=== PATIENT | male | born 1945 | race Caucasian/White ===

== ENCOUNTER 2020-08-23 08:07 | Inpatient (IN) | payer MEDICARE, OTHER, SELFPAY ==
[2020-08-23] VITALS (8 sets, daily range): BP systolic 151–180; BP diastolic 67–130; PULSE 62–75; RESP 12–20; TEMP 36–36.9; O2SAT 95–99; BMI 21.6
--- NOTE | ~2020-08-23 | CT_ITS ---
EXAMINATION: CHEST X-RAY CLINICAL INFORMATION: Stroke like symptoms COMPARISON: Previous chest x-ray June 2014 TECHNIQUE: AP chest FINDINGS: The cardiac and mediastinal contours are normal. The lungs are clear. There is no pleural effusion or pneumothorax. There are degenerative changes at the shoulder joints. Bony structures are otherwise unremarkable. CT/CT head for stroke IMPRESSION: No evidence for acute disease in the chest. EXAMINATION: Head CT without contrast CLINICAL INFORMATION: Stroke. Left-sided weakness. COMPARISON: Previous head CT 08/12/2019 TECHNIQUE: Axial images through the brain without contrast. Sagittal and coronal reconstructed on the technologist workstation were performed. Patient dose 6 4 3 mgy per centimeter. FINDINGS: There is no evidence of an extra-axial collection. There is no evidence of intra-axial or extra-axial hemorrhage. The ventricles and extra-axial CSF spaces are appropriate. There is mild nonspecific periventricular white matter disease. No mass, mass effect or infarct is seen. Review at bone windows is normal. No skull fracture is seen. Visualized paranasal sinuses, mastoid air cells and middle ears are clear. IMPRESSION: No acute findings. Mild nonspecific periventricular white matter disease. Findings are communicated to Dr. Green by telephone on 08/23/2020 at 8:30 AM.
--- NOTE | ~2020-08-23 | CT_ITS ---
EXAMINATION: CT angio head neck stroke CLINICAL INFORMATION: Left-sided deficits. COMPARISON: CT scan of the head 08/23/2020. 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 A CT angiogram of the head and neck was performed in the arterial phase after the intravenous administration of 70 mL Omnipaque 350. Pre and delayed postcontrast images of the head were also obtained. MIP reconstructions were generated in multiple orientations at the acquisition workstation. Multiple three-dimensional surface rendered images and maximum intensity projection images were generated on a dedicated 3-D lab workstation. Arterial stenoses are measured in accordance with NASCET criteria or similar method if applicable. This CT examination was performed using dose optimization techniques as appropriate, including one or more of the following: Automated exposure control, iterative reconstruction, and adjustment of technique factors (mA and/or kVp) according to patient size (this includes techniques or standardized protocols for targeted exams where dose is matched to indication/reason for exam). Total exam dose-length product 1466 mGy-cm FINDINGS: Head: There is no abnormal intracranial mass or enhancement. No abnormal extra axial collection. No intracranial mass effect or midline shift. Lateral and third ventricles are normal. No hydrocephalus. A few scattered nonspecific foci of hypoattenuation are visualized within the periventricular white matter. Carranza-white matter differentiation is otherwise preserved and there is no evidence of acute territorial infarct. The calvarium and skull base are intact. Mastoid air cells and middle ear cavities are well aerated. Mild mucosal thickening within the right maxillary sinus and ethmoid air cells. CT angiogram neck: Scattered atheromatous calcification involves the aortic arch apex. Origins of major aortic branches are widely patent. Common carotid arteries are normal. Partially calcified atheromatous plaque involves both carotid bifurcations. No stenosis of the extra cranial internal carotid arteries. Cervical segments of the vertebral arteries as well as their origins are patent. CT angiogram head: Intracranial internal carotid arteries are patent. There is a small laterally projecting contour abnormality involving the cavernous segment of the left internal carotid artery best depicted on axial image 268 of [id number] series 6 measuring 1 mm from base apex that may represent a small plaque ulceration or shallow aneurysm. Intradural vertebral artery segments and basilar artery are patent. Anterior, middle, and posterior cerebral artery complexes are normal. No high-grade stenosis or proximal occlusion is visualized within the intracranial vessels. Other: Soft tissues of the neck including the thyroid gland are normal. Visualized lung apices are clear. There is no acute osseous finding. CT/CT angio head neck stroke IMPRESSION: Partially calcified atheromatous plaque involves both carotid bifurcations. No stenosis of the cervical carotid or vertebral arteries. No intracranial large vessel occlusion. There is a small laterally projecting contour abnormality involving the cavernous segment of left internal carotid artery measuring 1 mm from base apex that may either represent a plaque ulceration or a shallow aneurysm. There are a few scattered chronic small vessel ischemic changes within the periventricular white matter. No evidence of acute territorial infarct. No abnormal intracranial mass or enhancement. This critical result was discussed with Lorie Vaughn MD at 8:59 AM on 08/23/2020 and it was ascertained that the content and urgency of the report was understood at the time of direct communication.
--- NOTE | ~2020-08-23 | MR_ITS ---
EXAMINATION: MR BRAIN WITHOUT CONTRAST CLINICAL INFORMATION: Transient ischemic attack. Stroke. COMPARISON: CTA head and neck from 08/23/2020. TECHNIQUE: MRI of the brain was obtained using routine sequences without contrast. FINDINGS: Patchy regions of restricted diffusion in the right mesial temporal lobe and right lentiform nucleus consistent with acute ischemia. Associated T2 FLAIR hyperintensity. No additional focal restricted diffusion. No evidence of acute or chronic hemorrhagic products on heme-sensitive imaging. Scattered periventricular and deep white matter T2 FLAIR hyperintensities consistent with moderate underlying microangiopathy. Chronic lacunar infarcts within the left cerebellar hemisphere. Proportional prominence of the ventricles and sulcal spaces without evidence of obstructive hydrocephalus. No abnormal mass effect. No midline shift. Normal appearance of the pituitary gland. No abnormalities of the posterior fossa with normal appearance of the brainstem and cerebellum. Normal arterial and venous vascular flow voids are present. Normal, homogeneous marrow signal. Moderate degenerative spondyloarthropathy of the visualized upper cervical spine. Mild mucosal thickening of the paranasal sinuses. Right maxillary atelectasis. Leftward nasal septal deviation with spurring. MR/MR head/brain wo con IMPRESSION: 1. Patchy acute infarcts within the right mesial temporal lobe and right lentiform nucleus. 2. Moderate underlying microangiopathy. Chronic lacunar infarcts of the left cerebellar hemisphere. Mild generalized cerebral volume loss.
--- NOTE | 2020-08-23 08:11 | ED.NEUROSD ---
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 Mode of arrival: ambulatory Limitations: no limitations History of Present Illness HPI Narrative: 75 yo male with hx of HTN, HLD, DM here with L sided weakness, slurred speech, dizziness last known normal yesterday but notes he was dizzy yesterday at 3am woke up and noted his entire L side was weak and he had difficulty speaking, his states he fell on the floor, she begged him to come to the ED but he refused until his son spoke to him this AM Onset (ago): hour(s) (woke up at 3am with symptoms, last seen normal yesterday) Timing confirmed by: family member Location: speech, left face, left arm, left leg and ataxia History of same: No Severity: severe Quality: weak and constant Relieving factors: none Exacerbating factors: none Context: sudden onset On Anticoagulants: No Associated symptoms: weakness and other (dizziness, blurred vision) Treatments Prior to Arrival: none Related Data Home Medications Medication Instructions Recorded Confirmed aspirin 1 tab PO DAILY 08/23/20 08/23/20 cyanocobalamin (vitamin B-12) 1 tab PO DAILY 08/23/20 08/23/20 duloxetine 1 cap PO DAILY 08/23/20 08/23/20 famotidine [Pepcid AC] 20 mg PO DAILY PRN 08/23/20 08/23/20 ferrous sulfate 1 tab PO DAILY 08/23/20 08/23/20 glipizide 1 tab PO DAILY 08/23/20 08/23/20 lidocaine 1 - 2 patch TOPICAL DAILY PRN 08/23/20 08/23/20 lidocaine-prilocaine 1 appl TOPICAL BID PRN 08/23/20 08/23/20 linaclotide [Linzess] 1 cap PO QAM 08/23/20 08/23/20 losartan 1 tab PO DAILY 08/23/20 08/23/20 metformin 1 tab PO BID 08/23/20 08/23/20 olopatadine 1 drp OPHTHALMIC (EYE) BID PRN 08/23/20 08/23/20 omega-3 acid ethyl esters 1 cap PO BID 08/23/20 08/23/20 simvastatin 1 tab PO BEDTIME 08/23/20 08/23/20 sitagliptin [Januvia] 1 tab PO DAILY 08/23/20 08/23/20 trazodone 0.5 tab PO DAILY PRN 08/23/20 08/23/20 Allergies Allergy/AdvReac Type Severity Reaction Status Date / Time No Known Allergies Allergy Mild NOT Unverified 12/10/19 15:44 APPLICABLE Review of Systems Review of Systems: Constitutional : No Weight loss, No Fever, No Chills, No Fatigue, No Malaise ENT/Mouth : No sore throat, No Rhinorrhea Eyes: No Eye Pain, No Swelling, No Redness, pos blurry vision Cardiovascular : No Chest Pain, No SOB, No Dyspnea on Exertion, No Orthopnea, No Edema, No Palpitations Respiratory : No Cough, No Sputum, No Wheezing Gastrointestinal : No Nausea, No Vomiting, No Diarrhea, No Constipation, No abdominal Pain, No Hematochezia, No Melena Genitourinary : No Dysuria, No Urinary Frequency, No Hematuria, Musculoskeletal : No joint pain, No Myalgias, No Joint Swelling Skin : No Skin Lesions, No rash Neuro : pos Weakness, No Numbness, pos Dizziness, No Headache Psych : No Anxiety/Panic, No Depression Heme/Lymph: No Bruising, No Bleeding,No Lymphadenopathy Endocrine : No Polyuria, No Polydipsia All other systems reviewed and are negative [facility] Past Medical History Attestation statement: The following information was validated with the patient. Source: old records reviewed Medical History (Updated 08/23/20 @ 09:00 by Lorie Green DO) Bronchitis Diabetes HLD (hyperlipidemia) Surgical History History of intestinal surgery Social History Social History (Updated 08/23/20 @ 08:12 by Lorie Green DO) Patient Tobacco Use Status: Former Tobacco user Use of substances other than those prescribed or required for medical reasons: No Advance Directives: Yes Advance Directives Information Provided: Yes Advance Directives on File: No Physical Exam Vital Signs: Vital Signs: Last Vital Signs Temp 98.0 F 08/23/20 08:43 Pulse 75 08/23/20 11:50 Resp 13 08/23/20 09:09 BP 156/67 H 08/23/20 11:50 Pulse Ox 95 08/23/20 09:09 Body Mass Index 21.6 Appearance: Alert. Oriented X3. Anxious, mild acute distress. Eyes: Pupils equal, round and reactive to light. ENT: Pharynx normal. Neck: Normal inspection. Neck supple. CVS: Normal heart rate and rhythm. Pulses normal. Respiratory: No respiratory distress. Breath sounds normal. Abdomen: Soft and nontender. Skin: Skin warm and dry. Normal skin color. Normal skin turgor. Extremities: No lower extremity edema. No calf ttp Neuro: Oriented X 3. L sided hemiparesis with drift 4/5, moderate dysarthria. No sensory deficit. Course Course Course Narrative: call from Radiology 831am - no ICH, no acute findins. call from Radiology regarding CTA 859am - negative for LVO, no hemorrhage 500cc bolus given kidney function at this time admitted by hospitalist, going to MRI MDM - Neuro Symptoms/Deficit MDM Narrative Medical decision making narrative: 75 yo male with hx of HTN, HLD, DM here with L sided weakness, slurred speech, dizziness last known normal yesterday but notes he was dizzy yesterday at 3am woke up and noted his entire L side was weak and he had difficulty speaking, his states he fell on the floor, she begged him to come to the ED but he refused until his son spoke to him this AM at this time concerning for stroke - he unfortunately presented 5 + hours after the onset so he is not a candidate for tPa - labs, CT head/CTA for possible thrombectomy discussed with patient and concerns. admit vs transfer to [facility] [place] Lab Data Result diagrams: 08/23/20 08:31 08/23/20 08:31 Labs: Lab Results 08/23/20 08/23/20 08/23/20 Range/Units 08:22 08:24 08:31 WBC 7.3 (4.8-10.8) X10*3/uL RBC 3.94 L (4.60-5.80) X10*6/uL Hgb 11.0 L (14.0-18.0) g/dl Hct 34.9 L (42-52) % MCV 88.6 (80-98) fL MCH 27.9 (27.0-33.0) pg MCHC 31.5 (31.0-36.0) g/dl RDW 14.2 (11.0-16.0) % Plt Count 228 (160-400) X10*3/uL MPV 9.2 L (9.4-12.4) fL Immature Gran % (Auto) 0.4 (0.0-0.4) % Neut % (Auto) 46.6 (45-73) % Lymph % (Auto) 43.1 H (20-40) % [place] % (Auto) 8.8 (2-11) % Eos % (Auto) 0.8 (0-4) % Baso % (Auto) 0.3 (0-2) % Lymph # (Auto) 3.1 (1.2-4.9) X10*3/uL [place] # (Auto) 0.6 (0.1-1.2) X10*3/uL Eos # (Auto) 0.1 (0.0-0.4) X10*3/uL Baso # (Auto) 0.0 (0.0-0.2) X10*3/uL Abs Immat Gran (auto) 0.03 (0.00-0.03) X10*3/uL Absolute Neuts (auto) 3.4 (2.0-8.3) X10*3/uL Absolute Nucleated RBC 0.000 (0.0-0.012) X10*3/uL Nucleated RBC % (auto) 0.0 (0.0-0.2) /100WBC PT (10.8-13.0) SEC Whole Blood PT 11.1 (11.1-13.5) sec INR (0.9-1.1) Whole Blood INR 0.9 (0.9-1.1) APTT (24.1-38.0) SEC Sodium (135-145) mmol/L Potassium (3.3-5.1) mmol/L Chloride (96-108) mmol/L Carbon Dioxide (22-29) mmol/L Anion Gap (12-20) BUN (9-16) mg/dL Creatinine (0.5-1.4) mg/dL Estim Creat Clear Calc Estimated GFR POC Glucose 107 (60-115) mg/dL Random Glucose (60-115) mg/dL Calcium (8.4-10.2) mg/dL Magnesium (1.6-2.6) mg/dL Total Bilirubin (0.0-1.0) mg/dL Direct Bilirubin (0.0-0.5) mg/dL AST (5-37) U/L ALT (0-40) U/L Alkaline Phosphatase (39-117) U/L Troponin I High Sens (<3.5-35.0) ng/L Total Protein (6.5-8.0) g/dL Albumin (3.5-5.0) g/dL COVID-19 (DAY) (Negative) COVID-19 Clin Com 08/23/20 08/23/20 08/23/20 Range/Units 08:31 08:31 08:31 WBC (4.8-10.8) X10*3/uL RBC (4.60-5.80) X10*6/uL Hgb (14.0-18.0) g/dl Hct (42-52) % MCV (80-98) fL MCH (27.0-33.0) pg MCHC (31.0-36.0) g/dl RDW (11.0-16.0) % Plt Count (160-400) X10*3/uL MPV (9.4-12.4) fL Immature Gran % (Auto) (0.0-0.4) % Neut % (Auto) (45-73) % Lymph % (Auto) (20-40) % [place] % (Auto) (2-11) % Eos % (Auto) (0-4) % Baso % (Auto) (0-2) % Lymph # (Auto) (1.2-4.9) X10*3/uL [place] # (Auto) (0.1-1.2) X10*3/uL Eos # (Auto) (0.0-0.4) X10*3/uL Baso # (Auto) (0.0-0.2) X10*3/uL Abs Immat Gran (auto) (0.00-0.03) X10*3/uL Absolute Neuts (auto) (2.0-8.3) X10*3/uL Absolute Nucleated RBC (0.0-0.012) X10*3/uL Nucleated RBC % (auto) (0.0-0.2) /100WBC PT 10.4 L (10.8-13.0) SEC Whole Blood PT (11.1-13.5) sec INR 0.9 (0.9-1.1) Whole Blood INR (0.9-1.1) APTT 30.3 (24.1-38.0) SEC Sodium 139 (135-145) mmol/L Potassium 4.3 (3.3-5.1) mmol/L Chloride 106 (96-108) mmol/L Carbon Dioxide 25 (22-29) mmol/L Anion Gap 12 (12-20) BUN 24 H (9-16) mg/dL Creatinine 1.90 H (0.5-1.4) mg/dL Estim Creat Clear Calc 29.7 Estimated GFR 35 POC Glucose (60-115) mg/dL Random Glucose 117 H (60-115) mg/dL Calcium 9.6 (8.4-10.2) mg/dL Magnesium 2.2 (1.6-2.6) mg/dL Total Bilirubin 0.2 (0.0-1.0) mg/dL Direct Bilirubin < 0.2 (0.0-0.5) mg/dL AST 17 (5-37) U/L ALT 18 (0-40) U/L Alkaline Phosphatase 51 (39-117) U/L Troponin I High Sens < 3.5 (<3.5-35.0) ng/L Total Protein 7.0 (6.5-8.0) g/dL Albumin 4.4 (3.5-5.0) g/dL COVID-19 (DAY) (Negative) COVID-19 Clin Com 08/23/20 Range/Units 08:31 WBC (4.8-10.8) X10*3/uL RBC (4.60-5.80) X10*6/uL Hgb (14.0-18.0) g/dl Hct (42-52) % MCV (80-98) fL MCH (27.0-33.0) pg MCHC (31.0-36.0) g/dl RDW (11.0-16.0) % Plt Count (160-400) X10*3/uL MPV (9.4-12.4) fL Immature Gran % (Auto) (0.0-0.4) % Neut % (Auto) (45-73) % Lymph % (Auto) (20-40) % [place] % (Auto) (2-11) % Eos % (Auto) (0-4) % Baso % (Auto) (0-2) % Lymph # (Auto) (1.2-4.9) X10*3/uL [place] # (Auto) (0.1-1.2) X10*3/uL Eos # (Auto) (0.0-0.4) X10*3/uL Baso # (Auto) (0.0-0.2) X10*3/uL Abs Immat Gran (auto) (0.00-0.03) X10*3/uL Absolute Neuts (auto) (2.0-8.3) X10*3/uL Absolute Nucleated RBC (0.0-0.012) X10*3/uL Nucleated RBC % (auto) (0.0-0.2) /100WBC PT (10.8-13.0) SEC Whole Blood PT (11.1-13.5) sec INR (0.9-1.1) Whole Blood INR (0.9-1.1) APTT (24.1-38.0) SEC Sodium (135-145) mmol/L Potassium (3.3-5.1) mmol/L Chloride (96-108) mmol/L Carbon Dioxide (22-29) mmol/L Anion Gap (12-20) BUN (9-16) mg/dL Creatinine (0.5-1.4) mg/dL Estim Creat Clear Calc Estimated GFR POC Glucose (60-115) mg/dL Random Glucose (60-115) mg/dL Calcium (8.4-10.2) mg/dL Magnesium (1.6-2.6) mg/dL Total Bilirubin (0.0-1.0) mg/dL Direct Bilirubin (0.0-0.5) mg/dL AST (5-37) U/L ALT (0-40) U/L Alkaline Phosphatase (39-117) U/L Troponin I High Sens (<3.5-35.0) ng/L Total Protein (6.5-8.0) g/dL Albumin (3.5-5.0) g/dL COVID-19 (DYA) Negative (Negative) COVID-19 Clin Com See Note ECG Data Attestation: I personally reviewed and interpreted this ECG as follows: ECG interpretation date: 08/23/20 ECG interpretation time: 08:46 Interpretation: Rate: 74 Rhythm: NSR [place]: normal Normal P waves. Normal JONY. Normal QRS complex. ST T wave : normal no [place] qTC: normal prior studies: no acute ischemia The study has been interpreted contemporaneously by me. . NIH Stroke Scale Internal: Initial- Upon Arrival Level of Consciousness: Alert Level of Consciousness Questions: Answers both questions correctly Level of Consciousness Commands: Performs both tasks correctly Best Gaze: Normal Visual: Partial hemianopia Facial Palsy: Partial paralysis Motor Arm (Right): No drift Motor Arm (Left): Drift Motor Leg (Right): No drift Motor Leg (Left): Drift Limb Ataxia: Absent Sensory: Normal Best Language: No aphasia Dysarthia: Mild to moderate dysarthria Extinction and Inattention: No abnormality Score: 6 Critical Care Time Critical Care Time Critical Care Time: Yes Total Critical Care Time: 35 Attestation: review of old records, discussion with family, stroke stat protocol repeat assesments I attest to this time spent taking care of the patient Discharge Plan Discharge Clinical Impression: Cerebrovascular accident Qualifiers: CVA mechanism: unspecified Qualified Code(s): I63.9 - Cerebral infarction, unspecified Patient Disposition: Admitted As Inpatient
--- NOTE | 2020-08-23 08:16 | ECG_ITS ---
Test Reason : STROKE Blood Pressure : / mmHG Vent. Rate : 074 BPM Atrial Rate : 074 BPM P-R Int : 142 ms QRS Dur : 070 ms QT Int : 372 ms P-R-T Axes : 048 018 018 degrees QTc Int : 412 ms Normal sinus rhythm Normal ECG When compared with ECG of 12-AUG-2019 10:42, No significant change was found Referred By: Lorie Green Electronically Signed By:Jose Rosen
[2020-08-23 08:28] LABS: Glucose, Whole Blood 107 mg/dL (60-115)
[2020-08-23 08:28] LABS: Prothrombin Time Whole Bld POC 11.1 sec (11.1-13.5); ~PT, ~INR - Anti Coag Clinic 0.9 (0.9-1.1)
[2020-08-23 08:37] LABS: MANUAL DIFF FLAG NO
[2020-08-23 08:40] LABS: Basophils Percent Auto 0.3 % (0-2); Eosinophils Absolute Auto 0.1 X10*3/uL (0.0-0.4); Eosinophils Percent Auto 0.8 % (0-4); Hematocrit 34.9 % (42-52); Imm Gran Abs Auto 0.03 X10*3/uL (0.00-0.03); Imm Gran Pct Auto 0.4 % (0.0-0.4); Lymphocytes Absolute Auto 3.1 X10*3/uL (1.2-4.9); Lymphocytes Percent Auto 43.1 % (20-40); Mean Corpuscular HGB Conc 31.5 g/dl (31.0-36.0); Mean Corpuscular Hemoglobin 27.9 pg (27.0-33.0); Mean Corpuscular Volume 88.6 fL (80-98); Mean Platelet Volume 9.2 fL (9.4-12.4); Monocytes Absolute Auto 0.6 X10*3/uL (0.1-1.2); Monocytes Percent Auto 8.8 % (2-11); Neutrophils Absolute Auto 3.4 X10*3/uL (2.0-8.3); Neutrophils Percent Auto 46.6 % (45-73); Platelet Count 228 X10*3/uL (160-400); Red Blood Count 3.94 X10*6/uL (4.60-5.80); Red Cell Distribution Width 14.2 % (11.0-16.0); White Blood Count 7.3 X10*3/uL (4.8-10.8)
[2020-08-23 08:45] LABS: INTERNATIONAL NORM RATIO 0.9 (0.9-1.1); Prothrombin Time 10.4 SEC (10.8-13.0)
[2020-08-23 08:48] LABS: Partial Thromboplastin Time 30.3 SEC (24.1-38.0)
[2020-08-23] MEDS: iohexoL 350 MG/ML 100 ML INFUS..BTL 70 ML IV (08:56)
[2020-08-23 09:09] LABS: Troponin-I High Sensitivity < 3.5 ng/L (<3.5-35.0)
[2020-08-23 09:10] LABS: Alanine Aminotransferase 18 U/L (0-40); Albumin Level 4.4 g/dL (3.5-5.0); Alkaline Phosphatase 51 U/L (39-117); Anion Gap 12 (12-20); Aspartate Amino Transferase 17 U/L (5-37); Bilirubin Direct < 0.2 mg/dL (0.0-0.5); Bilirubin Total 0.2 mg/dL (0.0-1.0); Blood Urea Nitrogen 24 mg/dL (9-16); Calcium 9.6 mg/dL (8.4-10.2); Carbon Dioxide 25 mmol/L (22-29); Chloride 106 mmol/L (96-108); Creatinine Clr Calc Pharmacy 29.7; Estimated Glomerular Filt Rate 35; Glucose Random 117 mg/dL (60-115); Magnesium 2.2 mg/dL (1.6-2.6); Potassium 4.3 mmol/L (3.3-5.1); Sodium 139 mmol/L (135-145)
[2020-08-23] MEDS: Aspirin 325 MG TABLET PO (09:11)
--- NOTE | 2020-08-23 09:16 | HE.PHANOTE ---
Med Red completed via Rx fill history and assistance from family/spouse.
[2020-08-23] MEDS: 0.9 % Sodium Chloride 500 ML IV (09:24)
[2020-08-23 11:11] LABS: COVID-19 Test Negative (Negative)
--- NOTE | 2020-08-23 11:49 | PC.NURSE ---
pt seen by CIRCLE EDGER for admission. per family they were told its ok for patient to eat. family brought sandwich in for patient. patient did pass swallow eval earlier.
--- NOTE | 2020-08-23 12:30 | MHC.STROKE ---
Addendum entered by Inessa Stoll RN 08/24/20 14:29: I MET WITH THE PATIENT AND HIS TODAY TO REINFORCE STROKE EDUCATION. I USED POWER POINT SLIDES, AND MRI SCREEN SHOT TO REVIEW THE LOCATION AND ETIOLOGY OF HIS STROKE. WE DISCUSSED EMBOLIC STROKE AND HOW THAT HAPPENS, BLOOOD PRESSURE CONTROL, REHAB NEEDS. I ANSWERED ALL OF THEIR QUESTIONS. Addendum entered by Inessa Stoll RN 08/24/20 13:08: I FOLLOWED UP WITH DR THOMAS REGARDING HIS RECOMMENDATIONS. HE WOULD RECOMMEND AN OUTPATIENT HOLTER MONITOR R/O AFIB EMBOLIC STROKE, KEEP BP AT HIGH NORMAL RANGE SBP 140, ADJUST BLOOD PRESSURE MEDICATIONS ACCORDINGLY. PATIENT CAN BE DISCHARGED TO REHAB TODAY. Original Note: 0807 ARRIVED VIA CAR, LEFT SIDED WEAKNESS, VISION, DROOP, DYSARTHRIA NIHSS = 6. STROKE PROTOCOL ACTIVATED, CT HEAD, NO BLEED, CTA H/N NO LVO. ? RIGHT CORTICAL STROKE. PASSED SWALLOW SCREEN, ASA GIVEN, I MET WITH THE AND PATIENT. LAST KNOWN WELL 08/12/20 AT 1700, DISCOVERY OF SYMPTOMS 08/23/20 AT 0300, THEREFORE EXCLUDED FROM TPA (ALTEPLASE) ALSO NOT A CANDIDATE FOR THROMBECTOMY RETRIEVAL. HE HAD GONE TO A [facility] YESTERDAY, FELT DIZZY AROUND 1600 BUT NO LEFT SIDED WEAKNESS. WENT TO BED AT 1700, THAT IS HIS NORMAL TIME TO GO TO BED, IS UNAWARE IF HE GOT UP BETWEEN 1700 AND 0300 BECAUSE THEY SLEEP IN SEPARATE ROOMS. SHE HEARD HIM AT 0300 STUMBLING AROUND. HE WOULD NOT COME TO THE HOSPITAL UNTIL 0800. I PROVIDED STROKE EDUCATION AND I EXPLAINED THE PLAN OF CARE. I WILL CONTINUE TO FOLLOW.
--- NOTE | 2020-08-23 12:44 | P.HPHOSP_ITS ---
History of Present Illness Date of Service: 08/23/20 <Carolyne Alegria NP - Last Filed: 08/23/20 16:52> Chief Complaint: Weakness <Carolyne Alegria NP - Last Filed: 08/23/20 16:52> 75-year-old Syriac male complaints of left-sided weakness, slurred speech and dizziness that he woke up with. Apparently patient had been in his normal state of health yesterday. He woke up at 03:00 o'clock this morning with the symptoms. 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 Apparently he had an 1 come to the ER but does family convinced him to. His daughter was present during the interview. Patient denied chest pain, shortness of breath, nausea, vomiting, diarrhea, visual changes, headache, fall, loss of consciousness, history of CVA or cardiac disease. He reported weakness to his left upper and lower extremities that are improving. Head CTA was negative for any acute occlusion, chest x-ray negative for consolidation effusion. He received a full dose aspirin in the ER IV fluid. Renal function was a little bit worsened previous however it appears that he has history of CKD. Vital signs stable. Patient placed on observation for TIA versus stroke. <Carolyne Alegria NP - Last Filed: 08/23/20 16:52> Review of Systems Review of Systems: Denies any recent fever chills or decrease in appetite respiratory denies any shortness of breath coverage production cardiovascular Denies chest pain gastrointestinal denies any dysphagia abdominal pain nausea vomiting or diarrhea genitourinary denies any dysuria frequency or hematuria musculoskeletal denies any joint pain or swelling neuropsych see HPI all other systems reviewed are negative <Carolyne Alegria NP - Last Filed: 08/23/20 16:52> [facility], [facility] Medical History: Medical History (Updated 08/23/20 @ 09:00 by Lorie Green DO) Bronchitis Diabetes HLD (hyperlipidemia) <Carolyne Alegria NP - Last Filed: 08/23/20 16:52> Pertinent family history: no cardiac disease <Carolyne Alegria NP - Last Filed: 08/23/20 16:52> Surgical History: Surgical History History of intestinal surgery <Carolyne Alegria NP - Last Filed: 08/23/20 16:52> Social History: Social History (Updated 08/23/20 @ 08:12 by Lorie Green DO) Patient Tobacco Use Status: Former Tobacco user Tobacco use type: Cigarette Use of substances other than those prescribed or required for medical reasons: No Advance Directives: Yes Advance Directives Information Provided: Yes Advance Directives on File: No Advance Directives Date on File: 08/23/20 <Carolyne Alegria NP - Last Filed: 08/23/20 16:52> Meds Allergies/Adverse reactions: Allergies Allergy/AdvReac Type Severity Reaction Status Date / Time No Known Allergies Allergy Mild NOT Unverified 12/10/19 15:44 APPLICABLE <Carolyne Alegria NP - Last Filed: 08/23/20 16:52> Active Medications: Current Medications Generic Name Dose Route Start Last Admin Trade Name Freq PRN Reason Stop Dose Admin Acetaminophen 650 mg 08/23/20 12:38 Acetaminophen 325 Mg Tablet PO Q6H PRN Pain, Mild (Pain Scale 1-3) Aspirin 81 mg 08/24/20 09:00 Aspirin Enteric Coated 81 Mg Tablet. PO DAILY [facility] Atorvastatin Calcium 40 mg 08/23/20 21:00 Atorvastatin Calcium 40 Mg Tablet PO BEDTIME [facility] Cyanocobalamin mcg 08/24/20 09:00 Cyanocobalamin (Vitamin B-12) 1,000 Mcg Tablet PO DAILY [facility] Duloxetine HCl 60 mg 08/24/20 09:00 Duloxetine Hcl 60 Mg Capsule. PO DAILY [facility] Enoxaparin Sodium 40 mg 08/23/20 12:45 Enoxaparin Sodium 40 Mg/0.4 Ml Syringe SUBCUT Q24H [facility] Famotidine 20 mg 08/23/20 12:38 Famotidine 20 Mg Tablet PO DAILY PRN Heartburn Glipizide 5 mg 08/24/20 09:00 Glipizide Xl 5 Mg Tab.Er.24 PO DAILY [facility] Losartan Potassium 100 mg 08/24/20 09:00 Losartan Potassium 50 Mg Tablet PO DAILY [facility] Protocol Metformin HCl mg 08/23/20 21:00 Metformin Hcl 1,000 Mg Tablet PO BID [place] Non-Formulary Medication 1 tab 08/24/20 09:00 Ferrous Sulfate PO DAILY [facility] Non-Formulary Medication 1 - 2 patch 08/23/20 12:38 Lidocaine TOPICAL DAILY PRN Pain Non-Formulary Medication 1 appl 08/23/20 12:38 Lidocaine-Prilocaine TOPICAL BID PRN pain Non-Formulary Medication 1 cap 08/23/20 12:45 Linaclotide [Linzess] PO QAM [place] Non-Formulary Medication 1 drop 08/23/20 12:38 Olopatadine EYE-BOTH BID PRN allergies Non-Formulary Medication 1 cap 08/23/20 21:00 [place]-3 Acid Ethyl Esters PO BID [place] Ondansetron HCl 4 mg 08/23/20 12:38 Ondansetron Hcl 4 Mg/2 Ml Vial IVPUSH Q8H PRN Nausea and Vomiting Pharmacy Consult 1 each 08/23/20 08:15 Consult Rx Perform Med Rec MISCELLANE ONCE PRN Consult order Sitagliptin Phosphate 100 mg 08/24/20 09:00 Sitagliptin Phosphate 100 Mg Tablet PO DAILY [facility] Sodium Chloride 3 ml 08/23/20 16:00 0.9 % Sodium Chloride Flush 3 Ml Syringe IVFLUSH QSHIFT [place] Trazodone HCl 25 mg 08/23/20 12:38 Trazodone Hcl 25 Mg Halftab PO DAILY PRN pain <Carolyne Alegria NP - Last Filed: 08/23/20 16:52> Home medications: Home Medications Medication Instructions Recorded Confirmed Last Taken Type aspirin 1 tab PO DAILY 08/23/20 08/23/20 08/22/20 History cyanocobalamin (vitamin B-12) 1 tab PO DAILY 08/23/20 08/23/20 08/22/20 History duloxetine 1 cap PO DAILY 08/23/20 08/23/20 08/22/20 History famotidine [Pepcid AC] 20 mg PO DAILY PRN 08/23/20 08/23/20 Unknown History ferrous sulfate 1 tab PO DAILY 08/23/20 08/23/20 08/22/20 History glipizide 1 tab PO DAILY 08/23/20 08/23/20 08/22/20 History lidocaine 1 - 2 patch TOPICAL DAILY PRN 08/23/20 08/23/20 Unknown History lidocaine-prilocaine 1 appl TOPICAL BID PRN 08/23/20 08/23/20 Unknown History linaclotide [Linzess] 1 cap PO QAM 08/23/20 08/23/20 08/22/20 History losartan 1 tab PO DAILY 08/23/20 08/23/20 08/22/20 History metformin 1 tab PO BID 08/23/20 08/23/20 08/22/20 History olopatadine 1 drp OPHTHALMIC (EYE) BID PRN 08/23/20 08/23/20 Unknown History omega-3 acid ethyl esters 1 cap PO BID 08/23/20 08/23/20 08/22/20 History simvastatin 1 tab PO BEDTIME 08/23/20 08/23/20 08/22/20 History sitagliptin [Januvia] 1 tab PO DAILY 08/23/20 08/23/20 08/22/20 History trazodone 0.5 tab PO DAILY PRN 08/23/20 08/23/20 Unknown History <Carolyne Alegria NP - Last Filed: 08/23/20 16:52> Physical Exam Vital Signs and Narrative: Vital Signs: Last Vital Signs Temp 98.0 F 08/23/20 08:43 Pulse 75 08/23/20 11:50 Resp 13 08/23/20 09:09 BP 156/67 H 08/23/20 11:50 Pulse Ox 95 08/23/20 09:09 Body Mass Index 21.6 <Carolyne Alegria NP - Last Filed: 08/23/20 16:52> Appearing in no acute distress head is normocephalic atraumatic eyes pupils are PERRLA sclera is anicteric mouth throat mucous membranes are intact and moist neck is supple no lymphadenopathy, no JVD noted lung sounds are clear to auscultation heart regular rate rhythm, clear S1, S2 positive bowel sounds, abdomen is soft, nontender neuro patient is alert x3, left upper and lower extremity 4/5 strength and improving no slurred speech or facial droop noted <Carolyne Alegria NP - Last Filed: 08/23/20 16:52> Results Labs CBC and Chem 7: : 08/23/20 08:31 08/23/20 08:31 <Carolyne Alegria NP - Last Filed: 08/23/20 16:52> Labs: Laboratory Results - last 24 hr 08/23/20 08/23/20 08/23/20 08:22 08:24 08:31 MCV 88.6 MCH 27.9 MCHC 31.5 RDW 14.2 Plt Count 228 MPV 9.2 L Immature Gran % (Auto) 0.4 Neut % (Auto) 46.6 Lymph % (Auto) 43.1 H [place] % (Auto) 8.8 Eos % (Auto) 0.8 Baso % (Auto) 0.3 Lymph # (Auto) 3.1 [place] # (Auto) 0.6 Eos # (Auto) 0.1 Baso # (Auto) 0.0 Abs Immat Gran (auto) 0.03 Absolute Neuts (auto) 3.4 Absolute Nucleated RBC 0.000 Nucleated RBC % (auto) 0.0 PT Whole Blood PT 11.1 INR Whole Blood INR 0.9 APTT Anion Gap Estim Creat Clear Calc Estimated GFR POC Glucose 107 Random Glucose Calcium Magnesium Total Bilirubin Direct Bilirubin AST ALT Alkaline Phosphatase Troponin I High Sens Total Protein Albumin COVID-19 (DAY) COVID-19 [email or web address] 08/23/20 08/23/20 08/23/20 08:31 08:31 08:31 MCV MCH MCHC RDW Plt Count MPV Immature Gran % (Auto) Neut % (Auto) Lymph % (Auto) [place] % (Auto) Eos % (Auto) Baso % (Auto) Lymph # (Auto) [place] # (Auto) Eos # (Auto) Baso # (Auto) Abs Immat Gran (auto) Absolute Neuts (auto) Absolute Nucleated RBC Nucleated RBC % (auto) PT 10.4 L Whole Blood PT INR 0.9 Whole Blood INR APTT 30.3 Anion Gap 12 Estim Creat Clear Calc 29.7 Estimated GFR 35 POC Glucose Random Glucose 117 H Calcium 9.6 Magnesium 2.2 Total Bilirubin 0.2 Direct Bilirubin < 0.2 AST 17 ALT 18 Alkaline Phosphatase 51 Troponin I High Sens < 3.5 Total Protein 7.0 Albumin 4.4 COVID-19 (DAY) COVID-19 [email or web address] 08/23/20 08:31 MCV MCH MCHC RDW Plt Count MPV Immature Gran % (Auto) Neut % (Auto) Lymph % (Auto) [place] % (Auto) Eos % (Auto) Baso % (Auto) Lymph # (Auto) [place] # (Auto) Eos # (Auto) Baso # (Auto) Abs Immat Gran (auto) Absolute Neuts (auto) Absolute Nucleated RBC Nucleated RBC % (auto) PT Whole Blood PT INR Whole Blood INR APTT Anion Gap Estim Creat Clear Calc Estimated GFR POC Glucose Random Glucose Calcium Magnesium Total Bilirubin Direct Bilirubin AST ALT Alkaline Phosphatase Troponin I High Sens Total Protein Albumin COVID-19 (DAY) Negative COVID-19 Clin Com See Note <Carolyne Alegria, [employer]CH[employer]IC [employer] - Last Filed: 08/23/20 16:52> Imaging Radiologist's Impressions: Impressions Head CT 08/23/20 08:15 IMPRESSION: No evidence for acute disease in the chest. EXAMINATION: Head CT without contrast CLINICAL INFORMATION: Stroke. Left-sided weakness. COMPARISON: Previous head CT 08/12/2019 TECHNIQUE: Axial images through the brain without contrast. Sagittal and coronal reconstructed on the technologist workstation were performed. Patient dose 6 4 3 mgy per centimeter. FINDINGS: There is no evidence of an extra-axial collection. There is no evidence of intra-axial or extra-axial hemorrhage. The ventricles and extra-axial CSF spaces are appropriate. There is mild nonspecific periventricular white matter disease. No mass, mass effect or infarct is seen. Review at bone windows is normal. No skull fracture is seen. Visualized paranasal sinuses, mastoid air cells and middle ears are clear. IMPRESSION: No acute findings. Mild nonspecific periventricular white matter disease. Findings are communicated to Dr. Green by telephone on 08/23/2020 at 8:30 AM. Head/Neck CTA 08/23/20 08:15 IMPRESSION: Partially calcified atheromatous plaque involves both carotid bifurcations. No stenosis of the cervical carotid or vertebral arteries. No intracranial large vessel occlusion. There is a small laterally projecting contour abnormality involving the cavernous segment of left internal carotid artery measuring 1 mm from base apex that may either represent a plaque ulceration or a shallow aneurysm. There are a few scattered chronic small vessel ischemic changes within the periventricular white matter. No evidence of acute territorial infarct. No abnormal intracranial mass or enhancement. This critical result was discussed with Lorie Vaughn MD at 8:59 AM on 08/23/2020 and it was ascertained that the content and urgency of the report was understood at the time of direct communication. Chest X-Ray 08/23/20 08:16 IMPRESSION: No evidence for acute disease in the chest. EXAMINATION: Head CT without contrast CLINICAL INFORMATION: Stroke. Left-sided weakness. COMPARISON: Previous head CT 08/12/2019 TECHNIQUE: Axial images through the brain without contrast. Sagittal and coronal reconstructed on the technologist workstation were performed. Patient dose 6 4 3 mgy per centimeter. FINDINGS: There is no evidence of an extra-axial collection. There is no evidence of intra-axial or extra-axial hemorrhage. The ventricles and extra-axial CSF spaces are appropriate. There is mild nonspecific periventricular white matter disease. No mass, mass effect or infarct is seen. Review at bone windows is normal. No skull fracture is seen. Visualized paranasal sinuses, mastoid air cells and middle ears are clear. IMPRESSION: No acute findings. Mild nonspecific periventricular white matter disease. Findings are communicated to Dr. Green by telephone on 08/23/2020 at 8:30 AM. <Carolyne Alegria NP - Last Filed: 08/23/20 16:52> Assessment and Plan (1) Cerebrovascular accident: Qualifiers: CVA mechanism: unspecified Qualified Code(s): I63.9 - C erebral infarction, unspecified <Carolyne Alegria NP - Last Filed: 08/23/20 16:52> Status: Acute <Carolyne Alegria NP - Last Filed: 08/23/20 16:52> 75-year-old Syriac-speaking male admitted with weakness to his left upper and lower extremities that he woke up with at 03:00 o'clock this morning. TIA versus stroke. Symptoms are improving -Neurology consultation -MRI -echocardiogram -PT/OT -aspirin and statin Diabetes mellitus. -sliding scale, ADA diet CARMEN on CKD. -hold metformin, losartan Hypertension. Stable blood pressure. -hold losartan for now due to CARMEN. Anemia. No signs of bleeding. -continue iron supplementation DVT prophylaxis with renally dosed Lovenox Full code Attending-Dr. Hassan <Carolyne Alegria NP - Last Filed: 08/23/20 16:52> I saw and examined the patient and participated in the fisher portion of the E/M service. I agree with the history and exam as documented by [employer]CH[employer]. Patient likely has acute CVA and was out of windwo for tPA. Will admit as inpatient, will need close monitoring, avoid lowering BP too much in next 48, PT/OT, speech, aspirin, check lipids in the morning, Neuro onsult. Otherwise, I agree with assessment and plan as outlined in the H and P. <Ovi Hassan MD - Last Filed: 08/23/20 17:59>
[2020-08-23 16:35] LABS: Glucose, Whole Blood 159 mg/dL (60-115)
[2020-08-23] MEDS: Insulin Lispro 100 UNIT/ML 3 ML VIAL SUBCUT (17:20)
[2020-08-23] MEDS: 0.9 % Sodium Chloride Flush 3 ML SYRINGE IVFLUSH ×3 (17:20→21:04)
[2020-08-23] MEDS: Enoxaparin Sodium 30 MG/0.3 ML SYRINGE SUBCUT (17:20)
[2020-08-23 20:07] LABS: Glucose, Whole Blood 146 mg/dL (60-115)
[2020-08-23] MEDS: Atorvastatin Calcium 40 MG TABLET PO (20:55)
[2020-08-24 03:40] VITALS: BP 162/74; PULSE 67; RESP 20; TEMP 36.5; O2SAT 99
[2020-08-24 05:51] LABS: MANUAL DIFF FLAG NO
[2020-08-24 05:59] LABS: Hematocrit 34.5 % (42-52); Imm Gran Pct Auto 0.4 % (0.0-0.4); Mean Corpuscular HGB Conc 31.9 g/dl (31.0-36.0); Mean Corpuscular Hemoglobin 28.2 pg (27.0-33.0); Mean Corpuscular Volume 88.5 fL (80-98); Mean Platelet Volume 9.5 fL (9.4-12.4); Neutrophils Percent Auto 60.7 % (45-73); Platelet Count 236 X10*3/uL (160-400); Red Cell Distribution Width 14.5 % (11.0-16.0); White Blood Count 6.7 X10*3/uL (4.8-10.8)
[2020-08-24 06:00] LABS: Basophils Percent Auto 0.1 % (0-2); Eosinophils Absolute Auto 0.1 X10*3/uL (0.0-0.4); Eosinophils Percent Auto 0.7 % (0-4); Imm Gran Abs Auto 0.03 X10*3/uL (0.00-0.03); Lymphocytes Percent Auto 29.9 % (20-40); Monocytes Absolute Auto 0.6 X10*3/uL (0.1-1.2); Monocytes Percent Auto 8.2 % (2-11); Neutrophils Absolute Auto 4.1 X10*3/uL (2.0-8.3)
[2020-08-24 06:22] LABS: Anion Gap 13 (12-20); Blood Urea Nitrogen 25 mg/dL (9-16); Calcium 9.4 mg/dL (8.4-10.2); Carbon Dioxide 24 mmol/L (22-29); Chloride 108 mmol/L (96-108); Cholesterol 168 mg/dL; Estimated Glomerular Filt Rate 35; Glucose Random 153 mg/dL (60-115); HDL Cholesterol 38 mg/dL; LDL Cholesterol Calculated 75 mg/dl; Sodium 140 mmol/L (135-145); Triglycerides 276 mg/dL
[2020-08-24 06:23] LABS: Cholesterol 167 mg/dL; HDL Cholesterol 37 mg/dL; LDL Cholesterol Calculated 76 mg/dl; Triglycerides 273 mg/dL
[2020-08-24 07:19] LABS: Glucose, Whole Blood 142 mg/dL (60-115)
[2020-08-24 09:08] VITALS: BP 184/86; PULSE 73; RESP 20; TEMP 36.3; O2SAT 97
[2020-08-24] MEDS: Aspirin Enteric Coated 81 MG TABLET.DR PO (09:20)
[2020-08-24] MEDS: glipiZIDE XL 5 MG TAB.ER.24 PO (09:20)
[2020-08-24] MEDS: Cyanocobalamin (Vitamin B-12) 1,000 MCG TABLET 1000 MCG PO (09:20)
[2020-08-24] MEDS: SITagliptin Phosphate 100 MG TABLET PO (09:20)
[2020-08-24] MEDS: DULoxetine HCl 60 MG CAPSULE.DR PO (09:20)
[2020-08-24] MEDS: Ferrous Sulfate 324 MG TABLET.DR PO (09:21)
--- NOTE | 2020-08-24 09:21 | P.CNNE_ITS ---
History of Present Illness Data of Consult Service Date: 08/24/20 Primary Care Provider: Unknown Physician 75 years old man with underlying history of diabetes and hyperlipidemia who was at home when his heard a noise and found him on the floor. He was not unconscious and stated that he was fine but his said that he was not. In any case he refused to seek help or come to hospital and went back to bed. Later he was brought to hospital. He had complained of left-sided weakness, which has mostly improved now. Initially there was suspicion of seizure disorder and because of that and the timing issues he was not considered a candidate for intravenous tPA. Now he was feeling better taking his breakfast without any significant symptoms. He denied any previous history of passing out or seizures. Review of Systems Review of Systems: No recent cold or flu-like illness. [facility] Past Medical History Medical History (Updated 08/24/20 @ 09:25 by Ronaldo Duke MD) Bronchitis Diabetes HLD (hyperlipidemia) Surgical History Surgical History History of intestinal surgery Social History Social History (Updated 08/23/20 @ 08:12 by Lorie Green DO) Patient Tobacco Use Status: Former Tobacco user Tobacco use type: Cigarette Use of substances other than those prescribed or required for medical reasons: No Advance Directives: Yes Advance Directives Information Provided: Yes Advance Directives on File: No Advance Directives Date on File: 08/23/20 Meds Allergies Allergy/AdvReac Type Severity Reaction Status Date / Time No Known Allergies Allergy Mild NOT Unverified 12/10/19 15:44 APPLICABLE Active Medications: Current Medications Generic Name Dose Route Start Last Admin Trade Name Lenoq PRN Reason Stop Dose Admin Acetaminophen 650 mg 08/23/20 12:38 Acetaminophen 325 Mg Tablet PO Q6H PRN Pain, Mild (Pain Scale 1-3) Aspirin 81 mg 08/24/20 09:00 08/24/20 09:20 Aspirin Enteric Coated 81 Mg Tablet. PO 81 mg DAILY EASTON Administration Atorvastatin Calcium 40 mg 08/23/20 21:00 08/23/20 20:55 Atorvastatin Calcium 40 Mg Tablet PO 40 mg BEDTIME [facility] Administration Cyanocobalamin 1,000 mcg 08/24/20 09:00 08/24/20 09:20 Cyanocobalamin (Vitamin B-12) 1,000 Mcg Tablet PO 1,000 mcg DAILY E[facility]ON Administration Duloxetine HCl 60 mg 08/24/20 09:00 08/24/20 09:20 Duloxetine Hcl 60 Mg Capsule. PO 60 mg DAILY [facility] Administration Enoxaparin Sodium 30 mg 08/23/20 14:00 08/23/20 17:20 Enoxaparin Sodium 30 Mg/0.3 Ml Syringe SUBCUT 30 mg Q24H [facility]ON Administration Famotidine 20 mg 08/23/20 12:38 Famotidine 20 Mg Tablet PO DAILY PRN Heartburn Ferrous Sulfate 324 mg 08/24/20 09:00 08/24/20 09:21 Ferrous Sulfate 324 Mg Tablet. PO 324 mg DAILY [facility] Administration Glipizide 5 mg 08/24/20 09:00 08/24/20 09:20 Glipizide Xl 5 Mg Tab.Er.24 PO 5 mg DAILY E[facility]ON Administration Insulin Human Lispro 0 unit 08/23/20 16:30 08/24/20 07:48 Insulin Lispro 100 Unit/Ml 3 Ml Vial SUBCUT Not Given QIDACHS [facility] Protocol Lidocaine 1 patch 08/23/20 12:46 Lidocaine 4 % Patch Adh..Patch TRANSDERMA DAILY PRN Pain Non-Formulary Medication 1 appl 08/23/20 12:38 Lidocaine-Prilocaine TOPICAL BID PRN pain Non-Formulary Medication 1 cap 08/24/20 09:00 Linaclotide [Linzess] PO DAILY E[facility]ON Non-Formulary Medication 1 drop 08/23/20 12:38 Olopatadine EYE-BOTH BID PRN allergies Non-Formulary Medication 1 cap 08/23/20 21:00 [place]-3 Acid Ethyl Esters PO BID [facility] Ondansetron HCl 4 mg 08/23/20 12:38 Ondansetron Hcl 4 Mg/2 Ml Vial IVPUSH Q8H PRN Nausea and Vomiting Pharmacy Consult 1 each 08/23/20 08:15 Consult Rx Perform Med Rec MISCELLANE ONCE PRN Consult order Sitagliptin Phosphate 100 mg 08/24/20 09:00 08/24/20 09:20 Sitagliptin Phosphate 100 Mg Tablet PO 100 mg DAILY [facility] Administration Sodium Chloride 3 ml 08/23/20 16:00 08/23/20 21:04 0.9 % Sodium Chloride Flush 3 Ml Syringe IVFLUSH 3 ml QSHIFT [facility] Administration Trazodone HCl 25 mg 08/23/20 12:38 Trazodone Hcl 25 Mg Halftab PO DAILY PRN pain Home Medications Medication Instructions Recorded Confirmed Last Taken Type aspirin 1 tab PO DAILY 08/23/20 08/23/20 08/22/20 History cyanocobalamin (vitamin B-12) 1 tab PO DAILY 08/23/20 08/23/20 08/22/20 History duloxetine 1 cap PO DAILY 08/23/20 08/23/20 08/22/20 History famotidine [Pepcid AC] 20 mg PO DAILY PRN 08/23/20 08/23/20 Unknown History ferrous sulfate 1 tab PO DAILY 08/23/20 08/23/20 08/22/20 History glipizide 1 tab PO DAILY 08/23/20 08/23/20 08/22/20 History lidocaine 1 - 2 patch TOPICAL DAILY PRN 08/23/20 08/23/20 Unknown History lidocaine-prilocaine 1 appl TOPICAL BID PRN 08/23/20 08/23/20 Unknown History linaclotide [Linzess] 1 cap PO QAM 08/23/20 08/23/20 08/22/20 History losartan 1 tab PO DAILY 08/23/20 08/23/20 08/22/20 History metformin 1 tab PO BID 08/23/20 08/23/20 08/22/20 History olopatadine 1 drp OPHTHALMIC (EYE) BID PRN 08/23/20 08/23/20 Unknown History omega-3 acid ethyl esters 1 cap PO BID 08/23/20 08/23/20 08/22/20 History simvastatin 1 tab PO BEDTIME 08/23/20 08/23/20 08/22/20 History sitagliptin [Januvia] 1 tab PO DAILY 08/23/20 08/23/20 08/22/20 History trazodone 0.5 tab PO DAILY PRN 08/23/20 08/23/20 Unknown History Physical Exam Vital Signs: Vital Signs: Last Vital Signs Temp 97.4 F 08/24/20 09:08 Pulse 73 08/24/20 09:08 Resp 20 08/24/20 09:08 BP 184/86 H 08/24/20 09:08 Pulse Ox 97 08/24/20 09:08 Body Mass Index 21.6 His admission blood pressure was 184/86. He was alert awake with normal spontaneity of speech fluency comprehension and affect. There was mild left- sided central facial weakness. There was mild left hemiparesis. Plantars were equivocal. There was no sensory extinction or visual extinction. Speech was normal. Results Labs CBC & Chem 7: 08/24/20 05:08 08/24/20 05:08 Labs: Short CBC 08/24/20 Range/Units 05:08 WBC 6.7 (4.8-10.8) X10*3/uL Hgb 11.0 L (14.0-18.0) g/dl Hct 34.5 L (42-52) % Plt Count 236 (160-400) X10*3/uL BMP 08/24/20 05:08 Sodium 140 Potassium 5.0 Chloride 108 Carbon Dioxide 24 BUN 25 H Creatinine 1.88 H Calcium 9.[address] did not reveal any significant abnormality. CTA of brain and neck did not reveal any significant abnormality. MRI of brain revealed a patchy right lentiform nucleus and mesial temporal acute ischemic infarct. Multiple small bilateral chronic ischemic infarctions were noted. Assessment and Plan (1) Acute cerebral infarction associated with systemic hypoxia or ischemia: Status: Acute 75 years old man with acute patchy right middle cerebral artery area subcortical ischemic infarction with imaging revealing few small bilateral chronic ischemic infarctions. This recent event happened during sleep causing mild left hemiparesis. Mainstay of management at this time is blood pressure control, anti-platelet agent, statin and control of other vascular risk factors. Because of the nature of this lesion and previous ones, which is somewhat suggested possibility of cardiac source of embolism, appropriate cardiac evaluation is recommended to rule out lesion like atrial fibrillation Procedures Date of Service Date of Service: 08/24/20
--- NOTE | 2020-08-24 10:00 | CA_ITS ---
Transthoracic Echocardiogram Patient (Last, First, Middle): Virgilio Monroy, Gender: Male Date of : 1945 Age: 75 Procedure Date: 08/24/2020 Procedure Type: Transthoracic Echocardiogram Location[place] [facility] [place] Height: 170.18 cm Weight: 62.6 kg BSA: 1.73 m2 Heart Rate: bpm BP: 162 / 74 mmHg Commission Clerk: Referring MD: Carolyne Alegria NP Symptoms: stroke Study Quality: Good ECG Rhythm: Sinus Conclusions: - Normal left ventricular size and systolic function. - Normal right ventricular cavity size and systolic function. - Both atria are normal in size. - There is a bicuspid aortic valve. - There is mild dilatation of the ascending aorta. Findings Left Ventricle Normal left ventricular size and systolic function. There is mildly increased left ventricular wall thickness. The visually estimated ejection fraction is between 60-65%. There is no evidence of regional wall motion abnormalities. Diastolic function is indeterminate on the basis of available data. Spectral Doppler is indicative of an impaired relaxation filling pattern. E/E prime ratio is between 8 and 15 consistent with indeterminate filling pressures. Right Ventricle Normal right ventricular cavity size and systolic function. Atria Both atria are normal in size. Aortic Valve There is a bicuspid aortic valve. There is no aortic valve stenosis. There is no aortic valve regurgitation. Mitral Valve Normal mitral valve structure and function. There is no mitral valve regurgitation. There is no mitral valve stenosis. Pulmonic Valve Normal pulmonic valve structure and function. There is trace pulmonic valve regurgitation. Tricuspid Valve Normal tricuspid valve structure and function. There is trace tricuspid valve regurgitation. Normal right atrial pressure. There is no evidence of pulmonary hypertension. Great Vessels There is mild dilatation of the ascending aorta. The visualized portions of the pulmonary artery and branches are normal. Venous The inferior vena cava is normal in size and collapses greater than 50% with inspiration. Pericardium/Pleural There is no evidence of pericardial effusion. Prior Study Comparison No prior study available for comparison. Measurements 2D Linear Measurements IVSd: 1.28 0.6-0.9/0.6-1.0 cm LVIDd: 4.22 3.9-5.3/4.2-5.9 cm LVIDd Index: 2.44 2.4-3.2/2.2-3.1 cm/m2 LVIDs: 2.43 2.0-3.6 cm LVPWd: 1.22 0.7-1.1 cm Ao Root: 3.90 2.1-3.5 cm LA Diam: 3.00 2.7-3.8/3.0-4.0 cm LAIDs Index: 1.73 1.5-2.3 cm/m2 LV Mass: 237.45 67-162/88-224 g LV Mass Index: 137.25 43-95/49-115 g/m2 LVOT Diam: 2.20 3.0+(-)1.3 cm Mitral Valve MV Pk E: 0.52 MV PK A: 0.84 MV Decel Time: 355.00 E/A: 0.60 E'Lateral: 9.90 E'Medial: 4.57 E/E' Med: 11.30 E/E' Lat: 5.20 PHT: 104.00 MVA PHT: 2.12 Decel [place]: 1.46 Aortic Valve AoV Pk Bo: 1.11 AoV Mn Bo: 0.72 AoV VTI: 0.25 AoV Pk Grad: 5.00 Aov Mn Grad: 3.00 ARLETH Cont.VTI: 2.81 LVOT LVOT Pk Bo: 0.76 LVOT Mn Bo: 0.43 LVOT VTI: 0.18 LVOT Pk Grad: 2.00 LVOT Mn Grad: 1.00 LVOT Diam: 2.20 LVOT Area: 3.80 Diastolic Function MV Pk E: 0.52 MV Pk A: 0.84 E/A: 0.60 E'Medial: 4.57 E/E' Med: 11.30 E' Laterial: 9.90 E/E' Lat: 5.20 Tricuspid Valve TR Pk Bo: 1.72 TR Pk Grad: 12.00 RA Press: 3.00 RVSP: 15.00 Great Vessels Aorta Ao Root-2D: 3.90 2.0-3.7 cm Ao Asc: 3.80 2.1-3.4 cm Pulmonary Valve PV Pk Bo: 1.00 Peak PV Grad: 4.00 Updated in Other Vendor System with Status of Final Jose Rosen MD electronically signed on 08/24/2020 2:25:43 PM with status of Final
--- NOTE | 2020-08-24 10:09 | MHC.CM.PN ---
met with pt ,his and dgter pt had no servceis prior to admission ,all are agreeable to dc plan as recommend by pt and ot family would like to stay local..referrals made pt has has not have covid and he has been vaccinated with [facility] last doese in june hcp filed and placed on chart dc plan str
[2020-08-24 11:29] LABS: Glucose, Whole Blood 183 mg/dL (60-115)
[2020-08-24 11:37] VITALS: BP 170/86; PULSE 77; RESP 20; TEMP 36.8; O2SAT 99
[2020-08-24] MEDS: Enoxaparin Sodium 30 MG/0.3 ML SYRINGE SUBCUT (12:13)
[2020-08-24] MEDS: Insulin Lispro 100 UNIT/ML 3 ML VIAL SUBCUT ×2 (12:13→16:38)
--- NOTE | 2020-08-24 13:32 | MHC.CM.PN ---
Male 75 dx CVA discharge is on hold. Etiology of CVA cardiac. CM will follow.
--- NOTE | 2020-08-24 14:08 | P.DS_ITS ---
DS: Providers Provider Date of Service: 08/24/20 <SHER Smyth - Last Filed: 08/24/20 14:53> Date of admission: 08/24/20 09:10 <SHER Smyth - Last Filed: 08/24/20 14:53> Primary care physician: Unknown Physician <SHER Smyth - Last Filed: 08/24/20 14:53> Consults: 08/23/20 12:38 Consult to Neurology Routine Consulting Provider: [facility] Reason for consultation: tia vs stroke <SHER Smyth - Last Filed: 08/24/20 14:53> DS: Diagnosis Discharge Diagnosis (1) Cerebrovascular accident: Status: Acute <SHER Smyth - Last Filed: 08/24/20 14:53> (2) HTN (hypertension): Status: Acute <SHER Smyth - Last Filed: 08/24/20 14:53> DS: Medications Discharge Medications Home Medications: Home Medications Medication Instructions Recorded Confirmed aspirin 1 tab PO DAILY 08/23/20 08/23/20 cyanocobalamin (vitamin B-12) 1 tab PO DAILY 08/23/20 08/23/20 duloxetine 1 cap PO DAILY 08/23/20 08/23/20 famotidine [Pepcid AC] 20 mg PO DAILY PRN 08/23/20 08/23/20 ferrous sulfate 1 tab PO DAILY 08/23/20 08/23/20 glipizide 1 tab PO DAILY 08/23/20 08/23/20 lidocaine 1 - 2 patch TOPICAL DAILY PRN 08/23/20 08/23/20 lidocaine-prilocaine 1 appl TOPICAL BID PRN 08/23/20 08/23/20 linaclotide [Linzess] 1 cap PO QAM 08/23/20 08/23/20 losartan 1 tab PO DAILY 08/23/20 08/23/20 metformin 1 tab PO BID 08/23/20 08/23/20 olopatadine 1 drp OPHTHALMIC (EYE) BID PRN 08/23/20 08/23/20 omega-3 acid ethyl esters 1 cap PO BID 08/23/20 08/23/20 simvastatin 1 tab PO BEDTIME 08/23/20 08/23/20 sitagliptin [Januvia] 1 tab PO DAILY 08/23/20 08/23/20 trazodone 0.5 tab PO DAILY PRN 08/23/20 08/23/20 <SHER Smyth - Last Filed: 08/24/20 14:53> DS: Summary Hospital Course Hospital Course: From H&P on day of admission 75-year-old [place]ian male complaints of left- sided weakness, slurred speech and dizziness that he woke up with. Apparently patient had been in his normal state of health yesterday. He woke up at 03:00 o'clock this morning with the symptoms. 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 Apparently he had an 1 come to the ER but does family convinced him to. His daughter was present during the interview. Patient denied chest pain, shortness of breath, nausea, vomiting, diarrhea, visual changes, headache, fall, loss of consciousness, history of CVA or cardiac disease. He reported weakness to his left upper and lower extremities that are improving. Head CTA was negative for any acute occlusion, chest x-ray negative for consolidation effusion. He received a full dose aspirin in the ER IV fluid. Renal function was a little bit worsened previous however it appears that he has history of CKD. Vital signs stable. Patient placed on observation for TIA versus stroke. Stroke-patient was out of the window for tPA. He passed his swallow evaluation. He received aspirin. He will be continued on his home dose of aspirin and statin. MRI obtained shows patchy acute infarcts within the right mesial temporal lobe and right lentiform nucleus. Chronic lacunar infarcts of the left cerebellar hemisphere. Mild generalized cerebral volume loss and moderate underlying microangiopathy. Patient was evaluated by Neurology who recommended aspirin, statin. Due to possible embolic source it was also recommended that the patient have an outpatient Holter monitor. EKG on admission was sinus rhythm. His left-sided weakness has improved somewhat but is still present. He was evaluated by Physical therapy who recommended short-term rehab which the patient is amenable to. Per neurology recommendation patient should resume his home blood pressure medications starting tomorrow with goal blood pressure in the 140s. Lipid profile was checked, triglycerides 273, LDL 76, HDL 37. He had echo which showed showed preservd EF. CKD. Creatinine has remained stable. Patient should have outpatient follow-up with PCP for repeat labs as needed. dose of Metformin was decreased due to current kidney function. Should monitor blood sugar closely . <SHER Smyth - Last Filed: 08/24/20 14:53> Time Spent with Patient Time attestation: Total time spent providing and/or coordinating discharge services: <SHER Smyth - Last Filed: 08/24/20 14:53> Discharge coordination time: Greater than 30 minutes <SHER Smyth - Last Filed: 08/24/20 14:53> Quality: Stroke Does the patient have a stroke diagnosis?: Yes <SHER Smyth - Last Filed: 08/24/20 14:53> Reason for No Antithrombin at DC: N/A - Med Ordered <SHER Smyth - Last Filed: 08/24/20 14:53> Reason for No Anticoagulant at DC: Not indicated <SHER Smyth - Last Filed: 08/24/20 14:53> Contraindication Not Initiating IV-Tpa: Not indicated <SHER Smyth - Last Filed: 08/24/20 14:53> Contraindication Antithrombin by Day Two: N/A - Med Ordered <SHER Smyth - Last Filed: 08/24/20 14:53> Contraindication No Statin at DC: N/A - Med Ordered <SHER Smyth - Last Filed: 08/24/20 14:53> Pt Provided Written Stroke Discharge Instructions: Patient given written information <SHER Smyth - Last Filed: 08/24/20 14:53> Physical Exam Vital Signs: Vital Signs: Last Vital Signs Temp 98.3 F 08/24/20 11:37 Pulse 77 08/24/20 11:37 Resp 20 08/24/20 11:37 BP 170/86 H 08/24/20 11:37 Pulse Ox 99 08/24/20 11:37 Body Mass Index 21.6 <SHER Smyth - Last Filed: 08/24/20 14:53> Const: Nutritional Appearance: well nourished <SHER Smyth - Last Filed: 08/24/20 14:53> Orientation/consciousness: patient oriented x3 <SHER Smyth - Last Filed: 08/24/20 14:53> HENMT: Head: Yes normocephalic and Yes atraumatic <SHER Smyth - Last Filed: 08/24/20 14:53> Eyes: Sclerae: sclerae normal <SHER Smyth - Last Filed: 08/24/20 14:53> Chest: Chest palpation & inspection: normal inspection of the chest <SHER Smyth - Last Filed: 08/24/20 14:53> Resp: Effort & Inspection: normal respiratory effort and no respiratory distress <SHER Smyth - Last Filed: 08/24/20 14:53> Auscultation: clear to auscultation bilaterally <SHER Smyth - Last Filed: 08/24/20 14:53> Cardio: Rate: regular rate <SHER Smyth - Last Filed: 08/24/20 14:53> Rhythm: regular rhythm <SHER Smyth - Last Filed: 08/24/20 14:53> GI: Palpation (GI): Soft to palpation and nontender <SHER Smyth - Last Filed: 08/24/20 14:53> Neuro: Other: mild weakness left upper and lower extremity <SHER Smyth - Last Filed: 08/24/20 14:53> General: patient oriented x3 <SHER Smyth - Last Filed: 08/24/20 14:53> Cranial nerves: Yes CN's II-XII intact bilaterally and Yes Bilaterally intact EOM present <SHER Smyth - Last Filed: 08/24/20 14:53> DS: Data Data Completed and Pending Labs on day of discharge: Laboratory Results - last 24 hr 08/23/20 08/23/20 08/24/20 15:57 20:00 05:08 WBC 6.7 RBC 3.90 L Hgb 11.0 L Hct 34.5 L MCV 88.5 MCH 28.2 MCHC 31.9 RDW 14.5 Plt Count 236 MPV 9.5 Immature Gran % (Auto) 0.4 Neut % (Auto) 60.7 Lymph % (Auto) 29.9 Long % (Auto) 8.2 Eos % (Auto) 0.7 Baso % (Auto) 0.1 Lymph # (Auto) 2.0 Long # (Auto) 0.6 Eos # (Auto) 0.1 Baso # (Auto) 0.0 Abs Immat Gran (auto) 0.03 Absolute Neuts (auto) 4.1 Absolute Nucleated RBC 0.000 Nucleated RBC % (auto) 0.0 Sodium Potassium Chloride Carbon Dioxide Anion Gap BUN Creatinine Estim Creat Clear Calc Estimated GFR POC Glucose 159 H 146 H Random Glucose Calcium Triglycerides Cholesterol LDL Cholesterol, Calc HDL Cholesterol 08/24/20 08/24/20 08/24/20 05:08 05:08 07:01 WBC RBC Hgb Hct MCV MCH MCHC RDW Plt Count MPV Immature Gran % (Auto) Neut % (Auto) Lymph % (Auto) Long % (Auto) Eos % (Auto) Baso % (Auto) Lymph # (Auto) Long # (Auto) Eos # (Auto) Baso # (Auto) Abs Immat Gran (auto) Absolute Neuts (auto) Absolute Nucleated RBC Nucleated RBC % (auto) Sodium 140 Potassium 5.0 Chloride 108 Carbon Dioxide 24 Anion Gap 13 BUN 25 H Creatinine 1.88 H Estim Creat Clear Calc 30.0 Estimated GFR 35 POC Glucose 142 H Random Glucose 153 H Calcium 9.4 Triglycerides 276 273 Cholesterol 168 167 LDL Cholesterol, Calc 75 76 HDL Cholesterol 38 37 08/24/20 11:23 WBC RBC Hgb Hct MCV MCH MCHC RDW Plt Count MPV Immature Gran % (Auto) Neut % (Auto) Lymph % (Auto) Long % (Auto) Eos % (Auto) Baso % (Auto) Lymph # (Auto) Long # (Auto) Eos # (Auto) Baso # (Auto) Abs Immat Gran (auto) Absolute Neuts (auto) Absolute Nucleated RBC Nucleated RBC % (auto) Sodium Potassium Chloride Carbon Dioxide Anion Gap BUN Creatinine Estim Creat Clear Calc Estimated GFR POC Glucose 183 H Random Glucose Calcium Triglycerides Cholesterol LDL Cholesterol, Calc HDL Cholesterol <SHER Smyth - Last Filed: 08/24/20 14:53> Discharge Plan Discharge Patient Disposition: Xfer SNF <SHER Smyth - Last Filed: 08/24/20 14:53> Discharge Diagnosis: acute stroke HTN DM CKD <SHER Smyth - Last Filed: 08/24/20 14:53> acute stroke HTN DM CKD <Ovi Hassan MD - Last Filed: 08/24/20 17:51> Referrals: [facility] [Other] - 1 Week Ronaldo Duke MD [Physician] - 1 Week Physician,Unknown [Primary Care Provider] - 1 Week Ovi Hassan MD [Physician] - 1 Week <SHER Smyth - Last Filed: 08/24/20 14:53> Discharge Medications: New metformin 500 mg tablet 500 mg PO BID Qty: 7 RF: 0 Continued trazodone 50 mg tablet 0.5 tab PO DAILY PRN (Reason: pain) RF: 0 glipizide 5 mg tablet extended release 24hr 1 tab PO DAILY RF: 0 cyanocobalamin (vitamin B-12) 1,000 mcg tablet 1 tab PO DAILY RF: 0 aspirin 81 mg tablet,delayed release (DR/EC) 1 tab PO DAILY RF: 0 simvastatin 40 mg tablet 1 tab PO BEDTIME RF: 0 lidocaine-prilocaine 2.5-2.5 % cream 1 appl topical BID PRN (Reason: pain) RF: 0 famotidine [Pepcid AC] 20 mg Tablet 20 mg PO DAILY PRN (Reason: Heartburn) RF: 0 ferrous sulfate 325 mg (65 mg iron) tablet 1 tab PO DAILY RF: 0 olopatadine 0.1 % drops 1 drp ophthalmic (eye) BID PRN (Reason: allergies) RF: 0 lidocaine 5 % adhesive patch,medicated 1 - 2 patch topical DAILY PRN (Reason: Pain) RF: 0 losartan 100 mg tablet 1 tab PO DAILY RF: 0 duloxetine 60 mg capsule,delayed release(DR/EC) 1 cap PO DAILY RF: 0 omega-3 acid ethyl esters 1 gram capsule 1 cap PO BID RF: 0 Januvia 100 mg tablet 1 tab PO DAILY RF: 0 Linzess 145 mcg capsule 1 cap PO QAM RF: 0 Discontinued metformin 1,000 mg tablet 1 tab PO BID RF: 0 <SHER Smyth - Last Filed: 08/24/20 14:53> Discharge Orders: Discharge Order (Routine); Ordered 08/24/20 Ordered By: Mae Bhakta <SHER Smyth - Last Filed: 08/24/20 14:53> Activity on Discharge: As tolerated <SHER Smyth - Last Filed: 08/24/20 14:53> As tolerated <Ovi Hassan MD - Last Filed: 08/24/20 17:51> Stand Alone Forms: Patient Portal Discharge page <SHER Smyth - Last Filed: 08/24/20 14:53> Other Ambulatory Orders: ECG holter monitor 48 hour (Routine) Timeframe: 1 Week Facility: [facility] - Location: Radiology Ordered By: Mae Bhakta <SHER Smyth - Last Filed: 08/24/20 14:53> Care Plan Goals: see below <SHER Smyth - Last Filed: 08/24/20 14:53> Health Concerns: Stroke <SHER Smyth - Last Filed: 08/24/20 14:53> Plan of Treatment: Stroke- will need outpatient Holter monitor. Please call PCP to schedule follow-up appointment Take blood pressure medication as prescribed starting tomorrow, with goal BP in 140s per neurology. Titrate BP meds as needed. CKD - please follow up with PCP to follow kidney function. Dose of Metformin has been decrease due to current kidney function. monitor blood sugars closely. <SHER Smyth - Last Filed: 08/24/20 14:53> Assessment: See discharge summary I have seen and evaluated this patient. I have discussed the case and its manag ement with the TELEPHONE SUPERVISOR and I agree with the findings and plan as documented in the PA?s note. -Ovi Hassan MD <SHER Smyth - Last Filed: 08/24/20 14:53> Discharge Date/Time: 08/24/20 17:20 <SHER Smyth - Last Filed: 08/24/20 14:53>
[2020-08-24 15:03] VITALS: BP 151/88; PULSE 71; RESP 20; TEMP 36.7; O2SAT 99
[2020-08-24 16:01] LABS: Glucose, Whole Blood 160 mg/dL (60-115)
[2020-08-24] MEDS: Acetaminophen 325 MG TABLET 650 MG PO (16:37)
[2020-08-24] MEDS: Lidocaine 4 % Patch ADH..PATCH 1 PATCH TRANSDERMA (16:43)
[2020-08-24] MEDS: 0.9 % Sodium Chloride Flush 3 ML SYRINGE IVFLUSH (16:44)
== END 2020-08-24 17:20 | disposition skilled nursing facility (03) | DRG 65 ==
LOC: HO.ED 09:00 → HO.EDOVER 12:45 → HO.IMC 13:57
PROVIDERS: Admitting Provider Nurse Practitioner Acute Care; Emergency Provider Emergency Medicine; Visit Provider Internal Medicine
DX: I63.511 Cerebral infarction due to unspecified occlusion or stenosis of right middle cerebral artery (principal); G81.94 Hemiplegia, unspecified affecting left nondominant side; N17.9 Acute kidney failure, unspecified; E78.5 Hyperlipidemia, unspecified; I12.9 Hypertensive chronic kidney disease with stage 1 through stage 4 chronic kidney disease, or unspecified chronic kidney disease; E11.22 Type 2 diabetes mellitus with diabetic chronic kidney disease; N18.9 Chronic kidney disease, unspecified; R47.81 Slurred speech; D63.1 Anemia in chronic kidney disease; R29.706 NIHSS score 6; Z20.822 Contact with and (suspected) exposure to COVID-19; Z87.891 Personal history of nicotine dependence; Z79.82 Long term (current) use of aspirin; Z79.84 Long term (current) use of oral hypoglycemic drugs; Z79.899 Other long term (current) drug therapy
CPT/HCPCS: 36415; 70450; 70496; 70498; 70551; 71045; 80048; 80061; 80076; 82947; 83735; 84484; 85025; 85610; 85730; 87635; 93005; 93306; 96360; 97116; 97162; 97166; 97530; 99285; J1650; Q9967

== ENCOUNTER → 2020-10-21 13:12 | Outpatient (REF) | payer MEDICARE, OTHER, SELFPAY ==
--- NOTE | 2020-10-21 13:18 | ECG_ITS ---
Hook-up date: 2020-10-21 13:32:00 Duration: 47:59:00 Test Indications: EMBOLIC STROKE Medications: 880995 QRS complexes 12 Ventricular ectopics which represent <1 % of total QRS comp. 243 Supraventricular ectopics which represent <1 % of total QRS comp. * Paced QRS complexs which represent % of total QRS comp. VENTRICULAR ECTOPY 12 Isolated 0 Bigeminal Cycles 0 Couplets 0 Runs 0 Beats in Runs * Beats LONGEST at * BPM at :: -- * Beats FASTEST at * BPM at :: -- SUPRAVENTRICULAR ECTOPY 195 Isolated 12 Couplets 6 Runs 24 Beats in Runs 8 Beats LONGEST at 118 BPM at 13:21:45 2020-10-23 3 Beats FASTEST at 133 BPM at 06:08:19 2020-10-23 HEART RATES 59 MIN at 01:11:04 2020-10-22 74 AVG 111 MAX at 06:40:58 2020-10-22 LONGEST RR 1.5120 secs at 13:10:47 2020-10-23 S-T LEVELS Channel 1 - 128 mm at 13:32:00 2020-10-21 - 128 mm at 13:32:00 2020-10-21 Channel 2 - 128 mm at 13:32:00 2020-10-21 - 128 mm at 13:32:00 2020-10-21 Channel 3 - 128 mm at 03:25:11 -- - 128 mm at 03:25:11 Underlyiing rhythm is sinus; Average ventricular rate 74/min; range 59-111/min; Rare Premature atrial complexes , Premature ventricular complexes No sustained arrhythmias; Patient did not report any symptoms in the diary Referred By: Mae Bhakta Overread By: GAYATRI CHAN
== END ==
LOC: HO.CARD 13:12
PROVIDERS: PCP Internal Medicine; Visit Provider Nurse Practitioner Family
DX: Z13.89 Encounter for screening for other disorder (principal)
CPT/HCPCS: 93225; 93226

== ENCOUNTER 2020-10-22 20:11 | Inpatient (IN) | payer MEDICARE, OTHER, SELFPAY ==
[2020-10-22] VITALS (7 sets, daily range): BP systolic 114–133; BP diastolic 57–82; PULSE 72–81; RESP 16–21; TEMP 36.8–37.1; O2SAT 96–98; BMI 21.9
--- NOTE | ~2020-10-22 | CT_ITS ---
EXAMINATION: CT ABDOMEN AND PELVIS WITHOUT CONTRAST CLINICAL INFORMATION: Diffuse abdominal pain COMPARISON: 08/14/2019 TECHNIQUE: Multidetector volumetric imaging was performed from the superior aspect of the liver through the pubic symphysis. Sagittal and coronal reformatted images were obtained on the technologist's workstation. This CT examination was performed using dose optimization techniques as appropriate, variously including the following: *Automated exposure control *Adjustment of mA and/or kV according to patient size (this includes techniques or standardized protocols for targeted exams where dose is matched to indication/reason for exam; i.e. extremities or head) *Use of iterative reconstruction technique DLP: 425 mGy-cm FINDINGS: LUNG BASES: The visualized lung bases are unremarkable. LIVER, GALLBLADDER, AND BILIARY TREE: The liver is normal in size, shape, and attenuation. No focal hepatic lesion or biliary ductal dilatation is present. Gallbladder unremarkable. PANCREAS: Unremarkable. SPLEEN: Unremarkable. ADRENAL GLANDS: Unremarkable. KIDNEYS AND URETERS: The kidneys are normal in size, shape, and attenuation. No suspicious renal cyst or mass. No hydronephrosis, hydroureter, or calculi seen. No perinephric stranding. BLADDER: Unremarkable. GASTROINTESTINAL TRACT: The stomach, small and large bowel are diffusely fluid-filled without significant dilatation or point of transition. Scattered colonic diverticula. No evidence of diverticulitis. Appendix not seen. ABDOMINAL WALL: No significant hernia is appreciated. LYMPH NODES: Normal. VASCULAR: Unremarkable. PELVIC VISCERA: Unremarkable. OSSEOUS STRUCTURES: Unremarkable. CT/CT abdomen pelvis wo con IMPRESSION: Stomach, small and large bowel are diffusely fluid-filled without dilatation or point of transition. Findings compatible with a generalized ileus. Scattered colonic diverticula without evidence of diverticulitis.
--- NOTE | 2020-10-22 21:10 | ECG_ITS ---
Test Reason : ABD PAIN Blood Pressure : / mmHG Vent. Rate : 074 BPM Atrial Rate : 074 BPM P-R Int : 146 ms QRS Dur : 074 ms QT Int : 380 ms P-R-T Axes : 071 064 031 degrees QTc Int : 421 ms Normal sinus rhythm Normal ECG When compared with ECG of 23-AUG-2020 08:46, No significant change was found Referred By: Joycelyn Bermudez Electronically Signed By:GAYATRI CHAN
--- NOTE | 2020-10-22 21:13 | ED_ITS ---
HPI - Abdominal Pain General Chief Complaint: Abdominal Pain Stated Complaint: abd pain, weakness Time Seen by Provider: 10/22/20 21:05 Source: patient Mode of arrival: ambulatory Limitations: no limitations History of Present Illness HPI narrative: Patient comes emergency room complaining of diffuse abdominal pain starting early this morning. Patient states he has been unable to pass gas since this morning. Denies diarrhea, no vomiting, only a lot of burping. Patient states that in 2006 he had a small bowel obstruction without any previous history of surgery. However, patient did require surgery for SBO. Patient denies fever chills, no urinary symptoms. Related Data Home Medications Medication Instructions Recorded Confirmed aspirin 81 mg tablet,delayed 1 tab PO DAILY 08/23/20 08/23/20 release cyanocobalamin (vitamin B-12) 1 tab PO DAILY 08/23/20 08/23/20 1,000 mcg tablet duloxetine 60 mg capsule,delayed 1 cap PO DAILY 08/23/20 08/23/20 release famotidine 20 mg tablet (Pepcid AC) 20 mg PO DAILY PRN 08/23/20 08/23/20 ferrous sulfate 325 mg (65 mg 1 tab PO DAILY 08/23/20 08/23/20 iron) tablet glipizide 5 mg tablet, extended 1 tab PO DAILY 08/23/20 08/23/20 release 24 hr lidocaine 5 % topical patch 1 - 2 patch TOPICAL DAILY PRN 08/23/20 08/23/20 lidocaine-prilocaine 2.5 %-2.5 % 1 appl TOPICAL BID PRN 08/23/20 08/23/20 topical cream linaclotide 145 mcg capsule 1 cap PO QAM 08/23/20 08/23/20 (Linzess) losartan 100 mg tablet 1 tab PO DAILY 08/23/20 08/23/20 olopatadine 0.1 % eye drops 1 drp OPHTHALMIC (EYE) BID PRN 08/23/20 08/23/20 omega-3 acid ethyl esters 1 gram 1 cap PO BID 08/23/20 08/23/20 capsule simvastatin 40 mg tablet 1 tab PO BEDTIME 08/23/20 08/23/20 sitagliptin 100 mg tablet (Januvia) 1 tab PO DAILY 08/23/20 08/23/20 trazodone 50 mg tablet 0.5 tab PO DAILY PRN 08/23/20 08/23/20 Previous Rx's Medication Instructions Recorded metformin 500 mg tablet 500 mg PO BID #7 tab 08/24/20 Allergies Allergy/AdvReac Type Severity Reaction Status Date / Time No Known Allergies Allergy Mild NOT Verified 10/22/20 20:17 APPLICABLE Review of Systems Review of Systems Constitutional : No Weight loss, No Fever, No Chills, No Night Sweats, No Fatigue, No Malaise ENT/Mouth : No Hearing loss, No Ear Pain, No Nasal Congestion, No Sinus Pain, No Hoarseness, No sore throat, No Rhinorrhea, No Swallowing Difficulty Eyes: No Eye Pain, No Swelling, No Redness, No Foreign Body, No Discharge, No Vision Changes Cardiovascular : No Chest Pain, No SOB, No Dyspnea on Exertion, No Orthopnea, No Edema, No Palpitations Respiratory : No Cough, No Sputum, No Wheezing, No Smoke Exposure, No Dyspnea Gastrointestinal : Complaining of nausea, no vomiting No Diarrhea, chronic Constipation, complaining of diffuse abdominal pain and distension, complaining of obstipation, No Hematochezia, No Melena Genitourinary : no irregular bleeding, No Dysuria, No Urinary Frequency, No Hematuria, No Urinary Incontinence, No Urgency, No Flank Pain, No Urinary Flow Changes, No Hesitancy Musculoskeletal : No joint pain, No Myalgias, No Joint Swelling Skin : No Skin Lesions, No rash Neuro : No Weakness, No Numbness, No Paresthesias, No Loss of Consciousness, No Dizziness, No Headache Psych : No Anxiety/Panic, No Depression, No SI/HI/AH/VH, No Social Issues, Heme/Lymph: No Bruising, No Bleeding,No Lymphadenopathy Endocrine : No Polyuria, No Polydipsia, No Temperature Intolerance Physical Exam Vital Signs: Vital Signs: Last Vital Signs Temp 98.3 F 10/22/20 20:32 Pulse 80 10/22/20 23:03 Resp 16 10/22/20 23:03 BP 116/77 10/22/20 23:03 Pulse Ox 98 10/22/20 23:03 Body Mass Index 21.9 Const: Other: Appearance: Alert. Oriented X3. No acute distress. Eyes: Pupils equal, round and reactive to light. ENT: Pharynx normal. Neck: Normal inspection. Neck supple. No lymph nodes noted. No crepitus CVS: Normal heart rate and rhythm. Pulses normal. Normal S1 and S2 Respiratory: No respiratory distress. Breath sounds normal. No Wheezing. No rales Abdomen: Distended, diffusely tender, diffuse rebound, No rigidity Skin: Skin warm and dry. Normal skin color. Normal skin turgor. Extremities: No lower extremity edema. No Lacerations. No Rash Neuro: Oriented X 3. No motor deficit. No sensory deficit. Moving all extermities. No slurred speech. Course Course Course Narrative: Patient required 4 mg of morphine and 1 of Dilaudid to keep him comfortable. Patient does not seem to have an SBO but he does have fluid- filled intestines, likely an ileus. Patient will stay in the hospital. I discussed the patient with Dr. Regis STERN - Abdominal Pain Lab Data Result diagrams: 10/22/20 21:29 10/22/20 21:29 Labs: Lab Results 10/22/20 10/22/20 10/22/20 Range/Units 21:29 21:29 21:29 WBC 5.0 (4.8-10.8) X10*3/uL RBC 3.79 L (4.60-5.80) X10*6/uL Hgb 10.8 L (14.0-18.0) g/dl Hct 33.1 L (42-52) % MCV 87.3 (80-98) fL MCH 28.5 (27.0-33.0) pg MCHC 32.6 (31.0-36.0) g/dl RDW 13.8 (11.0-16.0) % Plt Count 244 (160-400) X10*3/uL MPV 9.6 (9.4-12.4) fL Immature Gran % (Auto) 0.2 (0.0-0.4) % Neut % (Auto) 57.6 (45-73) % Lymph % (Auto) 23.1 (20-40) % [place] % (Auto) 18.3 H (2-11) % Eos % (Auto) 0.6 (0-4) % Baso % (Auto) 0.2 (0-2) % Lymph # (Auto) 1.2 (1.2-4.9) X10*3/uL [place] # (Auto) 0.9 (0.1-1.2) X10*3/uL Eos # (Auto) 0.0 (0.0-0.4) X10*3/uL Baso # (Auto) 0.0 (0.0-0.2) X10*3/uL Abs Immat Gran (auto) 0.01 (0.00-0.03) X10*3/uL Absolute Neuts (auto) 2.9 (2.0-8.3) X10*3/uL Absolute Nucleated RBC 0.000 (0.0-0.012) X10*3/uL Nucleated RBC % (auto) 0.0 (0.0-0.2) /100WBC PT 12.0 (9.9-13.0) SEC INR 1.1 (0.9-1.1) Sodium 137 (135-145) mmol/L Potassium 4.4 (3.3-5.1) mmol/L Chloride 106 (96-108) mmol/L Carbon Dioxide 20 L (22-29) mmol/L Anion Gap 15 (12-20) BUN 35 H (9-16) mg/dL Creatinine 2.50 H (0.5-1.4) mg/dL Estim Creat Clear Calc 22.9 Estimated GFR 25 Random Glucose 198 H (60-115) mg/dL Lactic Acid (0.5-2.0) mmol/L Calcium 8.5 D (8.4-10.2) mg/dL Total Bilirubin 0.5 (0.0-1.0) mg/dL Direct Bilirubin 0.2 (0.0-0.5) mg/dL AST 14 (5-37) U/L ALT 10 (0-40) U/L Alkaline Phosphatase 65 D (39-117) U/L Total Protein 6.5 (6.5-8.0) g/dL Albumin 4.1 (3.5-5.0) g/dL Lipase 59 (8-78) U/L Urine Color Urine Appearance Urine pH (5.0-8.0) Ur Specific Britt (1.005-1.025) Urine Protein (NEG-TRACE) MG/DL Urine Glucose (UA) (NEG) MG/DL Urine Ketones (NEG) MG/DL Urine Blood (NEG) Urine Nitrite (NEG) Ur Leukocyte Esterase (NEG) 07/31/21 07/31/21 Range/Units 21:29 23:04 WBC (4.8-10.8) X10*3/uL RBC (4.60-5.80) X10*6/uL Hgb (14.0-18.0) g/dl Hct (42-52) % MCV (80-98) fL MCH (27.0-33.0) pg MCHC (31.0-36.0) g/dl RDW (11.0-16.0) % Plt Count (160-400) X10*3/uL MPV (9.4-12.4) fL Immature Gran % (Auto) (0.0-0.4) % Neut % (Auto) (45-73) % Lymph % (Auto) (20-40) % [place] % (Auto) (2-11) % Eos % (Auto) (0-4) % Baso % (Auto) (0-2) % Lymph # (Auto) (1.2-4.9) X10*3/uL [place] # (Auto) (0.1-1.2) X10*3/uL Eos # (Auto) (0.0-0.4) X10*3/uL Baso # (Auto) (0.0-0.2) X10*3/uL Abs Immat Gran (auto) (0.00-0.03) X10*3/uL Absolute Neuts (auto) (2.0-8.3) X10*3/uL Absolute Nucleated RBC (0.0-0.012) X10*3/uL Nucleated RBC % (auto) (0.0-0.2) /100WBC PT (9.9-13.0) SEC INR (0.9-1.1) Sodium (135-145) mmol/L Potassium (3.3-5.1) mmol/L Chloride (96-108) mmol/L Carbon Dioxide (22-29) mmol/L Anion Gap (12-20) BUN (9-16) mg/dL Creatinine (0.5-1.4) mg/dL Estim Creat Clear Calc Estimated GFR Random Glucose (60-115) mg/dL Lactic Acid 1.0 (0.5-2.0) mmol/L Calcium (8.4-10.2) mg/dL Total Bilirubin (0.0-1.0) mg/dL Direct Bilirubin (0.0-0.5) mg/dL AST (5-37) U/L ALT (0-40) U/L Alkaline Phosphatase (39-117) U/L Total Protein (6.5-8.0) g/dL Albumin (3.5-5.0) g/dL Lipase (8-78) U/L Urine Color YELLOW Urine Appearance CLEAR Urine pH 6.0 (5.0-8.0) Ur Specific Britt 1.020 (1.005-1.025) Urine Protein NEG (NEG-TRACE) MG/DL Urine Glucose (UA) NEG (NEG) MG/DL Urine Ketones NEG (NEG) MG/DL Urine Blood NEG (NEG) Urine Nitrite NEG (NEG) Ur Leukocyte Esterase NEG (NEG) Imaging Data CT scan - abdomen: Radiologist's impression: FINDINGS: LUNG BASES: The visualized lung bases are unremarkable.? LIVER, GALLBLADDER, AND BILIARY TREE: The liver is normal in size, shape, and attenuation. No focal hepatic lesion or biliary ductal dilatation is present. Gallbladder unremarkable.? PANCREAS: Unremarkable.? SPLEEN: Unremarkable.? ADRENAL GLANDS: Unremarkable.? KIDNEYS AND URETERS: The kidneys are normal in size, shape, and attenuation. No suspicious renal cyst or mass. No hydronephrosis, hydroureter, or calculi seen. No perinephric stranding. ? BLADDER: Unremarkable.? GASTROINTESTINAL TRACT: The stomach, small and large bowel are diffusely fluid-filled without significant dilatation or point of transition. Scattered colonic diverticula. No evidence of diverticulitis. Appendix not seen.? ABDOMINAL WALL: No significant hernia is appreciated.? LYMPH NODES: Normal. VASCULAR: Unremarkable. PELVIC VISCERA: Unremarkable.? OSSEOUS STRUCTURES: Unremarkable.? CT/CT abdomen pelvis wo con IMPRESSION: Stomach, small and large bowel are diffusely fluid-filled without dilatation or point of transition. Findings compatible with a generalized ileus. Scattered colonic diverticula without evidence of diverticulitis. Discharge Plan Discharge Clinical Impression: Abdominal pain, Ileus, [id number] kidney injury Patient Disposition: Admitted As Inpatient Prescriptions: No Action trazodone 50 mg tablet 0.5 tab PO DAILY PRN (Reason: pain) RF: 0 glipizide 5 mg tablet extended release 24hr 1 tab PO DAILY RF: 0 cyanocobalamin (vitamin B-12) 1,000 mcg tablet 1 tab PO DAILY RF: 0 aspirin 81 mg tablet,delayed release (DR/EC) 1 tab PO DAILY RF: 0 simvastatin 40 mg tablet 1 tab PO BEDTIME RF: 0 lidocaine-prilocaine 2.5-2.5 % cream 1 appl topical BID PRN (Reason: pain) RF: 0 famotidine [Pepcid AC] 20 mg Tablet 20 mg PO DAILY PRN (Reason: Heartburn) RF: 0 ferrous sulfate 325 mg (65 mg iron) tablet 1 tab PO DAILY RF: 0 olopatadine 0.1 % drops 1 drp ophthalmic (eye) BID PRN (Reason: allergies) RF: 0 lidocaine 5 % adhesive patch,medicated 1 - 2 patch topical DAILY PRN (Reason: Pain) RF: 0 losartan 100 mg tablet 1 tab PO DAILY RF: 0 duloxetine 60 mg capsule,delayed release(DR/EC) 1 cap PO DAILY RF: 0 omega-3 acid ethyl esters 1 gram capsule 1 cap PO BID RF: 0 Januvia 100 mg tablet 1 tab PO DAILY RF: 0 Linzess 145 mcg capsule 1 cap PO QAM RF: 0 metformin 500 mg tablet 500 mg PO BID Qty: 7 RF: 0 PMFSH Past Medical History Medical History Bronchitis Diabetes HLD (hyperlipidemia) Holter monitor, abnormal Stroke Surgical History History of intestinal surgery Social History Social History (Updated 08/23/20 @ 08:12 by Lorie Green DO) Patient Tobacco Use Status: Former Tobacco user Tobacco use type: Cigarette Advance Directives: Yes Advance Directives on File: Yes Advance Directives Date on File: 08/23/20 service: No
[2020-10-22] MEDS: Morphine Sulfate 4 MG/ML CARTRIDGE IVPUSH (21:30)
[2020-10-22] MEDS: 0.9 % Sodium Chloride 1,000 ML 999 ML IVCONT ×2 (21:31→22:32)
[2020-10-22 21:34] LABS: MANUAL DIFF FLAG NO
[2020-10-22 21:36] LABS: Basophils Percent Auto 0.2 % (0-2); Eosinophils Percent Auto 0.6 % (0-4); Hematocrit 33.1 % (42-52); Hemoglobin 10.8 g/dl (14.0-18.0); Imm Gran Abs Auto 0.01 X10*3/uL (0.00-0.03); Imm Gran Pct Auto 0.2 % (0.0-0.4); Lymphocytes Absolute Auto 1.2 X10*3/uL (1.2-4.9); Lymphocytes Percent Auto 23.1 % (20-40); Mean Corpuscular HGB Conc 32.6 g/dl (31.0-36.0); Mean Corpuscular Hemoglobin 28.5 pg (27.0-33.0); Mean Corpuscular Volume 87.3 fL (80-98); Mean Platelet Volume 9.6 fL (9.4-12.4); Monocytes Absolute Auto 0.9 X10*3/uL (0.1-1.2); Monocytes Percent Auto 18.3 % (2-11); Neutrophils Absolute Auto 2.9 X10*3/uL (2.0-8.3); Neutrophils Percent Auto 57.6 % (45-73); Platelet Count 244 X10*3/uL (160-400); Red Blood Count 3.79 X10*6/uL (4.60-5.80); Red Cell Distribution Width 13.8 % (11.0-16.0)
[2020-10-22 21:42] LABS: INTERNATIONAL NORM RATIO 1.1 (0.9-1.1)
--- NOTE | 2020-10-22 21:45 | PC.NURSE ---
Pt's PIV established, bloodwork obtained and sent to lab for processing, pt resting on stretcher in NAD. Pt EKG obtained. Red fall wristband, red socks placed on pt and red star posted outside of room. Stretcher in low locked position, rails raised, call conteh within reach
--- NOTE | 2020-10-22 21:52 | PC.NURSE ---
Upon re-eval, pt continues to bleed via R nare despite nasal packing. Dr Vazquez aware, plan for Afrin nasal spray
[2020-10-22 22:11] LABS: Alanine Aminotransferase 10 U/L (0-40); Albumin Level 4.1 g/dL (3.5-5.0); Alkaline Phosphatase 65 U/L (39-117); Anion Gap 15 (12-20); Aspartate Amino Transferase 14 U/L (5-37); Bilirubin Direct 0.2 mg/dL (0.0-0.5); Bilirubin Total 0.5 mg/dL (0.0-1.0); Blood Urea Nitrogen 35 mg/dL (9-16); Calcium 8.5 mg/dL (8.4-10.2); Carbon Dioxide 20 mmol/L (22-29); Chloride 106 mmol/L (96-108); Creatinine Clr Calc Pharmacy 22.9; Estimated Glomerular Filt Rate 25; Glucose Random 198 mg/dL (60-115); Lipase 59 U/L (8-78); Potassium 4.4 mmol/L (3.3-5.1); Sodium 137 mmol/L (135-145); Total Protein 6.5 g/dL (6.5-8.0)
--- NOTE | 2020-10-22 22:26 | PC.NURSE ---
Addendum entered by Penny Carvalho 10/22/20 23:20: This RN wrote Dr Keller in error. Dr Bermudez is the provider for this pt; Dr Bermudez was made aware and Dr Bermudez ordered additional meds. Original Note: Pt denies improvement in pain, Dr Keller to be made aware
[2020-10-22] MEDS: HYDROmorphone HCl 1 MG/ML SYRINGE IVPUSH (22:32)
[2020-10-22 23:11] LABS: Glucose Urine UA NEG (NEG); Leukocyte Esterase Urine NEG (NEG); Nitrite Urine NEG (NEG); Urine Blood NEG (NEG); Urine Ketones NEG (NEG); Urine Protein NEG (NEG-TRACE)
--- NOTE | 2020-10-22 23:19 | PC.NURSE ---
About 10 mins ago, pt ambulated to bathroom with unsteady gait, 2 person assist, to attempt to have BM. Pt provided urine sample, was unable to have BM.
[2020-10-22 23:20] LABS: Appearance Urine CLEAR; Color Urine YELLOW
--- NOTE | 2020-10-22 23:43 | PC.NURSE ---
Pt ambulated to bathroom and had small liquid BM.
[2020-10-23] VITALS (11 sets, daily range): BP systolic 122–150; BP diastolic 57–71; PULSE 68–76; RESP 15–20; TEMP 36.8–37.3; O2SAT 94–99; BMI 21.6
[2020-10-23] MEDS: diphenhydrAMINE HCL 50 MG/ML VIAL 25 MG IVPUSH (01:20)
[2020-10-23] MEDS: Lactated Ringers 1,000 ML 100 ML IVCONT ×3 (01:20→23:29)
[2020-10-23] MEDS: Heparin Sodium,Porcine 5,000 UNIT/ML VIAL 5000 UNIT SUBCUT ×3 (01:20→23:29)
[2020-10-23 01:53] LABS: COVID-19 Test Negative (Negative); IDNOW Serial# 9DD0AD1C
[2020-10-23 04:41] LABS: Glucose, Whole Blood 156 mg/dL (60-115)
[2020-10-23 05:36] LABS: Eosinophils Percent Auto 0.9 % (0-4); Hematocrit 31.2 % (42-52); Hemoglobin 9.6 g/dl (14.0-18.0); Imm Gran Abs Auto 0.01 X10*3/uL (0.00-0.03); Imm Gran Pct Auto 0.2 % (0.0-0.4); Lymphocytes Absolute Auto 1.6 X10*3/uL (1.2-4.9); Lymphocytes Percent Auto 36.4 % (20-40); MANUAL DIFF FLAG SCAN; Mean Corpuscular HGB Conc 30.8 g/dl (31.0-36.0); Mean Corpuscular Hemoglobin 27.7 pg (27.0-33.0); Mean Corpuscular Volume 89.9 fL (80-98); Mean Platelet Volume 10.3 fL (9.4-12.4); Monocytes Absolute Auto 0.9 X10*3/uL (0.1-1.2); Monocytes Percent Auto 20.8 % (2-11); Neutrophils Absolute Auto 1.8 X10*3/uL (2.0-8.3); Neutrophils Percent Auto 41.7 % (45-73); Platelet Count 228 X10*3/uL (160-400); Red Blood Count 3.47 X10*6/uL (4.60-5.80); SCAN SMEAR FLAG 1; White Blood Count 4.4 X10*3/uL (4.8-10.8)
[2020-10-23 06:04] LABS: Anion Gap 12 (12-20); Blood Urea Nitrogen 31 mg/dL (9-16); Calcium 7.7 mg/dL (8.4-10.2); Carbon Dioxide 23 mmol/L (22-29); Chloride 109 mmol/L (96-108); Creatinine Clr Calc Pharmacy 26.2; Estimated Glomerular Filt Rate 30; Glucose Random 138 mg/dL (60-115); Sodium 139 mmol/L (135-145)
--- NOTE | 2020-10-23 06:17 | P.HPHOSP_ITS ---
History of Present Illness Date of Service: 10/22/20 Chief Complaint: Abdominal pain [place]-speaking only, interview obtained with the help of sterile supervisor Medical history of diabetes, HLD, stroke in August who presents to the hospital with complaints of abdominal pain. Patient has a history of small-bowel obstru ction in 2006. Patient reports abdominal pain that started 8:00 a.m., pain is 10/10, nonradiating, constant, associated with constipation, not relieved with any OTC pain medications, no exacerbating factors. Patient denies any fever or chills, no nausea or vomiting, no diarrhea but has been constipated for past 2 days, no urinary symptoms and no lower extremity edema. He denies any chest pain or shortness of breath. On arrival to the ED vitals stable Labs significant for BUN of 35, creatinine of 2.5 with a baseline around 1.[address] shows and large bowel are diffusely fluid-filled without dilatation or point of transition. Findings compatible with a generalized ileus. Scattered colonic diverticula without evidence of diverticulosis Patient will be admitted for further management as he continues to have intractable pain Review of Systems Review of Systems: Yes all other systems are reviewed and are negative [facility] Medical History Bronchitis Diabetes HLD (hyperlipidemia) Holter monitor, abnormal Stroke Surgical History History of intestinal surgery Social History Household Members: Spouse Housing: House Do you presently have visiting nurse or other home services: No Patient Tobacco Use Status: Former Tobacco user Tobacco use type: Cigarette Smoked in Last 30 Days: No e-Cigarette/Vaping Use: Former Use Patient Interested in Nicotine Replacement: No Patient Given Instructions on How to Stop Smoking: No Second Hand Smoke Exposure: No Use of substances other than those prescribed or required for medical reasons: No Currently Displaying Signs/Symptoms of Drug Intoxication Withdrawal: No Any prior treatment program specific to substance use: No Have you been hit, kicked, punched, or otherwise hurt by someone within the past year? If so, by whom?: No Do you feel safe in your current relationship?: Yes Is there a partner from a previous relationship who is making you feel unsafe now?: No Are you made to feel afraid or neglected: No Advance Directives: Yes Advance Directives Information Provided: Yes Advance Directives on File: Yes Advance Directives Date on File: 08/23/20 Do you have thoughts of harming others: None Do you have a plan to hurt others: No Plan Recently lost weight without trying: No Eating poorly because of decreased appetite: No Nutrition Risks: No Nutritional Risk Poor oral hygiene: No service: No Meds Allergies Allergy/AdvReac Type Severity Reaction Status Date / Time No Known Allergies Allergy Mild NOT Verified 10/22/20 20:17 APPLICABLE Active Medications: Current Medications Generic Name Dose Route Start Last Admin Trade Name Freq PRN Reason Stop Dose Admin Acetaminophen 650 mg 10/22/20 23:46 Acetaminophen 325 Mg Tablet PO Q6H PRN Pain, Mild (Pain Scale 1-3) Aspirin 81 mg 10/23/20 09:00 Aspirin Enteric Coated 81 Mg Tablet.Dr PO DAILY [facility] Docusate Sodium 100 mg 10/22/20 23:46 Docusate Sodium 100 Mg Capsule PO DAILY PRN Constipation Heparin Sodium (Porcine) 5,000 unit 10/22/20 23:46 10/23/20 01:20 Heparin Sodium,Porcine 5,000 Unit/Ml Vial SUBCUT 5,000 unit Q12H [facility] Administration Lactated Ringer's 1,000 mls @ 100 mls/hr 10/22/20 23:46 10/23/20 01:20 Lr IVCONT 100 mls/hr .Q10H [facility] Administration Insulin Human Lispro 0 - 10 unit 10/23/20 07:30 Insulin Lispro 100 Unit/Ml 3 Ml Vial SUBCUT QIDACHS [facility] Protocol Insulin Human Lispro 0 unit 10/23/20 07:30 Insulin Lispro 100 Unit/Ml 3 Ml Vial SUBCUT QIDACHS [facility] Protocol Ketotifen Fumarate 1 drop 10/23/20 06:08 Ketotifen Fumarate 0.025% Oph 5 Ml Drpbtl EYE-BOTH BID PRN allergies Lidocaine 1 patch 10/23/20 09:00 Lidocaine 4 % Patch Adh..Patch TRANSDERMA DAILY [facility] Losartan Potassium 50 mg 10/23/20 09:00 Losartan Potassium 50 Mg Tablet PO DAILY [facility] Protocol Morphine Sulfate 4 mg 10/22/20 23:46 Morphine Sulfate 4 Mg/Ml Cartridge IVPUSH Q4H PRN Pain, Severe (Pain Scale 7-10) Ondansetron HCl 4 mg 10/22/20 23:46 Ondansetron Hcl 4 Mg/2 Ml Vial IVPUSH Q8H PRN Nausea and Vomiting Sodium Chloride 3 ml 10/23/20 00:00 10/23/20 01:21 0.9 % Sodium Chloride Flush 3 Ml Syringe IVFLUSH Not Given QSHIFT [facility] Home Medications Medication Instructions Recorded Confirmed Last Taken Type aspirin 81 mg tablet,delayed 1 tab PO DAILY 08/23/20 10/22/20 10/22/20 History release cyanocobalamin (vitamin B-12) 1 tab PO DAILY 08/23/20 10/22/20 10/22/20 History 1,000 mcg tablet ferrous sulfate 325 mg (65 mg 1 tab PO DAILY 08/23/20 10/22/20 10/22/20 History iron) tablet glipizide 5 mg tablet, extended 10 mg PO QAM 08/23/20 10/22/20 10/22/20 History release 24 hr lidocaine 5 % topical patch 1 - 2 patch TOPICAL DAILY PRN 08/23/20 10/22/20 Unknown History lidocaine-prilocaine 2.5 %-2.5 % 1 appl TOPICAL BID PRN 08/23/20 10/22/20 Un known History topical cream linaclotide 145 mcg capsule 145 mcg PO QAM 08/23/20 10/22/20 10/22/20 History (Linzess) losartan 100 mg tablet 50 mg PO DAILY 08/23/20 10/22/20 10/22/20 History olopatadine 0.1 % eye drops 1 drp OPHTHALMIC (EYE) BID PRN 08/23/20 10/22/20 10/22/20 History omega-3 acid ethyl esters 1 gram 1 cap PO BID 08/23/20 10/22/20 10/22/20 History capsule simvastatin 40 mg tablet 1 tab PO BEDTIME 08/23/20 10/22/20 08/22/20 History sitagliptin 100 mg tablet (Januvia) 50 mg PO DAILY 08/23/20 10/22/20 10/22/20 History glipizide 5 mg tablet 5 mg PO QPM 10/22/20 10/22/20 Unknown History Physical Exam Vital Signs and Narrative: Vital Signs: Last Vital Signs Temp 98.4 F 10/23/20 03:22 Pulse 75 10/23/20 03:22 Resp 18 10/23/20 03:22 BP 128/64 10/23/20 03:22 Pulse Ox 99 10/23/20 03:22 Body Mass Index 21.6 Const: General: cooperative and no acute distress Orientation/consciousness: patient oriented x3 Eyes: General: appearance normal, both eyes and all related structures Resp: Effort & Inspection: normal respiratory effort and able to speak in complete sentences Auscultation: clear to auscultation bilaterally Cardio: Rate: regular rate Rhythm: regular rhythm GI: Other: Diffusely tender on palpation, no rebound, no guarding Palpation (GI): Soft to palpation Auscultation: normal bowel sounds Skin: General skin exam: no rashes or lesions noted Neuro: General: patient oriented x3 Cognition (Neuro): normal cognition Extrem: General: Yes normal to inspection and Yes no pedal edema Results Labs CBC and Chem 7: 10/22/20 21:29 10/23/20 04:34 Labs: Laboratory Results - last 24 hr 10/22/20 10/22/20 10/22/20 21:29 21:29 21:29 MCV 87.3 MCH 28.5 MCHC 32.6 RDW 13.8 Plt Count 244 MPV 9.6 Immature Gran % (Auto) 0.2 Neut % (Auto) 57.6 Lymph % (Auto) 23.1 [place] % (Auto) 18.3 H Eos % (Auto) 0.6 Baso % (Auto) 0.2 Lymph # (Auto) 1.2 [place] # (Auto) 0.9 Eos # (Auto) 0.0 Baso # (Auto) 0.0 Abs Immat Gran (auto) 0.01 Absolute Neuts (auto) 2.9 Absolute Nucleated RBC 0.000 Nucleated RBC % (auto) 0.0 PT 12.0 INR 1.1 Anion Gap 15 Estim Creat Clear Calc 22.9 Estimated GFR 25 POC Glucose Random Glucose 198 H Lactic Acid Calcium 8.5 D Total Bilirubin 0.5 Direct Bilirubin 0.2 AST 14 ALT 10 Alkaline Phosphatase 65 D Total Protein 6.5 Albumin 4.1 Lipase 59 Urine Color Urine Appearance Urine pH Ur Specific [place] Urine Protein Urine Glucose (UA) Urine Ketones Urine Blood Urine Nitrite Ur Leukocyte Esterase COVID-19 (DAY) COVID-19 Clin Com 10/22/20 10/22/20 10/23/20 21:29 23:04 01:26 MCV MCH MCHC RDW Plt Count MPV Immature Gran % (Auto) Neut % (Auto) Lymph % (Auto) Thayer % (Auto) Eos % (Auto) Baso % (Auto) Lymph # (Auto) Thayer # (Auto) Eos # (Auto) Baso # (Auto) Abs Immat Gran (auto) Absolute Neuts (auto) Absolute Nucleated RBC Nucleated RBC % (auto) PT INR Anion Gap Estim Creat Clear Calc Estimated GFR POC Glucose Random Glucose Lactic Acid 1.0 Calcium Total Bilirubin Direct Bilirubin AST ALT Alkaline Phosphatase Total Protein Albumin Lipase Urine Color YELLOW Urine Appearance CLEAR Urine pH 6.0 Ur Specific [place] 1.020 Urine Protein NEG Urine Glucose (UA) NEG Urine Ketones NEG Urine Blood NEG Urine Nitrite NEG Ur Leukocyte Esterase NEG COVID-19 (DAY) Negative COVID-19 [facility] Com See Note 10/23/20 10/23/20 01:58 04:34 MCV MCH MCHC RDW Plt Count MPV Immature Gran % (Auto) Neut % (Auto) Lymph % (Auto) Thayer % (Auto) Eos % (Auto) Baso % (Auto) Lymph # (Auto) Thayer # (Auto) Eos # (Auto) Baso # (Auto) Abs Immat Gran (auto) Absolute Neuts (auto) Absolute Nucleated RBC Nucleated RBC % (auto) PT INR Anion Gap 12 Estim Creat Clear Calc 26.2 Estimated GFR 30 POC Glucose 156 H Random Glucose 138 H Lactic Acid Calcium 7.7 L D Total Bilirubin Direct Bilirubin AST ALT Alkaline Phosphatase Total Protein Albumin Lipase Urine Color Urine Appearance Urine pH Ur Specific [place] Urine Protein Urine Glucose (UA) Urine Ketones Urine Blood Urine Nitrite Ur Leukocyte Esterase COVID-19 (DAY) COVID-19 Clin Com Imaging Radiologist's Impressions: Impressions Abdomen/Pelvis CT 10/22/20 21:10 IMPRESSION: Stomach, small and large bowel are diffusely fluid-filled without dilatation or point of transition. Findings compatible with a generalized ileus. Scattered colonic diverticula without evidence of diverticulitis. Assessment and Plan (1) Abdominal pain: Qualifiers: Abdominal location: generalized Qualified Code(s): R10.84 - Generalized abdominal pain Status: Acute (2) Ileus: Status: Acute (3) [id number] kidney injury: Qualifiers: Acute renal failure type: unspecified Status: Acute 75-year-old male who presents to the ED with abdominal pain found to have ileus # abdominal pain - secondary to ileus - no evidence of small-bowel obstruction - patient has been constipated for past 2 days - at this time will treat with bowel rest - surgical consult - in medications # ileus - NPO - surgical consult # CARMEN on CKD - most likely due to dehydration - will start him on IV fluids - follow BMP # diabetes - low-dose sliding scale insulin - diabetic diet # hypertension -stable - continue home medications DVT prophylaxis :heparin subq Quality Stroke Does the patient have a stroke diagnosis?: No VTE Prior VTE?: No VTE Risk Level:: Medical - moderate - high VTE Device Contraindication: Treatment Not Indicated VTE Drug Contraindication: N/A - Med Ordered
[2020-10-23 06:43] LABS: SLIDE REVIEW VERIFIED
[2020-10-23] MEDS: Morphine Sulfate 4 MG/ML CARTRIDGE IVPUSH ×2 (07:03→11:35)
[2020-10-23 07:07] LABS: Glucose, Whole Blood 133 mg/dL (60-115)
[2020-10-23] MEDS: Losartan Potassium 50 MG TABLET PO (09:38)
[2020-10-23] MEDS: Aspirin Enteric Coated 81 MG TABLET.DR PO (09:39)
[2020-10-23] MEDS: Lidocaine 4 % Patch ADH..PATCH 1 PATCH TRANSDERMA (09:39)
[2020-10-23 10:33] LABS: Glucose, Whole Blood 122 mg/dL (60-115)
--- NOTE | 2020-10-23 14:29 | PM.CNGS ---
History of Present Illness Consult details Consult date: 10/23/20 Reason for consult: abdominal pain Requesting physician: Nelly Stacy Narrative: This is a 75-year-old gentleman who reports a 3 day history of abdominal pain and and inability to move his bowels. Has last bowel movement was 3 days ago. He has not been passing flatus over the past day or so. He has a history of small-bowel obstruction and required surgery for it in 2006. He also has a long history of constipation and has been on Linzess and Metamucil for treatment. He reports that his abdominal pain has been diffuse and severe. He has not experienced nausea or vomiting. He has not had similar pain in the past. In the emergency room, white blood count was noted to be normal. CT scan of the abdomen and pelvis was obtained and demonstrated: IMPRESSION: Stomach, small and large bowel are diffusely fluid-filled without dilatation or point of transition. Findings compatible with a generalized ileus. Scattered colonic diverticula without evidence of diverticulitis. Dictated By: JUAN PABLO OCHOA MD Signed By: Electronically signed by JUAN PABLO OCHOA MD in OV> 10/22/20 [id number] He reports that his abdominal pain has improved somewhat this afternoon, but states that it is still present. Review of Systems Constitutional: Constitutional: Denies chills and Denies fever(s) Cardiovascular: Cardiovascular: Denies chest pain and Denies dyspnea Respiratory: Respiratory: Reports cough and Denies dyspnea PMFSH Past Medical History Medical History Bronchitis Diabetes HLD (hyperlipidemia) Holter monitor, abnormal Stroke Surgical History Surgical History History of intestinal surgery Social History Social History Household Members: Spouse Housing: House Do you presently have visiting nurse or other home services: No Patient Tobacco Use Status: Former Tobacco user Tobacco use type: Cigarette Smoked in Last 30 Days: No e-Cigarette/Vaping Use: Former Use Patient Interested in Nicotine Replacement: No Patient Given Instructions on How to Stop Smoking: No Second Hand Smoke Exposure: No Use of substances other than those prescribed or required for medical reasons: No Currently Displaying Signs/Symptoms of Drug Intoxication Withdrawal: No Any prior treatment program specific to substance use: No Have you been hit, kicked, punched, or otherwise hurt by someone within the past year? If so, by whom?: No Do you feel safe in your current relationship?: Yes Is there a partner from a previous relationship who is making you feel unsafe now?: No Are you made to feel afraid or neglected: No Advance Directives: Yes Advance Directives Information Provided: Yes Advance Directives on File: Yes Advance Directives Date on File: 08/23/20 Do you have thoughts of harming others: None Do you have a plan to hurt others: No Plan Recently lost weight without trying: No Eating poorly because of decreased appetite: No Nutrition Risks: No Nutritional Risk Poor oral hygiene: No service: No Meds Allergies Allergy/AdvReac Type Severity Reaction Status Date / Time No Known Allergies Allergy Mild NOT Verified 10/22/20 20:17 APPLICABLE Active Medications: Current Medications Generic Name Dose Route Start Last Admin Trade Name Freq PRN Reason Stop Dose Admin Acetaminophen 650 mg 10/22/20 23:46 Acetaminophen 325 Mg Tablet PO Q6H PRN Pain, Mild (Pain Scale 1-3) Aspirin 81 mg 10/23/20 09:00 10/23/20 09:39 Aspirin Enteric Coated 81 Mg Tablet.Dr PO 81 mg DAILY [facility] Administration Docusate Sodium 100 mg 10/22/20 23:46 Docusate Sodium 100 Mg Capsule PO DAILY PRN Constipation Heparin Sodium (Porcine) 5,000 unit 10/22/20 23:46 10/23/20 11:35 Heparin Sodium,Porcine 5,000 Unit/Ml Vial SUBCUT 5,000 unit Q12H [facility] Administration Lactated Ringer's 1,000 mls @ 100 mls/hr 10/22/20 23:46 10/23/20 11:35 Lr IVCONT 100 mls/hr .Q10H [facility] Administration Piperacillin Sod/Tazobactam 50 mls @ 100 mls/hr 10/23/20 12:15 Sod 2.25 gm/ Sodium Chloride IV Q6H [facility] Insulin Human Lispro 0 unit 10/23/20 07:30 10/23/20 11:18 Insulin Lispro 100 Unit/Ml 3 Ml Vial SUBCUT Not Given QIDACHS [facility] Protocol Ketotifen Fumarate 1 drop 10/23/20 06:25 Ketotifen Fumarate 0.025% Oph 5 Ml Drpbtl EYE-BOTH BID PRN allergies Lidocaine 1 patch 10/23/20 09:00 10/23/20 09:39 Lidocaine 4 % Patch Adh..Patch TRANSDERMA 1 patch DAILY [facility] Administration Losartan Potassium 50 mg 10/23/20 09:00 10/23/20 09:38 Losartan Potassium 50 Mg Tablet PO 50 mg DAILY [facility] Administration Protocol Morphine Sulfate 4 mg 10/22/20 23:46 10/23/20 11:35 Morphine Sulfate 4 Mg/Ml Cartridge IVPUSH 4 mg Q4H PRN Administration Pain, Severe (Pain Scale 7-10) Ondansetron HCl 4 mg 10/22/20 23:46 Ondansetron Hcl 4 Mg/2 Ml Vial IVPUSH Q8H PRN Nausea and Vomiting Sodium Chloride 3 ml 10/23/20 00:00 10/23/20 09:39 0.9 % Sodium Chloride Flush 3 Ml Syringe IVFLUSH Not Given QSHIFT [facility] Home Medications Medication Instructions Recorded Confirmed Last Taken Type aspirin 81 mg tablet,delayed 1 tab PO DAILY 08/23/20 10/22/20 10/22/20 History release cyanocobalamin (vitamin B-12) 1 tab PO DAILY 08/23/20 10/22/20 10/22/20 History 1,000 mcg tablet ferrous sulfate 325 mg (65 mg 1 tab PO DAILY 08/23/20 10/22/20 10/22/20 History iron) tablet glipizide 5 mg tablet, extended 10 mg PO QAM 08/23/20 10/22/20 10/22/20 History release 24 hr lidocaine 5 % topical patch 1 - 2 patch TOPICAL DAILY PRN 08/23/20 10/22/20 Unknown History lidocaine-prilocaine 2.5 %-2.5 % 1 appl TOPICAL BID PRN 08/23/20 10/22/20 Unknown History topical cream linaclotide 145 mcg capsule 145 mcg PO QAM 08/23/20 10/22/20 10/22/20 History (Linzess) losartan 100 mg tablet 50 mg PO DAILY 08/23/20 10/22/20 10/22/20 History olopatadine 0.1 % eye drops 1 drp OPHTHALMIC (EYE) BID PRN 08/23/20 10/22/20 10/22/20 History omega-3 acid ethyl esters 1 gram 1 cap PO BID 08/23/20 10/22/20 10/22/20 History capsule simvastatin 40 mg tablet 1 tab PO BEDTIME 08/23/20 10/22/20 08/22/20 History sitagliptin 100 mg tablet (Januvia) 50 mg PO DAILY 08/23/20 10/22/20 10/22/20 History glipizide 5 mg tablet 5 mg PO QPM 10/22/20 10/22/20 Unknown History Physical Exam Vital Signs: Vital Signs: Last Vital Signs Temp 98.2 F 10/23/20 10:56 Pulse 69 10/23/20 10:56 Resp 18 10/23/20 11:35 BP 139/60 10/23/20 10:56 Pulse Ox 95 10/23/20 10:56 Body Mass Index 21.6 Const: General: cooperative and no acute distress HENMT: Head: Yes normocephalic and Yes atraumatic Neck: Neck: Yes trachea midline and Yes supple Resp: Effort & Inspection: normal respiratory effort Auscultation: clear to auscultation bilaterally Cardio: Rate: regular rate Rhythm: regular rhythm GI: Other: Mildly to moderately distended, slightly firm but not tense, mild diffuse tenderness, bowel sounds active Skin: Other: Normal color, warm and dry Extrem: General: Yes normal to inspection Results Labs Result diagrams: 10/23/20 04:34 10/23/20 04:34 Labs: Abnormal lab results 10/22/20 10/22/20 10/23/20 Range/Units 21:29 21:29 01:58 WBC (4.8-10.8) X10*3/uL RBC 3.79 L (4.60-5.80) X10*6/uL Hgb 10.8 L (14.0-18.0) g/dl Hct 33.1 L (42-52) % MCHC (31.0-36.0) g/dl Neut % (Auto) (45-73) % [place] % (Auto) 18.3 H (2-11) % Absolute Neuts (auto) (2.0-8.3) X10*3/uL Chloride (96-108) mmol/L Carbon Dioxide 20 L (22-29) mmol/L BUN 35 H (9-16) mg/dL Creatinine 2.50 H (0.5-1.4) mg/dL POC Glucose 156 H (60-115) mg/dL Random Glucose 198 H (60-115) mg/dL Calcium (8.4-10.2) mg/dL 10/23/20 10/23/20 10/23/20 Range/Units 04:34 04:34 06:59 WBC 4.4 L (4.8-10.8) X10*3/uL RBC 3.47 L (4.60-5.80) X10*6/uL Hgb 9.6 L (14.0-18.0) g/dl Hct 31.2 L (42-52) % MCHC 30.8 L (31.0-36.0) g/dl Neut % (Auto) 41.7 L (45-73) % Evans % (Auto) 20.8 H (2-11) % Absolute Neuts (auto) 1.8 L (2.0-8.3) X10*3/uL Chloride 109 H (96-108) mmol/L Carbon Dioxide (22-29) mmol/L BUN 31 H (9-16) mg/dL Creatinine 2.16 H (0.5-1.4) mg/dL POC Glucose 133 H (60-115) mg/dL Random Glucose 138 H (60-115) mg/dL Calcium 7.7 L D (8.4-10.2) mg/dL 10/23/20 Range/Units 10:22 WBC (4.8-10.8) X10*3/uL RBC (4.60-5.80) X10*6/uL Hgb (14.0-18.0) g/dl Hct (42-52) % MCHC (31.0-36.0) g/dl Neut % (Auto) (45-73) % Evans % (Auto) (2-11) % Absolute Neuts (auto) (2.0-8.3) X10*3/uL Chloride (96-108) mmol/L Carbon Dioxide (22-29) mmol/L BUN (9-16) mg/dL Creatinine (0.5-1.4) mg/dL POC Glucose 122 H (60-115) mg/dL Random Glucose (60-115) mg/dL Calcium (8.4-10.2) mg/dL Short CBC 07/31/21 08/01/21 Range/Units 21:29 04:34 WBC 5.0 4.4 L (4.8-10.8) X10*3/uL Hgb 10.8 L 9.6 L (14.0-18.0) g/dl Hct 33.1 L 31.2 L (42-52) % Plt Count 244 228 (160-400) X10*3/uL BMP 10/22/20 10/23/20 21:29 04:34 Sodium 137 139 Potassium 4.4 5.0 Chloride 106 109 H Carbon Dioxide 20 L 23 BUN 35 H 31 H Creatinine 2.50 H 2.16 H Calcium 8.5 D 7.7 L D Liver Function 10/22/20 Range/Units 21:29 Total Bilirubin 0.5 (0.0-1.0) mg/dL Direct Bilirubin 0.2 (0.0-0.5) mg/dL AST 14 (5-37) U/L ALT 10 (0-40) U/L Alkaline Phosphatase 65 D (39-117) U/L Albumin 4.1 (3.5-5.0) g/dL Urine 10/22/20 Range/Units 23:04 Urine Color YELLOW Urine Appearance CLEAR Urine pH 6.0 (5.0-8.0) Ur Specific [place] 1.020 (1.005-1.025) Urine Protein NEG (NEG-TRACE) MG/DL Urine Glucose (UA) NEG (NEG) MG/DL All other labs normal. Imaging Abdomen CT scan report/results: report reviewed and image reviewed Assessment and Plan (1) Abdominal pain: Qualifiers: Abdominal location: generalized Qualified Code(s): R10.84 - Generalized abdominal pain Status: Acute (2) Ileus: Status: Acute 75-year-old gentleman with a history of diabetes mellitus and recent CVA has well as history of constipation presenting with abdominal pain, obstipation and distension, CT findings consistent with ileus. Possible etiologies include constipation and gastroenteritis. There may be a component of GI dysmotility contributing. Recommend initial treatment with a tap water or soapsuds enema. General surgery will follow along. Procedures Date of Service Date of Service: 10/23/20
--- NOTE | 2020-10-23 14:55 | P.PNIM_ITS ---
Subjective Subjective Date of Service: 10/23/20 Interval History: Complaining of persistent abdominal pain, no nausea no vomiting, had small bowel movement yesterday morning, no diarrhea no fever no chills no other acute issues overnight Review of Systems General no headache, no dizziness, no fever,no chills. CVS no chest pain, no palpitation. Respiratory no cough, no sob. Gastrointestinal no nausea, no vomiting, diffue abdominal pain Physical Exam Vital Signs: Vital Signs: Last Vital Signs Temp 98.2 F 10/23/20 10:56 Pulse 69 10/23/20 10:56 Resp 18 10/23/20 11:35 BP 139/60 10/23/20 10:56 Pulse Ox 95 10/23/20 10:56 Body Mass Index 21.6 General no acute distress. Neck supple, no JVD. CVS regular rate rhythm, Respiratory lungs clear to auscultation, no respiratory distress, no wheeze, no rhonchi. Gastrointestinal abdomen distended,firm, tender to palpation, bowel sounds audible ,no guarding , no rigidity. Extremities no edema. Neuro nonfocal Skin no rash Objective Data Current Medications Generic Name Dose Route Start Last Admin Trade Name Freq PRN Reason Stop Dose Admin Acetaminophen 650 mg 10/22/20 23:46 Acetaminophen 325 Mg Tablet PO Q6H PRN Pain, Mild (Pain Scale 1-3) Aspirin 81 mg 10/23/20 09:00 10/23/20 09:39 Aspirin Enteric Coated 81 Mg Tablet. PO 81 mg DAILY [facility] Administration Docusate Sodium 100 mg 10/22/20 23:46 Docusate Sodium 100 Mg Capsule PO DAILY PRN Constipation Heparin Sodium (Porcine) 5,000 unit 10/22/20 23:46 10/23/20 11:35 Heparin Sodium,Porcine 5,000 Unit/Ml Vial SUBCUT 5,000 unit Q12H [facility] Administration Lactated Ringer's 1,000 mls @ 100 mls/hr 10/22/20 23:46 10/23/20 11:35 Lr IVCONT 100 mls/hr .Q10H [facility] Administration Piperacillin Sod/Tazobactam 50 mls @ 100 mls/hr 10/23/20 12:15 Sod 2.25 gm/ Sodium Chloride IV Q6H [facility] Insulin Human Lispro 0 unit 10/23/20 07:30 10/23/20 11:18 Insulin Lispro 100 Unit/Ml 3 Ml Vial SUBCUT Not Given QIDACHS [facility] Protocol Ketotifen Fumarate 1 drop 10/23/20 06:25 Ketotifen Fumarate 0.025% Oph 5 Ml Drpbtl EYE-BOTH BID PRN allergies Lidocaine 1 patch 10/23/20 09:00 10/23/20 09:39 Lidocaine 4 % Patch Adh..Patch TRANSDERMA 1 patch DAILY [facility] Administration Losartan Potassium 50 mg 10/23/20 09:00 10/23/20 09:38 Losartan Potassium 50 Mg Tablet PO 50 mg DAILY [facility] Administration Protocol Morphine Sulfate 4 mg 10/22/20 23:46 10/23/20 11:35 Morphine Sulfate 4 Mg/Ml Cartridge IVPUSH 4 mg Q4H PRN Administration Pain, Severe (Pain Scale 7-10) Ondansetron HCl 4 mg 10/22/20 23:46 Ondansetron Hcl 4 Mg/2 Ml Vial IVPUSH Q8H PRN Nausea and Vomiting Sodium Chloride 3 ml 10/23/20 00:00 10/23/20 09:39 0.9 % Sodium Chloride Flush 3 Ml Syringe IVFLUSH Not Given QSHIFT [facility] Labs CBC & Chem 7: 10/23/20 04:34 10/23/20 04:34 Labs: Laboratory Results - last 24 hr 10/22/20 10/22/20 10/22/20 21:29 21:29 21:29 MCV 87.3 MCH 28.5 MCHC 32.6 RDW 13.8 Plt Count 244 MPV 9.6 Immature Gran % (Auto) 0.2 Neut % (Auto) 57.6 Lymph % (Auto) 23.1 Gilchrist % (Auto) 18.3 H Eos % (Auto) 0.6 Baso % (Auto) 0.2 Lymph # (Auto) 1.2 [place] # (Auto) 0.9 Eos # (Auto) 0.0 Baso # (Auto) 0.0 Abs Immat Gran (auto) 0.01 Absolute Neuts (auto) 2.9 Absolute Nucleated RBC 0.000 Nucleated RBC % (auto) 0.0 Smear Tech's Comments PT 12.0 INR 1.1 Anion Gap 15 Estim Creat Clear Calc 22.9 Estimated GFR 25 POC Glucose Random Glucose 198 H Lactic Acid Calcium 8.5 D Total Bilirubin 0.5 Direct Bilirubin 0.2 AST 14 ALT 10 Alkaline Phosphatase 65 D Total Protein 6.5 Albumin 4.1 Lipase 59 Urine Color Urine Appearance Urine pH Ur Specific Armstrong Urine Protein Urine Glucose (UA) Urine Ketones Urine Blood Urine Nitrite Ur Leukocyte Esterase COVID-19 (DAY) COVID-19 Clin Com 10/22/20 10/22/20 10/23/20 21:29 23:04 01:26 MCV MCH MCHC RDW Plt Count MPV Immature Gran % (Auto) Neut % (Auto) Lymph % (Auto) Gilchrist % (Auto) Eos % (Auto) Baso % (Auto) Lymph # (Auto) [place] # (Auto) Eos # (Auto) Baso # (Auto) Abs Immat Gran (auto) Absolute Neuts (auto) Absolute Nucleated RBC Nucleated RBC % (auto) Smear Tech's Comments PT INR Anion Gap Estim Creat Clear Calc Estimated GFR POC Glucose Random Glucose Lactic Acid 1.0 Calcium Total Bilirubin Direct Bilirubin AST ALT Alkaline Phosphatase Total Protein Albumin Lipase Urine Color YELLOW Urine Appearance CLEAR Urine pH 6.0 Ur Specific Armstrong 1.020 Urine Protein NEG Urine Glucose (UA) NEG Urine Ketones NEG Urine Blood NEG Urine Nitrite NEG Ur Leukocyte Esterase NEG COVID-19 (DAY) Negative COVID-19 Clin Com See Note 10/23/20 10/23/20 10/23/20 01:58 04:34 04:34 MCV 89.9 MCH 27.7 MCHC 30.8 L RDW 14.0 Plt Count 228 MPV 10.3 Immature Gran % (Auto) 0.2 Neut % (Auto) 41.7 L Lymph % (Auto) 36.4 Gilchrist % (Auto) 20.8 H Eos % (Auto) 0.9 Baso % (Auto) 0.0 Lymph # (Auto) 1.6 Gilchrist # (Auto) 0.9 Eos # (Auto) 0.0 Baso # (Auto) 0.0 Abs Immat Gran (auto) 0.01 Absolute Neuts (auto) 1.8 L Absolute Nucleated RBC 0.000 Nucleated RBC % (auto) 0.0 Smear Tech's Comments VERIFIED PT INR Anion Gap 12 Estim Creat Clear Calc 26.2 Estimated GFR 30 POC Glucose 156 H Random Glucose 138 H Lactic Acid Calcium 7.7 L D Total Bilirubin Direct Bilirubin AST ALT Alkaline Phosphatase Total Protein Albumin Lipase Urine Color Urine Appearance Urine pH Ur Specific Armstrong Urine Protein Urine Glucose (UA) Urine Ketones Urine Blood Urine Nitrite Ur Leukocyte Esterase COVID-19 (DAY) COVID-19 Clin Com 10/23/20 10/23/20 06:59 10:22 MCV MCH MCHC RDW Plt Count MPV Immature Gran % (Auto) Neut % (Auto) Lymph % (Auto) Gilchrist % (Auto) Eos % (Auto) Baso % (Auto) Lymph # (Auto) [place]christ # (Auto) Eos # (Auto) Baso # (Auto) Abs Immat Gran (auto) Absolute Neuts (auto) Absolute Nucleated RBC Nucleated RBC % (auto) Smear Tech's Comments PT INR Anion Gap Estim Creat Clear Calc Estimated GFR POC Glucose 133 H 122 H Random Glucose Lactic Acid Calcium Total Bilirubin Direct Bilirubin AST ALT Alkaline Phosphatase Total Protein Albumin Lipase Urine Color Urine Appearance Urine pH Ur Specific Armstrong Urine Protein Urine Glucose (UA) Urine Ketones Urine Blood Urine Nitrite Ur Leukocyte Esterase COVID-19 (DAY) COVID-19 Clin Com Microbiology Microbiology Results: Microbiology 10/22/20 21:43 Blood Culture - Preliminary Blood - Venous Prelim: GNR Gram Stain only Assessment and Plan (1) Ileus: Status: Acute (2) HTN (hypertension): Status: Acute (3) Abdominal pain: Status: Acute (4) [id number] kidney injury: Status: Acute (5) Gram-negative bacteremia: Status: Acute Assessment and Plan: 75-year-old male who presents to the ED with abdominal pain found to have ileus # intractable abdominal pain/gram-negative bacteremia persistent abdominal pain no nausea no vomiting, no diarrhea, has history of chronic constipation, CT abdomen showed ileus, no diverticulitis ,no ascites Blood culture 1/2 bottles grew Gram-negative rods, urinalysis unremarkable, CT abdomen showed no source of infection, bacteremia likley related to translocation of bacteria with distended bowl Will treat with IV Zosyn follow final blood culture report Patient seen by Dr. Nunes she recommend soapsuds enema Continue IV fluids and npo diet follow electrolytes # CARMEN on CKD - most likely due to dehydration, creatinine trending down, continue IV fluids follow electrolytes and creatinine # diabetes - stable, continue low-dose sliding scale insulin and diabetic diet, hold glipizide and metformin while npo # hypertension -stable, continue losartan home dose DVT prophylaxis :heparin subq Quality Stroke Does the patient have a stroke diagnosis?: No VTE Prior VTE?: No VTE Risk Level:: Medical - moderate - high VTE Device Contraindication: Treatment Not Indicated VTE Drug Contraindication: N/A - Med Ordered
[2020-10-23] MEDS: Piperacillin Sodium/Tazobactam 2.25 GM in 0.9 % Sodium Chloride 50 ML IV ×2 (15:34→21:49)
[2020-10-23] MEDS: 0.9 % Sodium Chloride Flush 3 ML SYRINGE IVFLUSH (15:35)
[2020-10-23 15:36] LABS: Glucose, Whole Blood 95 mg/dL (60-115)
[2020-10-23 19:52] LABS: Glucose, Whole Blood 90 mg/dL (60-115)
[2020-10-24] VITALS (7 sets, daily range): BP systolic 121–160; BP diastolic 61–89; PULSE 62–96; RESP 14–20; TEMP 36.6–37; O2SAT 96–98
[2020-10-24] MEDS: Piperacillin Sodium/Tazobactam 2.25 GM in 0.9 % Sodium Chloride 50 ML IV ×4 (04:18→21:44)
[2020-10-24 05:38] LABS: MANUAL DIFF FLAG NO
[2020-10-24 05:43] LABS: Basophils Percent Auto 0.2 % (0-2); Eosinophils Percent Auto 0.8 % (0-4); Hematocrit 31.1 % (42-52); Hemoglobin 9.8 g/dl (14.0-18.0); Imm Gran Abs Auto 0.01 X10*3/uL (0.00-0.03); Imm Gran Pct Auto 0.2 % (0.0-0.4); Lymphocytes Absolute Auto 1.4 X10*3/uL (1.2-4.9); Lymphocytes Percent Auto 29.5 % (20-40); Mean Corpuscular HGB Conc 31.5 g/dl (31.0-36.0); Mean Corpuscular Hemoglobin 28.2 pg (27.0-33.0); Mean Corpuscular Volume 89.6 fL (80-98); Mean Platelet Volume 10.1 fL (9.4-12.4); Monocytes Absolute Auto 0.8 X10*3/uL (0.1-1.2); Neutrophils Absolute Auto 2.6 X10*3/uL (2.0-8.3); Neutrophils Percent Auto 52.3 % (45-73); Platelet Count 216 X10*3/uL (160-400); Red Blood Count 3.47 X10*6/uL (4.60-5.80); Red Cell Distribution Width 13.5 % (11.0-16.0); White Blood Count 4.9 X10*3/uL (4.8-10.8)
[2020-10-24 06:19] LABS: Anion Gap 15 (12-20); Blood Urea Nitrogen 22 mg/dL (9-16); Calcium 8.5 mg/dL (8.4-10.2); Carbon Dioxide 22 mmol/L (22-29); Chloride 108 mmol/L (96-108); Creatinine Clr Calc Pharmacy 27.7; Estimated Glomerular Filt Rate 32; Glucose Random 95 mg/dL (60-115); Potassium 4.9 mmol/L (3.3-5.1); Sodium 140 mmol/L (135-145)
[2020-10-24 07:42] LABS: Glucose, Whole Blood 91 mg/dL (60-115)
[2020-10-24] MEDS: Aspirin Enteric Coated 81 MG TABLET.DR PO (08:03)
[2020-10-24] MEDS: 0.9 % Sodium Chloride Flush 3 ML SYRINGE IVFLUSH ×2 (08:03→21:45)
[2020-10-24] MEDS: Losartan Potassium 50 MG TABLET PO (08:03)
[2020-10-24] MEDS: Lidocaine 4 % Patch ADH..PATCH 1 PATCH TRANSDERMA (08:04)
--- NOTE | 2020-10-24 11:19 | P.CDIC_ITS ---
CDI Concurrent Query Service Date: 10/24/20 Documentation Clarification: Please clarify if you are treating a proba ble/suspected/likely or confirmed: Specifics: CARMEN on Chronic kidney disease (failure) Stage 1-5 or other Please specify if known or undetermined Provider Response: Other Other Diagnosis: CARMEN on CKD stage 3 PLEASE DO NOT DELETE/MODIFY EXISTING CONTENT Additional information is needed in order to code to the highest accuracy and appropriate Severity of Illness (SOI). Please clarify the information noted below in your progress notes and discharge summary. Risk Factors/Clinical Indicators/Treatments CARMEN on CKD most likely due to dehydration follow electrolytes and creatinine BUN 35 CR 2.5 baseline around 1.8 IV fluids. CDS: Giselle Lucero CCS, CDIS Contact Number: [phone] Please Review the information above and exercise your independent professional judgment in responding to the query. If you concur, pleas document in the PROGRESS NOTES and DISCHARGE SUMMARY. If you do not agree with the query, please document in the query above. THIS QUERY IS PART OF THE PERMANENT MEDICAL RECORD
[2020-10-24] MEDS: Lactated Ringers 1,000 ML 100 ML IVCONT (11:24)
[2020-10-24] MEDS: Heparin Sodium,Porcine 5,000 UNIT/ML VIAL 5000 UNIT SUBCUT ×2 (11:46→23:51)
[2020-10-24 11:59] LABS: Glucose, Whole Blood 80 mg/dL (60-115)
--- NOTE | 2020-10-24 13:06 | PM.PNGS ---
Subjective Subjective Date of Service: 10/24/20 Interval history: Patient reports continued abdominal pain without much improvement. Denies nausea or vomiting, feels hungry, no flatus or bowel movement overnight. Physical Exam Vital Signs: Vital Signs: Last Vital Signs Temp 97.8 F 10/24/20 11:12 Pulse 70 10/24/20 11:12 Resp 20 10/24/20 11:12 BP 132/61 10/24/20 11:12 Pulse Ox 96 10/24/20 11:12 Body Mass Index 21.6 Const: General: no acute distress, alert and awake Resp: Other: Breathing comfortably on room air Effort & Inspection: normal respiratory effort GI: Other: Distended, tympanitic, mild tenderness to deep palpation without rebound or guarding. Skin: Other: Warm, dry, no rashes Extrem: Other: No edema Procedures Date of Service Date of Service: 10/24/20 Progress Note: A&P Assessment and plan (1) Ileus: Status: Acute Assessment and Plan: This is a 75-year-old gentleman who reports a 3 day history of abdominal pain and and inability to move his bowels for the past 4 days. He has a history of a small-bowel obstruction requiring surgery in 2006 and a long history of constipation treated with Linzess and Metamucil. He continues to have abdominal distension and obstipation. CT of the abdomen and pelvis revealed diffuse dilation of large and small bowel suggestive of an ileus. Today's exam continues to show abdominal distension with tympany to percussion. Continue supportive care. No surgical intervention recommended at this time. Will continue to monitor patient's progress during this hospitalization. Fall Risk Details Current Medications: Current Medications Generic Name Dose Route Start Last Admin Trade Name Freq PRN Reason Stop Dose Admin Acetaminophen 650 mg 10/22/20 23:46 Acetaminophen 325 Mg Tablet PO Q6H PRN Pain, Mild (Pain Scale 1-3) Aspirin 81 mg 10/23/20 09:00 10/24/20 08:03 Aspirin Enteric Coated 81 Mg Tablet. PO 81 mg DAILY [facility] Administration Docusate Sodium 100 mg 10/22/20 23:46 Docusate Sodium 100 Mg Capsule PO DAILY PRN Constipation Heparin Sodium (Porcine) 5,000 unit 10/22/20 23:46 10/24/20 11:46 Heparin Sodium,Porcine 5,000 Unit/Ml Vial SUBCUT 5,000 unit Q12H [facility] Administration Lactated Ringer's 1,000 mls @ 100 mls/hr 10/22/20 23:46 10/24/20 11:24 Lr IVCONT 100 mls/hr .Q10H [facility] Administration Piperacillin Sod/Tazobactam 50 mls @ 100 mls/hr 10/23/20 22:00 10/24/20 12:03 Sod 2.25 gm/ Sodium Chloride IV Infused Q6H [facility] Infusion Insulin Human Lispro 0 unit 10/23/20 07:30 10/24/20 11:31 Insulin Lispro 100 Unit/Ml 3 Ml Vial SUBCUT Not Given QIDACHS [facility] Protocol Ketotifen Fumarate 1 drop 10/23/20 06:25 Ketotifen Fumarate 0.025% Oph 5 Ml Drpbtl EYE-BOTH BID PRN allergies Lidocaine 1 patch 10/23/20 09:00 10/24/20 08:04 Lidocaine 4 % Patch Adh..Patch TRANSDERMA 1 patch DAILY [facility] Administration Losartan Potassium 50 mg 10/23/20 09:00 10/24/20 08:03 Losartan Potassium 50 Mg Tablet PO 50 mg DAILY [facility] Administration Protocol Morphine Sulfate 4 mg 10/22/20 23:46 10/23/20 11:35 Morphine Sulfate 4 Mg/Ml Cartridge IVPUSH 4 mg Q4H PRN Administration Pain, Severe (Pain Scale 7-10) Ondansetron HCl 4 mg 10/22/20 23:46 Ondansetron Hcl 4 Mg/2 Ml Vial IVPUSH Q8H PRN Nausea and Vomiting Sodium Chloride 3 ml 10/23/20 00:00 10/24/20 08:03 0.9 % Sodium Chloride Flush 3 Ml Syringe IVFLUSH 3 ml QSHIFT [facility] Administration Time Spent With Patient Time: Total time spent is greater than 50% in coordination of care (as documented) at patient's floor/unit and/or counseling patient: Time with patient: 15 - 24 minutes Quality Stroke Does the patient have a stroke diagnosis?: No VTE Prior VTE?: No VTE Risk Level:: Medical - moderate - high VTE Device Contraindication: Treatment Not Indicated VTE Drug Contraindication: N/A - Med Ordered
--- NOTE | 2020-10-24 15:21 | MHC.CM.PN ---
CM MET WITH PT WITH THE HELP OF [facility] [facility]. PT REPORTS HE LIVES AT HOME WITH HIS AND IS INDEPENDENT WITH CARE. PT DENIES THE USE OF DME OR HOME SERVICES. PT HAS A HCP ON FILE THAT HE CONFIRMS IS CORRECT. PT ALSO CONFIRMS HIS PCP IS NITZA FERRARO. IMM DELIVERED CURRENT DC PLAN IS HOME WITH NO SERVICES FAMILY TO TRANSPORT
[2020-10-24] MEDS: Morphine Sulfate 4 MG/ML CARTRIDGE IVPUSH (15:35)
--- NOTE | 2020-10-24 15:54 | HO.PM.IMPN ---
Subjective Subjective Date of Service: 10/24/20 Interval History: Complaining of abdominal pain, had 1 bowel movement, feels hungry, no nausea no vomiting no fever no chills no other acute issues overnight. Review of Systems General no headache, no dizziness, no fever,no chills.? CVS no chest pain, no palpitation.? Respiratory no cough, no sob.? Gastrointestinal no nausea, no vomiting, diffue abdominal pain Physical Exam Vital Signs: Vital Signs: Last Vital Signs Temp 97.8 F 10/24/20 15:24 Pulse 62 10/24/20 15:24 Resp 18 10/24/20 15:24 BP 143/81 H 10/24/20 15:24 Pulse Ox 97 10/24/20 15:24 Body Mass Index 21.6 General no acute d istress.? Neck sup ple, no JVD. CVS? regular rate rhyth m, Respiratory jerica gs clear to auscul tation, no respira tory distress, no wheeze, no rhonchi . Gastrointestinal abdomen distended ,tenderness to pal pation right lower quadrant, bowel s ounds audible ,no guarding , no rigi dity. Extremities no edema. Neuro no nfocal Skin no adrian h Objective Data Current Medications Generic Name Dose Route Start Last Admin Trade Name Freq PRN Reason Stop Dose Admin Acetaminophen 650 mg 10/22/20 23:46 Acetaminophen 325 Mg Tablet PO Q6H PRN Pain, Mild (Pain Scale 1-3) Aspirin 81 mg 10/23/20 09:00 10/24/20 08:03 Aspirin Enteric Coated 81 Mg Tablet. PO 81 mg DAILY [facility] Administration Docusate Sodium 100 mg 10/22/20 23:46 Docusate Sodium 100 Mg Capsule PO DAILY PRN Constipation Heparin Sodium (Porcine) 5,000 unit 10/22/20 23:46 10/24/20 11:46 Heparin Sodium,Porcine 5,000 Unit/Ml Vial SUBCUT 5,000 unit Q12H [facility] Administration Lactated Ringer's 1,000 mls @ 100 mls/hr 10/22/20 23:46 10/24/20 11:24 Lr IVCONT 100 mls/hr .Q10H [facility] Administration Piperacillin Sod/Tazobactam 50 mls @ 100 mls/hr 10/23/20 22:00 10/24/20 12:03 Sod 2.25 gm/ Sodium Chloride IV Infused Q6H [facility] Infusion Insulin Human Lispro 0 unit 10/23/20 07:30 10/24/20 11:31 Insulin Lispro 100 Unit/Ml 3 Ml Vial SUBCUT Not Given QIDACHS [facility] Protocol Ketotifen Fumarate 1 drop 10/23/20 06:25 Ketotifen Fumarate 0.025% Oph 5 Ml Drpbtl EYE-BOTH BID PRN allergies Lidocaine 1 patch 10/23/20 09:00 10/24/20 08:04 Lidocaine 4 % Patch Adh..Patch TRANSDERMA 1 patch DAILY [facility] Administration Losartan Potassium 50 mg 10/23/20 09:00 10/24/20 08:03 Losartan Potassium 50 Mg Tablet PO 50 mg DAILY [facility] Administration Protocol Morphine Sulfate 4 mg 10/22/20 23:46 10/24/20 15:35 Morphine Sulfate 4 Mg/Ml Cartridge IVPUSH 4 mg Q4H PRN Administration Pain, Severe (Pain Scale 7-10) Ondansetron HCl 4 mg 10/22/20 23:46 Ondansetron Hcl 4 Mg/2 Ml Vial IVPUSH Q8H PRN Nausea and Vomiting Sodium Chloride 3 ml 10/23/20 00:00 10/24/20 08:03 0.9 % Sodium Chloride Flush 3 Ml Syringe IVFLUSH 3 ml QSHIFT [facility] Administration Labs CBC & Chem 7: 10/24/20 04:49 10/24/20 04:49 Labs: Laboratory Results - last 24 hr 10/23/20 10/24/20 10/24/20 19:47 04:49 04:49 MCV 89.6 MCH 28.2 MCHC 31.5 RDW 13.5 Plt Count 216 MPV 10.1 Immature Gran % (Auto) 0.2 Neut % (Auto) 52.3 Lymph % (Auto) 29.5 [place] % (Auto) 17.0 H Eos % (Auto) 0.8 Baso % (Auto) 0.2 Lymph # (Auto) 1.4 [place] # (Auto) 0.8 Eos # (Auto) 0.0 Baso # (Auto) 0.0 Abs Immat Gran (auto) 0.01 Absolute Neuts (auto) 2.6 Absolute Nucleated RBC 0.000 Nucleated RBC % (auto) 0.0 Anion Gap 15 Estim Creat Clear Calc 27.7 Estimated GFR 32 POC Glucose 90 Random Glucose 95 Calcium 8.5 D 08/02/21 08/02/21 07:21 11:16 MCV MCH MCHC RDW Plt Count MPV Immature Gran % (Auto) Neut % (Auto) Lymph % (Auto) [place] % (Auto) Eos % (Auto) Baso % (Auto) Lymph # (Auto) [place] # (Auto) Eos # (Auto) Baso # (Auto) Abs Immat Gran (auto) Absolute Neuts (auto) Absolute Nucleated RBC Nucleated RBC % (auto) Anion Gap Estim Creat Clear Calc Estimated GFR POC Glucose 91 80 Random Glucose Calcium Microbiology Microbiology Results: Microbiology 10/22/20 21:43 Blood Culture - Preliminary Blood - Venous Gram negative karen 10/22/20 21:29 Blood Culture - Preliminary Blood - Venous No growth after 24 hours. Assessment and Plan (1) Gram-negative bacteremia: Status: Acute (2) Abdominal pain: Status: Acute (3) Ileus: Status: Acute (4) [id number] kidney injury: Status: Acute Assessment and Plan: 75-year-old male who presents to the ED with abdominal pain found to have ileus # intractable abdominal pain/gram-negative bacteremia ?? persistent abdominal pain, no nausea, no vomiting, no diarrhea, has history of chronic constipation, CT abdomen showed ileus, no diverticulitis ,no ascites ?? Blood culture 1/2 bottles grew Gram-negative rods, urinalysis unremarkable, CT abdomen showed no source of infection, bacteremia likley related to translocation of bacteria with distended bowl ?? cont. IV Zosyn day 2 , had 1 bowel movement yesterday after enema, final blood culture report ?? Patient seen by General surgery they recommend to continue supportive care ?? Continue IV fluids and npo diet follow electrolytes, repeat enema # CARMEN on CKD stage 3 - most likely due to dehydration, creatinine trending down, continue IV fluids follow electrolytes and creatinine # diabetes - stable,? continue low-dose sliding scale insulin and diabetic diet, hold glipizide and metformin while npo # hypertension -stable, continue losartan home dose DVT prophylaxis :heparin subq Quality Stroke Does the patient have a stroke diagnosis?: No VTE Prior VTE?: No VTE Risk Level:: Medical - moderate - high VTE Device Contraindication: Treatment Not Indicated VTE Drug Contraindication: N/A - Med Ordered
[2020-10-24 16:09] LABS: Glucose, Whole Blood 63 mg/dL (60-115)
[2020-10-24] MEDS: Dextrose 5 % and Lactated Ring 1,000 ML 100 ML IVCONT (17:22)
[2020-10-24 20:42] LABS: Glucose, Whole Blood 136 mg/dL (60-115)
[2020-10-25] VITALS (7 sets, daily range): BP systolic 138–180; BP diastolic 60–79; PULSE 53–66; RESP 18–20; TEMP 35.9–36.8; O2SAT 96–100
[2020-10-25] MEDS: Piperacillin Sodium/Tazobactam 2.25 GM in 0.9 % Sodium Chloride 50 ML IV ×4 (03:37→20:42)
[2020-10-25] MEDS: Dextrose 5 % and Lactated Ring 1,000 ML 100 ML IVCONT ×2 (03:39→19:34)
[2020-10-25 07:07] LABS: Anion Gap 15 (12-20); Blood Urea Nitrogen 18 mg/dL (9-16); Calcium 8.2 mg/dL (8.4-10.2); Carbon Dioxide 22 mmol/L (22-29); Chloride 108 mmol/L (96-108); Creatinine Clr Calc Pharmacy 27.8; Estimated Glomerular Filt Rate 32; Glucose Random 176 mg/dL (60-115); Potassium 4.9 mmol/L (3.3-5.1); Sodium 140 mmol/L (135-145)
[2020-10-25 07:10] LABS: Glucose, Whole Blood 192 mg/dL (60-115)
[2020-10-25] MEDS: 0.9 % Sodium Chloride Flush 3 ML SYRINGE IVFLUSH ×3 (07:38→20:42)
[2020-10-25] MEDS: Aspirin Enteric Coated 81 MG TABLET.DR PO (08:45)
[2020-10-25] MEDS: Losartan Potassium 50 MG TABLET PO (08:45)
[2020-10-25] MEDS: Lidocaine 4 % Patch ADH..PATCH 1 PATCH TRANSDERMA (08:45)
[2020-10-25 11:05] LABS: Glucose, Whole Blood 144 mg/dL (60-115)
[2020-10-25] MEDS: Heparin Sodium,Porcine 5,000 UNIT/ML VIAL 5000 UNIT SUBCUT ×2 (13:06→23:09)
--- NOTE | 2020-10-25 14:42 | HO.PM.IMPN ---
Subjective Subjective Date of Service: 10/25/20 Interval History: c/o abd pain , no bm asking for stool softener. Review of Systems General no headache, no dizziness, no fever,no chills.? CVS no chest pain, no palpitation.? Respiratory no cough, no sob.? Gastrointestinal no nausea, no vomiting, diffue abdominal pain Physical Exam Vital Signs: Vital Signs: Last Vital Signs Temp 97.8 F 10/25/20 11:19 Pulse 54 10/25/20 11:19 Resp 19 10/25/20 11:19 BP 167/77 H 10/25/20 11:19 Pulse Ox 99 10/25/20 11:19 Body Mass Index 21.6 General no acute distress.? Neck supple, no JVD. CVS?regular rate rhythm, Respiratory lungs clear to auscultation, no respiratory distress, nowheeze, no rhonchi. Gastrointestinal?abdomen distended,tenderness to palpation right lower?quadrant, bowel sounds audible ,noguarding , no rigidity. Extremitiesno edema. Neuro nonfocal Skin no rash Objective Data Current Medications Generic Name Dose Route Start Last Admin Trade Name Freq PRN Reason Stop Dose Admin Acetaminophen 650 mg 10/22/20 23:46 Acetaminophen 325 Mg Tablet PO Q6H PRN Pain, Mild (Pain Scale 1-3) Aspirin 81 mg 10/23/20 09:00 10/25/20 08:45 Aspirin Enteric Coated 81 Mg Tablet.Dr PO 81 mg DAILY [facility] Administration Docusate Sodium 100 mg 10/22/20 23:46 Docusate Sodium 100 Mg Capsule PO DAILY PRN Constipation Heparin Sodium (Porcine) 5,000 unit 10/22/20 23:46 10/25/20 13:06 Heparin Sodium,Porcine 5,000 Unit/Ml Vial SUBCUT 5,000 unit Q12H [facility] Administration Piperacillin Sod/Tazobactam 50 mls @ 100 mls/hr 10/23/20 22:00 10/25/20 10:51 Sod 2.25 gm/ Sodium Chloride IV Infused Q6H [facility] Infusion Dextrose/Lactated Ringer's 1,000 mls @ 100 mls/hr 10/24/20 17:15 10/25/20 13:49 D5lr IVCONT Infused .Q10H [facility] Infusion Insulin Human Lispro 0 unit 10/23/20 07:30 10/25/20 11:06 Insulin Lispro 100 Unit/Ml 3 Ml Vial SUBCUT Not Given QIDACHS [facility] Protocol Ketotifen Fumarate 1 drop 10/23/20 06:25 Ketotifen Fumarate 0.025% Oph 5 Ml Drpbtl EYE-BOTH BID PRN allergies Lidocaine 1 patch 10/23/20 09:00 10/25/20 08:45 Lidocaine 4 % Patch Adh..Patch TRANSDERMA 1 patch DAILY [facility] Administration Losartan Potassium 50 mg 10/23/20 09:00 10/25/20 08:45 Losartan Potassium 50 Mg Tablet PO 50 mg DAILY [facility] Administration Protocol Morphine Sulfate 4 mg 10/22/20 23:46 10/24/20 15:35 Morphine Sulfate 4 Mg/Ml Cartridge IVPUSH 4 mg Q4H PRN Administration Pain, Severe (Pain Scale 7-10) Ondansetron HCl 4 mg 10/22/20 23:46 Ondansetron Hcl 4 Mg/2 Ml Vial IVPUSH Q8H PRN Nausea and Vomiting Sodium Chloride 3 ml 10/23/20 00:00 10/25/20 07:38 0.9 % Sodium Chloride Flush 3 Ml Syringe IVFLUSH 3 ml QSHIFT [facility] Administration Labs CBC & Chem 7: 10/24/20 04:49 10/25/20 05:48 Labs: Laboratory Results - last 24 hr 10/24/20 10/24/20 10/25/20 16:05 20:21 05:48 Anion Gap 15 Estim Creat Clear Calc 27.8 Estimated GFR 32 POC Glucose 63 136 H Random Glucose 176 H D Calcium 8.2 L 10/25/20 10/25/20 07:04 10:59 Anion Gap Estim Creat Clear Calc Estimated GFR POC Glucose 192 H 144 H Random Glucose Calcium Microbiology Microbiology Results: Microbiology 10/22/20 21:43 Blood Culture - Final Blood - Venous Escherichia coli 10/22/20 21:29 Blood Culture - Preliminary Blood - Venous No growth after 48 hours. Assessment and Plan (1) Gram-negative bacteremia: Status: Acute (2) HTN (hypertension): Status: Acute (3) Ileus: Status: Acute Assessment and Plan: 75-year-old male who presents to the ED with abdominal pain found to have ileus # intractable abdominal pain/gram-negative bacteremia ?? persistent abdominal pain, no nausea, no vomiting, no diarrhea, has history of chronic constipation, CT abdomen showed ileus, no diverticulitis ,no ascites ?? Blood culture 1/2 bottles grew E coli, urinalysis unremarkable, CT abdomen showed no source of infection, bacteremia likley related to translocation of bacteria with distended bowl ?? cont. IV Zosyn day 3 , will repeat enema and start on clear liq diet ?? Patient seen by General surgery they recommend to continue supportive care ?? Continue IV fluids reduce rate,follow electrolytes, repeat enema # CARMEN on CKD stage 3 - most likely due to dehydration, creatinine trending down,and close to baseline, follow electrolytes and creatinine # diabetes - stable,? continue low-dose sliding scale insulin and diabetic diet, hold glipizide and metformin while npo # hypertension -stable, continue losartan home dose DVT prophylaxis :heparin subq Quality Stroke Does the patient have a stroke diagnosis?: No VTE Prior VTE?: No VTE Risk Level:: Medical - moderate - high VTE Device Contraindication: Treatment Not Indicated VTE Drug Contraindication: N/A - Med Ordered
[2020-10-25 16:20] LABS: Glucose, Whole Blood 139 mg/dL (60-115)
[2020-10-25] MEDS: Morphine Sulfate 4 MG/ML CARTRIDGE IVPUSH (19:34)
[2020-10-25 20:41] LABS: Glucose, Whole Blood 87 mg/dL (60-115)
[2020-10-25] MEDS: diphenhydrAMINE HCL 25 MG TABLET PO (23:09)
[2020-10-26 03:20] VITALS: BP 150/62; PULSE 62; RESP 18; TEMP 37; O2SAT 98
[2020-10-26] MEDS: Piperacillin Sodium/Tazobactam 2.25 GM in 0.9 % Sodium Chloride 50 ML IV ×2 (04:58→11:15)
[2020-10-26] MEDS: Dextrose 5 % and Lactated Ring 1,000 ML 100 ML IVCONT (05:42)
[2020-10-26 07:15] LABS: Glucose, Whole Blood 175 mg/dL (60-115)
[2020-10-26 07:16] LABS: MANUAL DIFF FLAG NO
[2020-10-26 07:23] LABS: Basophils Percent Auto 0.2 % (0-2); Eosinophils Percent Auto 0.8 % (0-4); Hematocrit 33.6 % (42-52); Hemoglobin 10.7 g/dl (14.0-18.0); Imm Gran Abs Auto 0.01 X10*3/uL (0.00-0.03); Imm Gran Pct Auto 0.2 % (0.0-0.4); Lymphocytes Absolute Auto 1.9 X10*3/uL (1.2-4.9); Lymphocytes Percent Auto 37.5 % (20-40); Mean Corpuscular HGB Conc 31.8 g/dl (31.0-36.0); Mean Corpuscular Hemoglobin 27.9 pg (27.0-33.0); Mean Corpuscular Volume 87.7 fL (80-98); Mean Platelet Volume 10.7 fL (9.4-12.4); Monocytes Absolute Auto 0.6 X10*3/uL (0.1-1.2); Monocytes Percent Auto 12.5 % (2-11); Neutrophils Absolute Auto 2.5 X10*3/uL (2.0-8.3); Neutrophils Percent Auto 48.8 % (45-73); Platelet Count 206 X10*3/uL (160-400); Red Blood Count 3.83 X10*6/uL (4.60-5.80); Red Cell Distribution Width 13.1 % (11.0-16.0)
[2020-10-26] MEDS: Insulin Lispro 100 UNIT/ML 3 ML VIAL SUBCUT ×2 (07:28→11:16)
[2020-10-26] MEDS: Aspirin Enteric Coated 81 MG TABLET.DR PO (07:28)
[2020-10-26 07:29] VITALS: BP 152/62; PULSE 62
[2020-10-26] MEDS: Losartan Potassium 50 MG TABLET PO (07:29)
[2020-10-26] MEDS: Lidocaine 4 % Patch ADH..PATCH 1 PATCH TRANSDERMA (07:29)
[2020-10-26 07:36] VITALS: BP 153/75; PULSE 65; RESP 19; TEMP 36.5; O2SAT 100
[2020-10-26 07:54] LABS: Anion Gap 16 (12-20); Blood Urea Nitrogen 12 mg/dL (9-16); Calcium 8.7 mg/dL (8.4-10.2); Carbon Dioxide 20 mmol/L (22-29); Chloride 109 mmol/L (96-108); Creatinine Clr Calc Pharmacy 29.1; Estimated Glomerular Filt Rate 34; Glucose Random 190 mg/dL (60-115); Potassium 5.1 mmol/L (3.3-5.1); Sodium 140 mmol/L (135-145)
[2020-10-26 10:40] VITALS: BP 169/78; PULSE 60; RESP 19; TEMP 36.5; O2SAT 99
[2020-10-26 11:12] LABS: Glucose, Whole Blood 198 mg/dL (60-115)
[2020-10-26] MEDS: Heparin Sodium,Porcine 5,000 UNIT/ML VIAL 5000 UNIT SUBCUT (11:16)
--- NOTE | 2020-10-26 14:22 | PM.DS ---
DS: Providers Provider Date of Service: 10/26/20 Date of admission: 10/22/20 23:42 Primary care physician: Noemy Quintero MD Consults: 10/23/20 06:19 Consult to General Surgery Routine Consulting Provider: Veronica Nunes Reason for consultation: Ileus Has provider been notified: No 10/26/20 08:40 Consult to Infectious Diseases Stat Consulting Provider: Kristi Michel Reason for consultation: e.coli bacteremia Has provider been notified: No DS: Diagnosis Discharge Diagnosis (1) Gram-negative bacteremia: Status: Acute (2) HTN (hypertension): Status: Acute (3) Ileus: Status: Acute DS: Medications Discharge Medications Home Medications: Home Medications Medication Instructions Recorded Confirmed aspirin 81 mg tablet,delayed 1 tab PO DAILY 08/23/20 10/22/20 release cyanocobalamin (vitamin B-12) 1 tab PO DAILY 08/23/20 10/22/20 1,000 mcg tablet ferrous sulfate 325 mg (65 mg 1 tab PO DAILY 08/23/20 10/22/20 iron) tablet glipizide 5 mg tablet, extended 10 mg PO QAM 08/23/20 10/22/20 release 24 hr lidocaine 5 % topical patch 1 - 2 patch TOPICAL DAILY PRN 08/23/20 10/22/20 lidocaine-prilocaine 2.5 %-2.5 % 1 appl TOPICAL BID PRN 08/23/20 10/22/20 topical cream linaclotide 145 mcg capsule 145 mcg PO QAM 08/23/20 10/22/20 (Linzess) losartan 100 mg tablet 50 mg PO DAILY 08/23/20 10/22/20 olopatadine 0.1 % eye drops 1 drp OPHTHALMIC (EYE) BID PRN 08/23/20 10/22/20 omega-3 acid ethyl esters 1 gram 1 cap PO BID 08/23/20 10/22/20 capsule simvastatin 40 mg tablet 1 tab PO BEDTIME 08/23/20 10/22/20 glipizide 5 mg tablet 5 mg PO QPM 10/22/20 10/22/20 Previous Rx's Medication Instructions Recorded cefuroxime axetil 250 mg tablet 250 mg PO BID 10 Days #20 tab 10/26/20 DS: Summary Hospital Course Hospital Course: History of presenting illness Chief Complaint: Abdominal pain Telugu-speaking only, interview obtained with the help of legal assistant ?Medical history of diabetes, HLD, stroke in August who presents to the hospital with complaints of abdominal pain.? Patient has a history of small-bowel obstruction in 2006.? Patient reports abdominal pain that started 8:00 a.m., pain is 10/10, nonradiating, constant, associated with constipation, not relieved with any OTC pain medications, no exacerbating factors. Patient denies any fever or chills, no nausea or vomiting, no diarrhea but has been constipated for past 2 days, no urinary symptoms and no lower extremity edema.? He denies any chest pain or shortness of breath. ?On arrival to the ED vitals stable Labs significant for BUN of 35, creatinine of 2.5 with a baseline around 1.[address] shows and large bowel are diffusely fluid-filled without dilatation or point of transition.? Findings compatible with a generalized ileus.? Scattered colonic diverticula without evidence of diverticulosis Past medical history Bronchitis Diabetes HLD (hyperlipidemia) Holter monitor, abnormal Stroke Hospital course 75-year-old male who presents to the ED with abdominal pain CT abdomen showed ileus, no diverticulitis, no ascites, subsequently 1/2 blood cultures came back positive for E coli, urinalysis unremarkable, likely translocation of bacteria from distended bowel, patient treated with IV Zosyn, analgesics and IV fluids, and enemas, gradually diet was advanced but patient is tolerating well he has had couple bowel movements, his abdominal pain has significantly improved, patient is now being discharged home on by mouth Ceftin for total 2 weeks of antibiotic, a recent echocardiogram showed no valvular pathology, patient remains afebrile WBC count is normal , patient has chronic constipation recommend to take bowel regime as before Patient also noted to have acute on chronic kidney disease therefore treated with IV fluids renal function has returned to baseline. In regard to diabetes noted to have low blood sugars on admission and therefore will hold Januvia continue glipizide and continue antihypertensive. Time Spent with Patient Time attestation: Total time spent providing and/or coordinating discharge services: Discharge coordination time: Greater than 30 minutes Quality: Stroke Does the patient have a stroke diagnosis?: No Physical Exam Vital Signs: Vital Signs: Last Vital Signs Temp 97.7 F 10/26/20 10:40 Pulse 60 08/04/21 10:40 Resp 19 10/26/20 10:40 BP 169/78 H 10/26/20 10:40 Pulse Ox 99 10/26/20 10:40 Body Mass Index 21.6 General no acute distress.? Neck supple, no JVD. CVS?regular rate rhythm, Respiratory lungs clear to auscultation, no respiratory distress, nowheeze, no rhonchi. Gastrointestinal?abdomen soft, nontender, bowel sounds audible ,no guarding , no rigidity. Extremitiesno edema. Neuro nonfocal Skin no rash DS: Data Data Completed and Pending Labs on day of discharge: Laboratory Results - last 24 hr 10/25/20 10/25/20 10/26/20 16:12 20:38 06:03 WBC 5.0 RBC 3.83 L Hgb 10.7 L Hct 33.6 L MCV 87.7 MCH 27.9 MCHC 31.8 RDW 13.1 Plt Count 206 MPV 10.7 Immature Gran % (Auto) 0.2 Neut % (Auto) 48.8 Lymph % (Auto) 37.5 [place] % (Auto) 12.5 H Eos % (Auto) 0.8 Baso % (Auto) 0.2 Lymph # (Auto) 1.9 [place] # (Auto) 0.6 Eos # (Auto) 0.0 Baso # (Auto) 0.0 Abs Immat Gran (auto) 0.01 Absolute Neuts (auto) 2.5 Absolute Nucleated RBC 0.000 Nucleated RBC % (auto) 0.0 Sodium Potassium Chloride Carbon Dioxide Anion Gap BUN Creatinine Estim Creat Clear Calc Estimated GFR POC Glucose 139 H 87 Random Glucose Calcium 10/26/20 10/26/20 10/26/20 06:03 07:08 11:04 WBC RBC Hgb Hct MCV MCH MCHC RDW Plt Count MPV Immature Gran % (Auto) Neut % (Auto) Lymph % (Auto) [place] % (Auto) Eos % (Auto) Baso % (Auto) Lymph # (Auto) [place] # (Auto) Eos # (Auto) Baso # (Auto) Abs Immat Gran (auto) Absolute Neuts (auto) Absolute Nucleated RBC Nucleated RBC % (auto) Sodium 140 Potassium 5.1 Chloride 109 H Carbon Dioxide 20 L Anion Gap 16 BUN 12 Creatinine 1.94 H Estim Creat Clear Calc 29.1 Estimated GFR 34 POC Glucose 175 H 198 H Random Glucose 190 H Calcium 8.7 D Preliminary micro results at discharge 10/22/20 21:29 Blood Culture - Preliminary Blood - Venous No growth after 48 hours. Discharge Plan Discharge Patient Disposition: Home, Self-Care Discharge Diagnosis: E coli bacteremia Acute on chronic kidney disease stage III Ileus Referrals: Noeym Quintero MD [Primary Care Provider] - 1 Week Discharge Medications: New cefuroxime axetil 250 mg tablet 250 mg PO BID 10 Days Qty: 20 RF: 0 Continued glipizide 5 mg Tablet 5 mg PO QPM RF: 0 glipizide 5 mg tablet extended release 24hr 10 mg PO QAM RF: 0 cyanocobalamin (vitamin B-12) 1,000 mcg tablet 1 tab PO DAILY RF: 0 aspirin 81 mg tablet,delayed release (DR/EC) 1 tab PO DAILY RF: 0 simvastatin 40 mg tablet 1 tab PO BEDTIME RF: 0 lidocaine-prilocaine 2.5-2.5 % cream 1 appl topical BID PRN (Reason: pain) RF: 0 ferrous sulfate 325 mg (65 mg iron) tablet 1 tab PO DAILY RF: 0 olopatadine 0.1 % drops 1 drp ophthalmic (eye) BID PRN (Reason: allergies) RF: 0 lidocaine 5 % adhesive patch,medicated 1 - 2 patch topical DAILY PRN (Reason: Pain) RF: 0 losartan 100 mg tablet 50 mg PO DAILY RF: 0 omega-3 acid ethyl esters 1 gram capsule 1 cap PO BID RF: 0 Linzess 145 mcg capsule 145 mcg PO QAM RF: 0 Discontinued Januvia 100 mg tablet 50 mg PO DAILY RF: 0 Discharge Orders: Discharge Order (Routine); Ordered 10/26/20 Ordered By: Ron Varghese Diet: diabetic diet Activity on Discharge: As tolerated Stand Alone Forms: Patient Portal Discharge page Care Plan Goals: Take by mouth Ceftin 250 mg twice daily for 10 days, return to check with any worsening symptoms of abdominal pain nausea vomiting or abdominal distension Health Concerns: Diabetes mellitus/hypertension continue all home medication Plan of Treatment: Outpatient follow-up with primary care physician in 1-2 weeks Assessment: as above
--- NOTE | 2020-10-26 14:27 | MHC.CM.PN ---
IMM 10/26/20, PT DISCHARGING HOME SELF-CARE, FAMILY FOR TRANSPORT.
== END 2020-10-26 15:38 | disposition home or self-care (01) | DRG 389 ==
LOC: HO.ED 23:35 → HO.EDOVER 23:59 → HO.IMC 10-23 02:12
PROVIDERS: Admitting Provider Internal Medicine; Emergency Provider Emergency Medicine; PCP Internal Medicine; Visit Provider Hospitalist
DX: K56.7 Ileus, unspecified (principal); N17.9 Acute kidney failure, unspecified; R78.81 Bacteremia; E78.5 Hyperlipidemia, unspecified; Z86.73 Personal history of transient ischemic attack (TIA), and cerebral infarction without residual deficits; E86.0 Dehydration; B96.20 Unspecified Escherichia coli [E. coli] as the cause of diseases classified elsewhere; K59.09 Other constipation; I12.9 Hypertensive chronic kidney disease with stage 1 through stage 4 chronic kidney disease, or unspecified chronic kidney disease; E11.22 Type 2 diabetes mellitus with diabetic chronic kidney disease; N18.30 Chronic kidney disease, stage 3 unspecified; Z20.822 Contact with and (suspected) exposure to COVID-19; Z87.891 Personal history of nicotine dependence; Z79.82 Long term (current) use of aspirin; Z79.899 Other long term (current) drug therapy
CPT/HCPCS: 36415; 74176; 80048; 80076; 81003; 82947; 83605; 83690; 85025; 85610; 87040; 87077; 87186; 87205; 87635; 93005; 93225; 93226; 99285; J1170; J1200; J2270; J2405; J2543; Q0163

== ENCOUNTER 2020-12-26 07:23 | Day surgery (SDC) | payer MEDICARE, OTHER, SELFPAY ==
[2020-12-20 14:58] VITALS: BMI 22.7
--- NOTE | 2020-12-21 14:16 | MHC.SHP ---
Pre-Procedural Eval Section A Date of Service: 12/21/20 The patient is an INPATIENT: No Changes since office visit: No Cold of Flu in the past 2 weeks, No New Medical Problems, No Changes in Medication and No Patient answered all questions The History & Physical has been completed within 30 days and I have reviewed it.: Yes Section B Chief Complaint: cataract right eye Allergies: Allergies Allergy/AdvReac Type Severity Reaction Status Date / Time No Known Allergies Allergy Mild NOT Verified 12/20/20 14:57 APPLICABLE Plan Diagnosis/Plan: Unchanged I have reviewed the history and physical and performed a pertinent physical examination on my patient. No changes have occurred unless specified.
[2020-12-26 07:56] VITALS: BP 169/68; PULSE 65; RESP 16; TEMP 36.4; O2SAT 98
[2020-12-26] MEDS: Tetracaine HCl/PF 0.5% Oph Sol 4 ML DROPS 1 DROP EYE-RIGHT (08:10)
[2020-12-26 08:12] LABS: Glucose, Whole Blood 170 mg/dL (60-115)
[2020-12-26] MEDS: Tropicamide 1 % Ophth Sol 3 ML BTL 1 DROP EYE-RIGHT ×3 (08:13→08:27)
[2020-12-26] MEDS: Phenylephrine HCL 2.5% Oph SoL 2 ML BOTTLE 1 DROP EYE-RIGHT ×3 (08:18→08:29)
[2020-12-26] MEDS: Lactated Ringers 500 ML 20 ML IVCONT (08:33)
--- NOTE | 2020-12-26 09:01 | HO.PNOPHT ---
Ophthalmology Procedure Procedure Date of Service: 12/26/20 Ophthalmology Viscoelastic: Healon Duet Dual Pack Pro Ophthalmology Lenses: TECNIS [id number] (20.5) Procedure Notes: PREOPERATIVE DIAGNOSIS: Decreased visual acuity right eye secondary to cataract POSTOPERATIVE DIAGNOSIS: Same PROCEDURE: Right cataract extraction with intraocular lens insertion SURGEON: George Rosario M.D. ANESTHESIA: Topical/MAC ESTIMATED BLOOD LOSS: None COMPLICATIONS: None After obtaining informed consent, the patient was brought to the operating room suite and placed in the supine position. After adequate sedation per anesthesia, topical drops of Tetracaine were given to the right eye. The eye was then prepped and draped in the usual sterile fashion. The operating room microscope was then positioned over the operative eye and a lid speculum placed. A paracentesis was created. Viscoelastic was then instilled into the anterior chamber. A three plane incision was then created temporally, utilizing a 2.85 mm keratome. Capsulotomy forceps were then utilized to create a circular tear capsulotomy. Hydrodissection and hydrodelineation were carried out until adequate mobilization of the nucleus occurred. Phacoemulsification was then utilized to remove the dense central nucleus followed by removal of the cortical material utilizing the automated aspiration irrigation unit. Viscoelastic was instilled into the posterior capsular bag followed by placement of a posterior chamber intraocular lens without difficulty. The residual Viscoelastic was then removed utilizing the automated IA machine. The wound was checked and found to be watertight. The patient tolerated the procedure well and the lid speculum was removed. Intracameral injection of Vigamox 0.1 mL followed by a subtenon injection of Kenalog-40 0.2 mL were administered. The patient will be seen in the a.m.
--- NOTE | 2020-12-26 09:10 | HO.ANESPROP2 ---
FORM[facility]LY [facility] Active Problems Active Problems: All Active Problems (Updated 12/20/20 @ 14:34 by Lauren Pérez RN) Cerebrovascular accident (Acute) Acute cerebral infarction associated with systemic hypoxia or ischemia (Acute) Gram-negative bacteremia (Acute) Past Medical History Medical History Qogdr-ao-ljamiev kidney injury Anemia Arthritis Bronchitis Cataract Diabetes HLD (hyperlipidemia) Holter monitor, abnormal HTN (hypertension) Stroke Family History Family history of problems with anesthesia: No Surgical History Surgical History History of intestinal surgery History of laminectomy Hx of colonoscopy History of Problems with Anesthesia: No Social History Social History Household Members: Spouse Housing: House Are you a primary specialist wound care to a significant other at home: No Do you presently have visiting nurse or other home services: No Patient Tobacco Use Status: Former Tobacco user Quit Date: years ago Tobacco use type: Cigarette e-Cigarette/Vaping Use: Former Use Second Hand Smoke Exposure: No Use of substances other than those prescribed or required for medical reasons: No Are you DNR?: No Advance Directives: Yes Advance Directives Information Provided: Yes Advance Directives on File: Yes Advance Directives Date on File: 08/23/20 service: No Current occupational status: retired Meds Allergies Allergy/AdvReac Type Severity Reaction Status Date / Time No Known Allergies Allergy Mild NOT Verified 12/20/20 14:57 APPLICABLE Active Medications: Current Medications Lactated Ringer's (Lr) 500 mls @ 20 mls/hr IVCONT .Q24H [place] Last Admin: 12/26/20 08:33 Dose: 20 mls/hr Documented by: Povidone Iodine (Povidone Iodine 5 % Ophth Soln 30 Ml Bottle) 1 appl EYE-RIGHT PREOP PRN PRN Reason: Pre-Op Surgical Implant Prophy Home Medications Medication Instructions Recorded Confirmed Last Taken Type aspirin 81 mg tablet,delayed 1 tab PO DAILY 08/23/20 12/20/20 12/26/20 06:30 History release cyanocobalamin (vitamin B-12) 1 tab PO DAILY 08/23/20 12/20/20 12/26/20 06:30 History 1,000 mcg tablet ferrous sulfate 325 mg (65 mg 1 tab PO DAILY 08/23/20 12/20/20 12/26/20 06:30 History iron) tablet glipizide 5 mg tablet, extended 10 mg PO QAM 08/23/20 12/20/20 12/26/20 06:30 History release 24 hr lidocaine 5 % topical patch 1 - 2 patch TOPICAL DAILY PRN 08/23/20 12/20/20 Unknown History lidocaine-prilocaine 2.5 %-2.5 % 1 appl TOPICAL BID PRN 08/23/20 12/20/20 Unknown History topical cream linaclotide 145 mcg capsule 145 mcg PO QAM 08/23/20 12/20/20 12/26/20 06:30 History (Linzess) losartan 100 mg tablet 50 mg PO DAILY 08/23/20 12/20/20 12/26/20 06:30 History olopatadine 0.1 % eye drops 1 drp OPHTHALMIC (EYE) BID PRN 08/23/20 12/20/20 10/22/20 History omega-3 acid ethyl esters 1 gram 1 cap PO BID 08/23/20 10/22/20 12/26/20 06:30 History capsule simvastatin 40 mg tablet 1 tab PO BEDTIME 08/23/20 12/20/20 08/22/20 History glipizide 5 mg tablet 7.5 mg PO QPM 10/22/20 12/20/20 Unknown History Exam Exam Date and Time: December 26, 2020 0910 Height,Weight and Vital Signs: Height 5 ft 7 in Weight 65.771 kg Last Vital Signs Temp 97.5 F 12/26/20 07:56 Pulse 65 12/26/20 07:56 Resp 16 12/26/20 07:56 BP 169/68 H 12/26/20 07:56 Pulse Ox 98 12/26/20 07:56 Pertinent Lab Results Pertinent Lab Results: Laboratory Tests 12/26/20 08:08 POC Glucose 170 H Airway Mallampati Class: II TM Dist: >3cm Neck ROM: Limited Assessment and Plan Assessment Anesthesia Assessment: Anesthesia Plan Discussed and Chart Reviewed Final Anesthetic Review Family History of Problems with Anesthesia: No History of Problems with Anesthesia: No NPO: Yes ASA Class: III Final Preanesthetic Review: No Changes in Pt Med Stat, Meds/Allgs Chart Reviewed, Consent Obtained/Reviewed and Anes Risks/Benef Reviewed Patient Risk: Intermediate Procedure Risk: Low Anesthetic Plan Anesthetic Plan: MAC: Disposition: Standard PACU
[2020-12-26 09:27] VITALS: BP 169/68; PULSE 61; RESP 17; TEMP 36.4; O2SAT 100
== END 2020-12-26 09:36 | disposition home or self-care (01) ==
PROVIDERS: PCP Internal Medicine; Visit Provider Ophthalmology
PROC: (CPT 66985; principal; 2020-12-26 09:10)
DX: H25.11 Age-related nuclear cataract, right eye (principal); H54.7 Unspecified visual loss; H40.053 Ocular hypertension, bilateral; I69.359 Hemiplegia and hemiparesis following cerebral infarction affecting unspecified side; I10 Essential (primary) hypertension; E11.42 Type 2 diabetes mellitus with diabetic polyneuropathy; E11.49 Type 2 diabetes mellitus with other diabetic neurological complication; F32.9 Major depressive disorder, single episode, unspecified; E53.8 Deficiency of other specified B group vitamins; Z79.82 Long term (current) use of aspirin; Z79.84 Long term (current) use of oral hypoglycemic drugs; Z79.899 Other long term (current) drug therapy; Z87.891 Personal history of nicotine dependence
CPT/HCPCS: 66984; 82947; J3010; J3300; V2632

== ENCOUNTER 2021-01-09 09:06 | Day surgery (SDC) | payer MEDICARE, OTHER, SELFPAY ==
[2020-12-20 15:01] VITALS: BMI 22.7
--- NOTE | 2021-01-04 13:25 | MHC.SHP ---
Pre-Procedural Eval Section A Date of Service: 01/04/21 The patient is an INPATIENT: No Changes since office visit: No Cold of Flu in the past 2 weeks, No New Medical Problems, No Changes in Medication and No Patient answered all questions The History & Physical has been completed within 30 days and I have reviewed it.: Yes Section B Chief Complaint: cataract left eye Allergies: Allergies Allergy/AdvReac Type Severity Reaction Status Date / Time No Known Allergies Allergy Mild NOT Verified 12/20/20 14:57 APPLICABLE Plan Diagnosis/Plan: Unchanged I have reviewed the history and physical and performed a pertinent physical examination on my patient. No changes have occurred unless specified.
--- NOTE | 2021-01-06 10:09 | P.CONAN_ITS ---
Documented by User: Naya Guy NP 01/06/21 10:16 HPI - Anesthesia Eval Consult details Narrative: 75yo M for Left Cataract Extraction IOL Insertion PCP cleared (notes DM uncontrolled) Right eye 12/26/20 with MAC: Fent 50 PMFSH Active Problems Active Problems: All Active Problems (Updated 12/20/20 @ 14:34 by Lauren Pérez, RN) Cerebrovascular accident (Acute) Acute cerebral infarction associated with systemic hypoxia or ischemia (Acute) Gram-negative bacteremia (Acute) Past Medical History Medical History Rhdbe-ba-hkxpruy kidney injury Anemia Arthritis Bronchitis Cataract Diabetes HLD (hyperlipidemia) Holter monitor, abnormal HTN (hypertension) Stroke Family History Family history of problems with anesthesia: No Surgical History Surgical History History of intestinal surgery History of laminectomy Hx of colonoscopy History of Problems with Anesthesia: No Social History Social History Household Members: Spouse Housing: House Are you a primary healthcare or medical to a significant other at home: No Do you presently have visiting nurse or other home services: No Patient Tobacco Use Status: Former Tobacco user Quit Date: years ago Tobacco use type: Cigarette e-Cigarette/Vaping Use: Former Use Second Hand Smoke Exposure: No Are you DNR?: No Advance Directives: Yes Advance Directives Information Provided: Yes Advance Directives on File: Yes Advance Directives Date on File: 08/23/20 service: No Current occupational status: retired Meds Allergies Allergy/AdvReac Type Severity Reaction Status Date / Time No Known Allergies Allergy Mild NOT Verified 12/20/20 14:57 APPLICABLE Home Medications Medication Instructions Recorded Confirmed Last Taken Type aspirin 81 mg tablet,delayed 1 tab PO DAILY 08/23/20 12/20/20 01/09/21 06:30 History release cyanocobalamin (vitamin B-12) 1 tab PO DAILY 08/23/20 12/20/20 12/26/20 06:30 History 1,000 mcg tablet ferrous sulfate 325 mg (65 mg 1 tab PO DAILY 08/23/20 12/20/20 12/26/20 06:30 History iron) tablet glipizide 5 mg tablet, extended 10 mg PO QAM 08/23/20 12/20/20 12/26/20 06:30 History release 24 hr lidocaine 5 % topical patch 1 - 2 patch TOPICAL DAILY PRN 08/23/20 12/20/20 Unknown History lidocaine-prilocaine 2.5 %-2.5 % 1 appl TOPICAL BID PRN 08/23/20 12/20/20 Un known History topical cream linaclotide 145 mcg capsule 145 mcg PO QAM 08/23/20 12/20/20 12/26/20 06:30 History (Linzess) losartan 100 mg tablet 50 mg PO DAILY 08/23/20 12/20/20 12/26/20 06:30 History olopatadine 0.1 % eye drops 1 drp OPHTHALMIC (EYE) BID PRN 08/23/20 12/20/20 10/22/20 History omega-3 acid ethyl esters 1 gram 1 cap PO BID 08/23/20 10/22/20 12/26/20 06:30 History capsule simvastatin 40 mg tablet 1 tab PO BEDTIME 08/23/20 12/20/20 08/22/20 History glipizide 5 mg tablet 7.5 mg PO QPM 10/22/20 12/20/20 Unknown History Exam Exam Date and Time: January 06, 2021 1009 Height,Weight and Vital Signs: Height 5 ft 7 in Weight 65.771 kg Pertinent Lab Results Pertinent Lab Results: Laboratory Tests 10/26/20 10/26/20 06:03 06:03 WBC 5.0 Hgb 10.7 L Hct 33.6 L Plt Count 206 Sodium 140 Potassium 5.1 Chloride 109 H Carbon Dioxide 20 L BUN 12 Creatinine 1.94 H Narrative Narrative: EKG 10/2020 Vent. Rate : 074 BPM ? ? Atrial Rate : 074 BPM ?? P-R Int : 146 ms? QRS Dur : 074 ms ? ? QT Int : 380 ms ? ? ? P-R-T Axes : 071 064 031 degrees ?? QTc Int : 421 ms ? Normal sinus rhythm Normal ECG When compared with ECG of 23-AUG-2020 08:46, No significant change was found ECHO 08/2020 Conclusions: - Normal left ventricular size and systolic function.? - Normal right ventricular cavity size and systolic function.? ? - Both atria are normal in size. ? - There is a bicuspid aortic valve.? - There is mild dilatation of the ascending aorta. ? ? Assessment and Plan Assessment Anesthesia Assessment: Chart Reviewed Final Anesthetic Review Family History of Problems with Anesthesia: No History of Problems with Anesthesia: No Documented by User: Regan Lucia MD 01/09/21 11:11 PMFSH Past Medical History Medical History Bhqmx-mi-virdkra kidney injury Anemia Arthritis Bronchitis Cataract Diabetes HLD (hyperlipidemia) Holter monitor, abnormal HTN (hypertension) Stroke Surgical History Surgical History History of intestinal surgery History of laminectomy Hx of colonoscopy Social History Social History Household Members: Spouse Housing: House Are you a primary healthcare or medical to a significant other at home: No Do you presently have visiting nurse or other home services: No Patient Tobacco Use Status: Former Tobacco user Quit Date: years ago Tobacco use type: Cigarette e-Cigarette/Vaping Use: Former Use Second Hand Smoke Exposure: No Are you DNR?: No Advance Directives: Yes Advance Directives Information Provided: Yes Advance Directives on File: Yes Advance Directives Date on File: 08/23/20 service: No Current occupational status: retired Meds Allergies Allergy/AdvReac Type Severity Reaction Status Date / Time No Known Allergies Allergy Mild NOT Verified 12/20/20 14:57 APPLICABLE Home Medications Medication Instructions Recorded Confirmed Last Taken Type aspirin 81 mg tablet,delayed 1 tab PO DAILY 08/23/20 12/20/20 01/09/21 06:30 History release cyanocobalamin (vitamin B-12) 1 tab PO DAILY 08/23/20 12/20/20 12/26/20 06:30 History 1,000 mcg tablet ferrous sulfate 325 mg (65 mg 1 tab PO DAILY 08/23/20 12/20/20 12/26/20 06:30 History iron) tablet glipizide 5 mg tablet, extended 10 mg PO QAM 08/23/20 12/20/20 12/26/20 06:30 History release 24 hr lidocaine 5 % topical patch 1 - 2 patch TOPICAL DAILY PRN 08/23/20 12/20/20 Unknown History lidocaine-prilocaine 2.5 %-2.5 % 1 appl TOPICAL BID PRN 08/23/20 12/20/20 Unknown History topical cream linaclotide 145 mcg capsule 145 mcg PO QAM 08/23/20 12/20/20 12/26/20 06:30 History (Linzess) losartan 100 mg tablet 50 mg PO DAILY 08/23/20 12/20/20 12/26/20 06:30 History olopatadine 0.1 % eye drops 1 drp OPHTHALMIC (EYE) BID PRN 08/23/20 12/20/20 10/22/20 History omega-3 acid ethyl esters 1 gram 1 cap PO BID 08/23/20 10/22/20 12/26/20 06:30 H istory capsule simvastatin 40 mg tablet 1 tab PO BEDTIME 08/23/20 12/20/20 08/22/20 History glipizide 5 mg tablet 7.5 mg PO QPM 10/22/20 12/20/20 Unknown History Exam Airway Mallampati Class: II Neck ROM: Full Partial: Lower Loose/Missing/Broken Teeth: Yes Heart: [id number] Lungs: cta b/l Assessment and Plan Assessment Anesthesia Assessment: Anesthesia Plan Discussed Final Anesthetic Review NPO: Yes ASA Class: III Final Preanesthetic Review: No Changes in Pt Med Stat, Meds/Allgs Chart Reviewed, Consent Obtained/Reviewed and Anes Risks/Benef Reviewed Patient Risk: Intermediate Procedure Risk: Low Assessment/Block/Sedation in SS: Assess/Block/Sedation-SS Anesthetic Plan Anesthetic Plan: MAC: and Agree w/ Assess. and Plan Disposition: Standard PACU
[2021-01-09 10:50] VITALS: BP 170/83; PULSE 63; RESP 18; TEMP 36.3; O2SAT 96
[2021-01-09] MEDS: Lactated Ringers 500 ML 50 ML IV (11:03)
[2021-01-09] MEDS: Tetracaine HCl/PF 0.5% Oph Sol 4 ML DROPS 1 DROP EYE-LEFT (11:03)
[2021-01-09] MEDS: Tropicamide 1 % Ophth Sol 3 ML BTL 1 DROP EYE-LEFT ×3 (11:04→11:10)
[2021-01-09] MEDS: Phenylephrine HCL 2.5% Oph SoL 2 ML BOTTLE 1 DROP EYE-LEFT ×3 (11:06→11:12)
[2021-01-09 11:20] LABS: Glucose, Whole Blood 188 mg/dL (60-115)
--- NOTE | 2021-01-09 11:29 | HO.PNOPHT ---
Ophthalmology Procedure Procedure Date of Service: 01/09/21 Ophthalmology Viscoelastic: Healon Duet Dual Pack Pro Ophthalmology Lenses: TECGLENDY [id number] (21) Procedure Notes: PREOPERATIVE DIAGNOSIS: Decreased visual acuity left eye secondary to cataract POSTOPERATIVE DIAGNOSIS: Same PROCEDURE: Left cataract extraction with intraocular lens insertion SURGEON: George Rosario M.D. ANESTHESIA: Topical/MAC ESTIMATED BLOOD LOSS: None COMPLICATIONS: None After obtaining informed consent, the patient was brought to the operation room suite and placed in the supine position. After adequate sedation per anesthesia, topical drops of Tetracaine were given to the left eye. The eye was then prepped and draped in the usual sterile fashion. The operating room microscope was then positioned over the operative eye and a lid speculum placed. A paracentesis was created. Viscoelastic was then instilled into the anterior chamber. A three plane incision was then created temporally, utilizing a 2.85 mm keratome. Capsulotomy forceps were then utilized to create a circular tear capsulotomy. Hydrodissection and hydrodelineation were carried out until adequate mobilization of the nucleus occurred. Phacoemulsification was then utilized to remove the dense central nucleus followed by removal of the cortical material utilizing the automated aspiration irrigation unit. Viscoat elastic was instilled into the posterior capsular bag followed by placement of a posterior chamber intraocular lens without difficulty. The residual Viscoat elastic was then removed utilizing the automated IA machine. The wound was check and found to be watertight. The patient tolerated the procedure well and the lid speculum was removed. Intracameral injection of Vigamox 0.1 mL followed by a subtenon injection of Kenalog-40 0.2 mL were administered. The patient will be seen in the a.m.
[2021-01-09 11:58] VITALS: BP 150/76; PULSE 61; RESP 16; TEMP 36.6; O2SAT 98
== END 2021-01-09 12:12 | disposition home or self-care (01) ==
PROVIDERS: PCP Internal Medicine; Visit Provider Ophthalmology
PROC: (CPT 66985; principal; 2021-01-09 11:40)
DX: H25.12 Age-related nuclear cataract, left eye (principal); H52.4 Presbyopia; H40.053 Ocular hypertension, bilateral; E11.42 Type 2 diabetes mellitus with diabetic polyneuropathy; I10 Essential (primary) hypertension; I69.359 Hemiplegia and hemiparesis following cerebral infarction affecting unspecified side; Z79.82 Long term (current) use of aspirin; Z79.84 Long term (current) use of oral hypoglycemic drugs; Z79.899 Other long term (current) drug therapy; Z87.891 Personal history of nicotine dependence
CPT/HCPCS: 66984; 82947; J2250; J2405; J3010; J3300; V2632

== ENCOUNTER 2021-05-06 14:38 | Emergency (ER) | payer OTHER, SELFPAY ==
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
[2021-05-06 15:12] VITALS: BP 117/65; PULSE 74; RESP 16; O2SAT 99; BMI 21.9
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
== END 2021-05-06 17:50 | disposition home or self-care (01) ==
PROVIDERS: Emergency Provider Emergency Medicine Emergency Medical Services; PCP Internal Medicine
DX: S39.012A Strain of muscle, fascia and tendon of lower back, initial encounter (principal); V43.52XA Car driver injured in collision with other type car in traffic accident, initial encounter; Y93.89 Activity, other specified; Y92.414 Local residential or business street as the place of occurrence of the external cause; Y99.9 Unspecified external cause status
CPT/HCPCS: 72100; 99283

== ENCOUNTER 2021-12-24 19:41 | Emergency (ER) | payer MEDICARE, OTHER, SELFPAY ==
--- NOTE | ~2021-12-24 | CT_ITS ---
EXAMINATION: CT ABDOMEN AND PELVIS WITHOUT CONTRAST CLINICAL INFORMATION: Acute pancreatitis. COMPARISON: CT abdomen and pelvis 10/22/2020. TECHNIQUE: Multidetector volumetric imaging was performed from the superior aspect of the liver through the pubic symphysis. Sagittal and coronal reformatted images were obtained on the technologist's workstation. This CT examination was performed using dose optimization techniques as appropriate, variously including the following: *Automated exposure control *Adjustment of mA and/or kV according to patient size (this includes techniques or standardized protocols for targeted exams where dose is matched to indication/reason for exam; i.e. extremities or head) *Use of iterative reconstruction technique DLP: 472 mGy-cm FINDINGS: LUNG BASES: Partial visualization of mild scattered coronary artery calcific atherosclerosis. LIVER, GALLBLADDER, AND BILIARY TREE: The liver is normal in size, shape, and attenuation. No focal hepatic lesion or biliary ductal dilatation is present. The gallbladder is unremarkable with no evidence of radiopaque gallstones, gallbladder wall thickening, or obvious pericholecystic inflammatory changes. PANCREAS: No peripancreatic fluid collections or inflammatory changes identified. No edematous or inflammatory changes of the pancreatic parenchyma visualized. The pancreas is unchanged in size and configuration compared with 10/22/2020. No dilatation of the main pancreatic duct. SPLEEN: Unremarkable. ADRENAL GLANDS: Unremarkable. KIDNEYS AND URETERS: A 1.1 cm diameter rounded low density (-6 Hounsfield unit) focus is noted in association with the superior pole the right kidney consistent with a simple cyst requiring no additional imaging follow-up. A 1.7 cm diameter rounded low-density (6 Hounsfield unit) benign-appearing simple cyst is associated with the inferior pole the right kidney. Right kidney otherwise demonstrates moderate diffuse atrophy. No hydronephrosis or perinephric inflammatory changes are identified. No urolithiasis identified. BLADDER: Unremarkable. GASTROINTESTINAL TRACT: Moderate scattered diverticulosis of the ascending, transverse and descending colon is identified. No pericolonic inflammatory changes are identified to suggest acute diverticulitis. The appendix is normal in appearance (series 6 image 45). The terminal ileum is normal in appearance. No free intraperitoneal fluid or gas collections are visualized. No intestinal dilatation identified. The stomach is normal in appearance. ABDOMINAL WALL: No significant hernia is appreciated. LYMPH NODES: Normal. VASCULAR: Mild scattered calcific atherosclerosis. Normal abdominal aortic caliber. PELVIC VISCERA: The prostate is normal in size measuring 3.5 cm in AP dimension, at the upper limits of normal size. OSSEOUS STRUCTURES: Multilevel lumbar intervertebral disc space narrowing and vacuum phenomenon is noted. No vertebral body compression deformities. CT/CT abdomen pelvis wo IV con IMPRESSION: Unenhanced CT of abdomen and pelvis: *No acute abnormalities identified. Normal appearance of the pancreas. No peripancreatic inflammatory changes. No biliary duct dilatation. *Moderate diffuse diverticulosis of the ascending, transverse and descending colon without evidence of acute diverticulitis. *Chronic appearing right renal atrophy. *Partially visualized mild coronary artery calcific atherosclerosis.
[2021-12-24 20:11] VITALS: BP 163/73; PULSE 75; RESP 16; TEMP 37; O2SAT 98; BMI 21.9
[2021-12-24 20:24] LABS: MANUAL DIFF FLAG NO
[2021-12-24 20:34] LABS: Basophils Percent Auto 0.2 % (0-2); Eosinophils Absolute Auto 0.1 X10*3/uL (0.0-0.4); Eosinophils Percent Auto 0.6 % (0-4); Hematocrit 37.7 % (42.0-52.0); Hemoglobin 12.1 g/dl (14.0-18.0); Imm Gran Abs Auto 0.05 X10*3/uL (0.00-0.03); Imm Gran Pct Auto 0.4 % (0.0-0.4); Lymphocytes Absolute Auto 2.1 X10*3/uL (1.2-4.9); Lymphocytes Percent Auto 18.8 % (20-40); Mean Corpuscular HGB Conc 32.1 g/dl (31.0-36.0); Mean Corpuscular Hemoglobin 28.7 pg (27.0-33.0); Mean Corpuscular Volume 89.5 fL (80.0-98.0); Mean Platelet Volume 9.7 fL (9.4-12.4); Monocytes Absolute Auto 1.1 X10*3/uL (0.1-1.2); Monocytes Percent Auto 10.2 % (2-11); Neutrophils Absolute Auto 7.8 x10*3/uL (2.0-8.3); Neutrophils Percent Auto 69.8 % (45-73); Platelet Count 201 X10*3/uL (160-400); Red Blood Count 4.21 X10*6/uL (4.60-5.80); Red Cell Distribution Width 12.7 % (11.0-16.0); White Blood Count 11.2 X10*3/uL (4.8-10.8)
[2021-12-24 20:35] LABS: Appearance Urine Clear; Color Urine Yellow; Glucose Urine UA 500 mg/dL (Negative); Leukocyte Esterase Urine Negative (Negative); Nitrite Urine Negative (Negative); PH 8.5 (5.0-9.0); Specific Gravity - Urine 1.015 (1.005-1.025); Urine Blood Negative (Negative); Urine Ketones Negative (Negative); Urine Protein Trace mg/dL (Neg-Trace)
[2021-12-24 20:51] LABS: Alanine Aminotransferase 16 U/L (0-40); Albumin Level 4.3 g/dL (3.5-5.0); Alkaline Phosphatase 71 U/L (39-117); Anion Gap 19 (12-20); Aspartate Amino Transferase 18 U/L (5-37); Bilirubin Total 0.3 mg/dL (0.0-1.0); Blood Urea Nitrogen 23 mg/dL (9-16); Calcium 8.4 mg/dL (8.4-10.2); Carbon Dioxide 22 mmol/L (22-29); Chloride 101 mmol/L (96-108); Creatinine Clr Calc Pharmacy 23.8; Estimated Glomerular Filt Rate 27; Glucose Random 268 mg/dL (60-115); Lipase 113 U/L (8-78); Potassium 5.1 mmol/L (3.3-5.1); Sodium 137 mmol/L (135-145); Total Protein 7.1 g/dL (6.5-8.0)
--- NOTE | 2021-12-24 23:19 | ED_ITS ---
HPI - General Adult General Chief complaint: Abdominal Pain Stated complaint: lower back and abdominal pain Time Seen by Provider: 12/24/21 23:18 Source: patient Mode of arrival: ambulatory Limitations: no limitations History of Present Illness HPI narrative: Patient with no prior abdominal complaints notices upper abdominal discomfort since last night pain radiated to the back as with nausea and vomiting does not drink alcohol no fever no chills no urinary complaints Related Data Home Medications Medication Instructions Recorded Confirmed aspirin 81 mg tablet,delayed 1 tab PO DAILY 08/23/20 12/20/20 release cyanocobalamin (vitamin B-12) 1 tab PO DAILY 08/23/20 12/20/20 1,000 mcg tablet ferrous sulfate 325 mg (65 mg 1 tab PO DAILY 08/23/20 12/20/20 iron) tablet glipizide 5 mg tablet, extended 10 mg PO QAM 08/23/20 12/20/20 release 24 hr lidocaine 5 % topical patch 1 - 2 patch topical DAILY PRN Pain 08/23/20 12/20/20 lidocaine-prilocaine 2.5 %-2.5 % 1 appl topical BID PRN pain 08/23/20 12/20/20 topical cream linaclotide 145 mcg capsule 145 mcg PO QAM 08/23/20 12/20/20 (Linzess) losartan 100 mg tablet 50 mg PO DAILY 08/23/20 12/20/20 olopatadine 0.1 % eye drops 1 drp ophthalmic (eye) BID PRN 08/23/20 12/20/20 allergies omega-3 acid ethyl esters 1 gram 1 cap PO BID 08/23/20 10/22/20 capsule simvastatin 40 mg tablet 1 tab PO BEDTIME 08/23/20 12/20/20 glipizide 5 mg tablet 7.5 mg PO QPM 10/22/20 12/20/20 Previous Rx's Medication Instructions Recorded acetaminophen 325 mg capsule 650 mg PO Q4H PRN pain #30 caps 05/06/21 (Tylenol) cyclobenzaprine 10 mg tablet 10 mg PO TID PRN muscle spasm #10 05/06/21 tabs lidocaine 5 % topical patch 1 patch topical DAILY #15 ea 05/06/21 (Lidoderm) ondansetron 4 mg disintegrating 4 mg PO Q6-8H PRN Vomiting #14 tabs 10/03/22 tablet oxycodone 5 mg tablet 5 mg PO Q6H PRN Pain, Severe #20 12/25/21 tabs Allergies Allergy/AdvReac Type Severity Reaction Status Date / Time No Known Allergies Allergy Mild NOT Verified 01/09/21 11:13 APPLICABLE Review of Systems Review of Systems: Yes all other systems are reviewed and are negative [facility] Past Medical History Medical History Epnnh-os-nyfuaqv kidney injury Anemia Arthritis Bronchitis Cataract Diabetes HLD (hyperlipidemia) Holter monitor, abnormal HTN (hypertension) Stroke Surgical History History of intestinal surgery History of laminectomy Hx of colonoscopy Social History Social History Household Members: Spouse Housing: House Are you a primary physician locums urgent care to a significant other at home: No Do you presently have visiting nurse or other home services: No Patient Tobacco Use Status: Former Tobacco user Quit Date: years ago Tobacco use type: Cigarette e-Cigarette/Vaping Use: Former Use Second Hand Smoke Exposure: No Advance Directives: No Advance Directives Date on File: 08/23/20 service: No Current occupational status: retired Physical Exam ED Vital Signs: Vital Signs - 24 hr 12/24/21 20:11 12/24/21 23:28 12/24/21 23:41 Temperature 98.6 F 98.5 F Pulse Rate 75 70 Respiratory Rate 16 18 16 Blood Pressure 163/73 H 141/73 H Pulse Oximetry 98 99 Oxygen Delivery Method Room Air Room Air BMI result Body Mass Index 21.9 Appearance: Alert. Oriented X3. No acute distress. Eyes: No pallor or icterus ENT: Pharynx normal. Oral Mucosa moist Neck: Normal inspection. Neck supple. CVS: Normal heart rate and rhythm. Pulses normal. Respiratory: No respiratory distress. Equal air entry bilateral, no wheezing /rales/rhonchi Abdomen: Soft and mid abdomen tenderness, Bowel sounds are present, no mass palpable, no CVA tenderness Skin: Skin warm and dry. Normal skin color. Normal skin turgor. Extremities: No lower extremity edema. No calf tenderness Neuro: Oriented X 3. No motor deficit. Medical Decision Making MDM Narrative Medical decision making narrative: Patient with diffuse abdomen pain with nausea and diarrhea and poor oral intake elevated lipase CT scan negative for any acute pathology patient feeling much better after IV fluids will discharge patient home Lab Data Lab results reviewed: Yes I reviewed the patient's lab results. Result diagrams: 12/24/21 20:19 12/24/21 20:19 Labs: Lab Results 12/24/21 12/24/21 12/24/21 Range/Units 20:19 20:19 20:25 WBC 11.2 H (4.8-10.8) X10*3/uL RBC 4.21 L (4.60-5.80) X10*6/uL Hgb 12.1 L (14.0-18.0) g/dl Hct 37.7 L (42.0-52.0) % MCV 89.5 (80.0-98.0) fL MCH 28.7 (27.0-33.0) pg MCHC 32.1 (31.0-36.0) g/dl RDW 12.7 (11.0-16.0) % Plt Count 201 (160-400) X10*3/uL MPV 9.7 (9.4-12.4) fL Immature Gran % (Auto) 0.4 (0.0-0.4) % Neut % (Auto) 69.8 (45-73) % Lymph % (Auto) 18.8 L (20-40) % [place] % (Auto) 10.2 (2-11) % Eos % (Auto) 0.6 (0-4) % Baso % (Auto) 0.2 (0-2) % Lymph # (Auto) 2.1 (1.2-4.9) X10*3/uL [place] # (Auto) 1.1 (0.1-1.2) X10*3/uL Eos # (Auto) 0.1 (0.0-0.4) X10*3/uL Baso # (Auto) 0.0 (0.0-0.2) X10*3/uL Abs Immat Gran (auto) 0.05 H (0.00-0.03) X10*3/uL Absolute Neuts (auto) 7.8 (2.0-8.3) x10*3/uL Absolute Nucleated RBC 0.000 (0.0-0.012) X10*3/uL Nucleated RBC % (auto) 0.0 (0.0-0.2) /100WBC Sodium 137 (135-145) mmol/L Potassium 5.1 (3.3-5.1) mmol/L Chloride 101 (96-108) mmol/L Carbon Dioxide 22 (22-29) mmol/L Anion Gap 19 (12-20) BUN 23 H (9-16) mg/dL Creatinine 2.37 H (0.5-1.4) mg/dL Estim Creat Clear Calc 23.8 Estimated GFR 27 Random Glucose 268 H D (60-115) mg/dL Calcium 8.4 (8.4-10.2) mg/dL Total Bilirubin 0.3 (0.0-1.0) mg/dL AST 18 (5-37) U/L ALT 16 (0-40) U/L Alkaline Phosphatase 71 (39-117) U/L Total Protein 7.1 (6.5-8.0) g/dL Albumin 4.3 (3.5-5.0) g/dL Lipase 113 H (8-78) U/L Urine Color Yellow Urine Appearance Clear Urine pH 8.5 (5.0-9.0) Ur Specific [place] 1.015 (1.005-1.025) Urine Protein Trace (Neg-Trace) mg/dL Urine Glucose (UA) 500 H (Negative) mg/dL Urine Ketones Negative (Negative) mg/dL Urine Blood Negative (Negative) Urine Nitrite Negative (Negative) Ur Leukocyte Esterase Negative (Negative) Discharge Plan Discharge Clinical Impression: Acute pancreatitis, Acute renal failure superimposed on chronic kidney disease Patient Disposition: Home, Self-Care Instructions: Pancreatitis (ED), Chronic Kidney Disease (ED) Additional Instructions: Drink plenty of fluids Nausea medication as prescribed Pain medication as prescribed You have mild pancreatitis have clear liquids advance slowly, avoid fried food Report to the ER if worsening of the pain or vomiting Prescriptions: New ondansetron 4 mg tablet,disintegrating 4 mg PO Q6-8H PRN (Reason: Vomiting) Qty: 14 0RF oxycodone 5 mg tablet 5 mg PO Q6H PRN (Reason: Pain, Severe) Qty: 20 0RF Rx Instructions: Partial Fill upon patient request. No Action glipizide 5 mg Tablet 7.5 mg PO QPM glipizide 5 mg tablet extended release 24hr 10 mg PO QAM cyanocobalamin (vitamin B-12) 1,000 mcg tablet 1 tab PO DAILY aspirin 81 mg tablet,delayed release (DR/EC) 1 tab PO DAILY simvastatin 40 mg tablet 1 tab PO BEDTIME lidocaine-prilocaine 2.5-2.5 % cream 1 appl topical BID PRN (Reason: pain) ferrous sulfate 325 mg (65 mg iron) tablet 1 tab PO DAILY olopatadine 0.1 % drops 1 drp ophthalmic (eye) BID PRN (Reason: allergies) lidocaine 5 % adhesive patch,medicated 1 - 2 patch topical DAILY PRN (Reason: Pain) Rx Instructions: 1 PATCH TO BACK; 1 PATCH TO RT SHOULDER ON FOR 12 HOURS OFF FOR 12 HOURS losartan 100 mg tablet 50 mg PO DAILY omega-3 acid ethyl esters 1 gram capsule 1 cap PO BID Linzess 145 mcg capsule 145 mcg PO QAM lidocaine [Lidoderm] 5 % adhesive patch,medicated 1 patch topical DAILY Qty: 15 0RF Rx Instructions: leave on most painful area for up to 12 hrs cyclobenzaprine 10 mg tablet 10 mg PO TID PRN (Reason: muscle spasm) Qty: 10 0RF acetaminophen [Tylenol] 325 mg capsule 650 mg PO Q4H PRN (Reason: pain) Qty: 30 0RF
[2021-12-24 23:28] VITALS: BP 141/73; PULSE 70; RESP 18; TEMP 36.9; O2SAT 99
[2021-12-24 23:41] VITALS: RESP 16
[2021-12-24] MEDS: ondansetron HCL 4 MG/2 ML VIAL IVPUSH (23:41)
[2021-12-24] MEDS: Morphine Sulfate 4 MG/ML CARTRIDGE IVPUSH (23:41)
[2021-12-24] MEDS: 0.9 % Sodium Chloride 1,000 ML 999 ML IV (23:41)
--- OUTSIDE RECORDS SUMMARY | 2021-12-24 23:46 | XMS_ITS | Continuity of Care Document ---
:1945 Author Organization [facility] Address [address] [place] [address]- Care Team Providers Name Role Phone Not on Staff, PCP Primary Care Physician Unavailable Encounter [facility] Date(s): 03/30/20 - 04/29/20 [facility] [address] [address]-
--- OUTSIDE RECORDS SUMMARY | 2021-12-24 23:46 | XMS_ITS | Continuity of Care Document ---
:1945 Author Organization [facility] Address [address] [place] [address]- Care Team Providers Name Role Phone Not on Staff, PCP Primary Care Physician Unavailable Encounter [facility] Date(s): 06/30/20 - 07/30/20 [facility]/[address] [address]- Attending Physician: Everardo lE Admitting Physician: Everardo El Referring Physician: Everardo El Immunizations Given and Recorded Vaccine Date Status Refusal Reason SARS-CoV-2 (COVID-19) mRNA-1273 vaccine 06/30/20 Given SARS-CoV-2 (COVID-19) mRNA-1273 vaccine1 06/02/20 Given 1Result Comment: DAMARIS
[2021-12-25 01:29] VITALS: BP 164/63; PULSE 74; RESP 16; O2SAT 98
[2021-12-25 01:32] LABS: Cholesterol 179 mg/dL; HDL Cholesterol 41 mg/dL; LDL Cholesterol Calculated 72 mg/dl; Triglycerides 333 mg/dL
== END 2021-12-25 01:37 | disposition home or self-care (01) ==
PROVIDERS: Emergency Provider Internal Medicine; PCP Internal Medicine
DX: K85.90 Acute pancreatitis without necrosis or infection, unspecified (principal); M54.50 Low back pain, unspecified; N17.9 Acute kidney failure, unspecified; R10.9 Unspecified abdominal pain; Z79.899 Other long term (current) drug therapy; Z87.891 Personal history of nicotine dependence
CPT/HCPCS: 36415; 74176; 80053; 80061; 81003; 83690; 85025; 96374; 96375; 99284; J2270; J2405

== ENCOUNTER 2022-12-24 07:37 | Emergency (ER) | payer MEDICARE, OTHER, SELFPAY ==
--- NOTE | ~2022-12-24 | XR_ITS ---
EXAMINATION: XR WRIST, LEFT CLINICAL INFORMATION: Left wrist pain following fall COMPARISON: None available. TECHNIQUE: PA, lateral, and oblique views of the left wrist. FINDINGS: The bones and soft tissues are normal. No fracture. Alignment is anatomic with normal joint spaces. No erosions or abnormal soft tissue calcifications. There are stable subchondral cysts in left navicular XR/XR wrist LT min 3V IMPRESSION: No fracture seen. Stable cysts in the navicular bone
--- NOTE | ~2022-12-24 | CT_ITS ---
EXAMINATION: CT cervical spine wo IV con, CT head/brain wo IV con CLINICAL INFORMATION: 77-year-old male with history of fall and neck and head pain COMPARISON: CT scan of head from 08/23/2020 TECHNIQUE: Imaging was performed from the skull base to vertex without intravenous administration of contrast. Images were also performed of the sinuses without intravenous contrast. DLP: 1060 mGy-cm FINDINGS: HEAD: There is no evidence of acute intracranial hemorrhage or territorial infarction. Carranza-white matter differentiation is preserved. No abnormal mass effect or midline shift. No extra-axial fluid collections. There is mild volume loss with proportional ventricular and sulcal spaces; no hydrocephalus. There is mucous thickening of the maxillary sinuses bilaterally without obliteration of ostiomeatal complexes. Bilaterally CERVICAL SPINE: No evidence of acute fracture or traumatic subluxation of the cervical spine. Vertebral bodies are well maintained with marginal spurring anterior and facets arthropathy bilaterally, not spinal canal stenosis or foraminal stenosis seen. No prevertebral soft tissue swelling. There is no cervical lymphadenopathy. The visualized thyroid gland is unremarkable. The visualized lung apices are clear. CT/CT head/brain wo IV con IMPRESSION: 1. No acute intracranial pathology. 2. Mild sinus disease. 3. Degenerative changes in cervical spine.
--- NOTE | ~2022-12-24 | XR_ITS ---
EXAMINATION: XR KNEE, LEFT CLINICAL INFORMATION: Left knee pain following fall COMPARISON: None available. TECHNIQUE: AP and lateral of the left knee. FINDINGS: No fracture or joint effusion. Alignment is anatomic. Joint spaces are maintained. No abnormal soft tissue calcification. XR/XR knee LT 2V IMPRESSION: Normal left knee.
--- NOTE | ~2022-12-24 | CT_ITS ---
EXAMINATION: CT cervical spine wo IV con, CT head/brain wo IV con CLINICAL INFORMATION: 77-year-old male with history of fall and neck and head pain COMPARISON: CT scan of head from 08/23/2020 TECHNIQUE: Imaging was performed from the skull base to vertex without intravenous administration of contrast. Images were also performed of the sinuses without intravenous contrast. DLP: 1060 mGy-cm FINDINGS: HEAD: There is no evidence of acute intracranial hemorrhage or territorial infarction. Carranza-white matter differentiation is preserved. No abnormal mass effect or midline shift. No extra-axial fluid collections. There is mild volume loss with proportional ventricular and sulcal spaces; no hydrocephalus. There is mucous thickening of the maxillary sinuses bilaterally without obliteration of ostiomeatal complexes. Bilaterally CERVICAL SPINE: No evidence of acute fracture or traumatic subluxation of the cervical spine. Vertebral bodies are well maintained with marginal spurring anterior and facets arthropathy bilaterally, not spinal canal stenosis or foraminal stenosis seen. No prevertebral soft tissue swelling. There is no cervical lymphadenopathy. The visualized thyroid gland is unremarkable. The visualized lung apices are clear. CT/CT cervical spine wo IV con IMPRESSION: 1. No acute intracranial pathology. 2. Mild sinus disease. 3. Degenerative changes in cervical spine.
--- NOTE | ~2022-12-24 | XR_ITS ---
EXAMINATION: XR KNEE, RIGHT CLINICAL INFORMATION: Right knee pain following fall COMPARISON: None available. TECHNIQUE: Four views of the right knee. FINDINGS: No fracture or joint effusion. Alignment is anatomic. Joint spaces are maintained. No abnormal soft tissue calcification. XR/XR knee RT 2V IMPRESSION: Normal right knee.
--- NOTE | ~2022-12-24 | XR_ITS ---
EXAMINATION: XR HAND, LEFT CLINICAL INFORMATION: Left hand injury COMPARISON: None available. TECHNIQUE: PA, lateral, and oblique views of the left hand. FINDINGS: The bones and soft tissues are normal. No fracture. Alignment is anatomic. Joint spaces are maintained. No erosions or soft tissue calcifications. There is stable cysts in the navicular bone The area of pain marked by technologist correspond to normal soft tissues and bones laterally in the left hand XR/XR hand LT 2V IMPRESSION: No fracture seen. Stable cysts in the navicular bone.
--- NOTE | ~2022-12-24 | CT_ITS ---
EXAMINATION: CT ABDOMEN AND PELVIS WITHOUT CONTRAST CLINICAL INFORMATION: Lower abdominal pain. History of trauma. COMPARISON: 12/24/2021 TECHNIQUE: Multidetector volumetric imaging was performed from the superior aspect of the liver through the pubic symphysis. Sagittal and coronal reformatted images were obtained on the technologist's workstation. This CT examination was performed using dose optimization techniques as appropriate, variously including the following: *Automated exposure control *Adjustment of mA and/or kV according to patient size (this includes techniques or standardized protocols for targeted exams where dose is matched to indication/reason for exam; i.e. extremities or head) *Use of iterative reconstruction technique DLP: 423 mGy-cm FINDINGS: LUNG BASES: No pleural or pericardial effusion. LIVER, GALLBLADDER, AND BILIARY TREE: The noncontrast liver is normal in size and contour. No biliary ductal dilatation is present. The gallbladder is unremarkable with no evidence of radiopaque gallstones, gallbladder wall thickening, or obvious pericholecystic inflammatory changes. PANCREAS: Unchanged in size and configuration. No ductal dilatation. SPLEEN: Not enlarged. ADRENAL GLANDS: No adrenal mass. KIDNEYS AND URETERS: Asymmetric atrophy of the right kidney. There are right renal cysts. No further imaging follow-up is needed. No hydronephrosis. Nonspecific perinephric stranding. BLADDER: Unremarkable. GASTROINTESTINAL TRACT: Small and large bowel loops are of normal caliber. No small bowel obstruction. Appendix is within normal limits. Diverticular disease of the colon. ABDOMINAL WALL: No significant hernia is appreciated. LYMPH NODES: No bulky abdominal or pelvic lymphadenopathy. VASCULAR: Normal caliber abdominal aorta. PELVIC VISCERA: Mildly enlarged prostate gland. OSSEOUS STRUCTURES: No destructive bone lesions. CT/CT abdomen pelvis wo IV con IMPRESSION: No acute abnormality in the abdomen or pelvis. Fleischner guidelines were followed.
[2022-12-24 08:00] VITALS: BP 128/58; PULSE 68; RESP 17; TEMP 36.3; O2SAT 98; BMI 23.6
[2022-12-24 08:40] LABS: MANUAL DIFF FLAG NO
[2022-12-24 08:42] LABS: Basophils Percent Auto 0.2 % (0-2); Eosinophils Absolute Auto 0.1 X10*3/uL (0.0-0.4); Eosinophils Percent Auto 1.3 % (0-4); Hematocrit 33.8 % (42.0-52.0); Hemoglobin 10.9 g/dl (14.0-18.0); Imm Gran Abs Auto 0.03 X10*3/uL (0.00-0.03); Imm Gran Pct Auto 0.5 % (0.0-0.4); Lymphocytes Absolute Auto 2.1 X10*3/uL (1.2-4.9); Lymphocytes Percent Auto 33.4 % (20-40); Mean Corpuscular HGB Conc 32.2 g/dl (31.0-36.0); Mean Corpuscular Hemoglobin 28.8 pg (27.0-33.0); Mean Corpuscular Volume 89.2 fL (80.0-98.0); Mean Platelet Volume 9.3 fL (9.4-12.4); Monocytes Absolute Auto 0.7 X10*3/uL (0.1-1.2); Monocytes Percent Auto 10.6 % (2-11); Neutrophils Absolute Auto 3.4 x10*3/uL (2.0-8.3); Platelet Count 272 X10*3/uL (160-400); Red Blood Count 3.79 X10*6/uL (4.60-5.80); Red Cell Distribution Width 13.2 % (11.0-16.0); White Blood Count 6.2 X10*3/uL (4.8-10.8)
[2022-12-24 08:56] LABS: Anion Gap 14 (12-20); Blood Urea Nitrogen 34 mg/dL (9-16); Carbon Dioxide 23 mmol/L (22-29); Chloride 103 mmol/L (96-108); Creatinine Clr Calc Pharmacy 20.7; Estimated Glomerular Filt Rate 22; Glucose Random 151 mg/dL (60-115); Potassium 5.5 mmol/L (3.3-5.1); Sodium 134 mmol/L (135-145)
--- NOTE | 2022-12-24 09:23 | ECG_ITS ---
Test Reason : hyperK Blood Pressure : / mmHG Vent. Rate : 062 BPM Atrial Rate : 062 BPM P-R Int : 154 ms QRS Dur : 078 ms QT Int : 386 ms P-R-T Axes : 061 039 023 degrees QTc Int : 391 ms Normal sinus rhythm with sinus arrhythmia Normal ECG When compared with ECG of 22-OCT-2020 21:36, No significant change was found Referred By: Jessica Mackenzie Electronically Signed By:GAETANO ASHER
--- NOTE | 2022-12-24 09:26 | ED_ITS ---
HPI - Fall General Chief Complaint: Fall Stated Complaint: Fall Saturday-L wrist inj facial inj Time Seen by Provider: 12/24/22 09:09 Source: patient, RN notes reviewed and old records reviewed Mode of arrival: ambulatory History of Present Illness HPI Narrative: 77-year-old Martiniquais-speaking male with a past medical history of arthritis, anemia, CKD, CVA, HTN, diabetes, HLD, on ASA, presenting to the ED complaining facial pain, headache, neck pain, bilateral knee and left hand pain s/p mechanical trip and fall in the supermarket 3 days ago. States his shoe got stuck on something and fall forward with head strike, denies LOC. Was ambulatory after incident. Also reports being stung by to bees yesterday in the left upper back. Denies symptoms prior to fall. Denies fever/chills, vision changes/loss, lightheadedness/dizziness, CP/SOB, numbness/tingling MD complaint: fall Related Data Home Medications Medication Instructions Recorded Confirmed aspirin 81 mg tablet,delayed 1 tab PO DAILY 08/23/20 12/20/20 release cyanocobalamin (vitamin B-12) 1 tab PO DAILY 08/23/20 12/20/20 1,000 mcg tablet ferrous sulfate 325 mg (65 mg 1 tab PO DAILY 08/23/20 12/20/20 iron) tablet glipizide 5 mg tablet, extended 10 mg PO QAM 08/23/20 12/20/20 release 24 hr lidocaine 5 % topical patch 1 - 2 patch topical DAILY PRN Pain 08/23/20 12/20/20 lidocaine-prilocaine 2.5 %-2.5 % 1 appl topical BID PRN pain 08/23/20 12/20/20 topical cream linaclotide 145 mcg capsule 145 mcg PO QAM 08/23/20 12/20/20 (Linzess) olopatadine 0.1 % eye drops 1 drp ophthalmic (eye) BID PRN 08/23/20 12/20/20 allergies omega-3 acid ethyl esters 1 gram 1 cap PO BID 08/23/20 10/22/20 capsule simvastatin 40 mg tablet 1 tab PO BEDTIME 08/23/20 12/20/20 glipizide 5 mg tablet 7.5 mg PO QPM 10/22/20 12/20/20 Previous Rx's Medication Instructions Recorded acetaminophen 325 mg capsule 650 mg (2 x 325 mg) PO Q4H PRN 05/06/21 (Tylenol) pain #30 caps cyclobenzaprine 10 mg tablet 10 mg PO TID PRN muscle spasm #10 05/06/21 tabs lidocaine 5 % topical patch 1 patch topical DAILY #15 ea 05/06/21 (Lidoderm) ondansetron 4 mg disintegrating 4 mg PO Q6-8H PRN Vomiting #14 tabs 12/25/21 tablet oxycodone 5 mg tablet 5 mg PO Q6H PRN Pain, Severe #20 12/25/21 tabs metoprolol succinate 100 mg 100 mg PO DAILY 30 days #30 tabs 12/24/22 tablet,extended release 24 hr Allergies Allergy/AdvReac Type Severity Reaction Status Date / Time No Known Allergies Allergy Mild NOT Verified 01/09/21 11:13 APPLICABLE Review of Systems 2 Review of Systems: Constitutional: No Fever, No Chills, No Fatigue, No Malaise ENT/Mouth: No Ear Pain, No Nasal Congestion, No sore throat, No Rhinorrhea, No Swallowing Difficulty Eyes: No Eye Pain, No Swelling, No Redness, No Vision Changes Cardiovascular: No Chest Pain, No SOB, No Edema, No Palpitations Respiratory: No Cough, No Sputum, No Dyspnea Gastrointestinal: No Nausea, No Vomiting, No Diarrhea, No Constipation, No Abdominal pain Genitourinary: No irregular bleeding, No Dysuria, No Urinary Frequency, No Hematuria, No Urinary Incontinence/retention, No Flank Pain Musculoskeletal: + joint pain, No Myalgias, +Joint Swelling Skin: + Skin Lesions, No rash Neuro: No Weakness, No Numbness, No Paresthesias, No Loss of Consciousness, No Dizziness, + Headache Yes all other systems are reviewed and are negative Constitutional: Constitutional: Reports as per HPI Neurologic: Denies Abnormal speech present [facility] Past Medical History Attestation statement: The following information was validated with the patient. Source: old records reviewed Medical History Cataract Arthritis Anemia Pfheh-kh-vapfulc kidney injury Holter monitor, abnormal Stroke HTN (hypertension) HLD (hyperlipidemia) Diabetes Bronchitis Surgical History Hx of colonoscopy History of laminectomy History of intestinal surgery Social History Social History Household Members: Spouse Housing: House Are you a primary animal care giver to a significant other at home: No Do you presently have visiting nurse or other home services: No Patient Tobacco Use Status: Former Tobacco user Quit Date: years ago Tobacco use type: Cigarette e-Cigarette/Vaping Use: Former Use Second Hand Smoke Exposure: No Advance Directives: No Advance Directives Information Provided: Yes Advance Directives Date on File: 08/23/20 service: No Current occupational status: retired Physical Exam 2 Vital Signs: Vital Signs: Last Vital Signs Temp 98.2 F 12/24/22 15:49 Pulse 65 12/24/22 15:49 Resp 18 12/24/22 15:49 BP 129/57 L 12/24/22 15:49 Pulse Ox 95 12/24/22 15:49 O2 Del Method Room Air 12/24/22 15:49 BMI result Body Mass Index 23.6 Const: General: cooperative, no acute distress, alert and awake O rientation/consciousness: patient oriented x3 Limitations: no limitations HEENT: Other: Left upper lip with swelling and ecchymosis. No loose or broken teeth + small abrasions to face. Dry blood no jeana to left knee air. No septal hematoma or active epistaxis. Head: Yes normal to inspection, Yes atraumatic, No Kim's sign and No raccoon eyes Ears: hearing grossly normal bilaterally General nose exam: N ormal external nose present Face and sinus: Yes normal facial exam Mouth: no drooling Throat: Yes posterior oropharynx normal and Yes uvula midline Eyes: General: appearance normal, both eyes and all related structures P upils: Equal, round and reactive pupils present EOM: EOMs intact bilaterally Neck: Other: No midline cervical spinous tenderness or step-off Neck: Yes normal visual inspection and Yes no meningeal signs Chest: Chest palpation & inspection: normal inspection of the chest Resp: Effort & Inspection: normal respiratory effort and no respiratory distress Auscultation: clear to auscultation bilaterally Cardio: Rate: regular rate Heart sounds: S1 normal heart sound present and S2 normal heart sound present GI: Inspection: Yes normal to inspection Palpation (GI): Soft to palpation, Tenderness to palpation present (GI) (Lower abdomen) suprapubicly; with no rebound tenderness, no guarding and not rigid : General: Yes no CVA tenderness Back/Spine/Pelvis: Other: No midline cervical/thoracic/lumbar spinous tenderness/step-off or deformity Back: no CVA tenderness Skin: Other: +2 small bee stings to left upper back w ithout surrounding edema/swelling or erythema. Rashes: no rashes Wounds: no wounds Neuro: General: patient oriented x3, tone normal, moves all extremities, no meningeal signs, no focal motor deficits and CN's II-XI intact bilaterally C ranial nerves: Yes CN's II-XII intact bilaterally, Yes Equal, round and reactive pupils present, Yes Bilaterally intact EOM present and Yes Nystagmus not present Cognition (Neuro): normal cognition Speech: No Abnormal speech present Gait exam (Neuro): Normal gait present Motor exam (neuro): 5/5 motor strength present throughout Extrem: Other: Left hand with diffuse swelling and ecchymosis to palmar and volar aspect. Diffusely tender to palpation. Left wrist mildly tender. No snuffbox tenderness. NV intact Bilateral knees with superficial abrasions. Right knee with noted swelling, diffusely tender. Left knee mildly tender. Full range of motion intact bilaterally. Neurovascular intact bilaterally Course Course Course Narrative: 1135--no leukocytosis. H&H stable. Potassium elevated to 5.5 > 5gm Lokelma -chronic CKD XR wrist LT min 3V IMPRESSION: No fracture seen. Stable cysts in the navicular bone XR hand LT 2V IMPRESSION: No fracture seen. Stable cysts in the navicular bone. XR knee RT 2V IMPRESSION: Normal right knee. XR knee LT 2V IMPRESSION: Normal left knee. CT abdomen pelvis wo IV con IMPRESSION: No acute abnormality in the abdomen or pelvis. Fleischner guidelines were followed. 1204--CT head/brain wo IV con/CT cervical spine wo IV con IMPRESSION: 1. No acute intracranial pathology. 2. Mild sinus disease. 3. Degenerative changes in cervical spine. -1307--EKG normal sinus rhythm sinus arrhythmia rate of 62. QTC 391. Mildly peaked Ts. > Repeat BMP with slight improvement of potassium to 5.4 and BUN to 33 and creatinine to 2.67 > case discussed with Dr. Starr >> due to EKG findings will give additional Lokelma, calcium, insulin, dextrose >> patient follows with travel freight and passenger agent Dr. Watson, will consult -2901--spoke with Nephrology, Dr. Weber recommended d/c'ing Valsartan, ruling out obstruction which is not appreciated on CT abdomen/pelvis, and obtaining UA. If potassium less than 5.5 can be discharged with follow-up > after discussion with Dr. Starr with start patient on 5mg Amlodipine > switched to Metoprolol due to interaction with Amlodipine and Simvastatin -UA not infected. Repeat EKG after hyperkalemia cocktail with improvement/resolution in peaked T-waves -1601--hyperkalemia resolved to 4.7. Renal function with additional mild improvement. Results discussed with patient and at bedside including needed close follow-up with Nephrology and PCP. They verbalized understanding and feels safe for discharge home at this time Reevaluation(s) Reevaluation #1: I have discussed the management of the hyperkalemia with the PA Time: 13:06 Medications Administered Discontinued Medications Generic Name Dose Route Start Last Admin Trade Name Lenoq PRN Reason Stop Dose Admin Dextrose 25 gm 12/24/22 13:05 12/24/22 13:46 Dextrose 50 % 25 Gm/50 Ml Syringe IVPUSH 12/24/22 13:06 25 gm ONCE ONE Administration Sodium Chloride 250 mls @ 999 mls/hr 12/24/22 11:45 12/24/22 13:44 Ns IV 12/24/22 12:00 Infused .Q16M [place] Infusion Calcium Gluconate 1 gm in 50 mls @ 50 mls/hr 12/24/22 13:05 12/24/22 13:47 Calcium Gluconate IV 12/24/22 14:04 50 mls/hr ONCE ONE Administration Insulin Human Regular 5 unit 12/24/22 13:05 12/24/22 13:46 Insulin Regular, Human 100 Unit/Ml 3 Ml Vial IVPUSH 12/24/22 13:06 5 unit ONCE ONE Administration Sodium Bicarbonate 50 meq 12/24/22 13:12/24/22 13:46 Sodium Bicarbonate 8.4% 50 Meq/50 Ml Syringe IVPUSH 12/24/22 13:06 50 meq ONCE ONE Administration Sodium Zirconium Cyclosilicate 5 gm 12/24/22 09:26 12/24/22 10:38 Sodium Zirconium Cyclosilicate 5 Gm Powd.Pack PO 12/24/22 09:27 5 gm ONCE ONE Administration Sodium Zirconium Cyclosilicate 5 gm 12/24/22 12:54 12/24/22 13:44 Sodium Zirconium Cyclosilicate 5 Gm Powd.Pack PO 12/24/22 12:55 5 gm ONCE ONE Administration Medical Decision Making Medical Decision Making MDM Narrative: 77-year-old Martiniquais-speaking male with a past medical history of arthritis, anemia, CKD, CVA, HTN, diabetes, HLD, on ASA, presenting to the ED complaining facial pain, headache, neck pain, bilateral knee and left hand pain s/p mechanical [place] and fall in the supermarket 3 days ago. On exam vital signs stable, NAD, nontoxic appearing, physical exam as noted above. Abrasions as noted, left hand & bilateral knees with swelling and tenderness. Abdomen soft lower tenderness, no rebound or guarding. Concern for ICH/hematoma vs fractures vs contusions. Rule out colitis/appendicitis/diverticulitis or UTI. Lower suspicion for intra-abdominal injury/bleeding or hematoma. Unlikely CVA/TIA Plan: Labs, UA, head/C-spine CT, CT AP, x-rays, reassess Please refer to course for remaining clinical decision making, interpretation of labs/imaging results, and discussions with consultants and/or family members. Differential Diagnosis Differential Diagnoses: The differential diagnosis associated with the presentation includes As above Admission/Observation Consideration of admission/observation: Escalation of care including admission/observation considered Consult Healthcare Provider Management of the patient was discussed with: Aircraft Quality Control Inspector (Nephrology Dr Oswald, and the ED attending Dr. Starr) Lab Data [facility] Lab Attestation statement: I reviewed the patient's lab results. 12/24/22 08:34 12/24/22 15:31 Labs: Lab Results 12/24/22 12/24/22 12/24/22 Range/Units 08:34 12:29 15:01 WBC 6.2 (4.8-10.8) X10*3/uL RBC 3.79 L (4.60-5.80) X10*6/uL Hgb 10.9 L (14.0-18.0) g/dl Hct 33.8 L (42.0-52.0) % MCV 89.2 (80.0-98.0) fL MCH 28.8 (27.0-33.0) pg MCHC 32.2 (31.0-36.0) g/dl RDW 13.2 (11.0-16.0) % Plt Count 272 D (160-400) X10*3/uL MPV 9.3 L (9.4-12.4) fL Immature Gran % (Auto) 0.5 H (0.0-0.4) % Neut % (Auto) 54.0 (45-73) % Lymph % (Auto) 33.4 (20-40) % [place] % (Auto) 10.6 (2-11) % Eos % (Auto) 1.3 (0-4) % Baso % (Auto) 0.2 (0-2) % Lymph # (Auto) 2.1 (1.2-4.9) X10*3/uL [place] # (Auto) 0.7 (0.1-1.2) X10*3/uL Eos # (Auto) 0.1 (0.0-0.4) X10*3/uL Baso # (Auto) 0.0 (0.0-0.2) X10*3/uL Abs Immat Gran (auto) 0.03 (0.00-0.03) X10*3/uL Absolute Neuts (auto) 3.4 (2.0-8.3) x10*3/uL Absolute Nucleated RBC 0.000 (0.0-0.012) X10*3/uL Nucleated RBC % (auto) 0.0 (0.0-0.2) /100WBC Sodium 134 L 139 (135-145) mmol/L Potassium 5.5 H 5.4 H (3.3-5.1) mmol/L Chloride 103 107 (96-108) mmol/L Carbon Dioxide 23 24 (22-29) mmol/L Anion Gap 14 13 (12-20) BUN 34 H 33 H (9-16) mg/dL Creatinine 2.79 H 2.67 H (0.5-1.4) mg/dL Estim Creat Clear Calc 20.7 21.6 Estimated GFR 22 23 Random Glucose 151 H 85 (60-115) mg/dL Calcium 10.0 D 9.8 (8.4-10.2) mg/dL Magnesium 2.7 H (1.6-2.6) mg/dL Total Bilirubin 0.4 (0.0-1.0) mg/dL Direct Bilirubin 0.1 (0.0-0.5) mg/dL AST 21 (5-37) U/L ALT 13 (0-40) U/L Alkaline Phosphatase 45 (39-117) U/L Total Protein 7.5 (6.5-8.0) g/dL Albumin 4.5 (3.5-5.0) g/dL Urine Color Yellow Urine Appearance Clear Urine pH 7.5 (5.0-9.0) Ur Specific Curtis <= 1.005 (1.005-1.025) Urine Protein Negative (Neg-Trace) mg/dL Urine Glucose (UA) 100 H (Negative) mg/dL Urine Ketones Negative (Negative) mg/dL Urine Blood Negative (Negative) Urine Nitrite Negative (Negative) Ur Leukocyte Esterase Negative (Negative) 12/24/22 Range/Units 15:31 WBC (4.8-10.8) X10*3/uL RBC (4.60-5.80) X10*6/uL Hgb (14.0-18.0) g/dl Hct (42.0-52.0) % MCV (80.0-98.0) fL MCH (27.0-33.0) pg MCHC (31.0-36.0) g/dl RDW (11.0-16.0) % Plt Count (160-400) X10*3/uL MPV (9.4-12.4) fL Immature Gran % (Auto) (0.0-0.4) % Neut % (Auto) (45-73) % Lymph % (Auto) (20-40) % [place] % (Auto) (2-11) % Eos % (Auto) (0-4) % Baso % (Auto) (0-2) % Lymph # (Auto) (1.2-4.9) X10*3/uL [place] # (Auto) (0.1-1.2) X10*3/uL Eos # (Auto) (0.0-0.4) X10*3/uL Baso # (Auto) (0.0-0.2) X10*3/uL Abs Immat Gran (auto) (0.00-0.03) X10*3/uL Absolute Neuts (auto) (2.0-8.3) x10*3/uL Absolute Nucleated RBC (0.0-0.012) X10*3/uL Nucleated RBC % (auto) (0.0-0.2) /100WBC Sodium 140 (135-145) mmol/L Potassium 4.7 (3.3-5.1) mmol/L Chloride 108 (96-108) mmol/L Carbon Dioxide 24 (22-29) mmol/L Anion Gap 13 (12-20) BUN 31 H (9-16) mg/dL Creatinine 2.58 H (0.5-1.4) mg/dL Estim Creat Clear Calc 22.4 Estimated GFR 24 Random Glucose 78 (60-115) mg/dL Calcium 9.6 (8.4-10.2) mg/dL Magnesium (1.6-2.6) mg/dL Total Bilirubin (0.0-1.0) mg/dL Direct Bilirubin (0.0-0.5) mg/dL AST (5-37) U/L ALT (0-40) U/L Alkaline Phosphatase (39-117) U/L Total Protein (6.5-8.0) g/dL Albumin (3.5-5.0) g/dL Urine Color Urine Appearance Urine pH (5.0-9.0) Ur Specific Curtis (1.005-1.025) Urine Protein (Neg-Trace) mg/dL Urine Glucose (UA) (Negative) mg/dL Urine Ketones (Negative) mg/dL Urine Blood (Negative) Urine Nitrite (Negative) Ur Leukocyte Esterase (Negative) Independent Interpretation I performed an independent interpretation of an: EKG (Initially EKG normal sinus rhythm with sinus arrhythmia at a rate of 62. QTC 391. No significant change when compared to prior. Mildly peaked T-waves noted ) Interpretation: EKG #2. Normal sinus rhythm at a rate of 62. WA interval 154. QTC 406. Peak T-waves improved. No STEMI Radiology Impression Discussion of test interpretation with radiology: I have reviewed the radiologist's reading. Independent Historian Clinical information obtained from an independent historian. History obtained from or confirmed by: Spouse External Record Review External record reviewed: Inpatient record, Office record, Outpatient record, Prior outpatient labs, Prior outpatient radiology, Primary care record and Outside ED record Tests considered The following testing was considered but not selected: As above Chronic Conditions Patient?s care impacted by: Diabetes, Hypertension and Other Critical Care Time Critical Care Time Critical Care Time: Yes Total Critical Care Time: 45 Attestation: I have personally provided critical care time exclusive of time spent on separately billable procedures. Time includes review of lab data, radiology results, discussion with consultants, and monitoring for potential decompensation. Intervention performed as documented. Discharge Plan Discharge Clinical Impression: Head injury, Bilateral knee pain, Hand pain, Fall, Acute kidney injury superimposed on CKD, Acute hyperkalemia Patient Disposition: Home, Self-Care Instructions: Acute Kidney Injury (DC), Hyperkalemia (ED), Fall Prevention (ED) Additional Instructions: Your kidney function was mildly worse than yourr baseline. your potassium was elevated We gave you multiple medications to help w/ this, we spoke with Nephrology who recommended stopping your Valsartan. You can start taking Metoprolol once daily which will help with blood pressure You need to have close follow-up with Nephrology, call tomorrow to make an appointment You should have repeat outpatient labs in 5-7 days Your x-rays and CT scans do not show any acute findings or breaks Enriquez funci?n renal era ligeramente peor que enriquez valor inicial. tu potasio estaba elevado Le dimos varios medicamentos para ayudar con esto, hablamos con Nefrolog?a, quien recomend? suspender enriquez Valsart?n. Puede empezar a magen Metoprolol dilia vez al d?a, lo que le ayudar? con la presi?n arterial. Es necesario tener un seguimiento estrecho con Nefrolog?a, llamar ma?linda para pedir ming Deber?a repetir los an?lisis de laboratorio ambulatorio en 5 a 7 d?as. Tanisha radiograf?as y tomograf?as computarizadas no muestran nishant?n hallazgo zaira ni roturas. Prescriptions: New metoprolol succinate 100 mg tablet extended release 24 hr 100 mg PO DAILY 30 Days Qty: 30 0RF Discontinued losartan 100 mg tablet 50 mg PO DAILY No Action glipizide 5 mg Tablet 7.5 mg PO QPM glipizide 5 mg tablet extended release 24hr 10 mg PO QAM cyanocobalamin (vitamin B-12) 1,000 mcg tablet 1 tab PO DAILY aspirin 81 mg tablet,delayed release (DR/EC) 1 tab PO DAILY simvastatin 40 mg tablet 1 tab PO BEDTIME lidocaine-prilocaine 2.5-2.5 % cream 1 appl topical BID PRN (Reason: pain) ferrous sulfate 325 mg (65 mg iron) tablet 1 tab PO DAILY olopatadine 0.1 % drops 1 drp ophthalmic (eye) BID PRN (Reason: allergies) lidocaine 5 % adhesive patch,medicated 1 - 2 patch topical DAILY PRN (Reason: Pain) Rx Instructions: 1 PATCH TO BACK; 1 PATCH TO RT SHOULDER ON FOR 12 HOURS OFF FOR 12 HOURS omega-3 acid ethyl esters 1 gram capsule 1 cap PO BID Linzess 145 mcg capsule 145 mcg PO QAM lidocaine [Lidoderm] 5 % adhesive patch,medicated 1 patch topical DAILY Qty: 15 0RF Rx Instructions: leave on most painful area for up to 12 hrs cyclobenzaprine 10 mg tablet 10 mg PO TID PRN (Reason: muscle spasm) Qty: 10 0RF acetaminophen [Tylenol] 325 mg capsule 650 mg PO Q4H PRN (Reason: pain) Qty: 30 0RF ondansetron 4 mg tablet,disintegrating 4 mg PO Q6-8H PRN (Reason: Vomiting) Qty: 14 0RF oxycodone 5 mg tablet 5 mg PO Q6H PRN (Reason: Pain, Severe) Qty: 20 0RF Rx Instructions: Partial Fill upon patient request. Referrals: Gerry Garcia III, MD [Primary Care Provider] - 2 days (call tomorrow ) Santo Watson MD [Physician] - 3 days
[2022-12-24 09:58] LABS: Alanine Aminotransferase 13 U/L (0-40); Albumin Level 4.5 g/dL (3.5-5.0); Alkaline Phosphatase 45 U/L (39-117); Aspartate Amino Transferase 21 U/L (5-37); Bilirubin Direct 0.1 mg/dL (0.0-0.5); Bilirubin Total 0.4 mg/dL (0.0-1.0); Magnesium 2.7 mg/dL (1.6-2.6); Total Protein 7.5 g/dL (6.5-8.0)
[2022-12-24] MEDS: Sodium Zirconium Cyclosilicate 5 GM POWD.PACK PO ×2 (10:38→13:44)
[2022-12-24 11:10] VITALS: BP 139/69; PULSE 58; RESP 16; O2SAT 98
[2022-12-24] MEDS: 0.9 % Sodium Chloride 250 ML 999 ML IV (11:59)
[2022-12-24 12:52] LABS: Anion Gap 13 (12-20); Blood Urea Nitrogen 33 mg/dL (9-16); Calcium 9.8 mg/dL (8.4-10.2); Carbon Dioxide 24 mmol/L (22-29); Chloride 107 mmol/L (96-108); Creatinine Clr Calc Pharmacy 21.6; Estimated Glomerular Filt Rate 23; Glucose Random 85 mg/dL (60-115); Potassium 5.4 mmol/L (3.3-5.1); Sodium 139 mmol/L (135-145)
[2022-12-24 13:39] VITALS: BP 146/62; PULSE 57; RESP 16; O2SAT 98
[2022-12-24] MEDS: Dextrose 50 % 25 GM/50 ML SYRINGE IVPUSH (13:46)
[2022-12-24] MEDS: Insulin Regular, Human 100 UNIT/ML 3 ML VIAL IVPUSH (13:46)
[2022-12-24] MEDS: Sodium Bicarbonate 8.4% 50 MEQ/50 ML SYRINGE IVPUSH (13:46)
[2022-12-24] MEDS: Calcium Gluconate/NaCl,Iso-Osm 1 GM/50 ML PLAST..BAG IV (13:47)
--- NOTE | 2022-12-24 13:58 | PC.NURSE ---
nad, skin wpd, medicated as ordered, lunch ordered and kitchen aware of diabetic meal needed
--- NOTE | 2022-12-24 15:19 | ECG_ITS ---
Test Reason : repeat hyper k Blood Pressure : / mmHG Vent. Rate : 062 BPM Atrial Rate : 062 BPM P-R Int : 154 ms QRS Dur : 076 ms QT Int : 400 ms P-R-T Axes : 057 060 026 degrees QTc Int : 406 ms Normal sinus rhythm Normal ECG When compared with ECG of 24-DEC-2022 09:30, No significant change was found Referred By: Jessica Mackenzie Electronically Signed By:GAETANO ASHER
[2022-12-24 15:30] LABS: Appearance Urine Clear; Color Urine Yellow; Glucose Urine UA 100 mg/dL (Negative); Leukocyte Esterase Urine Negative (Negative); Nitrite Urine Negative (Negative); PH 7.5 (5.0-9.0); Specific Gravity - Urine <= 1.005 (1.005-1.025); Urine Blood Negative (Negative); Urine Ketones Negative (Negative); Urine Protein Negative (Neg-Trace)
[2022-12-24 15:49] VITALS: BP 129/57; PULSE 65; RESP 18; TEMP 36.8; O2SAT 95
[2022-12-24 15:53] LABS: Anion Gap 13 (12-20); Blood Urea Nitrogen 31 mg/dL (9-16); Calcium 9.6 mg/dL (8.4-10.2); Carbon Dioxide 24 mmol/L (22-29); Chloride 108 mmol/L (96-108); Creatinine Clr Calc Pharmacy 22.4; Estimated Glomerular Filt Rate 24; Glucose Random 78 mg/dL (60-115); Potassium 4.7 mmol/L (3.3-5.1); Sodium 140 mmol/L (135-145)
--- NOTE | 2022-12-24 16:50 | PC.NURSE ---
assumed care of pt at 1500. pt calcium had not infused, PA aware. PA ordered to DC and discharge.
== END 2022-12-24 16:52 | disposition home or self-care (01) ==
PROVIDERS: Physician Assistant; Emergency Provider Emergency Medicine; PCP Internal Medicine
DX: S09.90XA Unspecified injury of head, initial encounter (principal); S89.91XA Unspecified injury of right lower leg, initial encounter; I49.8 Other specified cardiac arrhythmias; M25.562 Pain in left knee; M25.561 Pain in right knee; R51.9 Headache, unspecified; M54.2 Cervicalgia; R10.30 Lower abdominal pain, unspecified; M25.532 Pain in left wrist; E87.5 Hyperkalemia; M79.642 Pain in left hand; W01.10XA Fall on same level from slipping, tripping and stumbling with subsequent striking against unspecified object, initial encounter; Y93.9 Activity, unspecified; Y92.9 Unspecified place or not applicable; Y99.9 Unspecified external cause status; Z79.899 Other long term (current) drug therapy
CPT/HCPCS: 29125; 36415; 70450; 72125; 73110; 73120; 73560; 74176; 80048; 80076; 81003; 83735; 85025; 93005; 99284; J0613

== ENCOUNTER 2023-02-21 04:40 | Inpatient (IN) | payer MEDICARE, OTHER, SELFPAY ==
[2023-02-21] VITALS (10 sets, daily range): BP systolic 125–176; BP diastolic 52–82; PULSE 53–96; RESP 12–18; TEMP 36.6–36.9; O2SAT 94–98; BMI 24.1
--- NOTE | 2023-02-21 | ECG_ITS ---
Test Reason : ABD PAIN Blood Pressure : / mmHG Vent. Rate : 049 BPM Atrial Rate : 049 BPM P-R Int : 148 ms QRS Dur : 076 ms QT Int : 448 ms P-R-T Axes : 054 027 020 degrees QTc Int : 404 ms Sinus bradycardia with sinus arrhythmia Otherwise normal ECG When compared with ECG of 24-DEC-2022 15:25, No significant change was found Referred By: Generic ED Physician Electronically Signed By:FLORENCIA DORAN MD
--- NOTE | ~2023-02-21 | US_ITS ---
EXAMINATION: US ABDOMEN LIMITED CLINICAL INFORMATION: Right upper quadrant pain. Evaluate gallbladder and question common bile duct dilatation. COMPARISON: CT scan of same day. TECHNIQUE: Real-time imaging of the gallbladder and common bile duct. Study limited due to patient body habitus and unable to suspend respirations. FINDINGS: GALLBLADDER: Cholelithiasis is present. There is some mild gallbladder wall thickening to approximately 4 mm in diameter with some adjacent fluid, however, this is probably related to some fluid and edematous change seen about the pancreas and duodenum probably related to acute pancreatitis from CT scan. The pancreas was not scanned on this study. There is no tenderness to palpation overlying the gallbladder. COMMON BILE DUCT: Normal in caliber measuring 0.4 cm in diameter. US/US abdomen limited IMPRESSION: Cholelithiasis with some gallbladder wall thickening and small amount of adjacent fluid or fluid within the wall, however, the CT scan demonstrates some free fluid about the duodenum and pancreas which is adjacent to the gallbladder but probably related to a process involving the pancreas/acute pancreatitis. No dilatation of the common bile duct.
--- NOTE | ~2023-02-21 | MR_ITS ---
EXAMINATION: MR ABDOMEN WITHOUT CONTRAST CLINICAL INFORMATION: Pancreatitis, abdominal pain COMPARISON: CT abdomen pelvis 02/21/2023 TECHNIQUE: MRI of the abdomen without contrast was obtained using routine sequences. Heavily T2 weighted MRCP sequences were also obtained. FINDINGS: LUNG BASES: Trace bilateral pleural effusions. The visualized lung bases are otherwise unremarkable. GALLBLADDER: Mild proximal gallbladder body dependent sludge or tiny stones. No evidence of acute cholecystitis. LIVER AND BILIARY TREE: The liver is normal in signal and morphology. No suspicious liver lesion. No intra or extrahepatic biliary duct dilatation. Common bile duct normal in caliber, measuring up to 4 mm in maximal diameter. No common bile duct filling defects identified. PANCREAS: Conventional pancreatic ductal anatomy. No main pancreatic duct dilation or irregularity. Mild diffuse peripancreatic fat stranding, most pronounced about the neck, body, and tail. No organized peripancreatic fluid collections, on limited noncontrast exam. Trace fluid tracking posterior to the pancreatic tail (series 3, image 8) SPLEEN: Unremarkable ADRENAL GLANDS: Unremarkable KIDNEYS AND URETERS: Benign-appearing T2 hyperintense bilateral renal cysts, no imaging follow-up recommended. GASTROINTESTINAL TRACT: Colonic diverticulosis without evidence of diverticulitis. LYMPH NODES: No lymphadenopathy. VASCULAR: Preserved splenic, superior mesenteric, and portal venous flow voids. ABDOMINAL WALL: Unremarkable. OSSEOUS STRUCTURES: Unremarkable. OTHER: Small ascites MR/MR MRCP IMPRESSION: 1. Mild cholelithiasis without biliary duct dilation, choledocholithiasis or evidence of acute cholecystitis. 2. Redemonstrated sequela of pancreatitis with peripancreatic fat stranding and fluid. 3. Trace bilateral pleural effusions.
--- NOTE | ~2023-02-21 | XR_ITS ---
EXAMINATION: XR ABDOMEN KUB CLINICAL INDICATION: Ileus COMPARISON: Abdominal KUB February 24, 2023 TECHNIQUE: AP view of the abdomen. FINDINGS: Mild gaseous distention of the stomach. No dilated air-filled loops of small bowel. Minimal gaseous distention of the transverse colon within otherwise mild to moderate colonic stool burden. Visualized lung bases are well aerated. No acute osseous abnormality. XR/XR KUB IMPRESSION: Mild to moderate colonic stool burden.
--- NOTE | ~2023-02-21 | CT_ITS ---
EXAMINATION: CT ABDOMEN AND PELVIS WITHOUT CONTRAST CLINICAL INFORMATION: Abdominal pain, suspect small bowel obstruction COMPARISON: 12/24/2022 TECHNIQUE: Multidetector volumetric imaging was performed from the superior aspect of the liver through the pubic symphysis. Sagittal and coronal reformatted images were obtained on the technologist's workstation. This CT examination was performed using dose optimization techniques as appropriate, variously including the following: *Automated exposure control *Adjustment of mA and/or kV according to patient size (this includes techniques or standardized protocols for targeted exams where dose is matched to indication/reason for exam; i.e. extremities or head) *Use of iterative reconstruction technique DLP: 476 mGy-cm FINDINGS: LUNG BASES: Mild bibasilar atelectasis. LIVER, GALLBLADDER, AND BILIARY TREE: The liver is normal in size, shape, and attenuation. No focal hepatic lesion or biliary ductal dilatation is identified on this noncontrast exam. Trace perihepatic fluid. Gallbladder is physiologically distended. No densely calcified gallstones are seen. No significant gallbladder wall thickening identified. PANCREAS: There is moderate stranding adjacent to the pancreas and duodenum, raising suspicion for pancreatitis. SPLEEN: Unremarkable. ADRENAL GLANDS: Unremarkable. KIDNEYS AND URETERS: No hydronephrosis or obstructing calculus bilaterally. Right kidney appears somewhat atrophic. Right renal cysts noted; no follow-up recommended. BLADDER: Unremarkable. GASTROINTESTINAL TRACT: Stranding adjacent to the duodenum and pancreas, as noted above. No evidence of bowel obstruction. Scattered colonic diverticulosis. The appendix is unremarkable. No free air is seen. ABDOMINAL WALL: No significant hernia is appreciated. LYMPH NODES: Normal. VASCULAR: Scattered atherosclerotic calcifications. PELVIC VISCERA: Unremarkable. OSSEOUS STRUCTURES: Degenerative changes are most prominent in the lower lumbar spine. CT/CT abdomen pelvis wo IV con IMPRESSION: 1. Moderate stranding adjacent to the pancreas and duodenum, raising suspicion for pancreatitis. Correlation with laboratory values is recommended. Duodenitis would also be a possibility, though is considered less likely given the extent of stranding adjacent to the pancreas. 2. No evidence of bowel obstruction.
--- NOTE | ~2023-02-21 | XR_ITS ---
EXAMINATION: XR ABDOMEN KUB CLINICAL INDICATION: Pain COMPARISON: Vending Machine Filler film from CT dated 02/21/2023 TECHNIQUE: AP view of the abdomen. FINDINGS: There is a nonobstructing bowel pattern but there is air in mildly prominent small bowel but also air in large bowel. Findings may suggest an ileus XR/XR KUB IMPRESSION: Air in both large and small bowel. Findings may suggest ileus here
[2023-02-21 05:00] LABS: Glucose, Whole Blood 178 mg/dL (60-115)
--- NOTE | 2023-02-21 05:08 | PC.NURSE ---
pt ela from home reporting upper left quadrant abdominal pain, nausea and vomiting since 9pm. pt denies blood in vomit. pt reports having a small bowel movement at 3pm. pt given 4mg zofran by ems and 500ml of normal saline. pt upper left quadrant tender to touch with hypoactive bowel sounds noted throughout. pt reports his is covid positive and reports negative home tests for self. pt sinus case on tele 54-56.
[2023-02-21 05:22] LABS: Basophils Percent Auto 0.1 % (0-2); Eosinophils Percent Auto 0.1 % (0-4); Hematocrit 39.1 % (42.0-52.0); Hemoglobin 12.6 g/dl (14.0-18.0); Imm Gran Abs Auto 0.06 X10*3/uL (0.00-0.03); Imm Gran Pct Auto 0.4 % (0.0-0.4); MANUAL DIFF FLAG NO; Mean Corpuscular HGB Conc 32.2 g/dl (31.0-36.0); Mean Corpuscular Hemoglobin 28.5 pg (27.0-33.0); Mean Corpuscular Volume 88.5 fL (80.0-98.0); Mean Platelet Volume 9.6 fL (9.4-12.4); Monocytes Absolute Auto 0.9 X10*3/uL (0.1-1.2); Monocytes Percent Auto 6.6 % (2-11); Neutrophils Absolute Auto 11.9 x10*3/uL (2.0-8.3); Neutrophils Percent Auto 85.8 % (45-73); Platelet Count 248 X10*3/uL (160-400); Red Blood Count 4.42 X10*6/uL (4.60-5.80); Red Cell Distribution Width 12.9 % (11.0-16.0); White Blood Count 13.8 X10*3/uL (4.8-10.8)
[2023-02-21 05:35] LABS: Alanine Aminotransferase 116 U/L (0-40); Albumin Level 4.6 g/dL (3.5-5.0); Alkaline Phosphatase 67 U/L (39-117); Anion Gap 15 (12-20); Aspartate Amino Transferase 228 U/L (5-37); Bilirubin Total 1.5 mg/dL (0.0-1.0); Blood Urea Nitrogen 42 mg/dL (9-16); Calcium 9.4 mg/dL (8.4-10.2); Carbon Dioxide 23 mmol/L (22-29); Chloride 106 mmol/L (96-108); Creatinine Clr Calc Pharmacy 19.3; Estimated Glomerular Filt Rate 20; Glucose Random 231 mg/dL (60-115); Potassium 5.7 mmol/L (3.3-5.1); Sodium 138 mmol/L (135-145); Total Protein 7.8 g/dL (6.5-8.0)
[2023-02-21] MEDS: fentaNYL citrate/PF 100 MCG/2 ML VIAL 25 MCG IVPUSH (05:42)
--- NOTE | 2023-02-21 05:43 | PC.NURSE ---
pt medicated per may. ct at bedside.
[2023-02-21 05:59] LABS: Influenza A PCR NEGATIVE (Negative); Influenza B PCR NEGATIVE (Negative); Resp Syncy Virus RNA Qual PCR NEGATIVE (Negative); SARS COV2 PCR INHOUSE NEGATIVE (Negative)
--- NOTE | 2023-02-21 06:15 | ED.ABDPAIN ---
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 Patient reports his is COVID positive. Patient denies ability to pass flatus and does endorse that he has had intra-abdominal surgery previously. EMS provided 500 cc of normal saline and 4 mg of Zofran. Related Data Home Medications Medication Instructions Recorded Confirmed aspirin 81 mg tablet,delayed 1 tab PO DAILY 08/23/20 12/20/20 release cyanocobalamin (vitamin B-12) 1 tab PO DAILY 08/23/20 12/20/20 1,000 mcg tablet ferrous sulfate 325 mg (65 mg 1 tab PO DAILY 08/23/20 12/20/20 iron) tablet glipizide 5 mg tablet, extended 10 mg PO QAM 08/23/20 12/20/20 release 24 hr lidocaine 5 % topical patch 1 - 2 patch topical DAILY PRN Pain 08/23/20 12/20/20 lidocaine-prilocaine 2.5 %-2.5 % 1 appl topical BID PRN pain 08/23/20 12/20/20 topical cream linaclotide 145 mcg capsule 145 mcg PO QAM 08/23/20 12/20/20 (Linzess) olopatadine 0.1 % eye drops 1 drp ophthalmic (eye) BID PRN 08/23/20 12/20/20 allergies omega-3 acid ethyl esters 1 gram 1 cap PO BID 08/23/20 10/22/20 capsule simvastatin 40 mg tablet 1 tab PO BEDTIME 08/23/20 12/20/20 glipizide 5 mg tablet 7.5 mg PO QPM 10/22/20 12/20/20 Previous Rx's Medication Instructions Recorded acetaminophen 325 mg capsule 650 mg (2 x 325 mg) PO Q4H PRN 05/06/21 (Tylenol) pain #30 caps cyclobenzaprine 10 mg tablet 10 mg PO TID PRN muscle spasm #10 05/06/21 tabs lidocaine 5 % topical patch 1 patch topical DAILY #15 ea 05/06/21 (Lidoderm) ondansetron 4 mg disintegrating 4 mg PO Q6-8H PRN Vomiting #14 tabs 12/25/21 tablet oxycodone 5 mg tablet 5 mg PO Q6H PRN Pain, Severe #20 12/25/21 tabs metoprolol succinate 100 mg 100 mg PO DAILY 30 days #30 tabs 12/24/22 tablet,extended release 24 hr Allergies Allergy/AdvReac Type Severity Reaction Status Date / Time No Known Allergies Allergy Mild NOT Verified 02/21/23 04:57 APPLICABLE Review of Systems Review of Systems Pertinent positives and negatives as stated in [facility] Past Medical History Source: nursing notes reviewed Medical History Cataract Arthritis Anemia Qxpma-rj-smhlrea kidney injury Holter monitor, abnormal Stroke HTN (hypertension) HLD (hyperlipidemia) Diabetes Bronchitis Surgical History Hx of colonoscopy History of laminectomy History of intestinal surgery Social History Social History Household Members: Spouse Housing: House Are you a primary respiratory care instructor to a significant other at home: No Do you presently have visiting nurse or other home services: No Alcohol intake: never Patient Tobacco Use Status: Former Tobacco user Quit Date: years ago Tobacco use type: Cigarette Smoked in Last 30 Days: No e-Cigarette/Vaping Use: Former Use Second Hand Smoke Exposure: No Use of substances other than those prescribed or required for medical reasons: No Advance Directives: No Advance Directives Information Provided: No Advance Directives Date on File: 08/23/20 service: No Current occupational status: retired Physical Exam ED Vital Signs: Vital Signs - 24 hr 02/21/23 04:57 02/21/23 06:22 Temperature 98.3 F 97.9 F Pulse Rate 55 57 Respiratory Rate 18 14 Blood Pressure 170/56 H 140/66 H Pulse Oximetry 98 97 Oxygen Delivery Method Room Air Room Air BMI result Body Mass Index 24.1 VITAL SIGNS: Reviewed. GENERAL: Well developed, well nourished, in moderate distress. HEAD: Normocephalic/atraumatic EYES: PERRLA, EOMI EARS: Ext canals without abnormality NOSE: Nares patent bilateral OROPHARYNX: no oral lesions noted, posterior pharynx clear NECK: Supple, no adenopathy LUNGS: Normal breath sounds. No adventitious sounds or accessory muscle use. SpO2<97> CARDIOVASCULAR: Regular rate and rhythm without noted murmurs ABDOMEN: Soft, abdominal pain without rebound, non-distended with bowel sounds. MUSCULOSKELETAL: No tenderness, deformities, or effusions noted on gross inspection. EXTREMITIES: No cyanosis, clubbing or edema. SKIN: Inspection of the skin reveals no rashes NEUROLOGIC: Alert and oriented x 4. Strength and sensation to light touch were grossly intact x 4. Medical Decision Making Medical Decision Making [facility] Narrative: 77-year-old male with history and clinical presentation, DDX: SBO, diverticulitis, pancreatitis, cholecystitis, choledocholithiasis. I reviewed all investigations and hematologic indices consistent with leukocytosis and left shift with stable/chronic normocytic anemia and no thrombocytopenia. Chemistry indices significant for elevated potassium levels likely associated with patient's underlying CKD and patient received Lokelma 10 mg, there is a worsening renal function noted but otherwise laboratory results suggestive of choledocholithiasis with an elevated bilirubin and transaminases. However, alkaline phosphatase is not elevated. Patient has received antibiotics as well as pain medication. Lipase >[address] George FIGUEROA pending - Lipid Panel to r/o triglyceride as source of pancreatitis Differential Diagnosis Differential Diagnoses: The differential diagnosis associated with the presentation includes Please see the discussion above Admission/Observation Consideration of admission/observation: Escalation of care including admission/observation considered Please see the discussion above Consult Healthcare Provider Management of the patient was discussed with: Hospitalist Please see the discussion above Lab Data [facility] Lab Attestation statement: I reviewed the patient's lab results. Please see the discussion above 02/21/23 05:17 02/21/23 05:17 Labs: Lab Results 02/21/23 02/21/23 02/21/23 Range/Units 04:56 05:13 05:17 WBC 13.8 H (4.8-10.8) X10*3/uL RBC 4.42 L (4.60-5.80) X10*6/uL Hgb 12.6 L (14.0-18.0) g/dl Hct 39.1 L (42.0-52.0) % MCV 88.5 (80.0-98.0) fL MCH 28.5 (27.0-33.0) pg MCHC 32.2 (31.0-36.0) g/dl RDW 12.9 (11.0-16.0) % Plt Count 248 (160-400) X10*3/uL MPV 9.6 (9.4-12.4) fL Immature Gran % (Auto) 0.4 (0.0-0.4) % Neut % (Auto) 85.8 H (45-73) % Lymph % (Auto) 7.0 L (20-40) % [place] % (Auto) 6.6 (2-11) % Eos % (Auto) 0.1 (0-4) % Baso % (Auto) 0.1 (0-2) % Lymph # (Auto) 1.0 L (1.2-4.9) X10*3/uL [place] # (Auto) 0.9 (0.1-1.2) X10*3/uL Eos # (Auto) 0.0 (0.0-0.4) X10*3/uL Baso # (Auto) 0.0 (0.0-0.2) X10*3/uL Abs Immat Gran (auto) 0.06 H (0.00-0.03) X10*3/uL Absolute Neuts (auto) 11.9 H (2.0-8.3) x10*3/uL Absolute Nucleated RBC 0.000 (0.0-0.012) X10*3/uL Nucleated RBC % (auto) 0.0 (0.0-0.2) /100WBC Sodium 138 (135-145) mmol/L Potassium 5.7 H D (3.3-5.1) mmol/L Chloride 106 (96-108) mmol/L Carbon Dioxide 23 (22-29) mmol/L Anion Gap 15 (12-20) BUN 42 H (9-16) mg/dL Creatinine 2.99 H (0.5-1.4) mg/dL Estim Creat Clear Calc 19.3 Estimated GFR 20 POC Glucose 178 H (60-115) mg/dL Random Glucose 231 H (60-115) mg/dL Lactic Acid (0.5-2.0) mmol/L Calcium 9.4 (8.4-10.2) mg/dL Total Bilirubin 1.5 H (0.0-1.0) mg/dL AST 228 H (5-37) U/L ALT 116 H (0-40) U/L Alkaline Phosphatase 67 (39-117) U/L Total Protein 7.8 (6.5-8.0) g/dL Albumin 4.6 (3.5-5.0) g/dL Lipase > 3000 H (8-78) U/L Influenza Type A (PCR) NEGATIVE (Negative) Influenza Type B (PCR) NEGATIVE (Negative) RSV RNA Qual (PCR) NEGATIVE (Negative) SARS-CoV-2 RNA (RT-PCR) NEGATIVE (Negative) 02/21/23 Range/Units 06:19 WBC (4.8-10.8) X10*3/uL RBC (4.60-5.80) X10*6/uL Hgb (14.0-18.0) g/dl Hct (42.0-52.0) % MCV (80.0-98.0) fL MCH (27.0-33.0) pg MCHC (31.0-36.0) g/dl RDW (11.0-16.0) % Plt Count (160-400) X10*3/uL MPV (9.4-12.4) fL Immature Gran % (Auto) (0.0-0.4) % Neut % (Auto) (45-73) % Lymph % (Auto) (20-40) % [place] % (Auto) (2-11) % Eos % (Auto) (0-4) % Baso % (Auto) (0-2) % Lymph # (Auto) (1.2-4.9) X10*3/uL [place] # (Auto) (0.1-1.2) X10*3/uL Eos # (Auto) (0.0-0.4) X10*3/uL Baso # (Auto) (0.0-0.2) X10*3/uL Abs Immat Gran (auto) (0.00-0.03) X10*3/uL Absolute Neuts (auto) (2.0-8.3) x10*3/uL Absolute Nucleated RBC (0.0-0.012) X10*3/uL Nucleated RBC % (auto) (0.0-0.2) /100WBC Sodium (135-145) mmol/L Potassium (3.3-5.1) mmol/L Chloride (96-108) mmol/L Carbon Dioxide (22-29) mmol/L Anion Gap (12-20) BUN (9-16) mg/dL Creatinine (0.5-1.4) mg/dL Estim Creat Clear Calc Estimated GFR POC Glucose (60-115) mg/dL Random Glucose (60-115) mg/dL Lactic Acid 1.6 (0.5-2.0) mmol/L Calcium (8.4-10.2) mg/dL Total Bilirubin (0.0-1.0) mg/dL AST (5-37) U/L ALT (0-40) U/L Alkaline Phosphatase (39-117) U/L Total Protein (6.5-8.0) g/dL Albumin (3.5-5.0) g/dL Lipase (8-78) U/L Influenza Type A (PCR) (Negative) Influenza Type B (PCR) (Negative) RSV RNA Qual (PCR) (Negative) SARS-CoV-2 RNA (RT-PCR) (Negative) Independent Interpretation I performed an independent interpretation of an: EKG Interpretation: Sinus bradycardia, HR -49, no STEMI, NC/QRS/QTC is within normal limits. Radiology Impression Discussion of test interpretation with radiology: I have reviewed the radiologist's reading. Radiologist Impression: Please see the discussion above External Record Review External record reviewed: Outpatient record, Prior outpatient labs and Prior outpatient radiology Chronic Conditions Patient?s care impacted by: Diabetes CKD Medications Administered Discontinued Medications Generic Name Dose Route Start Last Admin Trade Name Radha PRN Reason Stop Dose Admin Fentanyl 25 mcg 02/21/23 05:25 02/21/23 05:42 Fentanyl Citrate/Pf 100 Mcg/2 Ml Vial IVPUSH 02/21/23 05:26 25 mcg ONCE ONE Administration Protocol Hydromorphone HCl 0.25 mg 02/21/23 06:40 02/21/23 06:47 Hydromorphone Hcl 0.5 Mg/0.5 Ml Syringe IVPUSH 02/21/23 06:41 0.25 mg ONCE ONE Administration Protocol Piperacillin Sod/Tazobactam 50 mls @ 100 mls/hr 02/21/23 06:57 02/21/23 07:05 Sod 3.375 gm/ Sodium Chloride IV 02/21/23 07:26 100 mls/hr ONCE ONE Administration Sodium Zirconium Cyclosilicate 10 gm 02/21/23 06:15 02/21/23 06:26 Sodium Zirconium Cyclosilicate 10 Gm Powd.Pack PO 02/21/23 06:16 10 gm ONCE ONE Administration Critical Care Time Critical Care Time Critical Care Time: Yes Total Critical Care Time: 45 Attestation: I personally attest to this time spent taking care of the patient. Discharge Plan Discharge Clinical Impression: Pancreatitis, Choledocholithiasis, Hyperkalemia, CKD (chronic kidney disease) Patient Disposition: Admitted As Inpatient
[2023-02-21] MEDS: Sodium Zirconium Cyclosilicate 10 GM POWD.PACK PO (06:26)
--- NOTE | 2023-02-21 06:28 | PC.NURSE ---
pt medicated per mar. pt reporting pain has not subsided at this time.
[2023-02-21 06:34] LABS: Lactic Acid 1.6 mmol/L (0.5-2.0)
--- NOTE | 2023-02-21 06:39 | PC.NURSE ---
provider aware of pt pain level.
[2023-02-21] MEDS: HYDROmorphone HCl 0.5 MG/0.5 ML SYRINGE 0.25 MG IVPUSH (06:47)
--- NOTE | 2023-02-21 06:50 | PC.NURSE ---
pt medicated per mar and repositioned in bed.
[2023-02-21] MEDS: Piperacillin Sodium/Tazobactam 3.375 GM in 0.9 % Sodium Chloride 50 ML IV (07:05)
--- NOTE | 2023-02-21 07:07 | PC.NURSE ---
antibiotic hung at this time, pt resting comfortably in stretcher.
[2023-02-21 07:28] LABS: Lipase > 3000 U/L (8-78)
--- NOTE | 2023-02-21 07:30 | PC.NURSE ---
BEDSIDE ULTRASOUND IS BEING DONE.
[2023-02-21 07:41] LABS: Bilirubin Direct 1.1 mg/dL (0.0-0.5)
[2023-02-21 07:57] LABS: Cholesterol 176 mg/dL (<200); HDL Cholesterol 44 mg/dL (>40); LDL Cholesterol Calculated 103 mg/dL (<100); Triglycerides 148 mg/dL (<150)
[2023-02-21 08:09] LABS: Anion Gap 14 (12-20); Blood Urea Nitrogen 41 mg/dL (9-16); Calcium 9.1 mg/dL (8.4-10.2); Carbon Dioxide 24 mmol/L (22-29); Chloride 106 mmol/L (96-108); Creatinine Clr Calc Pharmacy 20.5; Estimated Glomerular Filt Rate 22; Glucose Random 199 mg/dL (60-115); Potassium 5.3 mmol/L (3.3-5.1); Sodium 139 mmol/L (135-145)
[2023-02-21] MEDS: 0.9 % Sodium Chloride 1,000 ML 999 ML IV (08:22)
[2023-02-21] MEDS: ondansetron HCL 4 MG/2 ML VIAL IVPUSH ×2 (08:22→19:15)
[2023-02-21] MEDS: HYDROmorphone HCl 1 MG/ML SYRINGE IVPUSH ×2 (08:22→10:44)
--- NOTE | 2023-02-21 08:35 | PC.NURSE ---
PT IS A/O X 4 NO SOB/SULAIMAN NOTED SPEAKS IN FULL SENTENCES. C/O LUQ ABD PAIN 01/01, MED X 1 WITH DILAUDED 1MG IVP. PT'S DAUGHTER IS AT BEDSIDE, MD WAS AT BEDSIDE AT LENGTH EARLIER GIVING AN UPDATED ON PT STATUS. PT/DAUGHTER IS AWARE OF PLAN OF CARE.
[2023-02-21 09:33] LABS: Appearance Urine Clear; Color Urine Dark Yellow; Glucose Urine UA Negative (Negative); Leukocyte Esterase Urine Negative (Negative); Nitrite Urine Negative (Negative); PH 5.5 (5.0-9.0); UMIC TRIGGER UACC YES; Urine Blood Negative (Negative); Urine Ketones Negative (Negative); Urine Protein 30 (1+) mg/dL (Neg-Trace)
[2023-02-21 09:36] LABS: Bacteria Urine None Seen (None Seen); Hyaline Casts Urine 0-2 /LPF (0-2); RBC Urine 0-2 /HPF (0-2); Squamous Epithelial Cell Urine 0-2 /HPF (0-2); WBC Urine 0-5 /HPF (0-5)
[2023-02-21] MEDS: Lactated Ringers 1,000 ML 125 ML IVCONT ×2 (10:45→18:57)
--- NOTE | 2023-02-21 10:54 | PC.NURSE ---
PT/FAMILY AWARE OF PLAN OF CARE FOR ADMISSION TO HOSP. PT'S DAUGHTER HAS LEFT THE BEDSIDE. PT'S [id number] AND [id number] AT BEDSIDE.
--- NOTE | 2023-02-21 11:44 | PC.NURSE ---
PT'S [id number] AND [id number] LEFT THE BEDSIDE. PT NOW HAS HIS SISTER AND [id number] AT BEDSIDE. PT STATES THAT LUQ ABD PAIN IS 9/10. MD CLARK
[2023-02-21 12:06] LABS: Glucose, Whole Blood 138 mg/dL (60-115)
--- NOTE | 2023-02-21 12:59 | PM.IMHP ---
History of Present Illness Date of Service: 02/21/23 Attending physician on admission: Renato Barrientos Chief Complaint: Abdominal pain Pt is a [place]ese-speaking 77-year-old male with a PMH significant for?CVA, CKD 4, hx of SBO in 2006, hx of ileus in 10/2020, HTN, HLD insulin-dependent type 2 diabetes mellitus, and GERD who presents to the ED with nausea, vomiting, and intense lower abdominal pain radiating to the back since last night. Pt denies recent travel, sick contacts, eating anything suspicious. No apparent alleviating or precipitating factors. Pt denies any hx of alcohol use or recent medication changes. Has been eating and drinking normally prior to last night. No diarrhea, fever, chills. In the ED pt was afebrile and slightly hypertensive as high as 170/56 satting at 96% on RA. Labs were significant for leukocytosis of 13.8, H&H 12.6/39.1, potassium 5.7 and repeat 5.3, BUN 42, creatinine 2.99, random glucose 231, total bilirubin 1.5, direct bilirubin 1.1, AST 228, ALT 116, and lipase >3000. Triglycerides WNL at 01:48. Total cholesterol 176. UA negative for UTI. CT of abdomen and pelvis found no evidence of bowel obstruction, but did show moderate stranding adjacent to the pancreas and what, suggestive of pancreatitis. Abdominal ultrasound found no dilation of the common bile duct, but did show cholelithiasis with some gallbladder wall thickening and small amount of adjacent fluid, likely related to pancreatitis given the CT scan findings. EKG demonstrated sinus bradycardia without evidence of ST elevations or depressions. Pt was treated with fentanyl, Dilaudid, ondansetron, IVF, Zosyn, and Lokelma. Pt will be admitted to the hospital for treatment and further evaluation of acute pancreatitis. Review of Systems Review of Systems: Lower abd pain radiating to back N/V Decreased urinary output Denies diarrhea No fever, chills [facility] Medical History Cataract Arthritis Anemia [id number] kidney injury Holter monitor, abnormal Stroke HTN (hypertension) HLD (hyperlipidemia) Diabetes Bronchitis Surgical History Hx of colonoscopy History of laminectomy History of intestinal surgery Social History Household Members: Spouse Housing: House Are you a primary career services assistant to a significant other at home: No Do you presently have visiting nurse or other home services: No Alcohol intake: never Patient Tobacco Use Status: Former Tobacco user Quit Date: years ago Tobacco use type: Cigarette Smoked in Last 30 Days: No e-Cigarette/Vaping Use: Former Use Second Hand Smoke Exposure: No Use of substances other than those prescribed or required for medical reasons: No Have you been hit, kicked, punched, or otherwise hurt by someone within the past year? If so, by whom?: No Do you feel safe in your current relationship?: Yes Is there a partner from a previous relationship who is making you feel unsafe now?: No Are you made to feel afraid or neglected: No Advance Directives: No Advance Directives Information Provided: No Advance Directives Date on File: 08/23/20 Do you have thoughts of harming others: None Do you have a plan to hurt others: No Plan Recently lost weight without trying: No Nutrition Risks: No Nutritional Risk Poor oral hygiene: No service: No Current occupational status: retired [employer] Allergies Allergy/AdvReac Type Severity Reaction Status Date / Time No Known Allergies Allergy Mild NOT Verified 02/21/23 04:57 APPLICABLE Active Medications: Current Medications Lactated Ringer's (Lr) 1,000 mls @ 125 mls/hr IVCONT .Q8H [place] Last Admin: 02/21/23 10:45 Dose: 125 mls/hr Home Medications Medication Instructions Recorded Confirmed Last Taken Type cyanocobalamin (vitamin B-12) 1,000 mcg PO DAILY 02/21/23 02/21/23 02/20/23 History 1,000 mcg tablet fenofibrate nanocrystallized 145 145 mg PO DAILY 02/21/23 02/21/23 02/20/23 History mg tablet ferrous sulfate 325 mg (65 mg 325 mg PO DAILY 02/21/23 02/21/23 02/20/23 History iron) tablet insulin glargine 100 unit/mL (3 8 unit subcut DAILY 02/21/23 02/21/23 02/20/23 History mL) subcutaneous pen (Basaglar KwikPen U-100 Insulin) insulin glargine 100 unit/mL (3 20 unit subcut BEDTIME 02/21/23 02/21/23 02/20/23 History mL) subcutaneous pen (Vernaglar Diamond U-100 Insulin) latanoprost 0.005 % eye drops 1 drp ophthalmic (eye) BID 02/21/23 02/21/23 02/20/23 History lidocaine 5 % topical patch 1 - 3 patch topical Q24H 02/21/23 02/21/23 02/20/23 History linaclotide 290 mcg capsule 290 mcg PO DAILY 02/21/23 02/21/23 02/20/23 History (Linzess) loratadine 10 mg tablet 10 mg PO DAILY PRN itch 02/21/23 02/21/23 02/20/23 History metoprolol succinate 100 mg 100 mg PO DAILY 02/21/23 02/21/23 02/20/23 History tablet,extended release 24 hr omeprazole 20 mg capsule,delayed 20 mg PO DAILY 02/21/23 02/21/23 02/20/23 History release simvastatin 40 mg tablet 40 mg PO BEDTIME 02/21/23 02/21/23 02/20/23 History valsartan 40 mg tablet 40 mg PO DAILY 02/21/23 02/21/23 02/20/23 History Physical Exam Vital Signs and Narrative: Vital Signs: Last Vital Signs Temp 98.5 F 02/21/23 12:39 Pulse 64 02/21/23 12:39 Resp 12 02/21/23 12:39 BP 149/82 H 02/21/23 12:39 Pulse Ox 94 02/21/23 12:39 O2 Del Method Room Air 02/21/23 12:39 BMI result Body Mass Index 24.1 General: AOx3, uncomfortable-looking, no acute distress Resp: CTA bilaterally CVS: S1, S2, RRR GI: +BS, lower abd pain, especially on left side Skin: Warm, dry Neuro: Cranial nerves II-XII grossly intact bilaterally. Motor grossly intact bilaterally Extremities: No edema Psych: Appropriate affect Results Labs 02/21/23 05:17 02/21/23 07:50 Labs: Laboratory Results - last 24 hr 02/21/23 02/21/23 02/21/23 04:56 05:13 05:17 MCV 88.5 MCH 28.5 MCHC 32.2 RDW 12.9 Plt Count 248 MPV 9.6 Immature Gran % (Auto) 0.4 Neut % (Auto) 85.8 H Lymph % (Auto) 7.0 L [place] % (Auto) 6.6 Eos % (Auto) 0.1 Baso % (Auto) 0.1 Lymph # (Auto) 1.0 L [place] # (Auto) 0.9 Eos # (Auto) 0.0 Baso # (Auto) 0.0 Abs Immat Gran (auto) 0.06 H Absolute Neuts (auto) 11.9 H Absolute Nucleated RBC 0.000 Nucleated RBC % (auto) 0.0 Anion Gap 15 Estim Creat Clear Calc 19.3 Estimated GFR 20 POC Glucose 178 H Random Glucose 231 H Lactic Acid Calcium 9.4 Total Bilirubin 1.5 H Direct Bilirubin 1.1 H AST 228 H ALT 116 H Alkaline Phosphatase 67 Total Protein 7.8 Albumin 4.6 Triglycerides 148 Cholesterol 176 LDL Cholesterol, Calc 103 H HDL Cholesterol 44 Lipase > 3000 H Urine Color Urine Appearance Urine pH Ur Specific Leslie Urine Protein Urine Glucose (UA) Urine Ketones Urine Blood Urine Nitrite Ur Leukocyte Esterase Urine RBC Urine WBC Ur Squamous Epith Cells Urine Bacteria Hyaline Casts Influenza Type A (PCR) NEGATIVE Influenza Type B (PCR) NEGATIVE RSV RNA Qual (PCR) NEGATIVE SARS-CoV-2 RNA (RT-PCR) NEGATIVE 02/21/23 02/21/23 02/21/23 06:19 07:50 09:21 MCV MCH MCHC RDW Plt Count MPV Immature Gran % (Auto) Neut % (Auto) Lymph % (Auto) [place] % (Auto) Eos % (Auto) Baso % (Auto) Lymph # (Auto) [place] # (Auto) Eos # (Auto) Baso # (Auto) Abs Immat Gran (auto) Absolute Neuts (auto) Absolute Nucleated RBC Nucleated RBC % (auto) Anion Gap 14 Estim Creat Clear Calc 20.5 Estimated GFR 22 POC Glucose Random Glucose 199 H Lactic Acid 1.6 Calcium 9.1 Total Bilirubin Direct Bilirubin AST ALT Alkaline Phosphatase Total Protein Albumin Triglycerides Cholesterol LDL Cholesterol, Calc HDL Cholesterol Lipase Urine Color Dark Yellow Urine Appearance Clear Urine pH 5.5 Ur Specific Leslie 1.020 Urine Protein 30 (1+) H Urine Glucose (UA) Negative Urine Ketones Negative Urine Blood Negative Urine Nitrite Negative Ur Leukocyte Esterase Negative Urine RBC 0-2 Urine WBC 0-5 Ur Squamous Epith Cells 0-2 Urine Bacteria None Seen Hyaline Casts 0-2 Influenza Type A (PCR) Influenza Type B (PCR) RSV RNA Qual (PCR) SARS-CoV-2 RNA (RT-PCR) 02/21/23 12:01 MCV MCH MCHC RDW Plt Count MPV Immature Gran % (Auto) Neut % (Auto) Lymph % (Auto) [place] % (Auto) Eos % (Auto) Baso % (Auto) Lymph # (Auto) [place] # (Auto) Eos # (Auto) Baso # (Auto) Abs Immat Gran (auto) Absolute Neuts (auto) Absolute Nucleated RBC Nucleated RBC % (auto) Anion Gap Estim Creat Clear Calc Estimated GFR POC Glucose 138 H Random Glucose Lactic Acid Calcium Total Bilirubin Direct Bilirubin AST ALT Alkaline Phosphatase Total Protein Albumin Triglycerides Cholesterol LDL Cholesterol, Calc HDL Cholesterol Lipase Urine Color Urine Appearance Urine pH Ur Specific Leslie Urine Protein Urine Glucose (UA) Urine Ketones Urine Blood Urine Nitrite Ur Leukocyte Esterase Urine RBC Urine WBC Ur Squamous Epith Cells Urine Bacteria Hyaline Casts Influenza Type A (PCR) Influenza Type B (PCR) RSV RNA Qual (PCR) SARS-CoV-2 RNA (RT-PCR) Imaging Radiologist's Impressions: Impressions Abdomen/Pelvis CT 02/21/23 05:45 IMPRESSION: 1. Moderate stranding adjacent to the pancreas and duodenum, raising suspicion for pancreatitis. Correlation with laboratory values is recommended. Duodenitis would also be a possibility, though is considered less likely given the extent of stranding adjacent to the pancreas. 2. No evidence of bowel obstruction. Abdomen Ultrasound 02/21/23 07:25 IMPRESSION: Cholelithiasis with some gallbladder wall thickening and small amount of adjacent fluid or fluid within the wall, however, the CT scan demonstrates some free fluid about the duodenum and pancreas which is adjacent to the gallbladder but probably related to a process involving the pancreas/acute pancreatitis. No dilatation of the common bile duct. Assessment and Plan (1) Pancreatitis: Status: Acute Plan Pt is a [place]ese-speaking 77-year-old male with a PMH significant for?CVA, CKD 4, hx of SBO in 2006, hx of ileus in 10/2020, HTN, HLD insulin-dependent type 2 diabetes mellitus, and GERD who presents to the ED with nausea, vomiting, and intense lower abdominal pain radiating to the back since last night. Pt will be admitted to the hospital for treatment and further evaluation of acute pancreatitis. Pancreatitis Pt with severe abd pain radiating to back, lipase >3000, CT of abd concerning for pancreatitis Likely secondary to passed gallstone: abd US with no CBD dilation, but cholilithiasis; triglyceridedes normal; pt does not drink alcohol; no new meds Bowel rest, anagesics for pain management, IVF No indication of an infectious source, pt does not meet sepsis criteria; tacycardia secondary to pain, leukocytosis reactionary; lactic acid WNL GI consult Hyperkalemia Potassium 5.7 with repeat 5.3 Pt received Lokelma in the ED Follow BMP CARMEN on CKD 4 Creatinine 2.99, up from 2.58 on 12/24/2022 Pt complains of not producing much urine lately, also reports not drinking much fluid Does not follow with a customer pricing manager Currently received IVF Consider nephrology consult if urine production still poor, K+ remains elevated Will hold valsartan d/t CARMEN, continue as warranted Follow BMP Insulin dependent type 2 diabetes mellitus Currently holding Lantus as pt is NPO; resume as diet advances Will place on sliding scale insulin Diabetic diet once diet advances HTN Continue metoprolol Hold valsartan d/t CARMEN HLD Hold statin d/t elevated LFTs Full Code Attending:?Dr. Barrientos DVT Prophylaxis: Heparin Pt will require a hospitalization of at least two nights for treatment of?acute pancreatitis with bowel rest, IVF, and close monitoring. Quality Stroke Does the patient have a stroke diagnosis?: No VTE Prior VTE?: No VTE Risk Level:: Medical - moderate - high VTE Device Contraindication: Treatment Not Indicated VTE Drug Contraindication: N/A - Med Ordered
--- NOTE | 2023-02-21 13:23 | PC.NURSE ---
DR. MILLS (SURGERY) AT BEDSIDE, PT AWARE OF PLAN OF CARE.
--- NOTE | 2023-02-21 13:48 | PM.CNGS ---
History of Present Illness Consult details Consult date: 02/21/23 Narrative: patient is a 77-year-old male who presents here with epigastric abdominal pain. Workup through the ER is most noteworthy for epigastric tenderness, lipase greater than and 3000, and CT scan /ultrasound with consistent with pancreatitis secondary to gallstone pancreatitis. This is 2nd such episode of this; Patient had a similar approximately a year ago, less severe. patient denies any excessive alcohol use. Triglycerides level within normal limits. otherwise tolerating his diet, having regular bowel habits. Denies ever been jaundiced before. Chart was reviewed patient evaluated [facility] Past Medical History Medical History Cataract Arthritis Anemia [id number] kidney injury Holter monitor, abnormal Stroke HTN (hypertension) HLD (hyperlipidemia) Diabetes Bronchitis Surgical History Surgical History Hx of colonoscopy History of laminectomy History of intestinal surgery Social History Social History Household Members: Spouse Housing: House Are you a primary career discovery teacher to a significant other at home: No Do you presently have visiting nurse or other home services: No Alcohol intake: never Patient Tobacco Use Status: Former Tobacco user Quit Date: years ago Tobacco use type: Cigarette Smoked in Last 30 Days: No e-Cigarette/Vaping Use: Former Use Second Hand Smoke Exposure: No Use of substances other than those prescribed or required for medical reasons: No Advance Directives: No Advance Directives Information Provided: No Advance Directives Date on File: 08/23/20 service: No Current occupational status: retired [employer] Allergies Allergy/AdvReac Type Severity Reaction Status Date / Time No Known Allergies Allergy Mild NOT Verified 02/21/23 04:57 APPLICABLE Active Medications: Current Medications Lactated Ringer's (Lr) 1,000 mls @ 125 mls/hr IVCONT .Q8H [place] Last Admin: 02/21/23 10:45 Dose: 125 mls/hr Home Medications Medication Instructions Recorded Confirmed Last Taken Type cyanocobalamin (vitamin B-12) 1,000 mcg PO DAILY 02/21/23 02/21/23 02/20/23 History 1,000 mcg tablet fenofibrate nanocrystallized 145 145 mg PO DAILY 1102/21/23 02/20/23 History mg tablet ferrous sulfate 325 mg (65 mg 325 mg PO DAILY 02/21/23 02/21/23 02/20/23 History iron) tablet insulin glargine 100 unit/mL (3 8 unit subcut DAILY 02/21/23 02/21/23 02/20/23 History mL) subcutaneous pen (Basaglar KwikPen U-100 Insulin) insulin glargine 100 unit/mL (3 20 unit subcut BEDTIME 02/21/23 02/21/23 02/20/23 History mL) subcutaneous pen (Basaglar KwikPen U-100 Insulin) latanoprost 0.005 % eye drops 1 drp ophthalmic (eye) BID 02/21/23 02/21/23 02/20/23 History lidocaine 5 % topical patch 1 - 3 patch topical Q24H 02/21/23 02/21/23 02/20/23 History linaclotide 290 mcg capsule 290 mcg PO DAILY 02/21/23 02/21/23 02/20/23 History (Linzess) loratadine 10 mg tablet 10 mg PO DAILY PRN itch 02/21/23 02/21/23 02/20/23 History metoprolol succinate 100 mg 100 mg PO DAILY 02/21/23 02/21/23 02/20/23 History tablet,extended release 24 hr omeprazole 20 mg capsule,delayed 20 mg PO DAILY 02/21/23 02/21/23 02/20/23 History release simvastatin 40 mg tablet 40 mg PO BEDTIME 02/21/23 02/21/23 02/20/23 History valsartan 40 mg tablet 40 mg PO DAILY 02/21/23 02/21/23 02/20/23 History Physical Exam Vital Signs: Vital Signs: Last Vital Signs Temp 98.5 F 02/21/23 12:39 Pulse 64 02/21/23 12:39 Resp 12 02/21/23 12:39 BP 149/82 H 02/21/23 12:39 Pulse Ox 94 02/21/23 12:39 O2 Del Method Room Air 02/21/23 12:39 BMI result Body Mass Index 24.1 Eyes: Other: Anicteric GI: Other: abdomen soft. Moderate epigastric tenderness. No evidence of any guarding, rebound, rigidity. Results Labs 02/21/23 05:17 11/30/23 07:50 Labs: Abnormal lab results 02/21/23 02/21/23 02/21/23 Range/Units 04:56 05:17 07:50 WBC 13.8 H (4.8-10.8) X10*3/uL RBC 4.42 L (4.60-5.80) X10*6/uL Hgb 12.6 L (14.0-18.0) g/dl Hct 39.1 L (42.0-52.0) % Neut % (Auto) 85.8 H (45-73) % Lymph % (Auto) 7.0 L (20-40) % Lymph # (Auto) 1.0 L (1.2-4.9) X10*3/uL Abs Immat Gran (auto) 0.06 H (0.00-0.03) X10*3/uL Absolute Neuts (auto) 11.9 H (2.0-8.3) x10*3/uL Potassium 5.7 H D 5.3 H (3.3-5.1) mmol/L BUN 42 H 41 H (9-16) mg/dL Creatinine 2.99 H 2.82 H (0.5-1.4) mg/dL POC Glucose 178 H (60-115) mg/dL Random Glucose 231 H 199 H (60-115) mg/dL Total Bilirubin 1.5 H (0.0-1.0) mg/dL Direct Bilirubin 1.1 H (0.0-0.5) mg/dL AST 228 H (5-37) U/L ALT 116 H (0-40) U/L LDL Cholesterol, Calc 103 H (<100) mg/dL Lipase > 3000 H (8-78) U/L Urine Protein (Neg-Trace) mg/dL 02/21/23 02/21/23 Range/Units 09:21 12:01 WBC (4.8-10.8) X10*3/uL RBC (4.60-5.80) X10*6/uL Hgb (14.0-18.0) g/dl Hct (42.0-52.0) % Neut % (Auto) (45-73) % Lymph % (Auto) (20-40) % Lymph # (Auto) (1.2-4.9) X10*3/uL Abs Immat Gran (auto) (0.00-0.03) X10*3/uL Absolute Neuts (auto) (2.0-8.3) x10*3/uL Potassium (3.3-5.1) mmol/L BUN (9-16) mg/dL Creatinine (0.5-1.4) mg/dL POC Glucose 138 H (60-115) mg/dL Random Glucose (60-115) mg/dL Total Bilirubin (0.0-1.0) mg/dL Direct Bilirubin (0.0-0.5) mg/dL AST (5-37) U/L ALT (0-40) U/L LDL Cholesterol, Calc (<100) mg/dL Lipase (8-78) U/L Urine Protein 30 (1+) H (Neg-Trace) mg/dL Short CBC 02/21/23 Range/Units 05:17 WBC 13.8 H (4.8-10.8) X10*3/uL Hgb 12.6 L (14.0-18.0) g/dl Hct 39.1 L (42.0-52.0) % Plt Count 248 (160-400) X10*3/uL BMP 02/21/23 02/21/23 05:17 07:50 Sodium 138 139 Potassium 5.7 H D 5.3 H Chloride 106 106 Carbon Dioxide 23 24 BUN 42 H 41 H Creatinine 2.99 H 2.82 H Calcium 9.4 9.1 Liver Function 02/21/23 Range/Units 05:17 Total Bilirubin 1.5 H (0.0-1.0) mg/dL Direct Bilirubin 1.1 H (0.0-0.5) mg/dL AST 228 H (5-37) U/L ALT 116 H (0-40) U/L Alkaline Phosphatase 67 (39-117) U/L Albumin 4.6 (3.5-5.0) g/dL Urine 02/21/23 Range/Units 09:21 Urine Color Dark Yellow Urine Appearance Clear Urine pH 5.5 (5.0-9.0) Ur Specific [place] 1.020 (1.005-1.025) Urine Protein 30 (1+) H (Neg-Trace) mg/dL Urine Glucose (UA) Negative (Negative) mg/dL All other labs normal. Assessment and Plan (1) Choledocholithiasis: Status: Acute (2) Gallstone pancreatitis: Status: Acute Plan Patient being admitted with presumptive diagnosis of gallstone pancreatitis. Recommendation is for NPO, serial exams and labs, GI consult, incentive spirometry. When clinically stable and labs normalized, consider laparoscopic cholecystectomy with cholangiogram. If patient's progressive symptoms, consider ERCP per GI. Procedures Date of Service Date of Service: 02/21/23
--- NOTE | 2023-02-21 14:10 | PC.NURSE ---
PT SEEN BY TWILA SKINNER), PT AWARE OF PLAN OF CARE.
[2023-02-21] MEDS: HYDROmorphone HCl 1 MG/ML SYRINGE 0.5 MG IVPUSH (14:47)
--- NOTE | 2023-02-21 15:50 | PHA.MEDREC ---
Pharmacy Consult ? Medication Reconciliation Pharmacy has completed the medication reconciliation.MED REC DONE BY CORNELIA
[2023-02-21] MEDS: Metoprolol Succinate ER 100 MG TAB.ER.24H PO (16:32)
[2023-02-21] MEDS: Heparin Sodium,Porcine 5,000 UNIT/ML VIAL 5000 UNIT SUBCUT (16:32)
--- NOTE | 2023-02-21 16:34 | PC.NURSE ---
patient a&ox3, vss, ivf running per order, pt c/o continued abd pain, pt medicated with small sip of water, pt npo otherwise, will continue to monitor
[2023-02-21] MEDS: Morphine Sulfate 4 MG/ML CARTRIDGE IVPUSH (19:16)
--- NOTE | 2023-02-21 20:33 | P.CNGI_ITS ---
History of Present Illness Data of Consult Service Date: 02/21/23 Requesting physician: Susy Higgins Primary Care Provider: Gerry Garcia III, MD HPI Reason for consult: pancreatitis 77-year-old male with a PMH significant for?CVA, CKD 4, hx of SBO in 2006, hx of ileus in 10/2020, HTN, HLD insulin-dependent type 2 diabetes mellitus, and GERD who I am seeing for assessment for abdominal pain. Patient had sudden onset crampy abdominal pain in epigastric radiating into the back like a band, 10/10 in severity without any releiving or exacerbating factors from last night. Associated with nausea but no vomtiing. H denies fever, and any melena, rectal bleeding, cnstipation, diarrhea. he does admit to having short lived episodes of ruq pain on and off for months but usu transient and short lived and never like this. Imagin: CT and US- pancreatitis, cholelithiasis Labs: leukocytosis of 13.8, H&H 12.6/39.1, potassium 5.7 and repeat 5.3, BUN 42, creatinine 2.99, random glucose 231, total bilirubin 1.5, direct bilirubin 1.1, AST 228, ALT 116, and lipase >3000. Triglycerides WNL at 01:48. Total cholesterol 176. UA negative for UTI. Review of Systems 2 Review of Systems: Constitutional : No Weight loss, No Fever, No Chills ENT/Mouth : No sore throat, No Rhinorrhea Eyes: No Swelling, No Redness Cardiovascular : No Chest Pain, No SOB, No Edema Respiratory : No Cough, No Sputum, No Wheezing Gastrointestinal : see HPI Genitourinary : NO Dysuria, No Urinary Frequency, No Hematuria, No Urgency Musculoskeletal : No joint pain, No Myalgias, No Joint Swelling Skin : No Skin Lesions, No rash Neuro : No Weakness, No Numbness, No Dizziness, No Headache Psych : No Anxiety/Panic, No Depression Heme/Lymph: No Bruising, No Lymphadenopathy Endocrine : No Polyuria, No Polydipsia All other systems reviewed and are negative. [facility] Past Medical History Medical History Cataract Arthritis Anemia [id number] kidney injury Holter monitor, abnormal Stroke HTN (hypertension) HLD (hyperlipidemia) Diabetes Bronchitis Family History Pertinent family history: no FH of pancreatic disease Surgical History Surgical History Hx of colonoscopy History of laminectomy History of intestinal surgery Social History Social History Household Members: Spouse Housing: House Are you a primary daycare director to a significant other at home: No Do you presently have visiting nurse or other home services: No Alcohol intake: never Patient Tobacco Use Status: Former Tobacco user Quit Date: years ago Tobacco use type: Cigarette Smoked in Last 30 Days: No e-Cigarette/Vaping Use: Former Use Second Hand Smoke Exposure: No Use of substances other than those prescribed or required for medical reasons: No Advance Directives: No Advance Directives Information Provided: No Advance Directives Date on File: 08/23/20 service: No Current occupational status: retired [employer] Allergies Allergy/AdvReac Type Severity Reaction Status Date / Time No Known Allergies Allergy Mild NOT Verified 02/21/23 04:57 APPLICABLE Active Medications: Current Medications Acetaminophen (Acetaminophen 325 Mg Tablet) 650 mg PO Q6H PRN PRN Reason: Pain, Mild (Pain Scale 1-3) Benzonatate (Benzonatate 100 Mg Capsule) 100 mg PO TID PRN PRN Reason: Cough Cyanocobalamin (Cyanocobalamin (Vitamin B-12) 1,000 Mcg Tablet) 1,000 mcg PO DAILY [facility] Docusate Sodium (Docusate Sodium 100 Mg Capsule) 100 mg PO DAILY PRN PRN Reason: Constipation Fenofibrate (Fenofibrate 160 Mg Tablet) 160 mg PO DAILY [facility] Ferrous Sulfate (Ferrous Sulfate 324 Mg Tablet.Dr) 324 mg PO DAILY [facility] Heparin Sodium (Porcine) (Heparin Sodium,Porcine 5,000 Unit/Ml Vial) 5,000 unit SUBCUT Q12H [facility] Last Admin: 02/21/23 16:32 Dose: 5,000 unit Lactated Ringer's (Lr) 1,000 mls @ 125 mls/hr IVCONT .Q8H [facility] Last Admin: 02/21/23 18:57 Dose: 125 mls/hr Latanoprost (Latanoprost 0.005 % Ophth Rocio 2.5 Ml Drops) 1 drop EYE-BOTH BID [facility] Loratadine (Loratadine 10 Mg Tablet) 10 mg PO DAILY PRN PRN Reason: itch Melatonin (Melatonin 3 Mg Tablet) 6 mg PO BEDTIME PRN PRN Reason: Insomnia Metoprolol Succinate (Metoprolol Succinate Er 100 Mg Tab.Er.24h) 100 mg PO DAILY [facility]; Protocol Last Admin: 02/21/23 16:32 Dose: 100 mg Morphine Sulfate (Morphine Sulfate 4 Mg/Ml Cartridge) 4 mg IVPUSH Q4H PRN; Protocol PRN Reason: Pain, Severe (Pain Scale 7-10) Last Admin: 02/21/23 19:16 Dose: 4 mg Non-Formulary Medication (Linaclotide [Linzess]) 290 mcg PO DAILY [facility] Omeprazole (Omeprazole 20 Mg Capsule.Dr) 20 mg PO DAILY@0630 [facility] Ondansetron HCl (Ondansetron Hcl 4 Mg/2 Ml Vial) 4 mg IVPUSH Q8H PRN PRN Reason: Nausea and Vomiting Last Admin: 02/21/23 19:15 Dose: 4 mg Sodium Chloride (0.9 % Sodium Chloride Flush 3 Ml Syringe) [facility] Last Admin: 02/21/23 16:33 Dose: Not Given Home Medications Medication Instructions Recorded Confirmed Last Taken Type cyanocobalamin (vitamin B-12) 1,000 mcg PO DAILY 02/21/23 02/21/23 02/20/23 History 1,000 mcg tablet fenofibrate nanocrystallized 145 145 mg PO DAILY 02/21/23 02/21/23 02/20/23 History mg tablet ferrous sulfate 325 mg (65 mg 325 mg PO DAILY 02/21/23 02/21/23 02/20/23 History iron) tablet insulin glargine 100 unit/mL (3 8 unit subcut DAILY 02/21/23 02/21/23 02/20/23 History mL) subcutaneous pen (Basaglar KwikPen U-100 Insulin) insulin glargine 100 unit/mL (3 20 unit subcut BEDTIME 02/21/23 02/21/23 02/20/23 History mL) subcutaneous pen (Basaglar KwikPen U-100 Insulin) latanoprost 0.005 % eye drops 1 drp ophthalmic (eye) BID 02/21/23 02/21/23 02/20/23 History lidocaine 5 % topical patch 1 - 3 patch topical Q24H 11/02/21/23 02/20/23 History linaclotide 290 mcg capsule 290 mcg PO DAILY 02/21/23 02/21/23 02/20/23 History (Linzess) loratadine 10 mg tablet 10 mg PO DAILY PRN itch 02/21/23 02/21/23 02/20/23 History metoprolol succinate 100 mg 100 mg PO DAILY 02/21/23 02/21/23 02/20/23 History tablet,extended release 24 hr omeprazole 20 mg capsule,delayed 20 mg PO DAILY 02/21/23 02/21/23 02/20/23 History release simvastatin 40 mg tablet 40 mg PO BEDTIME 02/21/23 02/21/23 02/20/23 History valsartan 40 mg tablet 40 mg PO DAILY 02/21/23 02/21/23 02/20/23 History Physical Exam 2 Vital Signs: Vital Signs: Last Vital Signs Temp 98.5 F 02/21/23 14:33 Pulse 71 02/21/23 14:33 Resp 16 02/21/23 14:33 BP 176/63 H 02/21/23 14:33 Pulse Ox 98 02/21/23 14:33 O2 Del Method Room Air 02/21/23 14:33 BMI result Body Mass Index 24.1 EXAM: GENERAL: The patient is well developed and nontoxic. VITAL SIGNS:see workflow HEENT: Nonicteric sclerae, PERRLA, EOMI. Oropharynx clear. Moist mucous membranes. Conjunctivae appear well perfused. No thyroid mass. CHEST: Chest wall is nontender. HEART: Regular rate and rhythm without murmurs. LUNGS: Clear to auscultation bilaterally. ABDOMEN: Soft, positive bowel sounds, tender epigastrium, no organomegaly.no flank tenderness SKIN: No rash, no excessive bruising, petechiae, or purpura. NEUROLOGIC: Cranial nerves II-XII intact without motor/sensory deficit. Results Labs 02/21/23 05:17 02/21/23 07:50 Labs: Short CBC 02/21/23 Range/Units 05:17 WBC 13.8 H (4.8-10.8) X10*3/uL Hgb 12.6 L (14.0-18.0) g/dl Hct 39.1 L (42.0-52.0) % Plt Count 248 (160-400) X10*3/uL BMP 02/21/23 02/21/23 05:17 07:50 Sodium 138 139 Potassium 5.7 H D 5.3 H Chloride 106 106 Carbon Dioxide 23 24 BUN 42 H 41 H Creatinine 2.99 H 2.82 H Calcium 9.4 9.1 Liver Function 02/21/23 Range/Units 05:17 Total Bilirubin 1.5 H (0.0-1.0) mg/dL Direct Bilirubin 1.1 H (0.0-0.5) mg/dL AST 228 H (5-37) U/L ALT 116 H (0-40) U/L Alkaline Phosphatase 67 (39-117) U/L Albumin 4.6 (3.5-5.0) g/dL Urine 02/21/23 Range/Units 09:21 Urine Color Dark Yellow Urine Appearance Clear Urine pH 5.5 (5.0-9.0) Ur Specific [place] 1.020 (1.005-1.025) Urine Protein 30 (1+) H (Neg-Trace) mg/dL Urine Glucose (UA) Negative (Negative) mg/dL Imaging CT scan - abdomen: Attestation: I personally reviewed and interpreted this imaging study as follows: (pancreatitis, gallstones, ) Assessment and Plan (1) Gallstone pancreatitis: Status: Acute Plan 1/ Picture is most consistent with gallstone pancreatitis, probably passes the stone by now, no evidence of choledocholithiasis on imaging PLAN: 1/ FLuids with LR for resuscitation 2/ analgesia and bowel rest, allow clears when able 3/ surgical consult, if LFT cont to rise then MRCP to r/o choledocholithiasis. Procedures Date of Service Date of Service: 02/21/23
[2023-02-21 21:04] LABS: Glucose, Whole Blood 116 mg/dL (60-115)
[2023-02-21] MEDS: Acetaminophen 325 MG TABLET 650 MG PO (21:33)
[2023-02-22] MEDS: Morphine Sulfate 4 MG/ML CARTRIDGE IVPUSH ×3 (01:22→09:05)
[2023-02-22] MEDS: Heparin Sodium,Porcine 5,000 UNIT/ML VIAL 5000 UNIT SUBCUT ×2 (01:23→14:38)
[2023-02-22] MEDS: Lactated Ringers 1,000 ML 125 ML IVCONT ×3 (02:40→21:13)
[2023-02-22] MEDS: Omeprazole 20 MG CAPSULE.DR PO (05:46)
[2023-02-22 06:39] LABS: Hematocrit 37.4 % (42.0-52.0); Hemoglobin 11.9 g/dl (14.0-18.0); Mean Corpuscular HGB Conc 31.8 g/dl (31.0-36.0); Mean Corpuscular Hemoglobin 28.3 pg (27.0-33.0); Mean Corpuscular Volume 88.8 fL (80.0-98.0); Mean Platelet Volume 10.2 fL (9.4-12.4); Platelet Count 237 X10*3/uL (160-400); Red Blood Count 4.21 X10*6/uL (4.60-5.80); Red Cell Distribution Width 13.7 % (11.0-16.0)
[2023-02-22 06:52] LABS: Anion Gap 13 (12-20); Blood Urea Nitrogen 41 mg/dL (9-16); Calcium 8.5 mg/dL (8.4-10.2); Carbon Dioxide 24 mmol/L (22-29); Chloride 112 mmol/L (96-108); Creatinine Clr Calc Pharmacy 23.3; Estimated Glomerular Filt Rate 25; Glucose Random 105 mg/dL (60-115); Potassium 4.9 mmol/L (3.3-5.1); Sodium 144 mmol/L (135-145)
[2023-02-22 07:27] LABS: Glucose, Whole Blood 109 mg/dL (60-115)
[2023-02-22 07:28] VITALS: BP 134/68; PULSE 61; RESP 18; TEMP 36.7; O2SAT 92
[2023-02-22] MEDS: Ferrous Sulfate 324 MG TABLET.DR PO (07:28)
[2023-02-22] MEDS: Fenofibrate 160 MG TABLET PO (07:28)
[2023-02-22] MEDS: Metoprolol Succinate ER 100 MG TAB.ER.24H PO (07:28)
[2023-02-22] MEDS: Cyanocobalamin (Vitamin B-12) 1,000 MCG TABLET 1000 MCG PO (07:28)
[2023-02-22 08:04] LABS: Alanine Aminotransferase 117 U/L (0-40); Albumin Level 3.7 g/dL (3.5-5.0); Alkaline Phosphatase 61 U/L (39-117); Aspartate Amino Transferase 130 U/L (5-37); Bilirubin Direct 0.5 mg/dL (0.0-0.5); Bilirubin Total 0.9 mg/dL (0.0-1.0); Total Protein 6.6 g/dL (6.5-8.0)
[2023-02-22 08:13] LABS: Lipase 1850 U/L (8-78)
--- NOTE | 2023-02-22 11:05 | PM.PNGS ---
Subjective Subjective Date of Service: 02/22/23 Interval history: patient complaining of persistent epigastric pain. Lipase down to 1800. Bilirubin within normal limits. WBC 16 Physical Exam Vital Signs: Vital Signs: Last Vital Signs Temp 98.0 F 02/22/23 07:28 Pulse 61 02/22/23 07:28 Resp 18 02/22/23 07:28 BP 134/68 02/22/23 07:28 Pulse Ox 92 02/22/23 07:28 O2 Del Method Room Air 02/22/23 07:28 BMI result Body Mass Index 24.1 GI: Other: Epigastric tenderness. No evidence of any rebound or rigidity. Objective Data Active Medications Acetaminophen (Acetaminophen 325 Mg Tablet) 650 mg PO Q6H PRN PRN Reason: Pain, Mild (Pain Scale 1-3) Last Admin: 02/21/23 21:33 Dose: 650 mg Documented By: TANYA Benzonatate (Benzonatate 100 Mg Capsule) 100 mg PO TID PRN PRN Reason: Cough Cyanocobalamin (Cyanocobalamin (Vitamin B-12) 1,000 Mcg Tablet) 1,000 mcg PO DAILY [facility] Last Admin: 02/22/23 07:28 Dose: 1,000 mcg Documented By: CHITO Dextrose (Dextrose 50 % 25 Gm/50 Ml Syringe) 25 gm IVPUSH Q15M PRN; Protocol PRN Reason: per Hypoglycemia Standing Ord. Docusate Sodium (Docusate Sodium 100 Mg Capsule) 100 mg PO DAILY PRN PRN Reason: Constipation Fenofibrate (Fenofibrate 160 Mg Tablet) 160 mg PO DAILY [facility] Last Admin: 02/22/23 07:28 Dose: 160 mg Documented By: CHITO Ferrous Sulfate (Ferrous Sulfate 324 Mg Tablet.Dr) 324 mg PO DAILY [facility] Last Admin: 02/22/23 07:28 Dose: 324 mg Documented By: CHITO Glucose (Glucose Gel 15 Gm Gel..Gram.) 15 gm PO Q15M PRN; Protocol PRN Reason: per Hypoglycemia Standing Ord. Heparin Sodium (Porcine) (Heparin Sodium,Porcine 5,000 Unit/Ml Vial) 5,000 unit SUBCUT Q12H [facility] Last Admin: 02/22/23 01:23 Dose: 5,000 unit Documented By: TANYA Hydromorphone HCl (Hydromorphone Hcl 0.5 Mg/0.5 Ml Syringe) 0.5 mg IVPUSH Q4H PRN; Protocol PRN Reason: Pain, Severe (Pain Scale 7-10) Lactated Ringer's (Lr) 1,000 mls @ 100 mls/hr IVCONT .Q10H [facility] Last Admin: 02/22/23 02:40 Dose: 125 mls/hr Documented By: TANYA Insulin Human Lispro (Insulin Lispro 100 Unit/Ml 3 Ml Vial) 0 unit SUBCUT QIDACHS [facility]; Protocol Last Admin: 02/22/23 07:32 Dose: Not Given Documented By: CHITO Non-Admin Reason: No Insulin Coverage Latanoprost (Latanoprost 0.005 % Ophth Rocio 2.5 Ml Drops) 1 drop EYE-BOTH BID [facility] Last Admin: 02/22/23 07:28 Dose: Not Given Documented By: CHITO Non-Admin Reason: med not avil. Loratadine (Loratadine 10 Mg Tablet) 10 mg PO DAILY PRN PRN Reason: itch Melatonin (Melatonin 3 Mg Tablet) 6 mg PO BEDTIME PRN PRN Reason: Insomnia Metoprolol Succinate (Metoprolol Succinate Er 100 Mg Tab.Er.24h) 100 mg PO DAILY [facility]; Protocol Last Admin: 02/22/23 07:28 Dose: 100 mg Documented By: CHITO Non-Formulary Medication (Linaclotide [Linzess]) 290 mcg PO DAILY [facility] Omeprazole (Omeprazole 20 Mg Capsule.Dr) 20 mg PO DAILY@0630 [facility] Last Admin: 02/22/23 05:46 Dose: 20 mg Documented By: TANYA Ondansetron HCl (Ondansetron Hcl 4 Mg/2 Ml Vial) 4 mg IVPUSH Q8H PRN PRN Reason: Nausea and Vomiting Last Admin: 02/21/23 19:15 Dose: 4 mg Documented By: MICHAEL-LAURA Sodium Chloride (0.9 % Sodium Chloride Flush 3 Ml Syringe) 3 ml IVFLUSH QSHIFT [facility] Last Admin: 02/22/23 07:22 Dose: Not Given Documented By: CHITO Non-Admin Reason: IV Running Labs 02/22/23 05:43 02/22/23 05:43 Labs: Laboratory Results - last 24 hr 02/21/23 02/21/23 02/22/23 12: 20:56 05:43 MCV 88.8 MCH 28.3 MCHC 31.8 RDW 13.7 Plt Count 237 MPV 10.2 Absolute Nucleated RBC 0.000 Nucleated RBC % (auto) 0.0 Anion Gap 13 Estim Creat Clear Calc 23.3 Estimated GFR 25 POC Glucose 138 H 116 H Random Glucose 105 Calcium 8.5 D Total Bilirubin 0.9 Direct Bilirubin 0.5 AST 130 H ALT 117 H Alkaline Phosphatase 61 Total Protein 6.6 Albumin 3.7 Lipase 1850 H 02/22/23 07:23 MCV MCH MCHC RDW Plt Count MPV Absolute Nucleated RBC Nucleated RBC % (auto) Anion Gap Estim Creat Clear Calc Estimated GFR POC Glucose 109 Random Glucose Calcium Total Bilirubin Direct Bilirubin AST ALT Alkaline Phosphatase Total Protein Albumin Lipase Microbiology Microbiology Results: Microbiology 02/21/23 06:22 Blood Culture - Preliminary Blood - Venous No growth after 24 hours. 02/21/23 06:19 Blood Culture - Preliminary Blood - Venous No growth after 24 hours. Procedures Date of Service Date of Service: 02/22/23 Progress Note: A&P Assessment and plan (1) Gallstone pancreatitis: Status: Acute Plan Continue current therapy; follow eyes nose, continue restorative measures, serial labs and exams. When labs improved, patient asymptomatic, for laparoscopic cholecystectomy with cholangiogram. Time Spent With Patient Time: Total time managing care of this patient today ____ minutes. Quality Stroke Does the patient have a stroke diagnosis?: No VTE Prior VTE?: No VTE Risk Level:: Medical - moderate - high VTE Device Contraindication: Treatment Not Indicated VTE Drug Contraindication: N/A - Med Ordered
[2023-02-22 11:42] LABS: Glucose, Whole Blood 110 mg/dL (60-115)
[2023-02-22] MEDS: HYDROmorphone HCl 0.5 MG/0.5 ML SYRINGE IVPUSH ×3 (12:59→22:11)
--- NOTE | 2023-02-22 13:59 | MHC.CM.PN ---
IMM DELIVERED. PT FROM HOME WITH MARIA TERESA, WHO IS HCP (ON FILE). INDEPENDENT, NO SERVICES. PCP: STACEY WILBURN MD DCP: GOAL IS HOME SELF CARE , DAUGHTER CAN TRANSPORT.
[2023-02-22 15:24] VITALS: BP 140/63; PULSE 66; RESP 18; TEMP 37; O2SAT 93
[2023-02-22 16:33] LABS: Glucose, Whole Blood 130 mg/dL (60-115)
--- NOTE | 2023-02-22 16:44 | P.PNIM_ITS ---
Subjective Subjective Date of Service: 02/22/23 Interval History: seen and examined this morning follow up for abdominal pain history obtained with assistance from full time staff interpreter patient reporting ongoing abdominal pain Review of Systems Review of Systems: Yes all other systems are reviewed and are negative Constitutional Constitutional: Denies chills and Denies fever(s) Cardiovascular Cardiovascular: Denies chest pain, Denies palpitations and Denies dyspnea Respiratory Respiratory: Denies cough and Denies dyspnea Gastrointestinal Gastrointestinal: Reports abdominal pain Endocrine Endocrine: Denies palpitations Physical Exam 2 Vital Signs: Vital Signs: Last Vital Signs Temp 98.6 F 02/22/23 15:24 Pulse 66 02/22/23 15:24 Resp 18 02/22/23 15:24 BP 140/63 H 02/22/23 15:24 Pulse Ox 93 02/22/23 15:24 O2 Del Method Room Air 02/22/23 15:24 BMI result Body Mass Index 24.1 Const: General: cooperative, alert and awake Nutritional Appearance: a verage body habitus Orientation/consciousness: patient oriented x3 Resp: Effort & Inspection: normal respiratory effort, able to speak in complete sentences, no respiratory distress and no use of accessory muscles Cardio: Rate: regular rate GI: Other: softly distended; epigastric tenderness Neuro: General: patient oriented x3 and moves all extremities Extrem: General: Yes no pedal edema Objective Data Active Medications Acetaminophen (Acetaminophen 325 Mg Tablet) 650 mg PO Q6H PRN PRN Reason: Pain, Mild (Pain Scale 1-3) Last Admin: 02/21/23 21:33 Dose: 650 mg Documented By: LYSOlya Benzonatate (Benzonatate 100 Mg Capsule) 100 mg PO TID PRN PRN Reason: Cough Cyanocobalamin (Cyanocobalamin (Vitamin B-12) 1,000 Mcg Tablet) 1,000 mcg PO DAILY [facility] Last Admin: 02/22/23 07:28 Dose: 1,000 mcg Documented By: LILYLM Dextrose (Dextrose 50 % 25 Gm/50 Ml Syringe) 25 gm IVPUSH Q15M PRN; Protocol PRN Reason: per Hypoglycemia Standing Ord. Docusate Sodium (Docusate Sodium 100 Mg Capsule) 100 mg PO DAILY PRN PRN Reason: Constipation Fenofibrate (Fenofibrate 160 Mg Tablet) 160 mg PO DAILY [facility] Last Admin: 02/22/23 07:28 Dose: 160 mg Documented By: CHITO Ferrous Sulfate (Ferrous Sulfate 324 Mg Tablet.) 324 mg PO DAILY [facility] Last Admin: 02/22/23 07:28 Dose: 324 mg Documented By: CHITO Glucose (Glucose Gel 15 Gm Gel..Gram.) 15 gm PO Q15M PRN; Protocol PRN Reason: per Hypoglycemia Standing Ord. Heparin Sodium (Porcine) (Heparin Sodium,Porcine 5,000 Unit/Ml Vial) 5,000 unit SUBCUT Q12H [facility] Last Admin: 02/22/23 14:38 Dose: 5,000 unit Documented By: CHITO Hydromorphone HCl (Hydromorphone Hcl 0.5 Mg/0.5 Ml Syringe) 0.5 mg IVPUSH Q4H PRN; Protocol PRN Reason: Pain, Severe (Pain Scale 7-10) Last Admin: 02/22/23 12:59 Dose: 0.5 mg Documented By: CHITO Lactated Ringer's (Lr) 1,000 mls @ 100 mls/hr IVCONT .Q10H [facility] Last Admin: 02/22/23 12:33 Dose: 125 mls/hr Documented By: CHITO Insulin Human Lispro (Insulin Lispro 100 Unit/Ml 3 Ml Vial) 0 unit SUBCUT QIDACHS [facility]; Protocol Last Admin: 02/22/23 16:30 Dose: Not Given Documented By: CHITO Non-Admin Reason: No Insulin Coverage Latanoprost (Latanoprost 0.005 % Ophth Rocio 2.5 Ml Drops) 1 drop EYE-BOTH BID [facility] Last Admin: 02/22/23 07:28 Dose: Not Given Documented By: CHITO Non-Admin Reason: med not avil. Loratadine (Loratadine 10 Mg Tablet) 10 mg PO DAILY PRN PRN Reason: itch Melatonin (Melatonin 3 Mg Tablet) 6 mg PO BEDTIME PRN PRN Reason: Insomnia Metoprolol Succinate (Metoprolol Succinate Er 100 Mg Tab.Er.24h) 100 mg PO DAILY [facility]; Protocol Last Admin: 02/22/23 07:28 Dose: 100 mg Documented By: CHITO Non-Formulary Medication (Linaclotide [Linzess]) 290 mcg PO DAILY [facility] Omeprazole (Omeprazole 20 Mg Capsule.) 20 mg PO DAILY@0630 [facility] Last Admin: 02/22/23 05:46 Dose: 20 mg Documented By: TANYA Ondansetron HCl (Ondansetron Hcl 4 Mg/2 Ml Vial) 4 mg IVPUSH Q8H PRN PRN Reason: Nausea and Vomiting Last Admin: 02/21/23 19:15 Dose: 4 mg Documented By: CHRIS Sodium Chloride (0.9 % Sodium Chloride Flush 3 Ml Syringe) 3 ml IVFLUSH QSHIFT [facility] Last Admin: 02/22/23 07:22 Dose: Not Given Documented By: CHITO Non-Admin Reason: IV Running Labs 02/22/23 05:43 02/22/23 05:43 Labs: Laboratory Results - last 24 hr 02/21/23 02/22/23 02/22/23 20:56 05:43 07:23 MCV 88.8 MCH 28.3 MCHC 31.8 RDW 13.7 Plt Count 237 MPV 10.2 Absolute Nucleated RBC 0.000 Nucleated RBC % (auto) 0.0 Anion Gap 13 Estim Creat Clear Calc 23.3 Estimated GFR 25 POC Glucose 116 H 109 Random Glucose 105 Calcium 8.5 D Total Bilirubin 0.9 Direct Bilirubin 0.5 AST 130 H ALT 117 H Alkaline Phosphatase 61 Total Protein 6.6 Albumin 3.7 Lipase 1850 H 02/22/23 02/22/23 11:36 16:25 MCV MCH MCHC RDW Plt Count MPV Absolute Nucleated RBC Nucleated RBC % (auto) Anion Gap Estim Creat Clear Calc Estimated GFR POC Glucose 110 130 H Random Glucose Calcium Total Bilirubin Direct Bilirubin AST ALT Alkaline Phosphatase Total Protein Albumin Lipase Microbiology Microbiology Results: Microbiology 02/21/23 06:22 Blood Culture - Preliminary Blood - Venous No growth after 24 hours. 02/21/23 06:19 Blood Culture - Preliminary Blood - Venous No growth after 24 hours. Assessment and Plan (1) Gallstone pancreatitis: Status: Acute (2) CKD (chronic kidney disease): Status: Acute Plan Pt is a Maltese-speaking 77-year-old male with a PMH significant for?CVA, CKD 4, hx of SBO in 2006, hx of ileus in 10/2020, HTN, HLD insulin-dependent type 2 diabetes mellitus, and GERD who presents to the ED with nausea, vomiting, and intense lower abdominal pain radiating to the back since last night. Pt will be admitted to the hospital for treatment and further evaluation of acute pancreatitis. Gallstone Pancreatitis LFTs, lipase trending down; still with abdomial pain continue Bowel rest, anagesics for pain management, IVF No indication of an infectious source, pt does not meet sepsis criteria; tachycardia secondary to pain, leukocytosis reactionary; lactic acid WNL seen by GI - no need for ERCP as LFTs trending down surgery following - plan for lap abida with cholangiogram when pain improves Hyperkalemia resolved after lokelma CARMEN on CKD 4 improved with IVF valsartan on hold Follow BMP Insulin dependent type 2 diabetes mellitus Currently holding Lantus as pt is NPO; resume as diet advances Will place on sliding scale insulin Diabetic diet once diet advances HTN Continue metoprolol Hold valsartan d/t CARMEN HLD Hold statin d/t elevated LFTs Full Code Attending:?Dr. Barrientos DVT Prophylaxis: Heparin Pt will require a hospitalization of at least two nights for treatment of?acute pancreatitis with bowel rest, IVF, and close monitoring. Quality Stroke Does the patient have a stroke diagnosis?: No VTE Prior VTE?: No VTE Risk Level:: Medical - moderate - high VTE Device Contraindication: Treatment Not Indicated VTE Drug Contraindication: N/A - Med Ordered
[2023-02-22 20:57] LABS: Glucose, Whole Blood 156 mg/dL (60-115)
[2023-02-22] MEDS: Insulin Lispro 100 UNIT/ML 3 ML VIAL SUBCUT (21:14)
[2023-02-22] MEDS: Melatonin 3 MG TABLET 6 MG PO (22:23)
[2023-02-22] MEDS: Acetaminophen 325 MG TABLET 650 MG PO (22:23)
[2023-02-22] MEDS: Latanoprost 0.005 % Ophth Sol 2.5 ML DROPS 1 DROP EYE-BOTH (22:33)
[2023-02-22 23:18] VITALS: RESP 18
[2023-02-22 23:47] VITALS: BP 108/56; PULSE 61; RESP 18; TEMP 36.3; O2SAT 92
[2023-02-23 00:20] LABS: Glucose, Whole Blood 142 mg/dL (60-115)
[2023-02-23] MEDS: Heparin Sodium,Porcine 5,000 UNIT/ML VIAL 5000 UNIT SUBCUT ×2 (02:29→14:00)
[2023-02-23] MEDS: HYDROmorphone HCl 0.5 MG/0.5 ML SYRINGE IVPUSH ×4 (02:38→14:00)
[2023-02-23] MEDS: Lactated Ringers 1,000 ML 125 ML IVCONT ×2 (05:26→13:14)
[2023-02-23] MEDS: Acetaminophen 325 MG TABLET 650 MG PO ×2 (05:26→21:25)
[2023-02-23] MEDS: Omeprazole 20 MG CAPSULE.DR PO (05:26)
[2023-02-23 06:19] LABS: MANUAL DIFF FLAG NO
[2023-02-23 06:41] LABS: Basophils Percent Auto 0.1 % (0-2); Hematocrit 31.7 % (42.0-52.0); Imm Gran Abs Auto 0.07 X10*3/uL (0.00-0.03); Imm Gran Pct Auto 0.5 % (0.0-0.4); Lymphocytes Absolute Auto 1.3 X10*3/uL (1.2-4.9); Lymphocytes Percent Auto 9.6 % (20-40); Mean Corpuscular HGB Conc 31.5 g/dl (31.0-36.0); Mean Corpuscular Hemoglobin 28.4 pg (27.0-33.0); Mean Corpuscular Volume 90.1 fL (80.0-98.0); Mean Platelet Volume 10.7 fL (9.4-12.4); Monocytes Absolute Auto 0.9 X10*3/uL (0.1-1.2); Monocytes Percent Auto 6.6 % (2-11); Neutrophils Absolute Auto 11.5 x10*3/uL (2.0-8.3); Neutrophils Percent Auto 83.2 % (45-73); Platelet Count 191 X10*3/uL (160-400); Red Blood Count 3.52 X10*6/uL (4.60-5.80); White Blood Count 13.9 X10*3/uL (4.8-10.8)
[2023-02-23 06:58] LABS: Alanine Aminotransferase 64 U/L (0-40); Albumin Level 3.1 g/dL (3.5-5.0); Alkaline Phosphatase 56 U/L (39-117); Anion Gap 15 (12-20); Aspartate Amino Transferase 47 U/L (5-37); Bilirubin Direct 0.4 mg/dL (0.0-0.5); Bilirubin Total 0.6 mg/dL (0.0-1.0); Blood Urea Nitrogen 57 mg/dL (9-16); Calcium 8.1 mg/dL (8.4-10.2); Carbon Dioxide 20 mmol/L (22-29); Chloride 111 mmol/L (96-108); Creatinine Clr Calc Pharmacy 15.8; Estimated Glomerular Filt Rate 16; Glucose Random 160 mg/dL (60-115); Potassium 4.6 mmol/L (3.3-5.1); Sodium 141 mmol/L (135-145); Total Protein 5.8 g/dL (6.5-8.0)
[2023-02-23 07:04] VITALS: BP 122/58; PULSE 70; RESP 17; TEMP 36.1; O2SAT 92
[2023-02-23 07:25] LABS: Glucose, Whole Blood 157 mg/dL (60-115)
[2023-02-23 07:26] LABS: Lipase 281 U/L (8-78)
[2023-02-23] MEDS: Latanoprost 0.005 % Ophth Sol 2.5 ML DROPS 1 DROP EYE-BOTH ×2 (08:05→21:55)
[2023-02-23] MEDS: Ferrous Sulfate 324 MG TABLET.DR PO (08:06)
[2023-02-23] MEDS: Fenofibrate 160 MG TABLET PO (08:06)
[2023-02-23] MEDS: Metoprolol Succinate ER 100 MG TAB.ER.24H PO (08:06)
[2023-02-23] MEDS: Cyanocobalamin (Vitamin B-12) 1,000 MCG TABLET 1000 MCG PO (08:06)
[2023-02-23 11:26] LABS: Glucose, Whole Blood 171 mg/dL (60-115)
--- NOTE | 2023-02-23 13:37 | P.PNIM_ITS ---
Subjective Subjective Date of Service: 02/23/23 Interval History: seen and examined this morning follow up for gallstone pancreatitis history obtained with assistance of pump service supervisor patient still reporting significant abdominal pain, worse with moving Review of Systems Review of Systems: Yes all other systems are reviewed and are negative Constitutional Constitutional: Denies chills and Denies fever(s) Cardiovascular Cardiovascular: Denies chest pain and Denies palpitations Gastrointestinal Gastrointestinal: Reports abdominal pain Endocrine Endocrine: Denies palpitations Physical Exam 2 Vital Signs: Vital Signs: Last Vital Signs Temp 97 F 02/23/23 07:04 Pulse 70 02/23/23 07:04 Resp 17 02/23/23 07:04 BP 122/58 L 02/23/23 07:04 Pulse Ox 92 02/23/23 07:04 O2 Del Method Room Air 02/23/23 07:04 BMI result Body Mass Index 24.1 Const: General: cooperative, alert and awake Nutritional Appearance: a verage body habitus Orientation/consciousness: patient oriented x3 Resp: Effort & Inspection: normal respiratory effort, able to speak in complete sentences, no respiratory distress and no use of accessory muscles Cardio: Rate: regular rate GI: Other: softly distended; epigastric tenderness Neuro: General: patient oriented x3 and moves all extremities Extrem: General: Yes no pedal edema Objective Data Active Medications Acetaminophen (Acetaminophen 325 Mg Tablet) 650 mg PO Q6H PRN PRN Reason: Pain, Mild (Pain Scale 1-3) Last Admin: 02/23/23 05:26 Dose: 650 mg Documented By: OZORALB Benzonatate (Benzonatate 100 Mg Capsule) 100 mg PO TID PRN PRN Reason: Cough Cyanocobalamin (Cyanocobalamin (Vitamin B-12) 1,000 Mcg Tablet) 1,000 mcg PO DAILY [facility] Last Admin: 02/23/23 08:06 Dose: 1,000 mcg Documented By: MARKYEMA Dextrose (Dextrose 50 % 25 Gm/50 Ml Syringe) 25 gm IVPUSH Q15M PRN; Protocol PRN Reason: per Hypoglycemia Standing Ord. Docusate Sodium (Docusate Sodium 100 Mg Capsule) 100 mg PO DAILY PRN PRN Reason: Constipation Fenofibrate (Fenofibrate 160 Mg Tablet) 160 mg PO DAILY [facility] Last Admin: 02/23/23 08:06 Dose: 160 mg Documented By: HO.COTEMA Ferrous Sulfate (Ferrous Sulfate 324 Mg Tablet.) 324 mg PO DAILY [facility] Last Admin: 02/23/23 08:06 Dose: 324 mg Documented By: ALBERT Glucose (Glucose Gel 15 Gm Gel..Gram.) 15 gm PO Q15M PRN; Protocol PRN Reason: per Hypoglycemia Standing Ord. Heparin Sodium (Porcine) (Heparin Sodium,Porcine 5,000 Unit/Ml Vial) 5,000 unit SUBCUT Q12H [facility] Last Admin: 02/23/23 02:29 Dose: 5,000 unit Documented By: TIERNEY Hydromorphone HCl (Hydromorphone Hcl 0.5 Mg/0.5 Ml Syringe) 0.5 mg IVPUSH Q3H PRN; Protocol PRN Reason: Pain, Severe (Pain Scale 7-10) Last Admin: 02/23/23 10:38 Dose: 0.5 mg Documented By: ALBERT Lactated Ringer's (Lr) 1,000 mls @ 125 mls/hr IVCONT .Q8H [facility] Last Admin: 02/23/23 13:14 Dose: 125 mls/hr Documented By: ALBERT Insulin Human Lispro (Insulin Lispro 100 Unit/Ml 3 Ml Vial) 0 unit SUBCUT QIDACHS [facility]; Protocol Last Admin: 02/23/23 11:27 Dose: Not Given Documented By: ALBERT Non-Admin Reason: NPO Latanoprost (Latanoprost 0.005 % Ophth Rocio 2.5 Ml Drops) 1 drop EYE-BOTH BID [facility] Last Admin: 02/23/23 08:05 Dose: 1 drop Documented By: ALBERT Loratadine (Loratadine 10 Mg Tablet) 10 mg PO DAILY PRN PRN Reason: itch Melatonin (Melatonin 3 Mg Tablet) 6 mg PO BEDTIME PRN PRN Reason: Insomnia Last Admin: 02/22/23 22:23 Dose: 6 mg Documented By: TIERNEY Metoprolol Succinate (Metoprolol Succinate Er 100 Mg Tab.Er.24h) 100 mg PO DAILY [facility]; Protocol Last Admin: 02/23/23 08:06 Dose: 100 mg Documented By: ALBERT Non-Formulary Medication (Linaclotide [Linzess]) 290 mcg PO DAILY [facility] Omeprazole (Omeprazole 20 Mg Capsule.) 20 mg PO DAILY@0630 [facility] Last Admin: 02/23/23 05:26 Dose: 20 mg Documented By: OZORALB Ondansetron HCl (Ondansetron Hcl 4 Mg/2 Ml Vial) 4 mg IVPUSH Q8H PRN PRN Reason: Nausea and Vomiting Last Admin: 02/21/23 19:15 Dose: 4 mg Documented By: MICHAEL-LAURA Polyethylene Glycol (Polyethylene Glycol 3350 17 Gm Powd.Pack) 17 gm PO DAILY PRN PRN Reason: Constipation Senna (Sennosides 8.6 Mg Tablet) 8.6 mg PO BEDTIME [facility] Sodium Chloride (0.9 % Sodium Chloride Flush 3 Ml Syringe) 3 ml IVFLUSH QSHIFT [facility] Last Admin: 02/23/23 07:50 Dose: Not Given Documented By: COTEMA Non-Admin Reason: IV Running Labs 02/23/23 05:55 02/23/23 05:55 Labs: Laboratory Results - last 24 hr 02/22/23 02/22/23 02/23/23 16:25 20:46 00:07 MCV MCH MCHC RDW Plt Count MPV Immature Gran % (Auto) Neut % (Auto) Lymph % (Auto) [place] % (Auto) Eos % (Auto) Baso % (Auto) Lymph # (Auto) [place] # (Auto) Eos # (Auto) Baso # (Auto) Abs Immat Gran (auto) Absolute Neuts (auto) Absolute Nucleated RBC Nucleated RBC % (auto) Anion Gap Estim Creat Clear Calc Estimated GFR POC Glucose 130 H 156 H 142 H Random Glucose Calcium Total Bilirubin Direct Bilirubin AST ALT Alkaline Phosphatase Total Protein Albumin Lipase 02/23/23 02/23/23 02/23/23 05:55 07:04 11:10 MCV 90.1 MCH 28.4 MCHC 31.5 RDW 14.0 Plt Count 191 MPV 10.7 Immature Gran % (Auto) 0.5 H Neut % (Auto) 83.2 H Lymph % (Auto) 9.6 L [place] % (Auto) 6.6 Eos % (Auto) 0.0 Baso % (Auto) 0.1 Lymph # (Auto) 1.3 [place] # (Auto) 0.9 Eos # (Auto) 0.0 Baso # (Auto) 0.0 Abs Immat Gran (auto) 0.07 H Absolute Neuts (auto) 11.5 H Absolute Nucleated RBC 0.000 Nucleated RBC % (auto) 0.0 Anion Gap 15 Estim Creat Clear Calc 15.8 Estimated GFR 16 POC Glucose 157 H 171 H Random Glucose 160 H Calcium 8.1 L Total Bilirubin 0.6 Direct Bilirubin 0.4 AST 47 H ALT 64 H Alkaline Phosphatase 56 Total Protein 5.8 L Albumin 3.1 L Lipase 281 H Microbiology Microbiology Results: Microbiology 02/21/23 06:22 Blood Culture - Preliminary Blood - Venous No growth after 48 hours. 02/21/23 06:19 Blood Culture - Preliminary Blood - Venous No growth after 48 hours. Assessment and Plan (1) Gallstone pancreatitis: Status: Acute (2) CARMEN (acute kidney injury): Status: Acute Plan Pt is a French-speaking 77-year-old male with a PMH significant for?CVA, CKD 4, hx of SBO in 2006, hx of ileus in 10/2020, HTN, HLD insulin-dependent type 2 diabetes mellitus, and GERD who presents to the ED with nausea, vomiting, and intense lower abdominal pain radiating to the back since last night. Pt will be admitted to the hospital for treatment and further evaluation of acute pancreatitis. Gallstone Pancreatitis LFTs, lipase continue to trend down; still with significant abdominal pain continue Bowel rest, anagesics for pain management, IVF seen by GI - given persistent pain, will obtain MRCP surgery following - plan for lap abida with cholangiogram when pain improves CARMEN on CKD 4 initially improved with IVF, now with significant increase in renal function to 3.[address] from 02/21 valsartan on hold increase IVF obtain nephrology consult Follow BMP follow urine output Insulin dependent type 2 diabetes mellitus Currently holding Lantus as pt is NPO; resume as diet advances SSI, POCs Hyperkalemia resolved after lokelma pseudo hypocalcemia normal calcium when corrected for albumin HTN Continue metoprolol Hold valsartan d/t CARMEN HLD Hold statin, lofibra d/t elevated LFTs Full Code Attending:?Dr. Zheng DVT Prophylaxis: Heparin requires ongoing inpatient stay for?acute pancreatitis with bowel rest, IVF, close monitoring and cholecystectomy Quality Stroke Does the patient have a stroke diagnosis?: No VTE Prior VTE?: No VTE Risk Level:: Medical - moderate - high VTE Device Contraindication: Treatment Not Indicated VTE Drug Contraindication: N/A - Med Ordered
[2023-02-23 16:00] VITALS: BP 148/78; PULSE 79; RESP 16; TEMP 37.1; O2SAT 93
[2023-02-23 16:43] VITALS: RESP 19
[2023-02-23] MEDS: HYDROmorphone HCl 0.5 MG/0.5 ML SYRINGE 1 MG IVPUSH ×2 (16:43→21:25)
[2023-02-23 17:14] LABS: Glucose, Whole Blood 178 mg/dL (60-115)
--- NOTE | 2023-02-23 17:43 | PM.GIPN ---
Subjective Subjective Date of Service: 02/23/23 Interval History: History via medical technologist generalist Patient still c/o abdominal pain and distention. He reports no BM nor flatus. Passing urine OK. Denies CP. Denies SOB except when having abdominal pain. Denies N/V. He reports baseline constipation at home and appears to be on Linzess as an outpatient. Critical Care Time (minutes): 0 Physical Exam Vital Signs: Vital Signs: Last Vital Signs Temp 98.8 F 02/23/23 16:00 Pulse 79 02/23/23 16:00 Resp 19 02/23/23 16:43 BP 148/78 H 02/23/23 16:00 Pulse Ox 93 02/23/23 16:00 O2 Del Method Room Air 02/23/23 16:00 BMI result Body Mass Index 24.1 Const: General: cooperative, healthy appearing, comfortable, well developed, alert and awake HEENT: Other: Anicteric sclerae, MMM Resp: Auscultation: clear to auscultation bilaterally Cardio: Heart sounds: S1 normal heart sound present and S2 normal heart sound present GI: Other: Distended and tympanitic, diminished BS, diffusely tender, no mass Extrem: Other: No edema Objective Data Labs 02/23/23 05:55 02/23/23 05:55 Labs: Laboratory Results - last 24 hr 02/22/23 02/23/23 02/23/23 20:46 00:07 05:55 WBC 13.9 H RBC 3.52 L Hgb 10.0 L Hct 31.7 L MCV 90.1 MCH 28.4 MCHC 31.5 RDW 14.0 Plt Count 191 MPV 10.7 Immature Gran % (Auto) 0.5 H Neut % (Auto) 83.2 H Lymph % (Auto) 9.6 L [place] % (Auto) 6.6 Eos % (Auto) 0.0 Baso % (Auto) 0.1 Lymph # (Auto) 1.3 [place] # (Auto) 0.9 Eos # (Auto) 0.0 Baso # (Auto) 0.0 Abs Immat Gran (auto) 0.07 H Absolute Neuts (auto) 11.5 H Absolute Nucleated RBC 0.000 Nucleated RBC % (auto) 0.0 Sodium 141 Potassium 4.6 Chloride 111 H Carbon Dioxide 20 L Anion Gap 15 BUN 57 H Creatinine 3.66 H Estim Creat Clear Calc 15.8 Estimated GFR 16 POC Glucose 156 H 142 H Random Glucose 160 H Calcium 8.1 L Total Bilirubin 0.6 Direct Bilirubin 0.4 AST 47 H ALT 64 H Alkaline Phosphatase 56 Total Protein 5.8 L Albumin 3.1 L Lipase 281 H 02/23/23 02/23/23 02/23/23 07:04 11:10 16:47 WBC RBC Hgb Hct MCV MCH MCHC RDW Plt Count MPV Immature Gran % (Auto) Neut % (Auto) Lymph % (Auto) [place] % (Auto) Eos % (Auto) Baso % (Auto) Lymph # (Auto) [place] # (Auto) Eos # (Auto) Baso # (Auto) Abs Immat Gran (auto) Absolute Neuts (auto) Absolute Nucleated RBC Nucleated RBC % (auto) Sodium Potassium Chloride Carbon Dioxide Anion Gap BUN Creatinine Estim Creat Clear Calc Estimated GFR POC Glucose 157 H 171 H 178 H Random Glucose Calcium Total Bilirubin Direct Bilirubin AST ALT Alkaline Phosphatase Total Protein Albumin Lipase Microbiology Microbiology Results: Microbiology 02/21/23 06:22 Blood - Venous Blood Culture - Preliminary No growth after 48 hours. 02/21/23 06:19 Blood - Venous Blood Culture - Preliminary No growth after 48 hours. Procedures Date of Service Date of Service: 02/23/23 Progress Note: A&P Assessment and plan (1) Gallstone pancreatitis: Status: Acute (2) Abdominal pain: Status: Resolved (3) Ileus: Status: Resolved Plan Imp/Recs: Gallstone pancreatitis with clinical course and imaging c/w a passed CBD stone. His labs regarding his WBC count, liver, and pancreas are improving. However, his renal function has worsened and he has developed an ileus. I don't think he requires an ERCP at this time. He does not appear toxic. However, he will need continued supportive care and Nephrology consultation. I reviewed everything with him in detail with the associate field service engineer. I advised him of the need for patience , and the need to try to ambulate and minimize pain meds in regard to the ileus. I told him we will try a suppository tonight, but he may need an abdominal xray on 02/24 if no improvement and possibly an enema. Continue NPO until things improve. F/U labs in AM as well. Please call me if questions. Thanks Time Spent With Patient Time: Total time managing care of this patient today ____ minutes. Quality Stroke Does the patient have a stroke diagnosis?: No VTE Prior VTE?: No VTE Risk Level:: Medical - moderate - high VTE Device Contraindication: Treatment Not Indicated VTE Drug Contraindication: N/A - Med Ordered
[2023-02-23] MEDS: bisacodyL 10 MG SUPP.RECT PR (17:55)
[2023-02-23] MEDS: Pantoprazole Sodium 40 MG/10 ML VIAL IVPUSH (17:56)
[2023-02-23 20:17] LABS: Glucose, Whole Blood 192 mg/dL (60-115)
[2023-02-23] MEDS: Melatonin 3 MG TABLET 6 MG PO (21:24)
[2023-02-23] MEDS: Sennosides 8.6 MG TABLET PO (21:24)
[2023-02-23] MEDS: Insulin Lispro 100 UNIT/ML 3 ML VIAL SUBCUT (21:24)
[2023-02-23 21:38] VITALS: BP 130/72
[2023-02-23 21:57] VITALS: RESP 18
--- NOTE | 2023-02-23 22:12 | PM.EVENT ---
Event Note Date of Service: 02/25/23 Event Note: 77 yr old man with HTN, DM, CKD - baseline 2.0to 2.3 admitted on 02/21/23 with Nausea/Vomiting abdominal pain ,being treated for pancreatitis, now has superimposed CARMEN CARMEN in a setting of volume depletion Suggest Hold Valsartan Keep I > O Chec urine sodium,creatinine,protein avoid hypotension/nephrotoxins Follow renal panel No indication for dialysis Full consult to follow Time Spent With Patient Time: Total time managing care of this patient today ____ minutes.
[2023-02-23 23:50] VITALS: BP 166/76; PULSE 70; RESP 18; TEMP 36.9; O2SAT 94
[2023-02-24] MEDS: HYDROmorphone HCl 0.5 MG/0.5 ML SYRINGE 1 MG IVPUSH ×6 (00:31→23:32)
[2023-02-24 01:07] VITALS: RESP 16
[2023-02-24] MEDS: Lactated Ringers 1,000 ML 150 ML IVCONT ×4 (02:18→22:10)
[2023-02-24] MEDS: Heparin Sodium,Porcine 5,000 UNIT/ML VIAL 5000 UNIT SUBCUT ×2 (02:19→15:21)
[2023-02-24 04:13] VITALS: RESP 18
[2023-02-24 05:36] LABS: MANUAL DIFF FLAG NO
[2023-02-24 05:40] LABS: Basophils Percent Auto 0.1 % (0-2); Hematocrit 31.7 % (42.0-52.0); Hemoglobin 10.1 g/dl (14.0-18.0); Imm Gran Abs Auto 0.06 X10*3/uL (0.00-0.03); Imm Gran Pct Auto 0.5 % (0.0-0.4); Lymphocytes Absolute Auto 1.2 X10*3/uL (1.2-4.9); Lymphocytes Percent Auto 10.1 % (20-40); Mean Corpuscular HGB Conc 31.9 g/dl (31.0-36.0); Mean Corpuscular Hemoglobin 28.1 pg (27.0-33.0); Mean Corpuscular Volume 88.1 fL (80.0-98.0); Mean Platelet Volume 10.4 fL (9.4-12.4); Monocytes Absolute Auto 1.1 X10*3/uL (0.1-1.2); Monocytes Percent Auto 9.5 % (2-11); Neutrophils Absolute Auto 9.1 x10*3/uL (2.0-8.3); Neutrophils Percent Auto 79.8 % (45-73); Platelet Count 196 X10*3/uL (160-400); White Blood Count 11.4 X10*3/uL (4.8-10.8)
[2023-02-24] MEDS: Acetaminophen 325 MG TABLET 650 MG PO ×3 (05:40→21:30)
[2023-02-24] MEDS: Pantoprazole Sodium 40 MG/10 ML VIAL IVPUSH (05:40)
[2023-02-24 05:57] LABS: Alanine Aminotransferase 44 U/L (0-40); Albumin Level 3.2 g/dL (3.5-5.0); Alkaline Phosphatase 60 U/L (39-117); Anion Gap 13 (12-20); Aspartate Amino Transferase 28 U/L (5-37); Bilirubin Direct 0.2 mg/dL (0.0-0.5); Bilirubin Total 0.5 mg/dL (0.0-1.0); Blood Urea Nitrogen 51 mg/dL (9-16); Carbon Dioxide 21 mmol/L (22-29); Chloride 112 mmol/L (96-108); Creatinine Clr Calc Pharmacy 20.7; Estimated Glomerular Filt Rate 22; Glucose Random 164 mg/dL (60-115); Lipase 112 U/L (8-78); Potassium 4.4 mmol/L (3.3-5.1); Sodium 142 mmol/L (135-145); Total Protein 6.4 g/dL (6.5-8.0)
[2023-02-24 07:00] VITALS: BP 152/70; PULSE 79; RESP 18; TEMP 36.2; O2SAT 94
[2023-02-24 07:12] LABS: Glucose, Whole Blood 164 mg/dL (60-115)
[2023-02-24] MEDS: Docusate Sodium 100 MG CAPSULE PO (08:10)
[2023-02-24] MEDS: Metoprolol Succinate ER 100 MG TAB.ER.24H PO (08:10)
[2023-02-24] MEDS: Cyanocobalamin (Vitamin B-12) 1,000 MCG TABLET 1000 MCG PO (08:10)
[2023-02-24] MEDS: Latanoprost 0.005 % Ophth Sol 2.5 ML DROPS 1 DROP EYE-BOTH ×2 (08:11→21:31)
--- NOTE | 2023-02-24 09:18 | PM.PNGS ---
Subjective Subjective Date of Service: 02/24/23 Interval history: Continued abdominal pain and distension. MRCP negative for common bile duct stone. Changes consistent with pancreatitis. Physical Exam Vital Signs: Vital Signs: Last Vital Signs Temp 97.2 F 02/24/23 07:00 Pulse 79 02/24/23 07:00 Resp 18 02/24/23 07:00 BP 152/70 H 02/24/23 07:00 Pulse Ox 94 02/24/23 07:00 O2 Del Method Room Air 02/24/23 07:00 BMI result Body Mass Index 24.1 Resp: Effort & Inspection: normal respiratory effort GI: Other: Tender in upper abdomen with distension, tympany Skin: Rashes: no rashes Objective Data Active Medications Acetaminophen (Acetaminophen 325 Mg Tablet) 650 mg PO Q6H PRN PRN Reason: Pain, Mild (Pain Scale 1-3) Last Admin: 02/24/23 05:40 Dose: 650 mg Documented By: TIERNEY Benzonatate (Benzonatate 100 Mg Capsule) 100 mg PO TID PRN PRN Reason: Cough Cyanocobalamin (Cyanocobalamin (Vitamin B-12) 1,000 Mcg Tablet) 1,000 mcg PO DAILY [facility] Last Admin: 02/24/23 08:10 Dose: 1,000 mcg Documented By: MARKYEMA Dextrose (Dextrose 50 % 25 Gm/50 Ml Syringe) 25 gm IVPUSH Q15M PRN; Protocol PRN Reason: per Hypoglycemia Standing Ord. Docusate Sodium (Docusate Sodium 100 Mg Capsule) 100 mg PO DAILY [facility] Last Admin: 02/24/23 08:10 Dose: 100 mg Documented By: MARKYEMA Glucose (Glucose Gel 15 Gm Gel..Gram.) 15 gm PO Q15M PRN; Protocol PRN Reason: per Hypoglycemia Standing Ord. Heparin Sodium (Porcine) (Heparin Sodium,Porcine 5,000 Unit/Ml Vial) 5,000 unit SUBCUT Q12H [facility] Last Admin: 02/24/23 02:19 Dose: 5,000 unit Documented By: TIERNEY Hydromorphone HCl (Hydromorphone Hcl 0.5 Mg/0.5 Ml Syringe) 1 mg IVPUSH Q3H PRN; Protocol PRN Reason: Pain, Severe (Pain Scale 7-10) Last Admin: 02/24/23 06:40 Dose: 1 mg Documented By: TIERNEY Lactated Ringer's (Lr) 1,000 mls @ 150 mls/hr IVCONT .Q6H40M [facility] Last Admin: 02/24/23 08:11 Dose: 150 mls/hr Documented By: ALBERT Insulin Human Lispro (Insulin Lispro 100 Unit/Ml 3 Ml Vial) 0 unit SUBCUT QIDACHS [facility]; Protocol Last Admin: 02/24/23 07:27 Dose: Not Given Documented By: ALBERT Non-Admin Reason: NPO Latanoprost (Latanoprost 0.005 % Ophth Rocio 2.5 Ml Drops) 1 drop EYE-BOTH BID [facility] Last Admin: 02/24/23 08:11 Dose: 1 drop Documented By: ALBERT Loratadine (Loratadine 10 Mg Tablet) 10 mg PO DAILY PRN PRN Reason: itch Melatonin (Melatonin 3 Mg Tablet) 6 mg PO BEDTIME PRN PRN Reason: Insomnia Last Admin: 02/23/23 21:24 Dose: 6 mg Documented By: TIERNEY Metoprolol Succinate (Metoprolol Succinate Er 100 Mg Tab.Er.24h) 100 mg PO DAILY [facility]; Protocol Last Admin: 02/24/23 08:10 Dose: 100 mg Documented By: ALBERT Ondansetron HCl (Ondansetron Hcl 4 Mg/2 Ml Vial) 4 mg IVPUSH Q8H PRN PRN Reason: Nausea and Vomiting Last Admin: 02/21/23 19:15 Dose: 4 mg Documented By: CHRIS Pantoprazole Sodium (Pantoprazole Sodium 40 Mg/10 Ml Vial) 40 mg IVPUSH DAILY@0630 [facility] Last Admin: 02/24/23 05:40 Dose: 40 mg Documented By: TIERNEY Polyethylene Glycol (Polyethylene Glycol 3350 17 Gm Powd.Pack) 17 gm PO DAILY PRN PRN Reason: Constipation Senna (Sennosides 8.6 Mg Tablet) 8.6 mg PO BEDTIME [facility] Last Admin: 02/23/23 21:24 Dose: 8.6 mg Documented By: TIERNEY Sodium Chloride (0.9 % Sodium Chloride Flush 3 Ml Syringe) 3 ml IVFLUSH QSHIFT [facility] Last Admin: 02/24/23 07:27 Dose: Not Given Documented By: ALBERT Non-Admin Reason: IV Running Labs 02/24/23 05:19 02/24/23 05:19 Labs: Laboratory Results - last 24 hr 02/23/23 02/23/23 02/23/23 11:10 16:47 20:12 MCV MCH MCHC RDW Plt Count MPV Immature Gran % (Auto) Neut % (Auto) Lymph % (Auto) [place] % (Auto) Eos % (Auto) Baso % (Auto) Lymph # (Auto) [place] # (Auto) Eos # (Auto) Baso # (Auto) Abs Immat Gran (auto) Absolute Neuts (auto) Absolute Nucleated RBC Nucleated RBC % (auto) Anion Gap Estim Creat Clear Calc Estimated GFR POC Glucose 171 H 178 H 192 H Random Glucose Calcium Total Bilirubin Direct Bilirubin AST ALT Alkaline Phosphatase Total Protein Albumin Lipase 02/24/23 02/24/23 05:19 07:02 MCV 88.1 MCH 28.1 MCHC 31.9 RDW 14.0 Plt Count 196 MPV 10.4 Immature Gran % (Auto) 0.5 H Neut % (Auto) 79.8 H Lymph % (Auto) 10.1 L [place] % (Auto) 9.5 Eos % (Auto) 0.0 Baso % (Auto) 0.1 Lymph # (Auto) 1.2 [place] # (Auto) 1.1 Eos # (Auto) 0.0 Baso # (Auto) 0.0 Abs Immat Gran (auto) 0.06 H Absolute Neuts (auto) 9.1 H Absolute Nucleated RBC 0.000 Nucleated RBC % (auto) 0.0 Anion Gap 13 Estim Creat Clear Calc 20.7 Estimated GFR 22 POC Glucose 164 H Random Glucose 164 H Calcium 9.0 D Total Bilirubin 0.5 Direct Bilirubin 0.2 AST 28 ALT 44 H Alkaline Phosphatase 60 Total Protein 6.4 L Albumin 3.2 L Lipase 112 H Microbiology Microbiology Results: Microbiology 02/21/23 06:22 Blood Culture - Preliminary Blood - Venous No growth after 48 hours. 02/21/23 06:19 Blood Culture - Preliminary Blood - Venous No growth after 48 hours. Procedures Date of Service Date of Service: 02/24/23 Progress Note: A&P Assessment and plan (1) Gallstone pancreatitis: Status: Acute Plan Patient with continued abdominal pain consistent with gallstone pancreatitis, now with abdominal distension. May have an ileus due to pancreatitis . Agree with limiting narcotic as much as possible, increased ambulation. Anticipate cholecystectomy once clinically improved. Time Spent With Patient Time: Total time managing care of this patient today ____ minutes. Quality Stroke Does the patient have a stroke diagnosis?: No VTE Prior VTE?: No VTE Risk Level:: Medical - moderate - high VTE Device Contraindication: Treatment Not Indicated VTE Drug Contraindication: N/A - Med Ordered
[2023-02-24 11:09] LABS: Glucose, Whole Blood 171 mg/dL (60-115)
[2023-02-24 12:14] VITALS: RESP 19
--- NOTE | 2023-02-24 13:54 | HO.PM.IMPN ---
Subjective Subjective Date of Service: 02/24/23 Interval History: seen and examined this morning history obtained with assistance of daughter at bedside pt still with abdominal pain and distention, passing gas, no bm Review of Systems Review of Systems: Yes all other systems are reviewed and are negative Constitutional Constitutional: Denies chills and Denies fever(s) Gastrointestinal Gastrointestinal: Denies vomiting Physical Exam Vital Signs: Vital Signs: Last Vital Signs Temp 97.2 F 02/24/23 07:00 Pulse 79 02/24/23 07:00 Resp 19 02/24/23 12:14 BP 152/70 H 02/24/23 07:00 Pulse Ox 94 02/24/23 07:00 O2 Del Method Room Air 02/24/23 07:00 BMI result Body Mass Index 24.1 Const: General: cooperative, alert and awake Nutritional Appearance: average body habitus Orientation/consciousness: patient oriented x3 Resp: Effort & Inspection: normal respiratory effort, able to speak in complete sentences, no respiratory distress and no use of accessory muscles Cardio: Rate: regular rate GI: Other: abdomen softly distended with epigastric tenderness Neuro: General: patient oriented x3 and moves all extremities Extrem: General: Yes no pedal edema Objective Data Active Medications Acetaminophen (Acetaminophen 325 Mg Tablet) 650 mg PO Q6H PRN PRN Reason: Pain, Mild (Pain Scale 1-3) Last Admin: 02/24/23 05:40 Dose: 650 mg Documented By: OZORALB Benzonatate (Benzonatate 100 Mg Capsule) 100 mg PO TID PRN PRN Reason: Cough Cyanocobalamin (Cyanocobalamin (Vitamin B-12) 1,000 Mcg Tablet) 1,000 mcg PO DAILY [facility] Last Admin: 02/24/23 08:10 Dose: 1,000 mcg Documented By: COTEMA Dextrose (Dextrose 50 % 25 Gm/50 Ml Syringe) 25 gm IVPUSH Q15M PRN; Protocol PRN Reason: per Hypoglycemia Standing Ord. Docusate Sodium (Docusate Sodium 100 Mg Capsule) 100 mg PO DAILY [facility] Last Admin: 02/24/23 08:10 Dose: 100 mg Documented By: COTEMA Glucose (Glucose Gel 15 Gm Gel..Gram.) 15 gm PO Q15M PRN; Protocol PRN Reason: per Hypoglycemia Standing Ord. Heparin Sodium (Porcine) (Heparin Sodium,Porcine 5,000 Unit/Ml Vial) 5,000 unit SUBCUT Q12H [facility] Last Admin: 02/24/23 02:19 Dose: 5,000 unit Documented By: TIERNEY Hydromorphone HCl (Hydromorphone Hcl 0.5 Mg/0.5 Ml Syringe) 1 mg IVPUSH Q3H PRN; Protocol PRN Reason: Pain, Severe (Pain Scale 7-10) Last Admin: 02/24/23 12:14 Dose: 1 mg Documented By: ALBERT Lactated Ringer's (Lr) 1,000 mls @ 150 mls/hr IVCONT .Q6H40M [facility] Last Admin: 02/24/23 08:11 Dose: 150 mls/hr Documented By: ALBERT Insulin Human Lispro (Insulin Lispro 100 Unit/Ml 3 Ml Vial) 0 unit SUBCUT QIDACHS [facility]; Protocol Last Admin: 02/24/23 11:13 Dose: Not Given Documented By: ALBERT Non-Admin Reason: NPO Latanoprost (Latanoprost 0.005 % Ophth Rocio 2.5 Ml Drops) 1 drop EYE-BOTH BID [facility] Last Admin: 02/24/23 08:11 Dose: 1 drop Documented By: ALBERT Loratadine (Loratadine 10 Mg Tablet) 10 mg PO DAILY PRN PRN Reason: itch Melatonin (Melatonin 3 Mg Tablet) 6 mg PO BEDTIME PRN PRN Reason: Insomnia Last Admin: 02/23/23 21:24 Dose: 6 mg Documented By: TIERNEY Metoprolol Succinate (Metoprolol Succinate Er 100 Mg Tab.Er.24h) 100 mg PO DAILY [facility]; Protocol Last Admin: 02/24/23 08:10 Dose: 100 mg Documented By: ALBERT Ondansetron HCl (Ondansetron Hcl 4 Mg/2 Ml Vial) 4 mg IVPUSH Q8H PRN PRN Reason: Nausea and Vomiting Last Admin: 02/21/23 19:15 Dose: 4 mg Documented By: MICHAEL-LAURA Pantoprazole Sodium (Pantoprazole Sodium 40 Mg/10 Ml Vial) 40 mg IVPUSH DAILY@0630 [facility] Last Admin: 02/24/23 05:40 Dose: 40 mg Documented By: TIERNEY Polyethylene Glycol (Polyethylene Glycol 3350 17 Gm Powd.Pack) 17 gm PO DAILY PRN PRN Reason: Constipation Senna (Sennosides 8.6 Mg Tablet) 8.6 mg PO BEDTIME [facility] Last Admin: 02/23/23 21:24 Dose: 8.6 mg Documented By: OZORALB Sodium Chloride (0.9 % Sodium Chloride Flush 3 Ml Syringe) 3 ml IVFLUSH QSHIFT [facility] Last Admin: 02/24/23 07:27 Dose: Not Given Documented By: COTBRIAN Non-Admin Reason: IV Running Labs 02/24/23 05:19 02/24/23 05:19 Labs: Laboratory Results - last 24 hr 02/23/23 02/23/23 02/24/23 16:47 20:12 05:19 MCV 88.1 MCH 28.1 MCHC 31.9 RDW 14.0 Plt Count 196 MPV 10.4 Immature Gran % (Auto) 0.5 H Neut % (Auto) 79.8 H Lymph % (Auto) 10.1 L [place] % (Auto) 9.5 Eos % (Auto) 0.0 Baso % (Auto) 0.1 Lymph # (Auto) 1.2 [place] # (Auto) 1.1 Eos # (Auto) 0.0 Baso # (Auto) 0.0 Abs Immat Gran (auto) 0.06 H Absolute Neuts (auto) 9.1 H Absolute Nucleated RBC 0.000 Nucleated RBC % (auto) 0.0 Anion Gap 13 Estim Creat Clear Calc 20.7 Estimated GFR 22 POC Glucose 178 H 192 H Random Glucose 164 H Calcium 9.0 D Total Bilirubin 0.5 Direct Bilirubin 0.2 AST 28 ALT 44 H Alkaline Phosphatase 60 Total Protein 6.4 L Albumin 3.2 L Lipase 112 H 02/24/23 02/24/23 07:02 11:05 MCV MCH MCHC RDW Plt Count MPV Immature Gran % (Auto) Neut % (Auto) Lymph % (Auto) [place] % (Auto) Eos % (Auto) Baso % (Auto) Lymph # (Auto) [place] # (Auto) Eos # (Auto) Baso # (Auto) Abs Immat Gran (auto) Absolute Neuts (auto) Absolute Nucleated RBC Nucleated RBC % (auto) Anion Gap Estim Creat Clear Calc Estimated GFR POC Glucose 164 H 171 H Random Glucose Calcium Total Bilirubin Direct Bilirubin AST ALT Alkaline Phosphatase Total Protein Albumin Lipase Assessment and Plan (1) Gallstone pancreatitis: Status: Acute (2) CARMEN (acute kidney injury): Status: Acute Plan Pt is a Divehi-speaking 77-year-old male with a PMH significant for?CVA, CKD 4, hx of SBO in 2006, hx of ileus in 10/2020, HTN, HLD insulin-dependent type 2 diabetes mellitus, and GERD who presents to the ED with nausea, vomiting, and intense lower abdominal pain radiating to the back since last night. Pt will be admitted to the hospital for treatment and further evaluation of acute pancreatitis now with ileus Gallstone Pancreatitis LFTs, lipase continue to trend down; still with significant abdominal pain continue Bowel rest, anagesics for pain management, IVF seen by GI - given persistent pain, will obtain MRCP surgery following - plan for lap abida with cholangiogram when pain improves Ileus kub and exam c/w ileus due to pancreatitis encouraged to ambulate and limit narcotics if able surgery following CARMEN on CKD 4 creatinine improved to 2.79 with increase in fluids no obstruction on CT from 02/21. likely due to volume depletion due to acute pancreatitis valsartan on hold nephrology following Follow BMP follow urine output Insulin dependent type 2 diabetes mellitus Currently holding Lantus as pt is NPO; resume as diet advances SSI, POCs Hyperkalemia resolved after lokelma pseudo hypocalcemia normal calcium when corrected for albumin HTN Continue metoprolol Hold valsartan d/t CARMEN HLD Hold statin, lofibra d/t elevated LFTs Full Code Attending:?Dr. Gillis DVT Prophylaxis: Heparin requires ongoing inpatient stay for?acute pancreatitis with bowel rest, IVF, close monitoring and cholecystectomy Quality Stroke Does the patient have a stroke diagnosis?: No VTE Prior VTE?: No VTE Risk Level:: Medical - moderate - high VTE Device Contraindication: Treatment Not Indicated VTE Drug Contraindication: N/A - Med Ordered
[2023-02-24 15:06] VITALS: BP 178/80; PULSE 80; RESP 18; TEMP 37.4; O2SAT 92
[2023-02-24 16:12] LABS: Glucose, Whole Blood 166 mg/dL (60-115)
[2023-02-24 16:41] VITALS: RESP 19
[2023-02-24 21:09] LABS: Glucose, Whole Blood 186 mg/dL (60-115)
[2023-02-24] MEDS: Melatonin 3 MG TABLET 6 MG PO (21:30)
[2023-02-24] MEDS: Sennosides 8.6 MG TABLET PO (21:30)
[2023-02-24] MEDS: Insulin Lispro 100 UNIT/ML 3 ML VIAL SUBCUT (21:30)
[2023-02-24] MEDS: 0.9 % Sodium Chloride Flush 3 ML SYRINGE IVFLUSH (21:31)
[2023-02-25] VITALS: BP 174/68; PULSE 72; RESP 18; TEMP 37.1; O2SAT 94
[2023-02-25 00:50] VITALS: RESP 18
[2023-02-25] MEDS: Heparin Sodium,Porcine 5,000 UNIT/ML VIAL 5000 UNIT SUBCUT ×2 (03:00→15:58)
[2023-02-25] MEDS: Acetaminophen 325 MG TABLET 650 MG PO (03:15)
[2023-02-25] MEDS: Lactated Ringers 1,000 ML 150 ML IVCONT ×2 (04:51→11:59)
[2023-02-25] MEDS: Pantoprazole Sodium 40 MG/10 ML VIAL IVPUSH (05:36)
[2023-02-25] MEDS: HYDROmorphone HCl 0.5 MG/0.5 ML SYRINGE 1 MG IVPUSH ×4 (05:37→15:59)
[2023-02-25 07:05] LABS: Anion Gap 16 (12-20); Blood Urea Nitrogen 42 mg/dL (9-16); Calcium 9.2 mg/dL (8.4-10.2); Carbon Dioxide 21 mmol/L (22-29); Chloride 109 mmol/L (96-108); Creatinine Clr Calc Pharmacy 27.6; Estimated Glomerular Filt Rate 31; Glucose Random 177 mg/dL (60-115); Potassium 4.2 mmol/L (3.3-5.1); Sodium 142 mmol/L (135-145)
[2023-02-25 07:47] LABS: Glucose, Whole Blood 192 mg/dL (60-115)
[2023-02-25 07:56] VITALS: BP 164/85; PULSE 64; RESP 18; TEMP 36.4; O2SAT 95
--- NOTE | 2023-02-25 08:23 | P.PNGS_ITS ---
Subjective Subjective Date of Service: 02/25/23 Interval history: C/o epigastris pain and bloating. Denies passing flatus. Physical Exam 2 Vital Signs: Vital Signs: Last Vital Signs Temp 97.5 F 02/25/23 07:56 Pulse 64 02/25/23 07:56 Resp 18 02/25/23 07:56 BP 164/85 H 02/25/23 07:56 Pulse Ox 95 02/25/23 07:56 O2 Del Method Room Air 02/25/23 07:56 BMI result Body Mass Index 24.1 Const: General: comfortable, no acute distress and alert O rientation/consciousness: patient oriented x3 GI: Inspection: Yes distended Palpation (GI): Soft to palpation, Tenderness to palpation present (GI) (mild epigastric), no guarding and not rigid P ercussion: Yes tympanic to percussion Skin: General skin exam: no rashes or lesions noted and no jaundice Neuro: General: patient oriented x3 Objective Data Active Medications Acetaminophen (Acetaminophen 325 Mg Tablet) 650 mg PO Q6H PRN PRN Reason: Pain, Mild (Pain Scale 1-3) Last Admin: 02/25/23 03:15 Dose: 650 mg Documented By: TIERNEY Benzonatate (Benzonatate 100 Mg Capsule) 100 mg PO TID PRN PRN Reason: Cough Cyanocobalamin (Cyanocobalamin (Vitamin B-12) 1,000 Mcg Tablet) 1,000 mcg PO DAILY [facility] Last Admin: 02/24/23 08:10 Dose: 1,000 mcg Documented By: MARKYEMA Dextrose (Dextrose 50 % 25 Gm/50 Ml Syringe) 25 gm IVPUSH Q15M PRN; Protocol PRN Reason: per Hypoglycemia Standing Ord. Docusate Sodium (Docusate Sodium 100 Mg Capsule) 100 mg PO DAILY [facility] Last Admin: 02/24/23 08:10 Dose: 100 mg Documented By: COTEMA Glucose (Glucose Gel 15 Gm Gel..Gram.) 15 gm PO Q15M PRN; Protocol PRN Reason: per Hypoglycemia Standing Ord. Heparin Sodium (Porcine) (Heparin Sodium,Porcine 5,000 Unit/Ml Vial) 5,000 unit SUBCUT Q12H [facility] Last Admin: 02/25/23 03:00 Dose: 5,000 unit Documented By: TIERNEY Hydromorphone HCl (Hydromorphone Hcl 0.5 Mg/0.5 Ml Syringe) 1 mg IVPUSH Q3H PRN; Protocol PRN Reason: Pain, Severe (Pain Scale 7-10) Last Admin: 02/25/23 05:37 Dose: 1 mg Documented By: TIERNEY Lactated Ringer's (Lr) 1,000 mls @ 150 mls/hr IVCONT .Q6H40M [facility] Last Admin: 02/25/23 04:51 Dose: 150 mls/hr Documented By: TIERNEY Insulin Human Lispro (Insulin Lispro 100 Unit/Ml 3 Ml Vial) 0 unit SUBCUT QIDACHS [facility]; Protocol Last Admin: 02/24/23 21:30 Dose: 2 unit Documented By: TIERNEY Latanoprost (Latanoprost 0.005 % Ophth Rocio 2.5 Ml Drops) 1 drop EYE-BOTH BID [facility] Last Admin: 02/24/23 21:31 Dose: 1 drop Documented By: TIERNEY Loratadine (Loratadine 10 Mg Tablet) 10 mg PO DAILY PRN PRN Reason: itch Melatonin (Melatonin 3 Mg Tablet) 6 mg PO BEDTIME PRN PRN Reason: Insomnia Last Admin: 02/24/23 21:30 Dose: 6 mg Documented By: TIERNEY Metoprolol Succinate (Metoprolol Succinate Er 100 Mg Tab.Er.24h) 100 mg PO DAILY [facility]; Protocol Last Admin: 02/24/23 08:10 Dose: 100 mg Documented By: ALBERT Ondansetron HCl (Ondansetron Hcl 4 Mg/2 Ml Vial) 4 mg IVPUSH Q8H PRN PRN Reason: Nausea and Vomiting Last Admin: 02/21/23 19:15 Dose: 4 mg Documented By: CHRIS Pantoprazole Sodium (Pantoprazole Sodium 40 Mg/10 Ml Vial) 40 mg IVPUSH DAILY@0630 [facility] Last Admin: 02/25/23 05:36 Dose: 40 mg Documented By: TIERNEY Polyethylene Glycol (Polyethylene Glycol 3350 17 Gm Powd.Pack) 17 gm PO DAILY PRN PRN Reason: Constipation Senna (Sennosides 8.6 Mg Tablet) 8.6 mg PO BEDTIME [facility] Last Admin: 02/24/23 21:30 Dose: 8.6 mg Documented By: TIERNEY Sodium Chloride (0.9 % Sodium Chloride Flush 3 Ml Syringe) 3 ml IVFLUSH QSHIFT [facility] Last Admin: 02/24/23 21:31 Dose: 3 ml Documented By: TIERNEY Labs 02/24/23 05:19 02/25/23 05:33 Labs: Laboratory Results - last 24 hr 02/24/23 02/24/23 02/24/23 11:05 15:59 20:44 Hold Purple Top Anion Gap Estim Creat Clear Calc Estimated GFR POC Glucose 171 H 166 H 186 H Random Glucose Calcium 02/25/23 02/25/23 05:33 07:39 Hold Purple Top SEE NOTE Anion Gap 16 Estim Creat Clear Calc 27.6 Estimated GFR 31 POC Glucose 192 H Random Glucose 177 H Calcium 9.2 Procedures Date of Service Date of Service: 02/25/23 Progress Note: A&P Assessment and plan (1) Gallstone pancreatitis: Status: Acute Plan 77 year old male admitted with gallstone pancreatitis, developed ileus. His abdomen remains significantly distended. Continue to limit narcotics, increase ambulation. Was scheduled tenatively for CCY today but will hold off until abd distention improves. Can have clears for now. Time Spent With Patient Time: Total time managing care of this patient today ____ minutes. Quality Stroke Does the patient have a stroke diagnosis?: No VTE Prior VTE?: No VTE Risk Level:: Medical - moderate - high VTE Device Contraindication: Treatment Not Indicated VTE Drug Contraindication: N/A - Med Ordered
[2023-02-25] MEDS: Docusate Sodium 100 MG CAPSULE PO (08:35)
[2023-02-25] MEDS: Insulin Lispro 100 UNIT/ML 3 ML VIAL SUBCUT ×4 (08:35→21:18)
[2023-02-25] MEDS: Cyanocobalamin (Vitamin B-12) 1,000 MCG TABLET 1000 MCG PO (08:36)
[2023-02-25] MEDS: Metoprolol Succinate ER 100 MG TAB.ER.24H PO (08:37)
[2023-02-25] MEDS: Latanoprost 0.005 % Ophth Sol 2.5 ML DROPS 1 DROP EYE-BOTH ×2 (08:37→21:19)
[2023-02-25] MEDS: 0.9 % Sodium Chloride Flush 3 ML SYRINGE IVFLUSH ×3 (08:37→21:19)
--- NOTE | 2023-02-25 10:14 | MHC.CM.PN ---
EMR REVIEWED. PER MD ROUNDS PATIENT NOT MEDICALLY CLEARED FOR DC AT THIS TIME. PLAN FOR LAP CHAO WHEN ABDOMINAL PAIN HAS IMPROVED. CM WILL CONTINUE TO FOLLOW.
[2023-02-25 11:46] LABS: Glucose, Whole Blood 171 mg/dL (60-115)
--- NOTE | 2023-02-25 12:38 | P.PNIM_ITS ---
Subjective Subjective Date of Service: 02/25/23 Interval History: Follow up abd pain, ileus pt still with abdominal pain and distention, no flatus, no bm Review of Systems Review of Systems: Yes all other systems are reviewed and are negative Constitutional Constitutional: Denies chills and Denies fever(s) Gastrointestinal Gastrointestinal: Denies vomiting Physical Exam 2 Vital Signs: Vital Signs: Last Vital Signs Temp 97.5 F 02/25/23 07:56 Pulse 64 02/25/23 07:56 Resp 18 02/25/23 07:56 BP 164/85 H 02/25/23 07:56 Pulse Ox 95 02/25/23 07:56 O2 Del Method Room Air 02/25/23 07:56 BMI result Body Mass Index 24.1 Appearing in no acute distress lung sounds are clear to auscultation heart regular rate rhythm, clear S1, S2 positive bowel sounds, abdomen is soft, tender, distended neuro patient is alert x3, no focal deficits Objective Data Active Medications Acetaminophen (Acetaminophen 325 Mg Tablet) 650 mg PO Q6H PRN PRN Reason: Pain, Mild (Pain Scale 1-3) Last Admin: 02/25/23 03:15 Dose: 650 mg Documented By: TIERNEY Benzonatate (Benzonatate 100 Mg Capsule) 100 mg PO TID PRN PRN Reason: Cough Cyanocobalamin (Cyanocobalamin (Vitamin B-12) 1,000 Mcg Tablet) 1,000 mcg PO DAILY [facility] Last Admin: 02/25/23 08:36 Dose: 1,000 mcg Documented By: PO Dextrose (Dextrose 50 % 25 Gm/50 Ml Syringe) 25 gm IVPUSH Q15M PRN; Protocol PRN Reason: per Hypoglycemia Standing Ord. Docusate Sodium (Docusate Sodium 100 Mg Capsule) 100 mg PO DAILY [facility] Last Admin: 02/25/23 08:35 Dose: 100 mg Documented By: PO Glucose (Glucose Gel 15 Gm Gel..Gram.) 15 gm PO Q15M PRN; Protocol PRN Reason: per Hypoglycemia Standing Ord. Heparin Sodium (Porcine) (Heparin Sodium,Porcine 5,000 Unit/Ml Vial) 5,000 unit SUBCUT Q12H [facility] Last Admin: 02/25/23 03:00 Dose: 5,000 unit Documented By: TIERNEY Hydromorphone HCl (Hydromorphone Hcl 0.5 Mg/0.5 Ml Syringe) 1 mg IVPUSH Q3H PRN; Protocol PRN Reason: Pain, Severe (Pain Scale 7-10) Last Admin: 02/25/23 12:00 Dose: 1 mg Documented By: PO Insulin Human Lispro (Insulin Lispro 100 Unit/Ml 3 Ml Vial) 0 unit SUBCUT QIDACHS [facility]; Protocol Last Admin: 02/25/23 11:59 Dose: 2 unit Documented By: PO Latanoprost (Latanoprost 0.005 % Ophth Rocio 2.5 Ml Drops) 1 drop EYE-BOTH BID [facility] Last Admin: 02/25/23 08:37 Dose: 1 drop Documented By: PO Loratadine (Loratadine 10 Mg Tablet) 10 mg PO DAILY PRN PRN Reason: itch Melatonin (Melatonin 3 Mg Tablet) 6 mg PO BEDTIME PRN PRN Reason: Insomnia Last Admin: 02/24/23 21:30 Dose: 6 mg Documented By: TIERNEY Metoprolol Succinate (Metoprolol Succinate Er 100 Mg Tab.Er.24h) 100 mg PO DAILY [facility]; Protocol Last Admin: 02/25/23 08:37 Dose: 100 mg Documented By: PO Ondansetron HCl (Ondansetron Hcl 4 Mg/2 Ml Vial) 4 mg IVPUSH Q8H PRN PRN Reason: Nausea and Vomiting Last Admin: 02/21/23 19:15 Dose: 4 mg Documented By: CHRIS Pantoprazole Sodium (Pantoprazole Sodium 40 Mg/10 Ml Vial) 40 mg IVPUSH DAILY@0630 [facility] Last Admin: 02/25/23 05:36 Dose: 40 mg Documented By: TIERNEY Polyethylene Glycol (Polyethylene Glycol 3350 17 Gm Powd.Pack) 17 gm PO DAILY PRN PRN Reason: Constipation Senna (Sennosides 8.6 Mg Tablet) 8.6 mg PO BEDTIME [facility] Last Admin: 02/24/23 21:30 Dose: 8.6 mg Documented By: TIERNEY Sodium Chloride (0.9 % Sodium Chloride Flush 3 Ml Syringe) 3 ml IVFLUSH QSHIFT [facility] Last Admin: 02/25/23 08:37 Dose: 3 ml Documented By: PO Labs 02/24/23 05:19 02/25/23 05:33 Labs: Laboratory Results - last 24 hr 02/24/23 02/24/23 02/25/23 15:59 20:44 05:33 Hold Purple Top SEE NOTE Anion Gap 16 Estim Creat Clear Calc 27.6 Estimated GFR 31 POC Glucose 166 H 186 H Random Glucose 177 H Calcium 9.2 02/25/23 02/25/23 07:39 11:34 Hold Purple Top Anion Gap Estim Creat Clear Calc Estimated GFR POC Glucose 192 H 171 H Random Glucose Calcium Assessment and Plan (1) Gallstone pancreatitis: Status: Acute (2) CARMEN (acute kidney injury): Status: Acute Plan Pt is a Welsh-speaking 77-year-old male with a PMH significant for?CVA, CKD 4, hx of SBO in 2006, hx of ileus in 10/2020, HTN, HLD insulin-dependent type 2 diabetes mellitus, and GERD who presents to the ED with nausea, vomiting, and intense lower abdominal pain radiating to the back since last night. Pt will be admitted to the hospital for treatment and further evaluation of acute pancreatitis now with ileus Groin anasarca Likely from ileus, IV fluids, reduced movement encourage ambulation IV fluids stopped Gallstone Pancreatitis LFTs, lipase continue to trend down; still with significant abdominal pain surgery following - plan for lap abida with cholangiogram when pain improves Ileus kub and exam c/w ileus due to pancreatitis encouraged to ambulate and limit narcotics if able surgery following rec clear diet for now CARMEN on CKD 4 Trending down no obstruction on CT from 02/21. likely due to volume depletion due to acute pancreatitis nephrology following Follow BMP follow urine output Insulin dependent type 2 diabetes mellitus Currently holding Lantus as pt is NPO; resume as diet advances SSI, POCs Hyperkalemia resolved after lokelma pseudo hypocalcemia normal calcium when corrected for albumin HTN Continue metoprolol Hold valsartan d/t CARMEN HLD Hold statin, lofibra d/t elevated LFTs Full Code Attending:?Dr. Barrientos DVT Prophylaxis: Heparin requires ongoing inpatient stay for?acute pancreatitis with bowel rest, IVF, close monitoring and cholecystectomy Quality Stroke Does the patient have a stroke diagnosis?: No VTE Prior VTE?: No VTE Risk Level:: Medical - moderate - high VTE Device Contraindication: Treatment Not Indicated VTE Drug Contraindication: N/A - Med Ordered
--- NOTE | 2023-02-25 13:56 | PM.CNNEP ---
History of Present Illness Reason for Consult Consult date: 02/25/23 Reason for consult: CKD Chief Complaint Chief complaint: Acute Pancreatitis History of Present Illness Narrative: 77-year-old male with a history of?CVA, CKD , hx of SBO in 2006, hx of ileus in 10/2020, HTN, HLD insulin-dependent type 2 diabetes mellitus, and GERD who presents to the ED with nausea, vomiting, and intense lower abdominal pain radiating to the back He is currently being treated for pancreatitis. He has history of chronic kidney disease but has never seen a clinical trial data manager. Patient creatinine is 1.6-2.0 mg/dL. During this admission has been a bump in serum creatinine. Review of Systems Constitutional: Reports as per HPI, Denies anorexia, Denies fatigue, Denies fever(s) and Denies headache(s) Eyes: Denies blurry vision Denies headache(s) Cardiovascular: Denies chest pain, Denies pedal edema and Denies dyspnea Respiratory: Denies cough, Denies hemoptysis and Denies dyspnea Gastrointestinal: Denies diarrhea Genitourinary: Denies hematuria, Denies urinary frequency and Denies urinary hesitancy Denies confusion, Denies headache(s) and Denies focal weakness Psychiatric: Denies confusion Endocrine: Denies cold intolerance, Denies fatigue and Denies polyuria PMFSH Past Medical History Medical History Cataract Arthritis Anemia [id number] kidney injury Holter monitor, abnormal Stroke HTN (hypertension) HLD (hyperlipidemia) Diabetes Bronchitis Surgical History Surgical History Hx of colonoscopy History of laminectomy History of intestinal surgery Social History Social History Household Members: Spouse Housing: House Are you a primary managed care liaison to a significant other at home: No Do you presently have visiting nurse or other home services: No Alcohol intake: never Patient Tobacco Use Status: Former Tobacco user Quit Date: years ago Tobacco use type: Cigarette Smoked in Last 30 Days: No e-Cigarette/Vaping Use: Former Use Second Hand Smoke Exposure: No Use of substances other than those prescribed or required for medical reasons: No Currently Displaying Signs/Symptoms of Drug Intoxication Withdrawal: No Have you been hit, kicked, punched, or otherwise hurt by someone within the past year? If so, by whom?: No Do you feel safe in your current relationship?: Yes Is there a partner from a previous relationship who is making you feel unsafe now?: No Are you made to feel afraid or neglected: No Advance Directives: No Advance Directives Information Provided: No Advance Directives Date on File: 08/23/20 Do you have thoughts of harming others: None Do you have a plan to hurt others: No Plan Recently lost weight without trying: No Nutrition Risks: No Nutritional Risk Poor oral hygiene: No service: No Current occupational status: retired [employer] Allergies Allergy/AdvReac Type Severity Reaction Status Date / Time No Known Allergies Allergy Mild NOT Verified 02/21/23 04:57 APPLICABLE Active Medications: Current Medications Acetaminophen (Acetaminophen 325 Mg Tablet) 650 mg PO Q6H PRN PRN Reason: Pain, Mild (Pain Scale 1-3) Last Admin: 02/25/23 03:15 Dose: 650 mg Benzonatate (Benzonatate 100 Mg Capsule) 100 mg PO TID PRN PRN Reason: Cough Cyanocobalamin (Cyanocobalamin (Vitamin B-12) 1,000 Mcg Tablet) 1,000 mcg PO DAILY [facility] Last Admin: 02/25/23 08:36 Dose: 1,000 mcg Dextrose (Dextrose 50 % 25 Gm/50 Ml Syringe) 25 gm IVPUSH Q15M PRN; Protocol PRN Reason: per Hypoglycemia Standing Ord. Docusate Sodium (Docusate Sodium 100 Mg Capsule) 100 mg PO DAILY [facility] Last Admin: 02/25/23 08:35 Dose: 100 mg Glucose (Glucose Gel 15 Gm Gel..Gram.) 15 gm PO Q15M PRN; Protocol PRN Reason: per Hypoglycemia Standing Ord. Heparin Sodium (Porcine) (Heparin Sodium,Porcine 5,000 Unit/Ml Vial) 5,000 unit SUBCUT Q12H [facility] Last Admin: 02/25/23 03:00 Dose: 5,000 unit Hydromorphone HCl (Hydromorphone Hcl 0.5 Mg/0.5 Ml Syringe) 1 mg IVPUSH Q3H PRN; Protocol PRN Reason: Pain, Severe (Pain Scale 7-10) Last Admin: 02/25/23 12:00 Dose: 1 mg Insulin Human Lispro (Insulin Lispro 100 Unit/Ml 3 Ml Vial) 0 unit SUBCUT QIDACHS [facility]; Protocol Last Admin: 02/25/23 11:59 Dose: 2 unit Latanoprost (Latanoprost 0.005 % Ophth Rocio 2.5 Ml Drops) 1 drop EYE-BOTH BID [facility] Last Admin: 02/25/23 08:37 Dose: 1 drop Loratadine (Loratadine 10 Mg Tablet) 10 mg PO DAILY PRN PRN Reason: itch Melatonin (Melatonin 3 Mg Tablet) 6 mg PO BEDTIME PRN PRN Reason: Insomnia Last Admin: 02/24/23 21:30 Dose: 6 mg Metoprolol Succinate (Metoprolol Succinate Er 100 Mg Tab.Er.24h) 100 mg PO DAILY [facility]; Protocol Last Admin: 02/25/23 08:37 Dose: 100 mg Ondansetron HCl (Ondansetron Hcl 4 Mg/2 Ml Vial) 4 mg IVPUSH Q8H PRN PRN Reason: Nausea and Vomiting Last Admin: 02/21/23 19:15 Dose: 4 mg Pantoprazole Sodium (Pantoprazole Sodium 40 Mg/10 Ml Vial) 40 mg IVPUSH DAILY@0630 [facility] Last Admin: 02/25/23 05:36 Dose: 40 mg Polyethylene Glycol (Polyethylene Glycol 3350 17 Gm Powd.Pack) 17 gm PO DAILY PRN PRN Reason: Constipation Senna (Sennosides 8.6 Mg Tablet) 8.6 mg PO BEDTIME [facility] Last Admin: 02/24/23 21:30 Dose: 8.6 mg Sodium Chloride (0.9 % Sodium Chloride Flush 3 Ml Syringe) 3 ml IVFLUSH QSHIFT [facility] Last Admin: 02/25/23 08:37 Dose: 3 ml Home Medications Medication Instructions Recorded Confirmed Last Taken Type cyanocobalamin (vitamin B-12) 1,000 mcg PO DAILY 02/21/23 02/21/23 02/20/23 History 1,000 mcg tablet fenofibrate nanocrystallized 145 145 mg PO DAILY 02/21/23 02/21/23 02/20/23 History mg tablet ferrous sulfate 325 mg (65 mg 325 mg PO DAILY 02/21/23 02/21/23 02/20/23 History iron) tablet insulin glargine 100 unit/mL (3 8 unit subcut DAILY 02/21/23 02/21/2323 History mL) subcutaneous pen (Basaglar KwikPen U-100 Insulin) insulin glargine 100 unit/mL (3 20 unit subcut BEDTIME 02/21/23 02/21/23 02/20/23 History mL) subcutaneous pen (Basaglar KwikPen U-100 Insulin) latanoprost 0.005 % eye drops 1 drp ophthalmic (eye) BID 02/21/23 02/21/23 02/20/23 History lidocaine 5 % topical patch 1 - 3 patch topical Q24H 02/21/23 02/21/23 02/20/23 History linaclotide 290 mcg capsule 290 mcg PO DAILY 02/21/23 02/21/23 02/20/23 History (Linzess) loratadine 10 mg tablet 10 mg PO DAILY PRN itch 02/21/23 02/21/23 02/20/23 History metoprolol succinate 100 mg 100 mg PO DAILY 02/21/23 02/21/23 02/20/23 History tablet,extended release 24 hr omeprazole 20 mg capsule,delayed 20 mg PO DAILY 02/21/23 02/21/23 02/20/23 History release simvastatin 40 mg tablet 40 mg PO BEDTIME 02/21/23 02/21/23 02/20/23 History valsartan 40 mg tablet 40 mg PO DAILY 02/21/23 02/21/23 02/20/23 History Physical Exam Vital Signs: Last Vital Signs Temp 97.5 F 02/25/23 07:56 Pulse 64 02/25/23 07:56 Resp 18 02/25/23 07:56 BP 164/85 H 02/25/23 07:56 Pulse Ox 95 02/25/23 07:56 O2 Del Method Room Air 02/25/23 07:56 BMI result Body Mass Index 24.1 Const General: No confusion Orientation/consciousness: No confusion Eyes General: appearance normal, both eyes and all related structures Visual Carter: normal visual carter by confrontation Neck Neck: Yes supple and Yes no JVD Resp Effort & Inspection: normal respiratory effort and respiratory effort not decreased Auscultation: rhonchi Cardio Palpation: no palpable S3 and no palpable S4 Heart sounds: no rubs GI Inspection: Yes distended Auscultation: normal bowel sounds General: Yes no CVA tenderness Back/Spine/Pelvis Back: no CVA tenderness Skin General skin exam: no petechiae and no purpura Neuro General: No confusion Extrem General: No clubbing and No edema Results Lab Results 02/24/23 05:19 02/25/23 05:33 Lab results: Chemistry 02/23/23 02/24/23 02/25/23 05:55 05:19 05:33 Sodium 141 142 142 Potassium 4.6 4.4 4.2 Carbon Dioxide 20 L 21 L 21 L BUN 57 H 51 H 42 H Creatinine 3.66 H 2.79 H 2.09 H Calcium 8.1 L 9.0 D 9.2 Hematology 02/23/23 02/24/23 05:55 05:19 WBC 13.9 H 11.4 H Hgb 10.0 L 10.1 L Plt Count 191 196 Assessment and Plan (1) CARMEN (acute kidney injury): Status: Acute (2) CKD (chronic kidney disease): Status: Acute (3) Hyperkalemia: Status: Acute Plan [age] man with acute kidney injury superimposed on chronic kidney disease. Acute kidney injury is mostly due to hypoperfusion in setting of pancreatitis. He has underlying cardiac disease with a baseline creatinine of around 1.6-0.2 mg/dL. With IV hydration serum creatinine is improving. Renal function is currently close to baseline. Goal is to slow the portion disease Avoid nephrotoxic agents. Keep intake more than output. She will follow along with the team. Procedures Date of Service Date of Service: 02/25/23
[2023-02-25 15:41] VITALS: BP 178/72; PULSE 74; RESP 18; TEMP 37.4; O2SAT 93
[2023-02-25 16:50] LABS: Glucose, Whole Blood 316 mg/dL (60-115)
[2023-02-25 20:57] LABS: Glucose, Whole Blood 267 mg/dL (60-115)
[2023-02-25] MEDS: traMADoL HCL 50 MG TABLET PO (21:18)
[2023-02-25] MEDS: Sennosides 8.6 MG TABLET PO (21:18)
[2023-02-25] MEDS: Melatonin 3 MG TABLET 6 MG PO (23:35)
[2023-02-26] VITALS: BP 160/72; PULSE 74; RESP 18; TEMP 37.1; O2SAT 96
[2023-02-26] MEDS: HYDROmorphone HCl 0.5 MG/0.5 ML SYRINGE IVPUSH (00:34)
[2023-02-26] MEDS: Heparin Sodium,Porcine 5,000 UNIT/ML VIAL 5000 UNIT SUBCUT ×2 (03:14→16:45)
[2023-02-26] MEDS: Acetaminophen 325 MG TABLET 650 MG PO ×2 (03:32→19:42)
--- NOTE | 2023-02-26 04:28 | PC.NURSE ---
Pt c/o abdl pain with short relief from prn Tramadol , Dr. Hager was made aware, Dilaudid 0.5 mg IV given, slept for few hours after the med, voiding in the BR, no BM noted.
[2023-02-26 06:04] LABS: Anion Gap 15 (12-20); Blood Urea Nitrogen 33 mg/dL (9-16); Calcium 8.8 mg/dL (8.4-10.2); Carbon Dioxide 20 mmol/L (22-29); Chloride 106 mmol/L (96-108); Creatinine Clr Calc Pharmacy 31.6; Estimated Glomerular Filt Rate 36; Glucose Random 258 mg/dL (60-115); Potassium 4.5 mmol/L (3.3-5.1); Sodium 136 mmol/L (135-145)
[2023-02-26] MEDS: Pantoprazole Sodium 40 MG/10 ML VIAL IVPUSH (06:04)
[2023-02-26 07:20] VITALS: BP 162/78; PULSE 67; RESP 17; TEMP 37; O2SAT 96
[2023-02-26 07:36] LABS: Glucose, Whole Blood 275 mg/dL (60-115)
[2023-02-26] MEDS: Insulin Lispro 100 UNIT/ML 3 ML VIAL SUBCUT ×6 (08:30→20:48)
[2023-02-26] MEDS: 0.9 % Sodium Chloride Flush 3 ML SYRINGE IVFLUSH ×3 (08:30→20:21)
[2023-02-26] MEDS: Cyanocobalamin (Vitamin B-12) 1,000 MCG TABLET 1000 MCG PO (08:31)
[2023-02-26] MEDS: Metoprolol Succinate ER 100 MG TAB.ER.24H PO (08:31)
[2023-02-26] MEDS: Docusate Sodium 100 MG CAPSULE PO (08:31)
[2023-02-26] MEDS: Latanoprost 0.005 % Ophth Sol 2.5 ML DROPS 1 DROP EYE-BOTH ×2 (08:32→20:21)
--- NOTE | 2023-02-26 09:09 | PM.PNGS ---
Subjective Subjective Date of Service: 02/26/23 Interval history: Patient does not think he has passed any flatus yet. Moderate epigastric discomfort but improving. Plain film abdomen consistent with resolving ileus. White blood cell count improving Physical Exam Vital Signs: Vital Signs: Last Vital Signs Temp 98.6 F 02/26/23 07:20 Pulse 67 02/26/23 07:20 Resp 17 02/26/23 07:20 BP 162/78 H 02/26/23 07:20 Pulse Ox 96 02/26/23 07:20 O2 Del Method Room Air 02/26/23 07:20 BMI result Body Mass Index 24.1 GI: Other: Abdomen softly distended. Mild epigastric tenderness. No evidence of any guarding, rebound, or rigidity. Objective Data Active Medications Acetaminophen (Acetaminophen 325 Mg Tablet) 650 mg PO Q6H PRN PRN Reason: Pain, Mild (Pain Scale 1-3) Last Admin: 02/26/23 03:32 Dose: 650 mg Documented By: SHILPA Benzonatate (Benzonatate 100 Mg Capsule) 100 mg PO TID PRN PRN Reason: Cough Cyanocobalamin (Cyanocobalamin (Vitamin B-12) 1,000 Mcg Tablet) 1,000 mcg PO DAILY [facility] Last Admin: 02/26/23 08:31 Dose: 1,000 mcg Documented By: PO Dextrose (Dextrose 50 % 25 Gm/50 Ml Syringe) 25 gm IVPUSH Q15M PRN; Protocol PRN Reason: per Hypoglycemia Standing Ord. Docusate Sodium (Docusate Sodium 100 Mg Capsule) 100 mg PO DAILY [facility] Last Admin: 02/26/23 08:31 Dose: 100 mg Documented By: PO Glucose (Glucose Gel 15 Gm Gel..Gram.) 15 gm PO Q15M PRN; Protocol PRN Reason: per Hypoglycemia Standing Ord. Heparin Sodium (Porcine) (Heparin Sodium,Porcine 5,000 Unit/Ml Vial) 5,000 unit SUBCUT Q12H [facility] Last Admin: 02/26/23 03:14 Dose: 5,000 unit Documented By: SHILPA Insulin Human Lispro (Insulin Lispro 100 Unit/Ml 3 Ml Vial) 0 unit SUBCUT QIDACHS [facility]; Protocol Last Admin: 02/26/23 08:30 Dose: 6 unit Documented By: PO Latanoprost (Latanoprost 0.005 % Ophth Rocio 2.5 Ml Drops) 1 drop EYE-BOTH BID [facility] Last Admin: 02/26/23 08:32 Dose: 1 drop Documented By: PO Loratadine (Loratadine 10 Mg Tablet) 10 mg PO DAILY PRN PRN Reason: itch Melatonin (Melatonin 3 Mg Tablet) 6 mg PO BEDTIME PRN PRN Reason: Insomnia Last Admin: 02/25/23 23:35 Dose: 6 mg Documented By: SHILPA Metoprolol Succinate (Metoprolol Succinate Er 100 Mg Tab.Er.24h) 100 mg PO DAILY [facility]; Protocol Last Admin: 02/26/23 08:31 Dose: 100 mg Documented By: PO Non-Formulary Medication (Linaclotide [Linzess]) 290 mcg PO DAILY [facility] Ondansetron HCl (Ondansetron Hcl 4 Mg/2 Ml Vial) 4 mg IVPUSH Q8H PRN PRN Reason: Nausea and Vomiting Last Admin: 02/21/23 19:15 Dose: 4 mg Documented By: CHRIS Pantoprazole Sodium (Pantoprazole Sodium 40 Mg/10 Ml Vial) 40 mg IVPUSH DAILY@0630 [facility] Last Admin: 02/26/23 06:04 Dose: 40 mg Documented By: SHILPA Polyethylene Glycol (Polyethylene Glycol 3350 17 Gm Powd.Pack) 17 gm PO DAILY PRN PRN Reason: Constipation Senna (Sennosides 8.6 Mg Tablet) 8.6 mg PO BEDTIME [facility] Last Admin: 02/25/23 21:18 Dose: 8.6 mg Documented By: TANYA Sodium Chloride (0.9 % Sodium Chloride Flush 3 Ml Syringe) 3 ml IVFLUSH QSHIFT [facility] Last Admin: 02/26/23 08:30 Dose: 3 ml Documented By: PO Tramadol HCl (Tramadol Hcl 50 Mg Tablet) 50 mg PO Q12H PRN PRN Reason: Pain, Moderate(Pain Scale 4-6) Last Admin: 02/25/23 21:18 Dose: 50 mg Documented By: TANYA Labs 02/24/23 05:19 02/26/23 05:09 Labs: Laboratory Results - last 24 hr 02/25/23 02/25/23 02/25/23 11:34 16:42 20:50 Anion Gap Estim Creat Clear Calc Estimated GFR POC Glucose 171 H 316 H 267 H Random Glucose Calcium 02/26/23 02/26/23 05:09 07:19 Anion Gap 15 Estim Creat Clear Calc 31.6 Estimated GFR 36 POC Glucose 275 H Random Glucose 258 H Calcium 8.8 Microbiology Microbiology Results: Microbiology 02/21/23 06:22 Blood Culture - Final Blood - Venous No growth after 5 days. 02/21/23 06:19 Blood Culture - Final Blood - Venous No growth after 5 days. Procedures Date of Service Date of Service: 02/26/23 Progress Note: A&P Assessment and plan (1) Gallstone pancreatitis: Status: Acute Plan Gallstone pancreatitis with resolving ileus. Will tentatively scheduled for lap abida with cholangiogram for this 02/28 Time Spent With Patient Time: Total time managing care of this patient today ____ minutes. Quality Stroke Does the patient have a stroke diagnosis?: No VTE Prior VTE?: No VTE Risk Level:: Medical - moderate - high VTE Device Contraindication: Treatment Not Indicated VTE Drug Contraindication: N/A - Med Ordered
[2023-02-26 11:27] LABS: Glucose, Whole Blood 245 mg/dL (60-115)
--- NOTE | 2023-02-26 11:42 | P.PNIM_ITS ---
Subjective Subjective Date of Service: 02/26/23 Interval History: Follow up abd pain, ileus abd pain subsided, small BM this morning Review of Systems Review of Systems: Yes all other systems are reviewed and are negative Constitutional Constitutional: Denies chills and Denies fever(s) Gastrointestinal Gastrointestinal: Denies vomiting Physical Exam 2 Vital Signs: Vital Signs: Last Vital Signs Temp 98.6 F 02/26/23 07:20 Pulse 67 02/26/23 07:20 Resp 17 02/26/23 07:20 BP 162/78 H 02/26/23 07:20 Pulse Ox 96 02/26/23 07:20 O2 Del Method Room Air 02/26/23 07:20 BMI result Body Mass Index 24.1 Appearing in no acute distress lung sounds are clear to auscultation heart regular rate rhythm, clear S1, S2 positive bowel sounds, abdomen is soft, nontender neuro patient is alert x3, no focal deficits Objective Data Active Medications Acetaminophen (Acetaminophen 325 Mg Tablet) 650 mg PO Q6H PRN PRN Reason: Pain, Mild (Pain Scale 1-3) Last Admin: 02/26/23 03:32 Dose: 650 mg Documented By: SHILPA Benzonatate (Benzonatate 100 Mg Capsule) 100 mg PO TID PRN PRN Reason: Cough Cyanocobalamin (Cyanocobalamin (Vitamin B-12) 1,000 Mcg Tablet) 1,000 mcg PO DAILY [facility] Last Admin: 02/26/23 08:31 Dose: 1,000 mcg Documented By: PO Dextrose (Dextrose 50 % 25 Gm/50 Ml Syringe) 25 gm IVPUSH Q15M PRN; Protocol PRN Reason: per Hypoglycemia Standing Ord. Docusate Sodium (Docusate Sodium 100 Mg Capsule) 100 mg PO DAILY [facility] Last Admin: 02/26/23 08:31 Dose: 100 mg Documented By: PO Glucose (Glucose Gel 15 Gm Gel..Gram.) 15 gm PO Q15M PRN; Protocol PRN Reason: per Hypoglycemia Standing Ord. Heparin Sodium (Porcine) (Heparin Sodium,Porcine 5,000 Unit/Ml Vial) 5,000 unit SUBCUT Q12H [facility] Last Admin: 02/26/23 03:14 Dose: 5,000 unit Documented By: SHILPA Insulin Human Lispro (Insulin Lispro 100 Unit/Ml 3 Ml Vial) 0 unit SUBCUT QIDACHS [facility]; Protocol Last Admin: 02/26/23 08:30 Dose: 6 unit Documented By: PO Latanoprost (Latanoprost 0.005 % Ophth Rocio 2.5 Ml Drops) 1 drop EYE-BOTH BID [facility] Last Admin: 02/26/23 08:32 Dose: 1 drop Documented By: PO Loratadine (Loratadine 10 Mg Tablet) 10 mg PO DAILY PRN PRN Reason: itch Melatonin (Melatonin 3 Mg Tablet) 6 mg PO BEDTIME PRN PRN Reason: Insomnia Last Admin: 02/25/23 23:35 Dose: 6 mg Documented By: SHILPA Metoprolol Succinate (Metoprolol Succinate Er 100 Mg Tab.Er.24h) 100 mg PO DAILY [facility]; Protocol Last Admin: 02/26/23 08:31 Dose: 100 mg Documented By: PO Non-Formulary Medication (Linaclotide [Linzess]) 290 mcg PO DAILY [facility] Last Admin: 02/26/23 11:15 Dose: 290 mcg Documented By: PO Ondansetron HCl (Ondansetron Hcl 4 Mg/2 Ml Vial) 4 mg IVPUSH Q8H PRN PRN Reason: Nausea and Vomiting Last Admin: 02/21/23 19:15 Dose: 4 mg Documented By: CHRIS Pantoprazole Sodium (Pantoprazole Sodium 40 Mg/10 Ml Vial) 40 mg IVPUSH DAILY@0630 [facility] Last Admin: 02/26/23 06:04 Dose: 40 mg Documented By: SHILPA Polyethylene Glycol (Polyethylene Glycol 3350 17 Gm Powd.Pack) 17 gm PO DAILY PRN PRN Reason: Constipation Senna (Sennosides 8.6 Mg Tablet) 8.6 mg PO BEDTIME [facility] Last Admin: 02/25/23 21:18 Dose: 8.6 mg Documented By: LYSZ Sodium Chloride (0.9 % Sodium Chloride Flush 3 Ml Syringe) 3 ml IVFLUSH QSHIFT [facility] Last Admin: 02/26/23 08:30 Dose: 3 ml Documented By: PO Tramadol HCl (Tramadol Hcl 50 Mg Tablet) 50 mg PO Q12H PRN PRN Reason: Pain, Moderate(Pain Scale 4-6) Last Admin: 02/25/23 21:18 Dose: 50 mg Documented By: TANYA Labs 02/24/23 05:19 02/26/23 05:09 Labs: Laboratory Results - last 24 hr 02/25/23 02/25/23 02/25/23 11:34 16:42 20:50 Anion Gap Estim Creat Clear Calc Estimated GFR POC Glucose 171 H 316 H 267 H Random Glucose Calcium 02/26/23 02/26/23 02/26/23 05:09 07:19 11:19 Anion Gap 15 Estim Creat Clear Calc 31.6 Estimated GFR 36 POC Glucose 275 H 245 H Random Glucose 258 H Calcium 8.8 Microbiology Microbiology Results: Microbiology 02/21/23 06:22 Blood Culture - Final Blood - Venous No growth after 5 days. 02/21/23 06:19 Blood Culture - Final Blood - Venous No growth after 5 days. Assessment and Plan (1) Gallstone pancreatitis: Status: Acute (2) CARMEN (acute kidney injury): Status: Acute Plan Pt is a Burkinan-speaking 77-year-old male with a PMH significant for?CVA, CKD 4, hx of SBO in 2006, hx of ileus in 10/2020, HTN, HLD insulin-dependent type 2 diabetes mellitus, and GERD who presents to the ED with nausea, vomiting, and intense lower abdominal pain radiating to the back since last night. Pt will be admitted to the hospital for treatment and further evaluation of acute pancreatitis now with ileus Groin anasarca Likely from ileus, IV fluids, reduced movement encourage ambulation IV fluids stopped Gallstone Pancreatitis LFTs, lipase continue to trend down abd pain less today surgery following - plan for lap abida with cholangiogram 02/28/23 Ileus repeat KUB showing improvement as per gen surg due to pancreatitis encouraged to ambulate, narcotics limited surgery following rec clear diet CARMEN on CKD 4 Trending down no obstruction on CT from 02/21. likely due to volume depletion due to acute pancreatitis nephrology following Follow BMP follow urine output Insulin dependent type 2 diabetes mellitus SSI, lantus at bedtime, POCs Hyperkalemia resolved after lokelma pseudo hypocalcemia normal calcium when corrected for albumin HTN Continue metoprolol Hold valsartan d/t CARMEN HLD Hold statin, lofibra d/t elevated LFTs Full Code Attending:?Dr. Barrientos DVT Prophylaxis: Heparin requires ongoing inpatient stay for?acute pancreatitis with bowel rest, IVF, close monitoring and cholecystectomy Quality Stroke Does the patient have a stroke diagnosis?: No VTE Prior VTE?: No VTE Risk Level:: Medical - moderate - high VTE Device Contraindication: Treatment Not Indicated VTE Drug Contraindication: N/A - Med Ordered
[2023-02-26 12:26] LABS: Alanine Aminotransferase 27 U/L (0-40); Albumin Level 2.9 g/dL (3.5-5.0); Alkaline Phosphatase 74 U/L (39-117); Aspartate Amino Transferase 27 U/L (5-37); Bilirubin Direct 0.2 mg/dL (0.0-0.5); Bilirubin Total 0.5 mg/dL (0.0-1.0); Total Protein 6.2 g/dL (6.5-8.0)
[2023-02-26 15:24] VITALS: BP 162/70; PULSE 68; RESP 15; TEMP 36.8; O2SAT 95
[2023-02-26 16:17] LABS: Glucose, Whole Blood 355 mg/dL (60-115)
[2023-02-26] MEDS: traMADoL HCL 50 MG TABLET PO (17:01)
--- NOTE | 2023-02-26 18:18 | P.PNNP_ITS ---
Subjective Subjective Date of Service: 02/26/23 Interval history: Abd pain subsided, small BM this morning; Feels improved Physical Exam 2 Vital Signs: Vital Signs: Last Vital Signs Temp 98.2 F 02/26/23 15:24 Pulse 68 02/26/23 15:24 Resp 15 02/26/23 15:24 BP 162/70 H 02/26/23 15:24 Pulse Ox 95 02/26/23 15:24 O2 Del Method Room Air 02/26/23 15:24 BMI result Body Mass Index 24.1 Const: General: no acute distress Orientation/consciousness: patient oriented x3 Eyes: EOM: EOMs intact bilaterally Neck: Neck: Yes supple Resp: Auscultation: diminished lung sounds Cardio: Rate: regular rate GI: Palpation (GI): Soft to palpation Neuro: General: patient oriented x3 and moves all extremities Objective Data Labs 02/24/23 05:19 02/26/23 05:09 Labs: Laboratory Results - last 24 hr 02/25/23 02/26/23 02/26/23 20:50 05:09 07:19 Sodium 136 Potassium 4.5 Chloride 106 Carbon Dioxide 20 L Anion Gap 15 BUN 33 H Creatinine 1.83 H Estim Creat Clear Calc 31.6 Estimated GFR 36 POC Glucose 267 H 275 H Random Glucose 258 H Calcium 8.8 Total Bilirubin 0.5 Direct Bilirubin 0.2 AST 27 ALT 27 Alkaline Phosphatase 74 Total Protein 6.2 L Albumin 2.9 L 02/26/23 02/26/23 11:19 16:00 Sodium Potassium Chloride Carbon Dioxide Anion Gap BUN Creatinine Estim Creat Clear Calc Estimated GFR POC Glucose 245 H 355 H* Random Glucose Calcium Total Bilirubin Direct Bilirubin AST ALT Alkaline Phosphatase Total Protein Albumin Microbiology Microbiology Results: Microbiology 02/21/23 06:22 Blood - Venous Blood Culture - Final No growth after 5 days. 02/21/23 06:19 Blood - Venous Blood Culture - Final No growth after 5 days. Procedures Date of Service Date of Service: 02/26/23 Assessment & Plan Assessment and plan (1) CARMEN (acute kidney injury): Status: Acute Plan Acute kidney injury superimposed on chronic kidney disease. Acute kidney injury mostly due to tubular injury Baseline serum creatinine around 1.6-2 mg/dL. Renal function is currently close to baseline. Continue current supportive care for now Shall arrange close office F/U when D/Jc Progress Note: Quality Stroke Does the patient have a stroke diagnosis?: No
[2023-02-26] MEDS: Sennosides 8.6 MG TABLET PO (20:21)
[2023-02-26 20:33] LABS: Glucose, Whole Blood 188 mg/dL (60-115)
[2023-02-26] MEDS: Insulin Glargine,Hum.rec.anlog 100 UNIT/ML 10 ML VIAL 20 UNIT SUBCUT (20:47)
[2023-02-27] VITALS: BP 162/78; PULSE 66; RESP 16; TEMP 36.6; O2SAT 95
[2023-02-27] MEDS: Heparin Sodium,Porcine 5,000 UNIT/ML VIAL 5000 UNIT SUBCUT ×2 (03:51→14:39)
[2023-02-27] MEDS: Acetaminophen 325 MG TABLET 650 MG PO ×2 (03:51→17:31)
[2023-02-27 07:29] LABS: Glucose, Whole Blood 201 mg/dL (60-115)
[2023-02-27 07:44] LABS: Hematocrit 29.2 % (42.0-52.0); Hemoglobin 9.5 g/dl (14.0-18.0); Mean Corpuscular HGB Conc 32.5 g/dl (31.0-36.0); Mean Corpuscular Hemoglobin 27.8 pg (27.0-33.0); Mean Corpuscular Volume 85.4 fL (80.0-98.0); Mean Platelet Volume 10.8 fL (9.4-12.4); Platelet Count 278 X10*3/uL (160-400); Red Blood Count 3.42 X10*6/uL (4.60-5.80); Red Cell Distribution Width 13.6 % (11.0-16.0); White Blood Count 11.6 X10*3/uL (4.8-10.8)
[2023-02-27 07:54] LABS: Anion Gap 15 (12-20); Blood Urea Nitrogen 28 mg/dL (9-16); Calcium 8.7 mg/dL (8.4-10.2); Carbon Dioxide 21 mmol/L (22-29); Chloride 104 mmol/L (96-108); Creatinine Clr Calc Pharmacy 32.8; Estimated Glomerular Filt Rate 38; Glucose Random 192 mg/dL (60-115); Sodium 136 mmol/L (135-145)
[2023-02-27 07:55] VITALS: BP 162/80; PULSE 62; RESP 18; TEMP 37.1; O2SAT 95
[2023-02-27] MEDS: Insulin Lispro 100 UNIT/ML 3 ML VIAL SUBCUT ×6 (08:01→22:23)
[2023-02-27] MEDS: Docusate Sodium 100 MG CAPSULE PO (08:02)
[2023-02-27] MEDS: Metoprolol Succinate ER 100 MG TAB.ER.24H PO (08:02)
[2023-02-27] MEDS: Cyanocobalamin (Vitamin B-12) 1,000 MCG TABLET 1000 MCG PO (08:03)
[2023-02-27] MEDS: 0.9 % Sodium Chloride Flush 3 ML SYRINGE IVFLUSH ×3 (08:03→23:36)
[2023-02-27] MEDS: Latanoprost 0.005 % Ophth Sol 2.5 ML DROPS 1 DROP EYE-BOTH ×2 (08:04→19:38)
[2023-02-27] MEDS: traMADoL HCL 50 MG TABLET PO ×2 (08:05→19:41)
--- NOTE | 2023-02-27 09:44 | HO.PM.IMPN ---
Subjective Subjective Date of Service: 02/27/23 Interval History: Follow up abd pain, ileus abd pain subsided passing flatus and had small BM Review of Systems Review of Systems: Yes all other systems are reviewed and are negative Constitutional Constitutional: Denies chills and Denies fever(s) Gastrointestinal Gastrointestinal: Denies vomiting Physical Exam Vital Signs: Vital Signs: Last Vital Signs Temp 98.7 F 02/27/23 07:55 Pulse 62 02/27/23 07:55 Resp 18 02/27/23 07:55 BP 162/80 H 02/27/23 07:55 Pulse Ox 95 02/27/23 07:55 O2 Del Method Room Air 02/27/23 07:55 BMI result Body Mass Index 24.1 Appearing in no acute distress lung sounds are clear to auscultation heart regular rate rhythm, clear S1, S2 positive bowel sounds, abdomen is soft, nontender neuro patient is alert x3, no focal deficits Objective Data Active Medications Acetaminophen (Acetaminophen 325 Mg Tablet) 650 mg PO Q6H PRN PRN Reason: Pain, Mild (Pain Scale 1-3) Last Admin: 02/27/23 03:51 Dose: 650 mg Documented By: TIERNEY Benzonatate (Benzonatate 100 Mg Capsule) 100 mg PO TID PRN PRN Reason: Cough Cyanocobalamin (Cyanocobalamin (Vitamin B-12) 1,000 Mcg Tablet) 1,000 mcg PO DAILY [facility] Last Admin: 02/27/23 08:03 Dose: 1,000 mcg Documented By: KONRAD Dextrose (Dextrose 50 % 25 Gm/50 Ml Syringe) 25 gm IVPUSH Q15M PRN; Protocol PRN Reason: per Hypoglycemia Standing Ord. Docusate Sodium (Docusate Sodium 100 Mg Capsule) 100 mg PO DAILY [facility] Last Admin: 02/27/23 08:02 Dose: 100 mg Documented By: KONRAD Glucose (Glucose Gel 15 Gm Gel..Gram.) 15 gm PO Q15M PRN; Protocol PRN Reason: per Hypoglycemia Standing Ord. Heparin Sodium (Porcine) (Heparin Sodium,Porcine 5,000 Unit/Ml Vial) 5,000 unit SUBCUT Q12H [facility] Last Admin: 02/27/23 03:51 Dose: 5,000 unit Documented By: TIERNEY Insulin Glargine (Insulin Glargine,Hum.Rec.Anlog 100 Unit/Ml 10 Ml Vial) 20 unit SUBCUT BEDTIME [facility] Last Admin: 02/26/23 20:47 Dose: 20 unit Documented By: TIERNEY Insulin Human Lispro (Insulin Lispro 100 Unit/Ml 3 Ml Vial) 0 unit SUBCUT QIDACHS [facility]; Protocol Last Admin: 02/27/23 08:02 Dose: 4 unit Documented By: KONRAD Insulin Human Lispro (Insulin Lispro 100 Unit/Ml 3 Ml Vial) 5 unit SUBCUT QIDACHS [facility] Last Admin: 02/27/23 08:01 Dose: 5 unit Documented By: KONRAD Latanoprost (Latanoprost 0.005 % Ophth Rocio 2.5 Ml Drops) 1 drop EYE-BOTH BID [facility] Last Admin: 02/27/23 08:04 Dose: 1 drop Documented By: KONRAD Lidocaine (Lidocaine 4 % Patch Adh..Patch) 1 patch TRANSDERMA DAILY [facility]; Protocol Loratadine (Loratadine 10 Mg Tablet) 10 mg PO DAILY PRN PRN Reason: itch Melatonin (Melatonin 3 Mg Tablet) 6 mg PO BEDTIME PRN PRN Reason: Insomnia Last Admin: 02/25/23 23:35 Dose: 6 mg Documented By: CASTILMalina Metoprolol Succinate (Metoprolol Succinate Er 100 Mg Tab.Er.24h) 100 mg PO DAILY [facility]; Protocol Last Admin: 02/27/23 08:02 Dose: 100 mg Documented By: KONRAD Non-Formulary Medication (Linaclotide [Linzess]) 290 mcg PO DAILY [facility] Last Admin: 02/27/23 08:03 Dose: 290 mcg Documented By: KONRAD Ondansetron HCl (Ondansetron Hcl 4 Mg/2 Ml Vial) 4 mg IVPUSH Q8H PRN PRN Reason: Nausea and Vomiting Last Admin: 02/21/23 19:15 Dose: 4 mg Documented By: MICHAEL-LAURA Polyethylene Glycol (Polyethylene Glycol 3350 17 Gm Powd.Pack) 17 gm PO DAILY PRN PRN Reason: Constipation Senna (Sennosides 8.6 Mg Tablet) 8.6 mg PO BEDTIME [facility] Last Admin: 02/26/23 20:21 Dose: 8.6 mg Documented By: TIERNEY Sodium Chloride (0.9 % Sodium Chloride Flush 3 Ml Syringe) 3 ml IVFLUSH QSHIFT [facility] Last Admin: 02/27/23 08:03 Dose: 3 ml Documented By: KONRAD Tramadol HCl (Tramadol Hcl 50 Mg Tablet) 50 mg PO Q12H PRN PRN Reason: Pain, Moderate(Pain Scale 4-6) Last Admin: 02/27/23 08:05 Dose: 50 mg Documented By: KONRAD Labs 02/27/23 05:42 02/27/23 05:42 Labs: Laboratory Results - last 24 hr 02/26/23 02/26/23 02/26/23 05:09 11:19 16:00 MCV MCH MCHC RDW Plt Count MPV Absolute Nucleated RBC Nucleated RBC % (auto) Anion Gap Estim Creat Clear Calc Estimated GFR POC Glucose 245 H 355 H* Random Glucose Calcium Total Bilirubin 0.5 Direct Bilirubin 0.2 AST 27 ALT 27 Alkaline Phosphatase 74 Total Protein 6.2 L Albumin 2.9 L 02/26/23 02/27/23 02/27/23 20:20 05:42 07:09 MCV 85.4 MCH 27.8 MCHC 32.5 RDW 13.6 Plt Count 278 D MPV 10.8 Absolute Nucleated RBC 0.000 Nucleated RBC % (auto) 0.0 Anion Gap 15 Estim Creat Clear Calc 32.8 Estimated GFR 38 POC Glucose 188 H 201 H Random Glucose 192 H Calcium 8.7 Total Bilirubin Direct Bilirubin AST ALT Alkaline Phosphatase Total Protein Albumin Microbiology Microbiology Results: Microbiology 02/21/23 06:22 Blood Culture - Final Blood - Venous No growth after 5 days. 02/21/23 06:19 Blood Culture - Final Blood - Venous No growth after 5 days. Assessment and Plan (1) Gallstone pancreatitis: Status: Acute (2) CARMEN (acute kidney injury): Status: Acute Plan Pt is a Sinhala-speaking 77-year-old male with a PMH significant for?CVA, CKD 4, hx of SBO in 2006, hx of ileus in 10/2020, HTN, HLD insulin-dependent type 2 diabetes mellitus, and GERD who presents to the ED with nausea, vomiting, and intense lower abdominal pain radiating to the back since last night. Pt will be admitted to the hospital for treatment and further evaluation of acute pancreatitis now with ileus Gallstone Pancreatitis LFTs wnl, lipase continue to trend down no abd pain today, no abd distension surgery following - plan for lap abida with cholangiogram 02/28/23, npo after midnight Back pain lidocaine patch heating pads Groin anasarca Likely from ileus, IV fluids, reduced movement encourage ambulation IV fluids stopped Ileus. Resolved repeat KUB showing improvement as per gen surg due to pancreatitis encouraged to ambulate, narcotics stopped surgery following rec clear diet CARMEN on CKD 4 Trending down no obstruction on CT from 02/21. likely due to volume depletion due to acute pancreatitis nephrology following Follow BMP follow urine output Insulin dependent type 2 diabetes mellitus SSI, lantus at bedtime, POCs Hyperkalemia resolved after lokelma pseudo hypocalcemia normal calcium when corrected for albumin HTN Continue metoprolol Hold valsartan d/t CARMEN HLD Hold statin, lofibra d/t elevated LFTs Full Code Attending:?Dr. Barrientos DVT Prophylaxis: Heparin requires ongoing inpatient stay for?acute pancreatitis with bowel rest, IVF, close monitoring and cholecystectomy planned for 02/28/23 Quality Stroke Does the patient have a stroke diagnosis?: No VTE Prior VTE?: No VTE Risk Level:: Medical - moderate - high VTE Device Contraindication: Treatment Not Indicated VTE Drug Contraindication: N/A - Med Ordered
[2023-02-27] MEDS: Lidocaine 4 % Patch ADH..PATCH 1 PATCH TRANSDERMA (09:49)
[2023-02-27 11:22] LABS: Glucose, Whole Blood 236 mg/dL (60-115)
--- NOTE | 2023-02-27 12:17 | P.PNGS_ITS ---
Subjective Subjective Date of Service: 02/27/23 Patient reports: afebrile Interval history: Patient evaluated with present. Feeling much better. Past flatus and stool yesterday. Tolerating his liquid diet. Physical Exam 2 Vital Signs: Vital Signs: Last Vital Signs Temp 98.7 F 02/27/23 07:55 Pulse 62 02/27/23 07:55 Resp 18 02/27/23 07:55 BP 162/80 H 02/27/23 07:55 Pulse Ox 95 02/27/23 07:55 O2 Del Method Room Air 02/27/23 07:55 BMI result Body Mass Index 24.1 Chest: Other: Chest breath sounds bilaterally, HS 1 in 2- GI: Other: abdomen softer, mild epigastric tenderness. No evidence of any guarding, rebound, rigidity. Objective Data Active Medications Acetaminophen (Acetaminophen 325 Mg Tablet) 650 mg PO Q6H PRN PRN Reason: Pain, Mild (Pain Scale 1-3) Last Admin: 02/27/23 03:51 Dose: 650 mg Documented By: TIERNEY Benzonatate (Benzonatate 100 Mg Capsule) 100 mg PO TID PRN PRN Reason: Cough Cyanocobalamin (Cyanocobalamin (Vitamin B-12) 1,000 Mcg Tablet) 1,[address] [facility] Last Admin: 02/27/23 08:03 Dose: 1,000 mcg Documented By: KONRAD Dextrose (Dextrose 50 % 25 Gm/50 Ml Syringe) 25 gm IVPUSH Q15M PRN; Protocol PRN Reason: per Hypoglycemia Standing Ord. Docusate Sodium (Docusate Sodium 100 Mg Capsule) [address] [facility] Last Admin: 02/27/23 08:02 Dose: 100 mg Documented By: KONRAD Glucose (Glucose Gel 15 Gm Gel..Gram.) 15 gm PO Q15M PRN; Protocol PRN Reason: per Hypoglycemia Standing Ord. Heparin Sodium (Porcine) (Heparin Sodium,Porcine 5,000 Unit/Ml Vial) 5,[address] [facility] Last Admin: 02/27/23 03:51 Dose: 5,000 unit Documented By: TIERNEY Insulin Glargine (Insulin Glargine,Hum.Rec.Anlog 100 Unit/Ml 10 Ml Vial) [address] [facility] Last Admin: 02/26/23 20:47 Dose: 20 unit Documented By: TIERNEY Insulin Human Lispro (Insulin Lispro 100 Unit/Ml 3 Ml Vial) [address] [facility]; Protocol Last Admin: 02/27/23 11:24 Dose: 4 unit Documented By: KONRAD Insulin Human Lispro (Insulin Lispro 100 Unit/Ml 3 Ml Vial) [address] [facility] Last Admin: 02/27/23 11:24 Dose: 5 unit Documented By: KONRAD Latanoprost (Latanoprost 0.005 % Ophth Rocio 2.5 Ml Drops) 1 drop EYE-BOTH BID [facility] Last Admin: 02/27/23 08:04 Dose: 1 drop Documented By: KONRAD Lidocaine (Lidocaine 4 % Patch Adh..Patch) [address] [facility]; Protocol Last Admin: 02/27/23 09:49 Dose: 1 patch Documented By: KONRAD Loratadine (Loratadine 10 Mg Tablet) 10 mg PO DAILY PRN PRN Reason: itch Melatonin (Melatonin 3 Mg Tablet) 6 mg PO BEDTIME PRN PRN Reason: Insomnia Last Admin: 02/25/23 23:35 Dose: 6 mg Documented By: CASTILMalina Metoprolol Succinate (Metoprolol Succinate Er 100 Mg Tab.Er.24h) [address] [facility]; Protocol Last Admin: 02/27/23 08:02 Dose: 100 mg Documented By: KONRAD Non-Formulary Medication (Linaclotide [Linzess]) [address] [facility] Last Admin: 02/27/23 08:03 Dose: 290 mcg Documented By: KONRAD Ondansetron HCl (Ondansetron Hcl 4 Mg/2 Ml Vial) 4 mg IVPUSH Q8H PRN PRN Reason: Nausea and Vomiting Last Admin: 02/21/23 19:15 Dose: 4 mg Documented By: MICHAEL-LAURA Polyethylene Glycol (Polyethylene Glycol 3350 17 Gm Powd.Pack) 17 gm PO DAILY PRN PRN Reason: Constipation Senna (Sennosides 8.6 Mg Tablet) 8.[address] [facility] Last Admin: 02/26/23 20:21 Dose: 8.6 mg Documented By: TIERNEY Sodium Chloride (0.9 % Sodium Chloride Flush 3 Ml Syringe) [address] [facility] Last Admin: 02/27/23 08:03 Dose: 3 ml Documented By: KONRAD Tramadol HCl (Tramadol Hcl 50 Mg Tablet) 50 mg PO Q12H PRN PRN Reason: Pain, Moderate(Pain Scale 4-6) Last Admin: 02/27/23 08:05 Dose: 50 mg Documented By: KONRAD Labs 02/27/23 05:42 02/27/23 05:42 Labs: Laboratory Results - last 24 hr 02/26/23 02/26/23 02/26/23 05:09 16:00 20:20 MCV MCH MCHC RDW Plt Count MPV Absolute Nucleated RBC Nucleated RBC % (auto) Anion Gap Estim Creat Clear Calc Estimated GFR POC Glucose 355 H* 188 H Random Glucose Calcium Total Bilirubin 0.5 Direct Bilirubin 0.2 AST 27 ALT 27 Alkaline Phosphatase 74 Total Protein 6.2 L Albumin 2.9 L 02/27/23 02/27/23 02/27/23 05:42 07:09 11:18 MCV 85.4 MCH 27.8 MCHC 32.5 RDW 13.6 Plt Count 278 D MPV 10.8 Absolute Nucleated RBC 0.000 Nucleated RBC % (auto) 0.0 Anion Gap 15 Estim Creat Clear Calc 32.8 Estimated GFR 38 POC Glucose 201 H 236 H Random Glucose 192 H Calcium 8.7 Total Bilirubin Direct Bilirubin AST ALT Alkaline Phosphatase Total Protein Albumin Microbiology Microbiology Results: Microbiology 02/21/23 06:22 Blood Culture - Final Blood - Venous No growth after 5 days. 02/21/23 06:19 Blood Culture - Final Blood - Venous No growth after 5 days. Procedures Date of Service Date of Service: 02/27/23 Progress Note: A&P Assessment and plan (1) Gallstone pancreatitis: Status: Acute Plan Discussed with the patient his risks, benefits, alternatives of laparoscopic possible open cholecystectomy with cholangiogram tomorrow which included but not limited to bleeding, infection, numbness, pain, scarring, bowel or bile duct injury or leak and the patient was to proceed. All questions were answered. Arrangements will be made for surgery tomorrow. Time Spent With Patient Time: Total time managing care of this patient today ____ minutes. Quality Stroke Does the patient have a stroke diagnosis?: No VTE Prior VTE?: No VTE Risk Level:: Medical - moderate - high VTE Device Contraindication: Treatment Not Indicated VTE Drug Contraindication: N/A - Med Ordered
--- NOTE | 2023-02-27 13:30 | MHC.CM.PN ---
EMR REVIEWED. PER MD ROUNDS PT NOT MEDICALLY CLEARED FOR DC TOMORROW. PLAN FOR OR TOMORROW. CM WILL CONTINUE TO FOLLOW.
[2023-02-27 15:05] VITALS: BP 170/90; PULSE 70; RESP 18; TEMP 37.2; O2SAT 96
[2023-02-27 16:00] VITALS: BP 170/90; PULSE 70; RESP 18; TEMP 37.2
[2023-02-27] MEDS: Morphine Sulfate 2 MG/ML CARTRIDGE 1 MG IVPUSH ×2 (16:23→22:21)
--- NOTE | 2023-02-27 16:23 | P.PNNP_ITS ---
Subjective Subjective Date of Service: 02/27/23 Interval history: Feels better. All recent data reviewed Physical Exam 2 Vital Signs: Vital Signs: Last Vital Signs Temp 98.9 F 02/27/23 16:00 Pulse 70 02/27/23 16:00 Resp 18 02/27/23 16:00 BP 170/90 H 02/27/23 16:00 Pulse Ox 96 02/27/23 15:05 O2 Del Method Room Air 02/27/23 16:00 BMI result Body Mass Index 24.1 Const: General: no acute distress Eyes: EOM: EOMs intact bilaterally Neck: Neck: Yes supple Resp: Auscultation: diminished lung sounds Cardio: Rate: regular rate GI: Palpation (GI): Soft to palpation Neuro: General: moves all extremities Objective Data Labs 02/27/23 05:42 02/27/23 05:42 Labs: Laboratory Results - last 24 hr 02/26/23 02/27/23 02/27/23 20:20 05:42 07:09 WBC 11.6 H RBC 3.42 L Hgb 9.5 L Hct 29.2 L MCV 85.4 MCH 27.8 MCHC 32.5 RDW 13.6 Plt Count 278 D MPV 10.8 Absolute Nucleated RBC 0.000 Nucleated RBC % (auto) 0.0 Sodium 136 Potassium 4.0 Chloride 104 Carbon Dioxide 21 L Anion Gap 15 BUN 28 H Creatinine 1.76 H Estim Creat Clear Calc 32.8 Estimated GFR 38 POC Glucose 188 H 201 H Random Glucose 192 H Calcium 8.7 02/27/23 11:18 WBC RBC Hgb Hct MCV MCH MCHC RDW Plt Count MPV Absolute Nucleated RBC Nucleated RBC % (auto) Sodium Potassium Chloride Carbon Dioxide Anion Gap BUN Creatinine Estim Creat Clear Calc Estimated GFR POC Glucose 236 H Random Glucose Calcium Microbiology Microbiology Results: Microbiology 02/21/23 06:22 Blood - Venous Blood Culture - Final No growth after 5 days. 02/21/23 06:19 Blood - Venous Blood Culture - Final No growth after 5 days. Procedures Date of Service Date of Service: 02/27/23 Assessment & Plan Assessment and plan (1) CARMEN (acute kidney injury): Status: Acute Plan Acute kidney injury superimposed on chronic kidney disease. Acute kidney injury mostly due to tubular injury Baseline serum creatinine around 1.6-2 mg/dL. Renal function is currently close to baseline. Continue current supportive care for now Shall arrange close office F/U when D/Jc Progress Note: Quality Stroke Does the patient have a stroke diagnosis?: No
[2023-02-27 16:26] LABS: Glucose, Whole Blood 183 mg/dL (60-115)
--- NOTE | 2023-02-27 17:12 | PC.NURSE ---
BS 183 ,PA Carolyne Alegria notified,only 2 units per scale to be administered
--- NOTE | 2023-02-27 17:17 | PC.NURSE ---
BP elevated 177/80 pulse 67,medicated for abdominal pain with Morphine,SHER alcaraz notified,will administer Amlodipine as ordered
[2023-02-27] MEDS: amLODIPine Besylate 5 MG TABLET PO (17:22)
--- NOTE | 2023-02-27 17:32 | PC.NURSE ---
met patient daughter when returned to reassess pain,daughter stating she feels care is not as good today compare to yesterday,offerred assistance,answered all questions,explained the use of call conteh,encouraged pt to ask for assisance,made ARUNA Christiansen aware,will check on patient frequently
[2023-02-27] MEDS: Sennosides 8.6 MG TABLET PO (19:38)
[2023-02-27 20:29] LABS: Glucose, Whole Blood 233 mg/dL (60-115)
[2023-02-27] MEDS: Insulin Glargine,Hum.rec.anlog 100 UNIT/ML 10 ML VIAL 20 UNIT SUBCUT (22:23)
[2023-02-27 22:30] VITALS: BP 150/75; PULSE 64; RESP 20
[2023-02-27 23:37] VITALS: BP 152/76; PULSE 63; RESP 18; TEMP 36.7; O2SAT 95
[2023-02-28] VITALS (13 sets, daily range): BP systolic 105–172; BP diastolic 67–96; PULSE 68–87; RESP 14–18; TEMP 36.1–37.5; O2SAT 93–100
[2023-02-28] MEDS: Heparin Sodium,Porcine 5,000 UNIT/ML VIAL 5000 UNIT SUBCUT (02:55)
[2023-02-28] MEDS: HYDROmorphone HCl 0.5 MG/0.5 ML SYRINGE IVPUSH (03:24)
--- NOTE | 2023-02-28 03:28 | PC.NURSE ---
0255 pt stated to have 10/10 abdominal pain, morphine removed, however, noted dose too early per Q 6 hour order. alerted hospitalist on duty for okay give early d/t 10/10 pain, put in a one time dose for Dilaudid 0.5mg to be given and administered at 0325. Will continue to monitor
[2023-02-28 07:17] LABS: Glucose, Whole Blood 255 mg/dL (60-115)
[2023-02-28 07:43] LABS: Anion Gap 14 (12-20); Blood Urea Nitrogen 26 mg/dL (9-16); Calcium 8.7 mg/dL (8.4-10.2); Carbon Dioxide 21 mmol/L (22-29); Chloride 101 mmol/L (96-108); Creatinine Clr Calc Pharmacy 33.2; Estimated Glomerular Filt Rate 38; Glucose Random 222 mg/dL (60-115); Potassium 4.1 mmol/L (3.3-5.1); Sodium 132 mmol/L (135-145)
[2023-02-28] MEDS: Morphine Sulfate 2 MG/ML CARTRIDGE 1 MG IVPUSH ×3 (07:48→20:09)
[2023-02-28] MEDS: Metoprolol Succinate ER 100 MG TAB.ER.24H PO (07:52)
[2023-02-28] MEDS: Lidocaine 4 % Patch ADH..PATCH 1 PATCH TRANSDERMA (07:52)
[2023-02-28] MEDS: amLODIPine Besylate 5 MG TABLET PO (07:52)
[2023-02-28] MEDS: 0.9 % Sodium Chloride Flush 3 ML SYRINGE IVFLUSH ×3 (07:53→23:33)
[2023-02-28 08:47] LABS: Glucose, Whole Blood 208 mg/dL (60-115)
[2023-02-28] MEDS: Latanoprost 0.005 % Ophth Sol 2.5 ML DROPS 1 DROP EYE-BOTH ×2 (09:00→20:17)
[2023-02-28 11:24] LABS: Glucose, Whole Blood 216 mg/dL (60-115)
[2023-02-28 13:35] LABS: Glucose, Whole Blood 202 mg/dL (60-115)
--- NOTE | 2023-02-28 14:38 | HO.ANESPROP2 ---
HPI - Anesthesia Eval Consult details Narrative: 77-year-old male presenting for cholecystectomy laparoscopic due to presumed gallstone pancreatitis. Past history of CVA, no residual deficits. [facility] Active Problems Active Problems: All Active Problems (Updated 02/23/23 @ 13:49 by SHER Smyth) CARMEN (acute kidney injury) (Acute) Gallstone pancreatitis (Acute) CKD (chronic kidney disease) (Acute) Hyperkalemia (Acute) Choledocholithiasis (Acute) Pancreatitis (Acute) Gram-negative bacteremia (Acute) Acute cerebral infarction associated with systemic hypoxia or ischemia (Acute) Cerebrovascular accident (Acute) Past Medical History Medical History Cataract Arthritis Anemia [id number] kidney injury Holter monitor, abnormal Stroke HTN (hypertension) HLD (hyperlipidemia) Diabetes Bronchitis Family History Family history of problems with anesthesia: No Surgical History Surgical History Hx of colonoscopy History of laminectomy History of intestinal surgery History of Problems with Anesthesia: No Social History Social History Household Members: Spouse Housing: House Are you a primary career advisor to a significant other at home: No Do you presently have visiting nurse or other home services: No Alcohol intake: never Patient Tobacco Use Status: Former Tobacco user Quit Date: 60 yrs ago Tobacco use type: Cigarette Smoked in Last 30 Days: No e-Cigarette/Vaping Use: Former Use Second Hand Smoke Exposure: No Use of substances other than those prescribed or required for medical reasons: No Currently Displaying Signs/Symptoms of Drug Intoxication Withdrawal: No Have you been hit, kicked, punched, or otherwise hurt by someone within the past year? If so, by whom?: No Do you feel safe in your current relationship?: Yes Is there a partner from a previous relationship who is making you feel unsafe now?: No Are you made to feel afraid or neglected: No Are you DNR?: No Advance Directives: No Advance Directives Information Provided: No Advance Directives Date on File: 08/23/20 Do you have thoughts of harming others: None Do you have a plan to hurt others: No Plan Recently lost weight without trying: No Nutrition Risks: No Nutritional Risk Poor oral hygiene: No service: No Current occupational status: retired Meds Allergies Allergy/AdvReac Type Severity Reaction Status Date / Time No Known Allergies Allergy Mild NOT Verified 02/21/23 04:57 APPLICABLE Active Medications: Current Medications Acetaminophen (Acetaminophen 325 Mg Tablet) 650 mg PO Q6H PRN PRN Reason: Pain, Mild (Pain Scale 1-3) Last Admin: 02/27/23 17:31 Dose: 650 mg Amlodipine Besylate (Amlodipine Besylate 5 Mg Tablet) 5 mg PO DAILY [facility]; Protocol Last Admin: 02/28/23 07:52 Dose: 5 mg Benzonatate (Benzonatate 100 Mg Capsule) 100 mg PO TID PRN PRN Reason: Cough Cyanocobalamin (Cyanocobalamin (Vitamin B-12) 1,000 Mcg Tablet) 1,000 mcg PO DAILY [facility] Last Admin: 02/28/23 08:54 Dose: Not Given Dextrose (Dextrose 50 % 25 Gm/50 Ml Syringe) 25 gm IVPUSH Q15M PRN; Protocol PRN Reason: per Hypoglycemia Standing Ord. Docusate Sodium (Docusate Sodium 100 Mg Capsule) 100 mg PO DAILY [facility] Last Admin: 02/28/23 08:54 Dose: Not Given Glucose (Glucose Gel 15 Gm Gel..Gram.) 15 gm PO Q15M PRN; Protocol PRN Reason: per Hypoglycemia Standing Ord. Heparin Sodium (Porcine) (Heparin Sodium,Porcine 5,000 Unit/Ml Vial) 5,000 unit SUBCUT Q12H [facility] Last Admin: 02/28/23 14:01 Dose: Not Given Insulin Glargine (Insulin Glargine,Hum.Rec.Anlog 100 Unit/Ml 10 Ml Vial) 20 unit SUBCUT BEDTIME [facility] Last Admin: 02/27/23 22:23 Dose: 20 unit Insulin Human Lispro (Insulin Lispro 100 Unit/Ml 3 Ml Vial) 0 unit SUBCUT QIDACHS [facility]; Protocol Last Admin: 02/28/23 11:29 Dose: Not Given Insulin Human Lispro (Insulin Lispro 100 Unit/Ml 3 Ml Vial) 5 unit SUBCUT QIDACHS [facility] Last Admin: 02/28/23 11:29 Dose: Not Given Latanoprost (Latanoprost 0.005 % Ophth Rocio 2.5 Ml Drops) 1 drop EYE-BOTH BID [facility] Last Admin: 02/28/23 09:00 Dose: 1 drop Lidocaine (Lidocaine 4 % Patch Adh..Patch) 1 patch TRANSDERMA DAILY [facility]; Protocol Last Admin: 02/28/23 07:52 Dose: 1 patch Loratadine (Loratadine 10 Mg Tablet) 10 mg PO DAILY PRN PRN Reason: itch Melatonin (Melatonin 3 Mg Tablet) 6 mg PO BEDTIME PRN PRN Reason: Insomnia Last Admin: 02/25/23 23:35 Dose: 6 mg Metoprolol Succinate (Metoprolol Succinate Er 100 Mg Tab.Er.24h) 100 mg PO DAILY [facility]; Protocol Last Admin: 02/28/23 07:52 Dose: 100 mg Morphine Sulfate (Morphine Sulfate 2 Mg/Ml Cartridge) 1 mg IVPUSH Q6H PRN; Protocol PRN Reason: Pain, Moderate(Pain Scale 4-6) Last Admin: 02/28/23 12:08 Dose: 1 mg Non-Formulary Medication (Linaclotide [Linzess]) 290 mcg PO DAILY [facility] Last Admin: 02/28/23 07:52 Dose: 290 mcg Ondansetron HCl (Ondansetron Hcl 4 Mg/2 Ml Vial) 4 mg IVPUSH Q8H PRN PRN Reason: Nausea and Vomiting Last Admin: 02/21/23 19:15 Dose: 4 mg Polyethylene Glycol (Polyethylene Glycol 3350 17 Gm Powd.Pack) 17 gm PO DAILY PRN PRN Reason: Constipation Senna (Sennosides 8.6 Mg Tablet) 8.6 mg PO BEDTIME [facility] Last Admin: 02/27/23 19:38 Dose: 8.6 mg Sodium Chloride (0.9 % Sodium Chloride Flush 3 Ml Syringe) [facility] Last Admin: 02/28/23 07:53 Dose: 3 ml Tramadol HCl (Tramadol Hcl 50 Mg Tablet) 50 mg PO Q12H PRN PRN Reason: Pain, Moderate(Pain Scale 4-6) Last Admin: 02/27/23 19:41 Dose: 50 mg Home Medications Medication Instructions Recorded Confirmed Last Taken Type cyanocobalamin (vitamin B-12) 1,000 mcg PO DAILY 02/21/23 02/21/23 02/20/23 History 1,000 mcg tablet fenofibrate nanocrystallized 145 145 mg PO DAILY 02/21/23 02/21/23 02/20/23 History mg tablet ferrous sulfate 325 mg (65 mg 325 mg PO DAILY 02/21/23 02/21/23 02/20/23 History iron) tablet insulin glargine 100 unit/mL (3 8 unit subcut DAILY 02/21/23 02/21/23 02/20/23 History mL) subcutaneous pen (Basaglar KwikPen U-100 Insulin) insulin glargine 100 unit/mL (3 20 unit subcut BEDTIME 02/21/23 02/21/23 02/20/23 History mL) subcutaneous pen (Basaglar KwikPen U-100 Insulin) latanoprost 0.005 % eye drops 1 drp ophthalmic (eye) BID 02/21/23 02/21/23 02/20/23 History lidocaine 5 % topical patch 1 - 3 patch topical Q24H 02/21/23 02/21/23 02/20/23 History linaclotide 290 mcg capsule 290 mcg PO DAILY 02/21/23 02/21/23 02/20/23 History (Linzess) loratadine 10 mg tablet 10 mg PO DAILY PRN itch 02/21/23 02/21/23 02/20/23 History metoprolol succinate 100 mg 100 mg PO DAILY 02/21/23 02/21/23 02/20/23 History tablet,extended release 24 hr omeprazole 20 mg capsule,delayed 20 mg PO DAILY 02/21/23 02/21/23 02/20/23 History release simvastatin 40 mg tablet 40 mg PO BEDTIME 02/21/23 02/21/23 02/20/23 History valsartan 40 mg tablet 40 mg PO DAILY 02/21/23 02/21/23 02/20/23 History Exam Height,Weight and Vital Signs: Height 5 ft 7 in Weight 153 lb 10.595 oz Last Vital Signs Temp 99.5 F 02/28/23 13:14 Pulse 68 02/28/23 13:14 Resp 16 02/28/23 13:14 BP 149/67 H 02/28/23 13:14 Pulse Ox 95 02/28/23 14:26 O2 Del Method Nasal Cannula 02/28/23 14:26 O2 Flow Rate 2 02/28/23 14:26 Pertinent Lab Results Pertinent Lab Results: Laboratory Tests 02/21/23 02/21/23 02/21/23 04:56 05:13 05:17 WBC 13.8 H RBC 4.42 L Hgb 12.6 L Hct 39.1 L MCV 88.5 MCH 28.5 MCHC 32.2 RDW 12.9 Plt Count 248 MPV 9.6 Immature Gran % (Auto) 0.4 Neut % (Auto) 85.8 H Lymph % (Auto) 7.0 L [place] % (Auto) 6.6 Eos % (Auto) 0.1 Baso % (Auto) 0.1 Lymph # (Auto) 1.0 L [place] # (Auto) 0.9 Eos # (Auto) 0.0 Baso # (Auto) 0.0 Abs Immat Gran (auto) 0.06 H Absolute Neuts (auto) 11.9 H Absolute Nucleated RBC 0.000 Nucleated RBC % (auto) 0.0 Hold Purple Top Sodium 138 Potassium 5.7 H D Chloride 106 Carbon Dioxide 23 Anion Gap 15 BUN 42 H Creatinine 2.99 H Estim Creat Clear Calc 19.3 Estimated GFR 20 POC Glucose 178 H Random Glucose 231 H Lactic Acid Calcium 9.4 Total Bilirubin 1.5 H Direct Bilirubin 1.1 H AST 228 H ALT 116 H Alkaline Phosphatase 67 Total Protein 7.8 Albumin 4.6 Triglycerides 148 Cholesterol 176 LDL Cholesterol, Calc 103 H HDL Cholesterol 44 Lipase > 3000 H Urine Color Urine Appearance Urine pH Ur Specific [place] Urine Protein Urine Glucose (UA) Urine Ketones Urine Blood Urine Nitrite Ur Leukocyte Esterase Urine RBC Urine WBC Ur Squamous Epith Cells Urine Bacteria Hyaline Casts Influenza Type A (PCR) NEGATIVE Influenza Type B (PCR) NEGATIVE RSV RNA Qual (PCR) NEGATIVE SARS-CoV-2 RNA (RT-PCR) NEGATIVE 02/21/23 02/21/23 02/21/23 06:19 07:50 09:21 WBC RBC Hgb Hct MCV MCH MCHC RDW Plt Count MPV Immature Gran % (Auto) Neut % (Auto) Lymph % (Auto) [place] % (Auto) Eos % (Auto) Baso % (Auto) Lymph # (Auto) [place] # (Auto) Eos # (Auto) Baso # (Auto) Abs Immat Gran (auto) Absolute Neuts (auto) Absolute Nucleated RBC Nucleated RBC % (auto) Hold Purple Top Sodium 139 Potassium 5.3 H Chloride 106 Carbon Dioxide 24 Anion Gap 14 BUN 41 H Creatinine 2.82 H Estim Creat Clear Calc 20.5 Estimated GFR 22 POC Glucose Random Glucose 199 H Lactic Acid 1.6 Calcium 9.1 Total Bilirubin Direct Bilirubin AST ALT Alkaline Phosphatase Total Protein Albumin Triglycerides Cholesterol LDL Cholesterol, Calc HDL Cholesterol Lipase Urine Color Dark Yellow Urine Appearance Clear Urine pH 5.5 Ur Specific [place] 1.020 Urine Protein 30 (1+) H Urine Glucose (UA) Negative Urine Ketones Negative Urine Blood Negative Urine Nitrite Negative Ur Leukocyte Esterase Negative Urine RBC 0-2 Urine WBC 0-5 Ur Squamous Epith Cells 0-2 Urine Bacteria None Seen Hyaline Casts 0-2 Influenza Type A (PCR) Influenza Type B (PCR) RSV RNA Qual (PCR) SARS-CoV-2 RNA (RT-PCR) 02/21/23 02/21/23 02/22/23 12:01 20:56 05:43 WBC 16.0 H RBC 4.21 L Hgb 11.9 L Hct 37.4 L MCV 88.8 MCH 28.3 MCHC 31.8 RDW 13.7 Plt Count 237 MPV 10.2 Immature Gran % (Auto) Neut % (Auto) Lymph % (Auto) [place] % (Auto) Eos % (Auto) Baso % (Auto) Lymph # (Auto) [place] # (Auto) Eos # (Auto) Baso # (Auto) Abs Immat Gran (auto) Absolute Neuts (auto) Absolute Nucleated RBC 0.000 Nucleated RBC % (auto) 0.0 Hold Purple Top Sodium 144 Potassium 4.9 Chloride 112 H Carbon Dioxide 24 Anion Gap 13 BUN 41 H Creatinine 2.48 H Estim Creat Clear Calc 23.3 Estimated GFR 25 POC Glucose 138 H 116 H Random Glucose 105 Lactic Acid Calcium 8.5 D Total Bilirubin 0.9 Direct Bilirubin 0.5 AST 130 H ALT 117 H Alkaline Phosphatase 61 Total Protein 6.6 Albumin 3.7 Triglycerides Cholesterol LDL Cholesterol, Calc HDL Cholesterol Lipase 1850 H Urine Color Urine Appearance Urine pH Ur Specific [place] Urine Protein Urine Glucose (UA) Urine Ketones Urine Blood Urine Nitrite Ur Leukocyte Esterase Urine RBC Urine WBC Ur Squamous Epith Cells Urine Bacteria Hyaline Casts Influenza Type A (PCR) Influenza Type B (PCR) RSV RNA Qual (PCR) SARS-CoV-2 RNA (RT-PCR) 02/22/23 02/22/23 02/22/23 07:23 11:36 16:25 WBC RBC Hgb Hct MCV MCH MCHC RDW Plt Count MPV Immature Gran % (Auto) Neut % (Auto) Lymph % (Auto) [place] % (Auto) Eos % (Auto) Baso % (Auto) Lymph # (Auto) [place] # (Auto) Eos # (Auto) Baso # (Auto) Abs Immat Gran (auto) Absolute Neuts (auto) Absolute Nucleated RBC Nucleated RBC % (auto) Hold Purple Top Sodium Potassium Chloride Carbon Dioxide Anion Gap BUN Creatinine Estim Creat Clear Calc Estimated GFR POC Glucose 109 110 130 H Random Glucose Lactic Acid Calcium Total Bilirubin Direct Bilirubin AST ALT Alkaline Phosphatase Total Protein Albumin Triglycerides Cholesterol LDL Cholesterol, Calc HDL Cholesterol Lipase Urine Color Urine Appearance Urine pH Ur Specific [place] Urine Protein Urine Glucose (UA) Urine Ketones Urine Blood Urine Nitrite Ur Leukocyte Esterase Urine RBC Urine WBC Ur Squamous Epith Cells Urine Bacteria Hyaline Casts Influenza Type A (PCR) Influenza Type B (PCR) RSV RNA Qual (PCR) SARS-CoV-2 RNA (RT-PCR) 02/22/23 02/23/23 02/23/23 20:46 00:07 05:55 WBC 13.9 H RBC 3.52 L Hgb 10.0 L Hct 31.7 L MCV 90.1 MCH 28.4 MCHC 31.5 RDW 14.0 Plt Count 191 MPV 10.7 Immature Gran % (Auto) 0.5 H Neut % (Auto) 83.2 H Lymph % (Auto) 9.6 L [place] % (Auto) 6.6 Eos % (Auto) 0.0 Baso % (Auto) 0.1 Lymph # (Auto) 1.3 [place] # (Auto) 0.9 Eos # (Auto) 0.0 Baso # (Auto) 0.0 Abs Immat Gran (auto) 0.07 H Absolute Neuts (auto) 11.5 H Absolute Nucleated RBC 0.000 Nucleated RBC % (auto) 0.0 Hold Purple Top Sodium 141 Potassium 4.6 Chloride 111 H Carbon Dioxide 20 L Anion Gap 15 BUN 57 H Creatinine 3.66 H Estim Creat Clear Calc 15.8 Estimated GFR 16 POC Glucose 156 H 142 H Random Glucose 160 H Lactic Acid Calcium 8.1 L Total Bilirubin 0.6 Direct Bilirubin 0.4 AST 47 H ALT 64 H Alkaline Phosphatase 56 Total Protein 5.8 L Albumin 3.1 L Triglycerides Cholesterol LDL Cholesterol, Calc HDL Cholesterol Lipase 281 H Urine Color Urine Appearance Urine pH Ur Specific [place] Urine Protein Urine Glucose (UA) Urine Ketones Urine Blood Urine Nitrite Ur Leukocyte Esterase Urine RBC Urine WBC Ur Squamous Epith Cells Urine Bacteria Hyaline Casts Influenza Type A (PCR) Influenza Type B (PCR) RSV RNA Qual (PCR) SARS-CoV-2 RNA (RT-PCR) 02/23/23 02/23/23 02/23/23 07:04 11:10 16:47 WBC RBC Hgb Hct MCV MCH MCHC RDW Plt Count MPV Immature Gran % (Auto) Neut % (Auto) Lymph % (Auto) [place] % (Auto) Eos % (Auto) Baso % (Auto) Lymph # (Auto) [place] # (Auto) Eos # (Auto) Baso # (Auto) Abs Immat Gran (auto) Absolute Neuts (auto) Absolute Nucleated RBC Nucleated RBC % (auto) Hold Purple Top Sodium Potassium Chloride Carbon Dioxide Anion Gap BUN Creatinine Estim Creat Clear Calc Estimated GFR POC Glucose 157 H 171 H 178 H Random Glucose Lactic Acid Calcium Total Bilirubin Direct Bilirubin AST ALT Alkaline Phosphatase Total Protein Albumin Triglycerides Cholesterol LDL Cholesterol, Calc HDL Cholesterol Lipase Urine Color Urine Appearance Urine pH Ur Specific [place] Urine Protein Urine Glucose (UA) Urine Ketones Urine Blood Urine Nitrite Ur Leukocyte Esterase Urine RBC Urine WBC Ur Squamous Epith Cells Urine Bacteria Hyaline Casts Influenza Type A (PCR) Influenza Type B (PCR) RSV RNA Qual (PCR) SARS-CoV-2 RNA (RT-PCR) 02/23/23 02/24/23 02/24/23 20:12 05:19 07:02 WBC 11.4 H RBC 3.60 L Hgb 10.1 L Hct 31.7 L MCV 88.1 MCH 28.1 MCHC 31.9 RDW 14.0 Plt Count 196 MPV 10.4 Immature Gran % (Auto) 0.5 H Neut % (Auto) 79.8 H Lymph % (Auto) 10.1 L [place] % (Auto) 9.5 Eos % (Auto) 0.0 Baso % (Auto) 0.1 Lymph # (Auto) 1.2 [place] # (Auto) 1.1 Eos # (Auto) 0.0 Baso # (Auto) 0.0 Abs Immat Gran (auto) 0.06 H Absolute Neuts (auto) 9.1 H Absolute Nucleated RBC 0.000 Nucleated RBC % (auto) 0.0 Hold Purple Top Sodium 142 Potassium 4.4 Chloride 112 H Carbon Dioxide 21 L Anion Gap 13 BUN 51 H Creatinine 2.79 H Estim Creat Clear Calc 20.7 Estimated GFR 22 POC Glucose 192 H 164 H Random Glucose 164 H Lactic Acid Calcium 9.0 D Total Bilirubin 0.5 Direct Bilirubin 0.2 AST 28 ALT 44 H Alkaline Phosphatase 60 Total Protein 6.4 L Albumin 3.2 L Triglycerides Cholesterol LDL Cholesterol, Calc HDL Cholesterol Lipase 112 H Urine Color Urine Appearance Urine pH Ur Specific [place] Urine Protein Urine Glucose (UA) Urine Ketones Urine Blood Urine Nitrite Ur Leukocyte Esterase Urine RBC Urine WBC Ur Squamous Epith Cells Urine Bacteria Hyaline Casts Influenza Type A (PCR) Influenza Type B (PCR) RSV RNA Qual (PCR) SARS-CoV-2 RNA (RT-PCR) 02/24/23 02/24/23 02/24/23 11:05 15:59 20:44 WBC RBC Hgb Hct MCV MCH MCHC RDW Plt Count MPV Immature Gran % (Auto) Neut % (Auto) Lymph % (Auto) [place] % (Auto) Eos % (Auto) Baso % (Auto) Lymph # (Auto) [place] # (Auto) Eos # (Auto) Baso # (Auto) Abs Immat Gran (auto) Absolute Neuts (auto) Absolute Nucleated RBC Nucleated RBC % (auto) Hold Purple Top Sodium Potassium Chloride Carbon Dioxide Anion Gap BUN Creatinine Estim Creat Clear Calc Estimated GFR POC Glucose 171 H 166 H 186 H Random Glucose Lactic Acid Calcium Total Bilirubin Direct Bilirubin AST ALT Alkaline Phosphatase Total Protein Albumin Triglycerides Cholesterol LDL Cholesterol, Calc HDL Cholesterol Lipase Urine Color Urine Appearance Urine pH Ur Specific [place] Urine Protein Urine Glucose (UA) Urine Ketones Urine Blood Urine Nitrite Ur Leukocyte Esterase Urine RBC Urine WBC Ur Squamous Epith Cells Urine Bacteria Hyaline Casts Influenza Type A (PCR) Influenza Type B (PCR) RSV RNA Qual (PCR) SARS-CoV-2 RNA (RT-PCR) 02/25/23 02/25/23 02/25/23 05:33 07:39 11:34 WBC RBC Hgb Hct MCV MCH MCHC RDW Plt Count MPV Immature Gran % (Auto) Neut % (Auto) Lymph % (Auto) [place] % (Auto) Eos % (Auto) Baso % (Auto) Lymph # (Auto) [place] # (Auto) Eos # (Auto) Baso # (Auto) Abs Immat Gran (auto) Absolute Neuts (auto) Absolute Nucleated RBC Nucleated RBC % (auto) Hold Purple Top SEE NOTE Sodium 142 Potassium 4.2 Chloride 109 H Carbon Dioxide 21 L Anion Gap 16 BUN 42 H Creatinine 2.09 H Estim Creat Clear Calc 27.6 Estimated GFR 31 POC Glucose 192 H 171 H Random Glucose 177 H Lactic Acid Calcium 9.2 Total Bilirubin Direct Bilirubin AST ALT Alkaline Phosphatase Total Protein Albumin Triglycerides Cholesterol LDL Cholesterol, Calc HDL Cholesterol Lipase Urine Color Urine Appearance Urine pH Ur Specific [place] Urine Protein Urine Glucose (UA) Urine Ketones Urine Blood Urine Nitrite Ur Leukocyte Esterase Urine RBC Urine WBC Ur Squamous Epith Cells Urine Bacteria Hyaline Casts Influenza Type A (PCR) Influenza Type B (PCR) RSV RNA Qual (PCR) SARS-CoV-2 RNA (RT-PCR) 02/25/23 02/25/23 02/26/23 16:42 20:50 05:09 WBC RBC Hgb Hct MCV MCH MCHC RDW Plt Count MPV Immature Gran % (Auto) Neut % (Auto) Lymph % (Auto) [place] % (Auto) Eos % (Auto) Baso % (Auto) Lymph # (Auto) [place] # (Auto) Eos # (Auto) Baso # (Auto) Abs Immat Gran (auto) Absolute Neuts (auto) Absolute Nucleated RBC Nucleated RBC % (auto) Hold Purple Top Sodium 136 Potassium 4.5 Chloride 106 Carbon Dioxide 20 L Anion Gap 15 BUN 33 H Creatinine 1.83 H Estim Creat Clear Calc 31.6 Estimated GFR 36 POC Glucose 316 H 267 H Random Glucose 258 H Lactic Acid Calcium 8.8 Total Bilirubin 0.5 Direct Bilirubin 0.2 AST 27 ALT 27 Alkaline Phosphatase 74 Total Protein 6.2 L Albumin 2.9 L Triglycerides Cholesterol LDL Cholesterol, Calc HDL Cholesterol Lipase Urine Color Urine Appearance Urine pH Ur Specific [place] Urine Protein Urine Glucose (UA) Urine Ketones Urine Blood Urine Nitrite Ur Leukocyte Esterase Urine RBC Urine WBC Ur Squamous Epith Cells Urine Bacteria Hyaline Casts Influenza Type A (PCR) Influenza Type B (PCR) RSV RNA Qual (PCR) SARS-CoV-2 RNA (RT-PCR) 02/26/23 02/26/23 02/26/23 07:19 11:19 16:00 WBC RBC Hgb Hct MCV MCH MCHC RDW Plt Count MPV Immature Gran % (Auto) Neut % (Auto) Lymph % (Auto) [place] % (Auto) Eos % (Auto) Baso % (Auto) Lymph # (Auto) [place] # (Auto) Eos # (Auto) Baso # (Auto) Abs Immat Gran (auto) Absolute Neuts (auto) Absolute Nucleated RBC Nucleated RBC % (auto) Hold Purple Top Sodium Potassium Chloride Carbon Dioxide Anion Gap BUN Creatinine Estim Creat Clear Calc Estimated GFR POC Glucose 275 H 245 H 355 H* Random Glucose Lactic Acid Calcium Total Bilirubin Direct Bilirubin AST ALT Alkaline Phosphatase Total Protein Albumin Triglycerides Cholesterol LDL Cholesterol, Calc HDL Cholesterol Lipase Urine Color Urine Appearance Urine pH Ur Specific [place] Urine Protein Urine Glucose (UA) Urine Ketones Urine Blood Urine Nitrite Ur Leukocyte Esterase Urine RBC Urine WBC Ur Squamous Epith Cells Urine Bacteria Hyaline Casts Influenza Type A (PCR) Influenza Type B (PCR) RSV RNA Qual (PCR) SARS-CoV-2 RNA (RT-PCR) 02/26/23 02/27/23 02/27/23 20:20 05:42 07:09 WBC 11.6 H RBC 3.42 L Hgb 9.5 L Hct 29.2 L MCV 85.4 MCH 27.8 MCHC 32.5 RDW 13.6 Plt Count 278 D MPV 10.8 Immature Gran % (Auto) Neut % (Auto) Lymph % (Auto) [place] % (Auto) Eos % (Auto) Baso % (Auto) Lymph # (Auto) [place] # (Auto) Eos # (Auto) Baso # (Auto) Abs Immat Gran (auto) Absolute Neuts (auto) Absolute Nucleated RBC 0.000 Nucleated RBC % (auto) 0.0 Hold Purple Top Sodium 136 Potassium 4.0 Chloride 104 Carbon Dioxide 21 L Anion Gap 15 BUN 28 H Creatinine 1.76 H Estim Creat Clear Calc 32.8 Estimated GFR 38 POC Glucose 188 H 201 H Random Glucose 192 H Lactic Acid Calcium 8.7 Total Bilirubin Direct Bilirubin AST ALT Alkaline Phosphatase Total Protein Albumin Triglycerides Cholesterol LDL Cholesterol, Calc HDL Cholesterol Lipase Urine Color Urine Appearance Urine pH Ur Specific [place] Urine Protein Urine Glucose (UA) Urine Ketones Urine Blood Urine Nitrite Ur Leukocyte Esterase Urine RBC Urine WBC Ur Squamous Epith Cells Urine Bacteria Hyaline Casts Influenza Type A (PCR) Influenza Type B (PCR) RSV RNA Qual (PCR) SARS-CoV-2 RNA (RT-PCR) 02/27/23 02/27/23 02/27/23 11:18 16:22 20:24 WBC RBC Hgb Hct MCV MCH MCHC RDW Plt Count MPV Immature Gran % (Auto) Neut % (Auto) Lymph % (Auto) [place] % (Auto) Eos % (Auto) Baso % (Auto) Lymph # (Auto) [place] # (Auto) Eos # (Auto) Baso # (Auto) Abs Immat Gran (auto) Absolute Neuts (auto) Absolute Nucleated RBC Nucleated RBC % (auto) Hold Purple Top Sodium Potassium Chloride Carbon Dioxide Anion Gap BUN Creatinine Estim Creat Clear Calc Estimated GFR POC Glucose 236 H 183 H 233 H Random Glucose Lactic Acid Calcium Total Bilirubin Direct Bilirubin AST ALT Alkaline Phosphatase Total Protein Albumin Triglycerides Cholesterol LDL Cholesterol, Calc HDL Cholesterol Lipase Urine Color Urine Appearance Urine pH Ur Specific [place] Urine Protein Urine Glucose (UA) Urine Ketones Urine Blood Urine Nitrite Ur Leukocyte Esterase Urine RBC Urine WBC Ur Squamous Epith Cells Urine Bacteria Hyaline Casts Influenza Type A (PCR) Influenza Type B (PCR) RSV RNA Qual (PCR) SARS-CoV-2 RNA (RT-PCR) 02/28/23 02/28/23 02/28/23 05:35 06:59 08:42 WBC RBC Hgb Hct MCV MCH MCHC RDW Plt Count MPV Immature Gran % (Auto) Neut % (Auto) Lymph % (Auto) [place] % (Auto) Eos % (Auto) Baso % (Auto) Lymph # (Auto) [place] # (Auto) Eos # (Auto) Baso # (Auto) Abs Immat Gran (auto) Absolute Neuts (auto) Absolute Nucleated RBC Nucleated RBC % (auto) Hold Purple Top SEE NOTE Sodium 132 L Potassium 4.1 Chloride 101 Carbon Dioxide 21 L Anion Gap 14 BUN 26 H Creatinine 1.74 H Estim Creat Clear Calc 33.2 Estimated GFR 38 POC Glucose 255 H 208 H Random Glucose 222 H Lactic Acid Calcium 8.7 Total Bilirubin Direct Bilirubin AST ALT Alkaline Phosphatase Total Protein Albumin Triglycerides Cholesterol LDL Cholesterol, Calc HDL Cholesterol Lipase Urine Color Urine Appearance Urine pH Ur Specific [place] Urine Protein Urine Glucose (UA) Urine Ketones Urine Blood Urine Nitrite Ur Leukocyte Esterase Urine RBC Urine WBC Ur Squamous Epith Cells Urine Bacteria Hyaline Casts Influenza Type A (PCR) Influenza Type B (PCR) RSV RNA Qual (PCR) SARS-CoV-2 RNA (RT-PCR) 02/28/23 02/28/23 11:19 13:31 WBC RBC Hgb Hct MCV MCH MCHC RDW Plt Count MPV Immature Gran % (Auto) Neut % (Auto) Lymph % (Auto) [place] % (Auto) Eos % (Auto) Baso % (Auto) Lymph # (Auto) [place] # (Auto) Eos # (Auto) Baso # (Auto) Abs Immat Gran (auto) Absolute Neuts (auto) Absolute Nucleated RBC Nucleated RBC % (auto) Hold Purple Top Sodium Potassium Chloride Carbon Dioxide Anion Gap BUN Creatinine Estim Creat Clear Calc Estimated GFR POC Glucose 216 H 202 H Random Glucose Lactic Acid Calcium Total Bilirubin Direct Bilirubin AST ALT Alkaline Phosphatase Total Protein Albumin Triglycerides Cholesterol LDL Cholesterol, Calc HDL Cholesterol Lipase Urine Color Urine Appearance Urine pH Ur Specific [place] Urine Protein Urine Glucose (UA) Urine Ketones Urine Blood Urine Nitrite Ur Leukocyte Esterase Urine RBC Urine WBC Ur Squamous Epith Cells Urine Bacteria Hyaline Casts Influenza Type A (PCR) Influenza Type B (PCR) RSV RNA Qual (PCR) SARS-CoV-2 RNA (RT-PCR) Airway Mallampati Class: II TM Dist: >3cm Denture: Upper and Lower Assessment and Plan Assessment Anesthesia Assessment: Anesthesia Plan Discussed and Chart Reviewed Final Anesthetic Review Family History of Problems with Anesthesia: No History of Problems with Anesthesia: No NPO: Yes ASA Class: III Final Preanesthetic Review: No Changes in Pt Med Stat, Meds/Allgs Chart Reviewed, Consent Obtained/Reviewed and Anes Risks/Benef Reviewed Patient Risk: Intermediate Procedure Risk: Low Anesthetic Plan Anesthetic Plan: GA Disposition: Standard PACU
--- NOTE | 2023-02-28 16:05 | P.PNIM_ITS ---
Subjective Subjective Date of Service: 02/28/23 Interval History: seen and examined this morning follow up for abdominal pain history obtained with assistance of auto glass installer still with pain, but improving plan for cholecystectomy today Review of Systems Review of Systems: Yes all other systems are reviewed and are negative Constitutional Constitutional: Denies chills and Denies fever(s) Cardiovascular Cardiovascular: Denies chest pain Gastrointestinal Gastrointestinal: Reports abdominal pain Physical Exam 2 Vital Signs: Vital Signs: Last Vital Signs Temp 97.1 F 02/28/23 15:35 Pulse 74 02/28/23 15:50 Resp 16 02/28/23 15:50 BP 138/86 02/28/23 15:50 Pulse Ox 100 02/28/23 15:50 O2 Del Method Simple Mask 02/28/23 15:50 O2 Flow Rate 4 02/28/23 15:50 BMI result Body Mass Index 24.1 Const: General: cooperative, alert and awake Nutritional Appearance: a verage body habitus Orientation/consciousness: patient oriented x3 Resp: Effort & Inspection: normal respiratory effort, able to speak in complete sentences, no respiratory distress and no use of accessory muscles Cardio: Rate: regular rate Neuro: General: patient oriented x3 and moves all extremities Extrem: General: Yes no pedal edema Objective Data Active Medications Acetaminophen (Acetaminophen 325 Mg Tablet) 650 mg PO Q6H PRN PRN Reason: Pain, Mild (Pain Scale 1-3) Last Admin: 02/27/23 17:31 Dose: 650 mg Documented By: MIGEL Amlodipine Besylate (Amlodipine Besylate 5 Mg Tablet) 5 mg PO DAILY [facility]; Protocol Last Admin: 02/28/23 07:52 Dose: 5 mg Documented By: MARCELA Benzonatate (Benzonatate 100 Mg Capsule) 100 mg PO TID PRN PRN Reason: Cough Cyanocobalamin (Cyanocobalamin (Vitamin B-12) 1,000 Mcg Tablet) 1,000 mcg PO DAILY [facility] Last Admin: 02/28/23 08:54 Dose: Not Given Documented By: MARCELA Non-Admin Reason: NPO Dextrose (Dextrose 50 % 25 Gm/50 Ml Syringe) 25 gm IVPUSH Q15M PRN; Protocol PRN Reason: per Hypoglycemia Standing Ord. Docusate Sodium (Docusate Sodium 100 Mg Capsule) 100 mg PO DAILY [facility] Last Admin: 02/28/23 08:54 Dose: Not Given Documented By: MARCELA Non-Admin Reason: Patient Refused Glucose (Glucose Gel 15 Gm Gel..Gram.) 15 gm PO Q15M PRN; Protocol PRN Reason: per Hypoglycemia Standing Ord. Heparin Sodium (Porcine) (Heparin Sodium,Porcine 5,000 Unit/Ml Vial) 5,000 unit SUBCUT Q12H [facility] Last Admin: 02/28/23 14:01 Dose: Not Given Documented By: MARCELA Non-Admin Reason: Off Unit: Surgery Hydromorphone HCl (Hydromorphone Hcl 0.5 Mg/0.5 Ml Syringe) 0.25 mg IVPUSH Q5M PRN; Protocol PRN Reason: Pain, Severe (Pain Scale 7-10) Insulin Glargine (Insulin Glargine,Hum.Rec.Anlog 100 Unit/Ml 10 Ml Vial) 20 unit SUBCUT BEDTIME [facility] Last Admin: 02/27/23 22:23 Dose: 20 unit Documented By: MIGEL Insulin Human Lispro (Insulin Lispro 100 Unit/Ml 3 Ml Vial) 0 unit SUBCUT QIDACHS [facility]; Protocol Last Admin: 02/28/23 11:29 Dose: Not Given Documented By: MARCELA Non-Admin Reason: NPO Insulin Human Lispro (Insulin Lispro 100 Unit/Ml 3 Ml Vial) 5 unit SUBCUT QIDACHS [facility] Last Admin: 02/28/23 11:29 Dose: Not Given Documented By: MARCELA Non-Admin Reason: NPO Latanoprost (Latanoprost 0.005 % Ophth Rocio 2.5 Ml Drops) 1 drop EYE-BOTH BID [facility] Last Admin: 02/28/23 09:00 Dose: 1 drop Documented By: MARCELA Lidocaine (Lidocaine 4 % Patch Adh..Patch) 1 patch TRANSDERMA DAILY [facility]; Protocol Last Admin: 02/28/23 07:52 Dose: 1 patch Documented By: MARCELA Loratadine (Loratadine 10 Mg Tablet) 10 mg PO DAILY PRN PRN Reason: itch Melatonin (Melatonin 3 Mg Tablet) 6 mg PO BEDTIME PRN PRN Reason: Insomnia Last Admin: 02/25/23 23:35 Dose: 6 mg Documented By: CARLOSILMalina Metoprolol Succinate (Metoprolol Succinate Er 100 Mg Tab.Er.24h) 100 mg PO DAILY [facility]; Protocol Last Admin: 02/28/23 07:52 Dose: 100 mg Documented By: MARCELA Morphine Sulfate (Morphine Sulfate 2 Mg/Ml Cartridge) 1 mg IVPUSH Q6H PRN; Protocol PRN Reason: Pain, Moderate(Pain Scale 4-6) Last Admin: 02/28/23 12:08 Dose: 1 mg Documented By: MARCELA Non-Formulary Medication (Linaclotide [Linzess]) 290 mcg PO DAILY [facility] Last Admin: 02/28/23 07:52 Dose: 290 mcg Documented By: MARCELA Ondansetron HCl (Ondansetron Hcl 4 Mg/2 Ml Vial) 4 mg IVPUSH Q8H PRN PRN Reason: Nausea and Vomiting Last Admin: 02/21/23 19:15 Dose: 4 mg Documented By: CHRIS Ondansetron HCl (Ondansetron Hcl 4 Mg/2 Ml Vial) 4 mg IVPUSH ONCE PRN PRN Reason: Nausea and Vomiting Polyethylene Glycol (Polyethylene Glycol 3350 17 Gm Powd.Pack) 17 gm PO DAILY PRN PRN Reason: Constipation Senna (Sennosides 8.6 Mg Tablet) 8.6 mg PO BEDTIME [facility] Last Admin: 02/27/23 19:38 Dose: 8.6 mg Documented By: MIGEL Sodium Chloride (0.9 % Sodium Chloride Flush 3 Ml Syringe) 3 ml IVFLUSH QSHIFT [facility] Last Admin: 02/28/23 07:53 Dose: 3 ml Documented By: MARCELA Tramadol HCl (Tramadol Hcl 50 Mg Tablet) 50 mg PO Q12H PRN PRN Reason: Pain, Moderate(Pain Scale 4-6) Last Admin: 02/27/23 19:41 Dose: 50 mg Documented By: MIGEL Labs 02/27/23 05:42 02/28/23 05:35 Labs: Laboratory Results - last 24 hr 02/27/23 02/27/23 02/28/23 16:22 20:24 05:35 Hold Purple Top Anion Gap 14 Estim Creat Clear Calc 33.2 Estimated GFR 38 POC Glucose 183 H 233 H Random Glucose 222 H Calcium 8.7 02/28/23 02/28/23 02/28/23 06:59 08:42 11:19 Hold Purple Top SEE NOTE Anion Gap Estim Creat Clear Calc Estimated GFR POC Glucose 255 H 208 H 216 H Random Glucose Calcium 02/28/23 13:31 Hold Purple Top Anion Gap Estim Creat Clear Calc Estimated GFR POC Glucose 202 H Random Glucose Calcium Assessment and Plan (1) Gallstone pancreatitis: Status: Acute Plan Pt is a Moldovan-speaking 77-year-old male with a PMH significant for?CVA, CKD 4, hx of SBO in 2006, hx of ileus in 10/2020, HTN, HLD insulin-dependent type 2 diabetes mellitus, and GERD who presents to the ED with nausea, vomiting, and intense lower abdominal pain radiating to the back since last night. Pt will be admitted to the hospital for treatment and further evaluation of acute pancreatitis now with ileus Gallstone Pancreatitis LFTs wnl, lipase continue to trend down abdominal distention improved surgery following - plan for lap abida with cholangiogram 02/28/23 Back pain lidocaine patch heating pads Groin anasarca Likely from ileus, IV fluids, reduced movement encourage ambulation IV fluids stopped Ileus. Resolved repeat KUB showing improvement as per gen surg due to pancreatitis encouraged to ambulate, narcotics stopped surgery following rec clear diet CARMEN on CKD 4 resolved no obstruction on CT from 02/21. likely due to volume depletion due to acute pancreatitis nephrology following Insulin dependent type 2 diabetes mellitus SSI, premeal insulin, lantus at bedtime, POCs Hyperkalemia resolved after lokelma pseudo hypocalcemia normal calcium when corrected for albumin HTN Continue metoprolol Hold valsartan d/t CARMEN started on norvasc HLD Hold statin, lofibra d/t elevated LFTs Full Code Attending:?Dr. Barrientos DVT Prophylaxis: Heparin requires ongoing inpatient stay for?acute pancreatitis with bowel rest, IVF, close monitoring and cholecystectomy planned for 02/28/23 Quality Stroke Does the patient have a stroke diagnosis?: No VTE Prior VTE?: No VTE Risk Level:: Medical - moderate - high VTE Device Contraindication: Treatment Not Indicated VTE Drug Contraindication: N/A - Med Ordered
[2023-02-28 16:57] LABS: Glucose, Whole Blood 218 mg/dL (60-115)
[2023-02-28 20:05] LABS: Glucose, Whole Blood 330 mg/dL (60-115)
[2023-02-28] MEDS: Insulin Lispro 100 UNIT/ML 3 ML VIAL SUBCUT ×2 (20:13→20:15)
[2023-02-28] MEDS: Insulin Glargine,Hum.rec.anlog 100 UNIT/ML 10 ML VIAL 20 UNIT SUBCUT (20:14)
[2023-02-28] MEDS: Sennosides 8.6 MG TABLET PO (20:15)
--- NOTE | 2023-02-28 20:28 | PC.NURSE ---
Patient voided 120 ml ,bladder scanned by ARUNA Booker for 44 ml,will monitor
[2023-02-28] MEDS: Acetaminophen 325 MG TABLET 650 MG PO (23:42)
[2023-03-01 01:00] VITALS: TEMP 36.7
[2023-03-01] MEDS: Morphine Sulfate 2 MG/ML CARTRIDGE 1 MG IVPUSH ×4 (02:06→16:41)
[2023-03-01] MEDS: Heparin Sodium,Porcine 5,000 UNIT/ML VIAL 5000 UNIT SUBCUT ×2 (03:33→14:37)
[2023-03-01 06:22] LABS: Hematocrit 28.3 % (42.0-52.0); Hemoglobin 9.1 g/dl (14.0-18.0); Mean Corpuscular HGB Conc 32.2 g/dl (31.0-36.0); Mean Corpuscular Volume 87.1 fL (80.0-98.0); Mean Platelet Volume 10.7 fL (9.4-12.4); Platelet Count 359 X10*3/uL (160-400); Red Blood Count 3.25 X10*6/uL (4.60-5.80); Red Cell Distribution Width 13.8 % (11.0-16.0); White Blood Count 16.5 X10*3/uL (4.8-10.8)
[2023-03-01 06:32] LABS: Anion Gap 13 (12-20); Blood Urea Nitrogen 30 mg/dL (9-16); Calcium 8.2 mg/dL (8.4-10.2); Carbon Dioxide 23 mmol/L (22-29); Chloride 104 mmol/L (96-108); Estimated Glomerular Filt Rate 33; Glucose Random 231 mg/dL (60-115); Potassium 4.5 mmol/L (3.3-5.1); Sodium 135 mmol/L (135-145)
[2023-03-01] MEDS: traMADoL HCL 50 MG TABLET PO ×2 (07:35→20:18)
[2023-03-01 07:43] LABS: Glucose, Whole Blood 214 mg/dL (60-115)
[2023-03-01 07:49] VITALS: BP 147/69; PULSE 60; RESP 16; TEMP 36.7; O2SAT 96
[2023-03-01] MEDS: amLODIPine Besylate 5 MG TABLET PO (07:59)
[2023-03-01] MEDS: Metoprolol Succinate ER 100 MG TAB.ER.24H PO (07:59)
[2023-03-01] MEDS: Docusate Sodium 100 MG CAPSULE PO (07:59)
[2023-03-01] MEDS: Cyanocobalamin (Vitamin B-12) 1,000 MCG TABLET 1000 MCG PO (07:59)
[2023-03-01] MEDS: 0.9 % Sodium Chloride Flush 3 ML SYRINGE IVFLUSH ×3 (08:00→20:55)
[2023-03-01] MEDS: Lidocaine 4 % Patch ADH..PATCH 1 PATCH TRANSDERMA (08:00)
[2023-03-01] MEDS: Insulin Lispro 100 UNIT/ML 3 ML VIAL SUBCUT ×8 (08:01→20:54)
[2023-03-01] MEDS: Latanoprost 0.005 % Ophth Sol 2.5 ML DROPS 1 DROP EYE-BOTH ×2 (08:02→20:59)
[2023-03-01 09:42] LABS: Alanine Aminotransferase 68 U/L (0-40); Albumin Level 2.6 g/dL (3.5-5.0); Alkaline Phosphatase 92 U/L (39-117); Aspartate Amino Transferase 116 U/L (5-37); Bilirubin Direct 0.4 mg/dL (0.0-0.5); Bilirubin Total 0.5 mg/dL (0.0-1.0); Total Protein 5.6 g/dL (6.5-8.0)
--- NOTE | 2023-03-01 10:24 | P.OP_ITS ---
Operative Note Operative Note Date of Service: 02/28/23 Narrative: Preoperative diagnosis: [] Gallstone pancreatitis Postop diagnosis: [] same Procedure [] laparoscopic cholecystectomy Surgeon: [] [employer] Professional: [] Type of Anesthesia: [] general Indication for surgery: [ Gallstone pancreatitis Findings: [] Gallbladder with stones and sludge. Dense omental adhesions to the gallbladder. Very intrahepatic gallbladder. Procedure; patient brought to the operating room, placed on operative table in supine position, after adequate level of general anesthesia was induced, the patient's abdomen was prepped and draped in usual sterile fashion. Patient underwent a supraumbilical curvilinear incision where Cruz technique was used to insufflate the abdominal cavity to 15 mm of CO2. Upper midline and right subcostal ports were placed under direct laparoscopic view, and the patient placed in reverse Trendelenburg position, and tilted to the left. Findings were as noted above. Gallbladder was grasped using laparoscopic graspers and retracted superiorly and laterally. Dense omental adhesions were swept off the gallbladder where its hilum was approached. Cystic artery and cystic duct were each identified, circumferentially skeletonized, each traced directly into the gallbladder and critical view obtained. Each was clipped proximally x2, distally x1, and transected. Gallbladder was then cauterized from the gallbladder fossa using Alia. The gallbladder was markedly intrahepatic .A small posterior ascending arterial branch in the gallbladder fossa was clipped. Specimen was then placed in an Endo-Catch bag, and retrieved through the umbilical port. Abdominal cavity was very copiously irrigated secured hemostasis. Because of the markedly intrahepatic nature of the gallbladder, and some oozing in the gallbladder fossa, Surgicel was placed in the gallbladder fossa and a Cameron-Jara drain left in the gallbladder fossa and exited through the right lateral port site. This was secured to the skin using 2-0 nylon. Abdominal cavity was again secured hemostasis and copiously irrigated. All ports were removed under direct laparoscopic view. Wounds were closed in the following manner; umbilical wound has fascia reapproximated using interrupted 0 Vicryl sutures. Skin wounds were closed using subcuticular 4-0 Vicryl sutures followed by Steri-Strips and sterile dressings. Wounds were infiltrated 0.5% Marcaine at completion. Sponge, needle, instrument counts reported correct. Patient tolerated the procedure well and emerged anesthesia stable condition. EBL minimal
[2023-03-01 10:56] VITALS: BP 147/69; PULSE 60; O2SAT 96
[2023-03-01 11:18] LABS: Glucose, Whole Blood 245 mg/dL (60-115)
--- NOTE | 2023-03-01 12:14 | PM.PNGS ---
Subjective Subjective Date of Service: 03/01/23 Interval history: Ablation complaining of mild incisional discomfort otherwise uneventful evening. NIMESH drain serosanguineous minimal output. LFTs within normal limits. Physical Exam Vital Signs: Vital Signs: Last Vital Signs Temp 98.1 F 03/01/23 07:49 Pulse 60 03/01/23 10:56 Resp 16 03/01/23 07:49 BP 147/69 H 03/01/23 10:56 Pulse Ox 96 03/01/23 10:56 O2 Del Method Room Air 03/01/23 07:49 O2 Flow Rate 4 02/28/23 16:20 BMI result Body Mass Index 24.1 GI: Other: Abdomen soft. Wound clean dry and intact. NIMESH drain uneventfully removed. Well tolerated. Objective Data Active Medications Acetaminophen (Acetaminophen 325 Mg Tablet) 650 mg PO Q6H PRN PRN Reason: Pain, Mild (Pain Scale 1-3) Last Admin: 02/28/23 23:42 Dose: 650 mg Documented By: DUSTY Amlodipine Besylate (Amlodipine Besylate 5 Mg Tablet) 5 mg PO DAILY [facility]; Protocol Last Admin: 03/01/23 07:59 Dose: 5 mg Documented By: EBEN Benzonatate (Benzonatate 100 Mg Capsule) 100 mg PO TID PRN PRN Reason: Cough Cyanocobalamin (Cyanocobalamin (Vitamin B-12) 1,000 Mcg Tablet) 1,000 mcg PO DAILY [facility] Last Admin: 03/01/23 07:59 Dose: 1,000 mcg Documented By: EBEN Dextrose (Dextrose 50 % 25 Gm/50 Ml Syringe) 25 gm IVPUSH Q15M PRN; Protocol PRN Reason: per Hypoglycemia Standing Ord. Docusate Sodium (Docusate Sodium 100 Mg Capsule) 100 mg PO DAILY [facility] Last Admin: 03/01/23 07:59 Dose: 100 mg Documented By: EBEN Glucose (Glucose Gel 15 Gm Gel..Gram.) 15 gm PO Q15M PRN; Protocol PRN Reason: per Hypoglycemia Standing Ord. Heparin Sodium (Porcine) (Heparin Sodium,Porcine 5,000 Unit/Ml Vial) 5,000 unit SUBCUT Q12H [facility] Last Admin: 03/01/23 03:33 Dose: 5,000 unit Documented By: DUSTY Insulin Glargine (Insulin Glargine,Hum.Rec.Anlog 100 Unit/Ml 10 Ml Vial) 20 unit SUBCUT BEDTIME [facility] Last Admin: 02/28/23 20:14 Dose: 20 unit Documented By: MIGEL Insulin Human Lispro (Insulin Lispro 100 Unit/Ml 3 Ml Vial) 0 unit SUBCUT QIDACHS [facility]; Protocol Last Admin: 03/01/23 12:05 Dose: 4 unit Documented By: EBEN Insulin Human Lispro (Insulin Lispro 100 Unit/Ml 3 Ml Vial) 5 unit SUBCUT QIDACHS [facility] Last Admin: 03/01/23 12:05 Dose: 5 unit Documented By: EBEN Latanoprost (Latanoprost 0.005 % Ophth Rocio 2.5 Ml Drops) 1 drop EYE-BOTH BID [facility] Last Admin: 03/01/23 08:02 Dose: 1 drop Documented By: EBEN Lidocaine (Lidocaine 4 % Patch Adh..Patch) 1 patch TRANSDERMA DAILY [facility]; Protocol Last Admin: 03/01/23 08:00 Dose: 1 patch Documented By: EBEN Loratadine (Loratadine 10 Mg Tablet) 10 mg PO DAILY PRN PRN Reason: itch Melatonin (Melatonin 3 Mg Tablet) 6 mg PO BEDTIME PRN PRN Reason: Insomnia Last Admin: 02/25/23 23:35 Dose: 6 mg Documented By: SHILPA Metoprolol Succinate (Metoprolol Succinate Er 100 Mg Tab.Er.24h) 100 mg PO DAILY [facility]; Protocol Last Admin: 03/01/23 07:59 Dose: 100 mg Documented By: EBEN Morphine Sulfate (Morphine Sulfate 2 Mg/Ml Cartridge) 1 mg IVPUSH Q4H PRN; Protocol PRN Reason: Pain, Severe (Pain Scale 7-10) Last Admin: 03/01/23 12:04 Dose: 1 mg Documented By: EBEN Non-Formulary Medication (Linaclotide [Linzess]) 290 mcg PO DAILY [facility] Last Admin: 03/01/23 07:59 Dose: 290 mcg Documented By: EBEN Ondansetron HCl (Ondansetron Hcl 4 Mg/2 Ml Vial) 4 mg IVPUSH Q8H PRN PRN Reason: Nausea and Vomiting Last Admin: 02/21/23 19:15 Dose: 4 mg Documented By: CHRIS Ondansetron HCl (Ondansetron Hcl 4 Mg/2 Ml Vial) 4 mg IVPUSH ONCE PRN PRN Reason: Nausea and Vomiting Polyethylene Glycol (Polyethylene Glycol 3350 17 Gm Powd.Pack) 17 gm PO DAILY PRN PRN Reason: Constipation Senna (Sennosides 8.6 Mg Tablet) 8.6 mg PO BEDTIME [facility] Last Admin: 02/28/23 20:15 Dose: 8.6 mg Documented By: MIGEL Sodium Chloride (0.9 % Sodium Chloride Flush 3 Ml Syringe) 3 ml IVFLUSH QSHIFT [facility] Last Admin: 03/01/23 08:00 Dose: 3 ml Documented By: EBEN Tramadol HCl (Tramadol Hcl 50 Mg Tablet) 50 mg PO Q12H PRN PRN Reason: Pain, Moderate(Pain Scale 4-6) Last Admin: 03/01/23 07:35 Dose: 50 mg Documented By: EBEN Labs 03/01/23 05:43 03/01/23 05:43 Labs: Laboratory Results - last 24 hr 02/28/23 02/28/23 02/28/23 13:31 16:52 19:57 MCV MCH MCHC RDW Plt Count MPV Absolute Nucleated RBC Nucleated RBC % (auto) Anion Gap Estim Creat Clear Calc Estimated GFR POC Glucose 202 H 218 H 330 H Random Glucose Calcium Total Bilirubin Direct Bilirubin AST ALT Alkaline Phosphatase Total Protein Albumin 03/01/23 03/01/23 03/01/23 05:43 07:22 11:06 MCV 87.1 MCH 28.0 MCHC 32.2 RDW 13.8 Plt Count 359 D MPV 10.7 Absolute Nucleated RBC 0.000 Nucleated RBC % (auto) 0.0 Anion Gap 13 Estim Creat Clear Calc 29.0 Estimated GFR 33 POC Glucose 214 H 245 H Random Glucose 231 H Calcium 8.2 L Total Bilirubin 0.5 Direct Bilirubin 0.4 AST 116 H ALT 68 H Alkaline Phosphatase 92 Total Protein 5.6 L Albumin 2.6 L Procedures Date of Service Date of Service: 03/01/23 Progress Note: A&P Assessment and plan (1) Status post cholecystectomy: Status: Acute (2) Gallstone pancreatitis: Status: Acute Plan Diet as tolerated, out of bed, incentive spirometry, discharge planning per hospitalist service Time Spent With Patient Time: Total time managing care of this patient today ____ minutes. Quality Stroke Does the patient have a stroke diagnosis?: No VTE Prior VTE?: No VTE Risk Level:: Medical - moderate - high VTE Device Contraindication: Treatment Not Indicated VTE Drug Contraindication: N/A - Med Ordered
--- NOTE | 2023-03-01 13:08 | MHC.CM.PN ---
Addendum entered by Sharon Martínez RN 03/01/23 13:47: Accepted by [facility] - able to start home PT Sunday 03/04. PA aware. Original Note: EMR REVIEWED. PER MD ROUNDS DC PENDING PT EVAL. PT RECOMMENDING HOME WITH SERVICES. REFERRAL TO [facility] PER PATIENT REQUEST. AWAITING RESPONSE. CM WILL CONTINUE TO FOLLOW.
[2023-03-01 14:20] VITALS: O2SAT 96
[2023-03-01] MEDS: Acetaminophen 325 MG TABLET 650 MG PO (14:36)
[2023-03-01 15:12] VITALS: BP 142/68; PULSE 70; RESP 18; TEMP 36.9; O2SAT 93
--- NOTE | 2023-03-01 15:20 | P.PNIM_ITS ---
Subjective Subjective Date of Service: 03/01/23 Interval History: seen and examined this morning follow up for gallstone pancreatitis s/p cholecystectomy yesterday complaining of abdominal pain Review of Systems Review of Systems: Yes all other systems are reviewed and are negative Constitutional Constitutional: Denies chills and Denies fever(s) Gastrointestinal Gastrointestinal: Reports abdominal pain Physical Exam 2 Vital Signs: Vital Signs: Last Vital Signs Temp 98.4 F 03/01/23 15:12 Pulse 70 03/01/23 15:12 Resp 18 03/01/23 15:12 BP 142/68 H 03/01/23 15:12 Pulse Ox 93 03/01/23 15:12 O2 Del Method Room Air 03/01/23 15:12 O2 Flow Rate 4 02/28/23 16:20 BMI result Body Mass Index 24.1 Const: General: cooperative, alert and awake Nutritional Appearance: a verage body habitus Orientation/consciousness: patient oriented x3 Resp: Effort & Inspection: normal respiratory effort, able to speak in complete sentences, no respiratory distress and no use of accessory muscles Cardio: Rate: regular rate GI: Other: abdomen softly distended with epigastric tenderness Neuro: General: patient oriented x3 and moves all extremities Extrem: General: Yes no pedal edema Objective Data Active Medications Acetaminophen (Acetaminophen 325 Mg Tablet) 650 mg PO Q6H PRN PRN Reason: Pain, Mild (Pain Scale 1-3) Last Admin: 03/01/23 14:36 Dose: 650 mg Documented By: EBEN Amlodipine Besylate (Amlodipine Besylate 5 Mg Tablet) 5 mg PO DAILY [facility]; Protocol Last Admin: 03/01/23 07:59 Dose: 5 mg Documented By: EBEN Benzonatate (Benzonatate 100 Mg Capsule) 100 mg PO TID PRN PRN Reason: Cough Cyanocobalamin (Cyanocobalamin (Vitamin B-12) 1,000 Mcg Tablet) 1,000 mcg PO DAILY [facility] Last Admin: 03/01/23 07:59 Dose: 1,000 mcg Documented By: EBEN Dextrose (Dextrose 50 % 25 Gm/50 Ml Syringe) 25 gm IVPUSH Q15M PRN; Protocol PRN Reason: per Hypoglycemia Standing Ord. Docusate Sodium (Docusate Sodium 100 Mg Capsule) 100 mg PO DAILY [facility] Last Admin: 03/01/23 07:59 Dose: 100 mg Documented By: EBEN Glucose (Glucose Gel 15 Gm Gel..Gram.) 15 gm PO Q15M PRN; Protocol PRN Reason: per Hypoglycemia Standing Ord. Heparin Sodium (Porcine) (Heparin Sodium,Porcine 5,000 Unit/Ml Vial) 5,000 unit SUBCUT Q12H [facility] Last Admin: 03/01/23 14:37 Dose: 5,000 unit Documented By: EBEN Insulin Glargine (Insulin Glargine,Hum.Rec.Anlog 100 Unit/Ml 10 Ml Vial) 20 unit SUBCUT BEDTIME [facility] Last Admin: 02/28/23 20:14 Dose: 20 unit Documented By: MIGEL Insulin Human Lispro (Insulin Lispro 100 Unit/Ml 3 Ml Vial) 0 unit SUBCUT QIDACHS [facility]; Protocol Last Admin: 03/01/23 12:05 Dose: 4 unit Documented By: EBEN Insulin Human Lispro (Insulin Lispro 100 Unit/Ml 3 Ml Vial) 5 unit SUBCUT QIDACHS [facility] Last Admin: 03/01/23 12:05 Dose: 5 unit Documented By: EBEN Latanoprost (Latanoprost 0.005 % Ophth Rocio 2.5 Ml Drops) 1 drop EYE-BOTH BID [facility] Last Admin: 03/01/23 08:02 Dose: 1 drop Documented By: EBEN Lidocaine (Lidocaine 4 % Patch Adh..Patch) 1 patch TRANSDERMA DAILY [facility]; Protocol Last Admin: 03/01/23 08:00 Dose: 1 patch Documented By: EBEN Loratadine (Loratadine 10 Mg Tablet) 10 mg PO DAILY PRN PRN Reason: itch Melatonin (Melatonin 3 Mg Tablet) 6 mg PO BEDTIME PRN PRN Reason: Insomnia Last Admin: 02/25/23 23:35 Dose: 6 mg Documented By: CASTILMalina Metoprolol Succinate (Metoprolol Succinate Er 100 Mg Tab.Er.24h) 100 mg PO DAILY [facility]; Protocol Last Admin: 03/01/23 07:59 Dose: 100 mg Documented By: EBEN Morphine Sulfate (Morphine Sulfate 2 Mg/Ml Cartridge) 1 mg IVPUSH Q4H PRN; Protocol PRN Reason: Pain, Severe (Pain Scale 7-10) Last Admin: 03/01/23 12:04 Dose: 1 mg Documented By: EBEN Non-Formulary Medication (Linaclotide [Linzess]) 290 mcg PO DAILY [facility] Last Admin: 03/01/23 07:59 Dose: 290 mcg Documented By: EBEN Ondansetron HCl (Ondansetron Hcl 4 Mg/2 Ml Vial) 4 mg IVPUSH Q8H PRN PRN Reason: Nausea and Vomiting Last Admin: 02/21/23 19:15 Dose: 4 mg Documented By: CHRIS Ondansetron HCl (Ondansetron Hcl 4 Mg/2 Ml Vial) 4 mg IVPUSH ONCE PRN PRN Reason: Nausea and Vomiting Polyethylene Glycol (Polyethylene Glycol 3350 17 Gm Powd.Pack) 17 gm PO DAILY PRN PRN Reason: Constipation Senna (Sennosides 8.6 Mg Tablet) 8.6 mg PO BEDTIME [facility] Last Admin: 02/28/23 20:15 Dose: 8.6 mg Documented By: MIGEL Sodium Chloride (0.9 % Sodium Chloride Flush 3 Ml Syringe) 3 ml IVFLUSH QSHIFT [facility] Last Admin: 03/01/23 08:00 Dose: 3 ml Documented By: EBEN Tramadol HCl (Tramadol Hcl 50 Mg Tablet) 50 mg PO Q12H PRN PRN Reason: Pain, Moderate(Pain Scale 4-6) Last Admin: 03/01/23 07:35 Dose: 50 mg Documented By: EBEN Labs 03/01/23 05:43 03/01/23 05:43 Labs: Laboratory Results - last 24 hr 02/28/23 02/28/23 03/01/23 16:52 19:57 05:43 MCV 87.1 MCH 28.0 MCHC 32.2 RDW 13.8 Plt Count 359 D MPV 10.7 Absolute Nucleated RBC 0.000 Nucleated RBC % (auto) 0.0 Anion Gap 13 Estim Creat Clear Calc 29.0 Estimated GFR 33 POC Glucose 218 H 330 H Random Glucose 231 H Calcium 8.2 L Total Bilirubin 0.5 Direct Bilirubin 0.4 AST 116 H ALT 68 H Alkaline Phosphatase 92 Total Protein 5.6 L Albumin 2.6 L 03/01/23 03/01/23 07:22 11:06 MCV MCH MCHC RDW Plt Count MPV Absolute Nucleated RBC Nucleated RBC % (auto) Anion Gap Estim Creat Clear Calc Estimated GFR POC Glucose 214 H 245 H Random Glucose Calcium Total Bilirubin Direct Bilirubin AST ALT Alkaline Phosphatase Total Protein Albumin Assessment and Plan (1) Status post cholecystectomy: Status: Acute (2) CARMEN (acute kidney injury): Status: Acute (3) Gallstone pancreatitis: Status: Acute Plan Pt is a Thai-speaking 77-year-old male with a PMH significant for?CVA, CKD 4, hx of SBO in 2006, hx of ileus in 10/2020, HTN, HLD insulin-dependent type 2 diabetes mellitus, and GERD who presents to the ED with nausea, vomiting, and intense lower abdominal pain radiating to the back since last night. Pt will be admitted to the hospital for treatment and further evaluation of acute pancreatitis now with ileus Gallstone Pancreatitis LFTs wnl, lipase continue to trend down abdominal distention improved surgery following - plan for lap abida with cholangiogram 02/28/23. NIMESH drain removed this am still with abdominal pain, no BM yet, will trial full liquids Back pain lidocaine patch heating pads Groin anasarca Likely from ileus, IV fluids, reduced movement encourage ambulation IV fluids stopped Ileus. Resolved repeat KUB showing improvement as per gen surg due to pancreatitis encouraged to ambulate, narcotics stopped surgery following rec clear diet CARMEN on CKD 4 resolved no obstruction on CT from 02/21. likely due to volume depletion due to acute pancreatitis nephrology following Insulin dependent type 2 diabetes mellitus SSI, premeal insulin, lantus at bedtime, POCs Hyperkalemia resolved after lokelma pseudo hypocalcemia normal calcium when corrected for albumin HTN Continue metoprolol Hold valsartan d/t CARMEN started on norvasc HLD Hold statin, lofibra d/t elevated LFTs Full Code Attending:?Dr. Barrientos DVT Prophylaxis: Heparin dispo: seen by PT - rec home with services requires ongoing inpatient stay for?acute pancreatitis with bowel rest, IVF, close monitoring and cholecystectomy planned for 02/28/23 Quality Stroke Does the patient have a stroke diagnosis?: No VTE Prior VTE?: No VTE Risk Level:: Medical - moderate - high VTE Device Contraindication: Treatment Not Indicated VTE Drug Contraindication: N/A - Med Ordered
--- NOTE | 2023-03-01 15:37 | HO.POSTANES ---
Post Anesthesia Evaluation Post Anesthesia Evaluation Date of Service: 03/01/23 Vital Signs: Vital Signs Temp Pulse Resp BP Pulse Ox O2 Del Method 03/01/23 15:12 98.4 F 70 18 142/68 H 93 Room Air 03/01/23 14:20 96 Room Air 03/01/23 10:56 60 147/69 H 96 03/01/23 07:49 98.1 F 60 16 147/69 H 96 Room Air Anesthesia: General Endotracheal-GETA Mental Status: Awake Pain Control: Satisfactory Nausea/Vomiting: None Hydration: Adequate Anesthesia-Related Issues: No Anes. Related Issues
[2023-03-01 16:13] LABS: Glucose, Whole Blood 227 mg/dL (60-115)
--- NOTE | 2023-03-01 18:55 | P.PNNP_ITS ---
Subjective Subjective Date of Service: 03/01/23 Interval history: seen and examined this morning; s/p cholecystectomy yesterday; All recent data reviewed; D/W Hospitalist Physical Exam 2 Vital Signs: Vital Signs: Last Vital Signs Temp 98.4 F 03/01/23 15:12 Pulse 70 03/01/23 15:12 Resp 18 03/01/23 15:12 BP 142/68 H 03/01/23 15:12 Pulse Ox 93 03/01/23 15:12 O2 Del Method Room Air 03/01/23 15:12 O2 Flow Rate 4 02/28/23 16:20 BMI result Body Mass Index 24.1 Const: General: no acute distress Eyes: EOM: EOMs intact bilaterally Neck: Neck: Yes supple Resp: Auscultation: diminished lung sounds Cardio: Rate: regular rate GI: Palpation (GI): Soft to palpation Neuro: General: moves all extremities Objective Data Labs 03/01/23 05:43 03/01/23 05:43 Labs: Laboratory Results - last 24 hr 02/28/23 03/01/23 03/01/23 19:57 05:43 07:22 WBC 16.5 H RBC 3.25 L Hgb 9.1 L Hct 28.3 L MCV 87.1 MCH 28.0 MCHC 32.2 RDW 13.8 Plt Count 359 D MPV 10.7 Absolute Nucleated RBC 0.000 Nucleated RBC % (auto) 0.0 Sodium 135 Potassium 4.5 Chloride 104 Carbon Dioxide 23 Anion Gap 13 BUN 30 H Creatinine 1.99 H Estim Creat Clear Calc 29.0 Estimated GFR 33 POC Glucose 330 H 214 H Random Glucose 231 H Calcium 8.2 L Total Bilirubin 0.5 Direct Bilirubin 0.4 AST 116 H ALT 68 H Alkaline Phosphatase 92 Total Protein 5.6 L Albumin 2.6 L 03/01/23 03/01/23 11:06 16:05 WBC RBC Hgb Hct MCV MCH MCHC RDW Plt Count MPV Absolute Nucleated RBC Nucleated RBC % (auto) Sodium Potassium Chloride Carbon Dioxide Anion Gap BUN Creatinine Estim Creat Clear Calc Estimated GFR POC Glucose 245 H 227 H Random Glucose Calcium Total Bilirubin Direct Bilirubin AST ALT Alkaline Phosphatase Total Protein Albumin Microbiology Microbiology Results: Microbiology 02/21/23 06:22 Blood - Venous Blood Culture - Final No growth after 5 days. 02/21/23 06:19 Blood - Venous Blood Culture - Final No growth after 5 days. Procedures Date of Service Date of Service: 03/01/23 Assessment & Plan Assessment and plan (1) CARMEN (acute kidney injury): Status: Acute Plan Acute kidney injury superimposed on chronic kidney disease. Acute kidney injury mostly due to tubular injury Baseline serum creatinine around 1.6-2 mg/dL. Renal function is currently close to baseline. Continue current supportive care for now Shall arrange close office F/U when D/Jc Progress Note: Quality Stroke Does the patient have a stroke diagnosis?: No
[2023-03-01 20:36] LABS: Glucose, Whole Blood 191 mg/dL (60-115)
[2023-03-01] MEDS: Insulin Glargine,Hum.rec.anlog 100 UNIT/ML 10 ML VIAL 20 UNIT SUBCUT (20:53)
[2023-03-01] MEDS: Sennosides 8.6 MG TABLET PO (20:55)
[2023-03-01] MEDS: Melatonin 3 MG TABLET 6 MG PO (20:55)
[2023-03-01 23:58] VITALS: BP 164/74; PULSE 70; RESP 18; TEMP 36.5; O2SAT 96
[2023-03-02] MEDS: Morphine Sulfate 2 MG/ML CARTRIDGE 1 MG IVPUSH ×5 (00:07→20:55)
[2023-03-02] MEDS: Heparin Sodium,Porcine 5,000 UNIT/ML VIAL 5000 UNIT SUBCUT ×2 (04:22→15:02)
[2023-03-02 07:40] VITALS: BP 143/65; PULSE 62; RESP 17; TEMP 37; O2SAT 95
[2023-03-02 07:51] LABS: Hematocrit 28.3 % (42.0-52.0); Hemoglobin 9.1 g/dl (14.0-18.0); Mean Corpuscular HGB Conc 32.2 g/dl (31.0-36.0); Mean Corpuscular Hemoglobin 27.9 pg (27.0-33.0); Mean Corpuscular Volume 86.8 fL (80.0-98.0); Mean Platelet Volume 11.3 fL (9.4-12.4); Platelet Count 172 X10*3/uL (160-400); Red Blood Count 3.26 X10*6/uL (4.60-5.80); Red Cell Distribution Width 13.7 % (11.0-16.0); White Blood Count 17.6 X10*3/uL (4.8-10.8)
[2023-03-02 07:57] LABS: Glucose, Whole Blood 218 mg/dL (60-115)
[2023-03-02 08:04] LABS: Alanine Aminotransferase 48 U/L (0-40); Albumin Level 2.6 g/dL (3.5-5.0); Alkaline Phosphatase 106 U/L (39-117); Anion Gap 11 (12-20); Aspartate Amino Transferase 50 U/L (5-37); Bilirubin Direct 0.3 mg/dL (0.0-0.5); Bilirubin Total 0.5 mg/dL (0.0-1.0); Blood Urea Nitrogen 25 mg/dL (9-16); Calcium 8.6 mg/dL (8.4-10.2); Carbon Dioxide 23 mmol/L (22-29); Chloride 103 mmol/L (96-108); Creatinine Clr Calc Pharmacy 30.9; Estimated Glomerular Filt Rate 35; Glucose Random 258 mg/dL (60-115); Potassium 4.4 mmol/L (3.3-5.1); Sodium 133 mmol/L (135-145); Total Protein 5.8 g/dL (6.5-8.0)
[2023-03-02] MEDS: Metoprolol Succinate ER 100 MG TAB.ER.24H PO (08:20)
[2023-03-02] MEDS: amLODIPine Besylate 5 MG TABLET PO (08:20)
[2023-03-02] MEDS: Cyanocobalamin (Vitamin B-12) 1,000 MCG TABLET 1000 MCG PO (08:20)
[2023-03-02] MEDS: Docusate Sodium 100 MG CAPSULE PO (08:21)
[2023-03-02] MEDS: Lidocaine 4 % Patch ADH..PATCH 1 PATCH TRANSDERMA (08:21)
[2023-03-02] MEDS: Insulin Lispro 100 UNIT/ML 3 ML VIAL SUBCUT ×8 (08:22→20:57)
[2023-03-02] MEDS: 0.9 % Sodium Chloride Flush 3 ML SYRINGE IVFLUSH ×3 (08:24→19:46)
[2023-03-02] MEDS: Latanoprost 0.005 % Ophth Sol 2.5 ML DROPS 1 DROP EYE-BOTH ×2 (08:26→21:33)
[2023-03-02 11:17] LABS: Glucose, Whole Blood 306 mg/dL (60-115)
[2023-03-02 14:00] VITALS: O2SAT 95
--- NOTE | 2023-03-02 14:04 | HO.PM.IMPN ---
Subjective Subjective Date of Service: 03/02/23 Interval History: follow up for gallstone pancreatitis s/p cholecystectomy yesterday complaining of abdominal pain Review of Systems Review of Systems: Yes all other systems are reviewed and are negative Constitutional Constitutional: Denies chills and Denies fever(s) Gastrointestinal Gastrointestinal: Reports abdominal pain Physical Exam Vital Signs: Vital Signs: Last Vital Signs Temp 98.6 F 03/02/23 07:40 Pulse 62 03/02/23 07:40 Resp 17 03/02/23 07:40 BP 143/65 H 03/02/23 07:40 Pulse Ox 95 03/02/23 07:40 O2 Del Method Room Air 03/02/23 07:40 O2 Flow Rate 4 02/28/23 16:20 BMI result Body Mass Index 24.1 Appearing in no acute distress lung sounds are clear to auscultation heart regular rate rhythm, clear S1, S2 positive bowel sounds, abdomen is soft, nontender neuro patient is alert x3, no focal deficits Objective Data Active Medications Acetaminophen (Acetaminophen 325 Mg Tablet) 650 mg PO Q6H PRN PRN Reason: Pain, Mild (Pain Scale 1-3) Last Admin: 03/01/23 14:36 Dose: 650 mg Documented By: EBEN Amlodipine Besylate (Amlodipine Besylate 5 Mg Tablet) 5 mg PO DAILY [facility]; Protocol Last Admin: 03/02/23 08:20 Dose: 5 mg Documented By: ANGI Benzonatate (Benzonatate 100 Mg Capsule) 100 mg PO TID PRN PRN Reason: Cough Cyanocobalamin (Cyanocobalamin (Vitamin B-12) 1,000 Mcg Tablet) 1,000 mcg PO DAILY [facility] Last Admin: 03/02/23 08:20 Dose: 1,000 mcg Documented By: ANGI Dextrose (Dextrose 50 % 25 Gm/50 Ml Syringe) 25 gm IVPUSH Q15M PRN; Protocol PRN Reason: per Hypoglycemia Standing Ord. Docusate Sodium (Docusate Sodium 100 Mg Capsule) 100 mg PO DAILY [facility] Last Admin: 03/02/23 08:21 Dose: 100 mg Documented By: ANGI Glucose (Glucose Gel 15 Gm Gel..Gram.) 15 gm PO Q15M PRN; Protocol PRN Reason: per Hypoglycemia Standing Ord. Heparin Sodium (Porcine) (Heparin Sodium,Porcine 5,000 Unit/Ml Vial) 5,000 unit SUBCUT Q12H [facility] Last Admin: 03/02/23 04:22 Dose: 5,000 unit Documented By: ALBA Insulin Glargine (Insulin Glargine,Hum.Rec.Anlog 100 Unit/Ml 10 Ml Vial) 20 unit SUBCUT BEDTIME [facility] Last Admin: 03/01/23 20:53 Dose: 20 unit Documented By: ALBA Insulin Human Lispro (Insulin Lispro 100 Unit/Ml 3 Ml Vial) 0 unit SUBCUT QIDACHS [facility]; Protocol Last Admin: 03/02/23 11:22 Dose: 8 unit Documented By: ANGI Insulin Human Lispro (Insulin Lispro 100 Unit/Ml 3 Ml Vial) 5 unit SUBCUT QIDACHS [facility] Last Admin: 03/02/23 11:26 Dose: 5 unit Documented By: ANGI Latanoprost (Latanoprost 0.005 % Ophth Rocio 2.5 Ml Drops) 1 drop EYE-BOTH BID [facility] Last Admin: 03/02/23 08:26 Dose: 1 drop Documented By: ANGI Lidocaine (Lidocaine 4 % Patch Adh..Patch) 1 patch TRANSDERMA DAILY [facility]; Protocol Last Admin: 03/02/23 08:21 Dose: 1 patch Documented By: ANGI Loratadine (Loratadine 10 Mg Tablet) 10 mg PO DAILY PRN PRN Reason: itch Melatonin (Melatonin 3 Mg Tablet) 6 mg PO BEDTIME PRN PRN Reason: Insomnia Last Admin: 03/01/23 20:55 Dose: 6 mg Documented By: ALBA Metoprolol Succinate (Metoprolol Succinate Er 100 Mg Tab.Er.24h) 100 mg PO DAILY [facility]; Protocol Last Admin: 03/02/23 08:20 Dose: 100 mg Documented By: ANGI Morphine Sulfate (Morphine Sulfate 2 Mg/Ml Cartridge) 1 mg IVPUSH Q4H PRN; Protocol PRN Reason: Pain, Severe (Pain Scale 7-10) Last Admin: 03/02/23 11:19 Dose: 1 mg Documented By: ANGI Non-Formulary Medication (Linaclotide [Linzess]) 290 mcg PO DAILY [facility] Last Admin: 03/02/23 08:25 Dose: 290 mcg Documented By: ANGI Ondansetron HCl (Ondansetron Hcl 4 Mg/2 Ml Vial) 4 mg IVPUSH Q8H PRN PRN Reason: Nausea and Vomiting Last Admin: 02/21/23 19:15 Dose: 4 mg Documented By: CHRIS Ondansetron HCl (Ondansetron Hcl 4 Mg/2 Ml Vial) 4 mg IVPUSH ONCE PRN PRN Reason: Nausea and Vomiting Polyethylene Glycol (Polyethylene Glycol 3350 17 Gm Powd.Pack) 17 gm PO DAILY PRN PRN Reason: Constipation Senna (Sennosides 8.6 Mg Tablet) 8.6 mg PO BEDTIME [facility] Last Admin: 03/01/23 20:55 Dose: 8.6 mg Documented By: ALBA Sodium Chloride (0.9 % Sodium Chloride Flush 3 Ml Syringe) 3 ml IVFLUSH QSHIFT [facility] Last Admin: 03/02/23 08:24 Dose: 3 ml Documented By: ANGI Tramadol HCl (Tramadol Hcl 50 Mg Tablet) 50 mg PO Q12H PRN PRN Reason: Pain, Moderate(Pain Scale 4-6) Last Admin: 03/01/23 20:18 Dose: 50 mg Documented By: ALBA Labs 03/02/23 07:43 03/02/23 07:43 Labs: Laboratory Results - last 24 hr 03/01/23 03/01/23 03/02/23 16:05 20:29 07:37 MCV MCH MCHC RDW Plt Count MPV Absolute Nucleated RBC Nucleated RBC % (auto) Anion Gap Estim Creat Clear Calc Estimated GFR POC Glucose 227 H 191 H 218 H Random Glucose Calcium Total Bilirubin Direct Bilirubin AST ALT Alkaline Phosphatase Total Protein Albumin 03/02/23 03/02/23 07:43 11:08 MCV 86.8 MCH 27.9 MCHC 32.2 RDW 13.7 Plt Count 172 D MPV 11.3 Absolute Nucleated RBC 0.000 Nucleated RBC % (auto) 0.0 Anion Gap 11 L Estim Creat Clear Calc 30.9 Estimated GFR 35 POC Glucose 306 H Random Glucose 258 H Calcium 8.6 Total Bilirubin 0.5 Direct Bilirubin 0.3 AST 50 H ALT 48 H Alkaline Phosphatase 106 Total Protein 5.8 L Albumin 2.6 L Assessment and Plan (1) Status post cholecystectomy: Status: Acute (2) CARMEN (acute kidney injury): Status: Acute (3) Gallstone pancreatitis: Status: Acute Plan Pt is a Solomon Islander-speaking 77-year-old male with a PMH significant for?CVA, CKD 4, hx of SBO in 2006, hx of ileus in 10/2020, HTN, HLD insulin-dependent type 2 diabetes mellitus, and GERD who presents to the ED with nausea, vomiting, and intense lower abdominal pain radiating to the back since last night. Pt will be admitted to the hospital for treatment and further evaluation of acute pancreatitis now with ileus Gallstone Pancreatitis LFTs wnl, lipase continue to trend down abdominal distention improved surgery following s/p ccy 02/28/23, NIMESH drain removed 03/01/23 minimal abdominal pain advance to regular diet Back pain lidocaine patch heating pads Groin anasarca. resolved Likely from ileus, IV fluids, reduced movement encourage ambulation IV fluids stopped Ileus. Resolved repeat KUB showing improvement as per gen surg due to pancreatitis encouraged to ambulate, narcotics stopped surgery following rec clear diet CARMEN on CKD 4. resolved no obstruction on CT from 02/21. likely due to volume depletion due to acute pancreatitis nephrology following Insulin dependent type 2 diabetes mellitus SSI, premeal insulin, lantus at bedtime, POCs Hyperkalemia resolved after lokelma pseudo hypocalcemia normal calcium when corrected for albumin HTN Continue metoprolol Hold valsartan d/t CARMEN started on norvasc HLD Hold statin, lofibra d/t elevated LFTs Full Code Attending:?Dr. Hassan DVT Prophylaxis: Heparin dispo: seen by PT - rec home with services requires ongoing inpatient stay for?acute pancreatitis with bowel rest, IVF, close monitoring and cholecystectomy planned for 02/28/23 Quality Stroke Does the patient have a stroke diagnosis?: No VTE Prior VTE?: No VTE Risk Level:: Medical - moderate - high VTE Device Contraindication: Treatment Not Indicated VTE Drug Contraindication: N/A - Med Ordered
[2023-03-02 16:00] VITALS: BP 156/72; PULSE 64; RESP 20; TEMP 36.4; O2SAT 97
[2023-03-02 16:09] LABS: Glucose, Whole Blood 269 mg/dL (60-115)
[2023-03-02] MEDS: traMADoL HCL 50 MG TABLET PO (19:45)
[2023-03-02 19:46] VITALS: BP 153/70; PULSE 68; RESP 20; TEMP 36.4; O2SAT 96
[2023-03-02 20:09] LABS: Glucose, Whole Blood 209 mg/dL (60-115)
[2023-03-02] MEDS: polyethylene glycoL 3350 17 GM POWD.PACK PO (20:56)
[2023-03-02] MEDS: Melatonin 3 MG TABLET 6 MG PO (20:56)
[2023-03-02] MEDS: Insulin Glargine,Hum.rec.anlog 100 UNIT/ML 10 ML VIAL 20 UNIT SUBCUT (20:57)
[2023-03-02] MEDS: Sennosides 8.6 MG TABLET PO (21:33)
[2023-03-03] VITALS: BP 147/65; PULSE 63; RESP 18; TEMP 36.6; O2SAT 96
[2023-03-03] MEDS: Morphine Sulfate 2 MG/ML CARTRIDGE 1 MG IVPUSH (01:07)
[2023-03-03] MEDS: Heparin Sodium,Porcine 5,000 UNIT/ML VIAL 5000 UNIT SUBCUT (01:08)
[2023-03-03 07:35] VITALS: BP 133/65; PULSE 59; RESP 18; TEMP 36.2; O2SAT 95
[2023-03-03 07:40] LABS: Glucose, Whole Blood 175 mg/dL (60-115)
[2023-03-03] MEDS: 0.9 % Sodium Chloride Flush 3 ML SYRINGE IVFLUSH (08:38)
[2023-03-03] MEDS: Lidocaine 4 % Patch ADH..PATCH 1 PATCH TRANSDERMA (08:38)
[2023-03-03] MEDS: Metoprolol Succinate ER 100 MG TAB.ER.24H PO (08:39)
[2023-03-03] MEDS: amLODIPine Besylate 5 MG TABLET PO (08:39)
[2023-03-03] MEDS: Cyanocobalamin (Vitamin B-12) 1,000 MCG TABLET 1000 MCG PO (08:39)
[2023-03-03] MEDS: Docusate Sodium 100 MG CAPSULE PO (08:39)
[2023-03-03] MEDS: Insulin Lispro 100 UNIT/ML 3 ML VIAL SUBCUT ×2 (08:41)
[2023-03-03] MEDS: Latanoprost 0.005 % Ophth Sol 2.5 ML DROPS 1 DROP EYE-BOTH (08:42)
[2023-03-03] MEDS: Mineral OiL enema 133 ML ENEMA PR (10:10)
--- NOTE | 2023-03-03 10:41 | P.DS_ITS ---
DS: Providers Provider Date of Service: 03/03/23 Date of admission: 02/21/23 14:48 Primary care physician: Gerry Garcia III, MD Consults: 02/21/23 13:21 Consult to General Surgery Stat Consulting Provider: [facility] Reason for consultation: Pancreatitis, gallstone Has provider been notified: Yes 02/21/23 14:58 Consult to Gastroenterology Routine Consulting Provider: Alfred Cruz Reason for consultation: Acute pancreatitis likey secondary to passed gallstone Consult to General Surgery Routine Consulting Provider: [facility] Reason for consultation: Acute pancreatitis likey secondary to passed gallstone 02/23/23 10:29 Consult to Nephrology Routine Consulting Provider: [facility] Reason for consultation: carmen on ckd Has provider been notified: No DS: Diagnosis Discharge Diagnosis (1) Status post cholecystectomy: Status: Acute (2) CARMEN (acute kidney injury): Status: Acute (3) Gallstone pancreatitis: Status: Acute DS: Summary Hospital Course Hospital Course: History and physical as per admitting provider. Pt is a Faroese-speaking 77-year-old male with a PMH significant for?CVA, CKD 4, hx of SBO in 2006, hx of ileus in 10/2020, HTN, HLD insulin-dependent type 2 diabetes mellitus, and GERD who presents to the ED with nausea, vomiting, and intense lower abdominal pain radiating to the back since last night. Pt denies recent travel, sick contacts, eating anything suspicious. No apparent alleviating or precipitating factors. Pt denies any hx of alcohol use or recent medication changes. Has been eating and drinking normally prior to last night. No diarrhea, fever, chills. In the ED pt was afebrile and slightly hypertensive as high as 170/56 satting at 96% on RA. Labs were significant for leukocytosis of 13.8, H&H 12.6/39.1, potassium 5.7 and repeat 5.3, BUN 42, creatinine 2.99, random glucose 231, total bilirubin 1.5, direct bilirubin 1.1, AST 228, ALT 116, and lipase >3000. Triglycerides WNL at 01:48. Total cholesterol 176. UA negative for UTI. CT of abdomen and pelvis found no evidence of bowel obstruction, but did show moderate stranding adjacent to the pancreas and what, suggestive of pancreatitis. Abdominal ultrasound found no dilation of the common bile duct, but did show cholelithiasis with some gallbladder wall thickening and small amount of adjacent fluid, likely related to pancreatitis given the CT scan findings. EKG demonstrated sinus bradycardia without evidence of ST elevations or depressions. Pt was treated with fentanyl, Dilaudid, ondansetron, IVF, Zosyn, and Lokelma. Pt will be admitted to the hospital for treatment and further evaluation of acute pancreatitis. 75-year-old man treated for both known pancreatitis. Status post cholecystectomy 02/28/2023 with NIMESH drain removal 03 01 3. Patient has done well since surgery and pain has resolved. During hospitalization though he did have an ileus shown on KUB secondary to pancreatitis, narcotic use and history of chronic constipation, this was prior to the cholecystectomy and took a couple days to resolve. She was also complicated by CARMEN on CKD stage 4, abdominal CT scan showed no obstruction and a CT was likely due to volume depletion and did resolve. Groin anasarca pretty much resolved on its own also inpatient was ambulating more and IV fluids were stopped. Patient has a history of chronic constipation and has received fleets enema started on his home medication during the hospitalization. He also has a history of chronic back pain for which he was treated with lidocaine and heating patches as well as narcotic and nonnarcotic medications. Patient has been able to eat and drink without any nausea or vomiting, no abdominal pain noted. Plan for discharge home to follow- up with general surgery this week. Hypertension appears stable blood pressure. Continue metoprolol. Valsartan was stopped due to CARMEN and Norvasc 5 mg daily was put in place. Hyperlipidemia May continue statin Time Attestation Discharge coordination time: Greater than 30 minutes Quality: Safe Use of Opioids Does Pt have an Active Cancer Diagnosis on the Problem List?: No Quality: Stroke Does the patient have a stroke diagnosis?: No Physical Exam Vital Signs: Vital Signs: Last Vital Signs Temp 97.2 F 03/03/23 07:35 Pulse 59 03/03/23 07:35 Resp 18 03/03/23 07:35 BP 133/65 03/03/23 07:35 Pulse Ox 95 03/03/23 07:35 O2 Del Method Room Air 03/03/23 07:35 O2 Flow Rate 4 02/28/23 16:20 BMI result Body Mass Index 24.1 Appearing in no acute distress head is normocephalic atraumatic eyes pupils are PERRLA sclera is anicteric mouth throat mucous membranes are intact and moist neck is supple no lymphadenopathy, no JVD noted lung sounds are clear to auscultation heart regular rate rhythm, clear S1, S2 positive bowel sounds, abdomen is soft, nontender neuro patient is alert x3, no focal deficits Multiple small incisions to abdomen from lap cholecystectomy DS: Data Data Completed and Pending Pending studies at discharge: Pending at discharge 02/28/23 14:54 Surgical [PTH] Routine Labs on day of discharge: Laboratory Results - last 24 hr 03/02/23 03/02/23 03/02/23 11:08 16:04 20:02 POC Glucose 306 H 269 H 209 H 03/03/23 07:31 POC Glucose 175 H Discharge Plan Discharge Anticipated Discharge Date/Time: 03/03/23 10:36 Patient Disposition: Home, Self-Care Discharge Diagnosis: Gallstone pancreatitis Cholecystectomy Groin anasarca Ileus CARMEN on CKD stage 4 Hyperkalemia Referrals: Gerry Garcia III, MD [Primary Care Provider] - 1 Week Obinna Parekh MD [Physician] - 1 Week Discharge Medications: New hydrocodone-acetaminophen 5-325 mg tablet 1 tab PO Q4-6H PRN (Reason: pain) Qty: 30 0RF Rx Instructions: Partial Fill upon patient request. amlodipine 5 mg Tablet 5 mg PO DAILY Qty: 30 0RF Protocol: Hold for SBP< HOLD for SBP < : 90 Continued latanoprost 0.005 % drops 1 drp ophthalmic (eye) BID metoprolol succinate 100 mg tablet extended release 24 hr 100 mg PO DAILY cyanocobalamin (vitamin B-12) 1,000 mcg tablet 1,000 mcg PO DAILY simvastatin 40 mg tablet 40 mg PO BEDTIME ferrous sulfate 325 mg (65 mg iron) tablet 325 mg PO DAILY lidocaine 5 % adhesive patch,medicated 1 - 3 patch topical Q24H Rx Instructions: 12H ON 12 H OFF, patient applies to back and neck omeprazole 20 mg capsule,delayed release(DR/EC) 20 mg PO DAILY loratadine 10 mg tablet 10 mg PO DAILY PRN (Reason: itch) fenofibrate nanocrystallized 145 mg tablet 145 mg PO DAILY insulin glargine [Basaglar KwikPen U-100 Insulin] 100 unit/mL (3 mL) insulin pen 8 unit subcut DAILY Linzess 290 mcg capsule 290 mcg PO DAILY insulin glargine [Basaglar KwikPen U-100 Insulin] 100 unit/mL (3 mL) insulin pen 20 unit subcut BEDTIME Discontinued valsartan 40 mg tablet 40 mg PO DAILY Discharge Orders: Discharge Order (Routine); Ordered 03/03/23 Ordered By: Carolyne Alegria Diet: Advance to usual diet Activity on Discharge: No strenuous activities Stand Alone Forms: Patient Portal Discharge page Activity Restrictions/Additional Instructions: Remove outside dressing only. Leave Steri-Strips intact. No strenuous activities Care Plan Goals: Your valsartan was stopped due to acute kidney injury, amlodipine was started in its place. Continue taking as prescribed for blood pressure management Health Concerns: Gallstone pancreatitis Cholecystectomy Groin anasarca Ileus CARMEN on CKD stage 4 Hyperkalemia Plan of Treatment: Follow-up with primary care provider as needed Follow-up with general surgery within the week Take all medications as prescribed Assessment: See discharge summary
[2023-03-03 11:42] LABS: Glucose, Whole Blood 196 mg/dL (60-115)
--- NOTE | 2023-03-03 11:54 | MHC.CM.PN ---
PT TO DC HOME TODAY WITH [facility] FOR HOME PT DAUGHTER TO TRANSPORT
== END 2023-03-03 12:07 | disposition home health service (06) | DRG 418 ==
LOC: HO.ED 07:18 → HO.EDOVER 15:18 → HO.S3 18:54
PROVIDERS: Internal Medicine; Physician Assistant Medical; Student in an Organized Health Care Education/Training Program; Surgery; Admitting Provider Student in an Organized Health Care Education/Training Program; Emergency Provider Emergency Medicine Emergency Medical Services; PCP Internal Medicine; Visit Provider Nurse Practitioner Acute Care
PROC: 0FT44ZZ Resection of Gallbladder, Percutaneous Endoscopic Approach (ICD-10-PCS; CPT 47562; principal; 2023-02-28 12:40)
DX: K85.10 Biliary acute pancreatitis without necrosis or infection (principal); K56.7 Ileus, unspecified; N17.9 Acute kidney failure, unspecified; N18.4 Chronic kidney disease, stage 4 (severe); M54.9 Dorsalgia, unspecified; G89.29 Other chronic pain; K82.8 Other specified diseases of gallbladder; I12.9 Hypertensive chronic kidney disease with stage 1 through stage 4 chronic kidney disease, or unspecified chronic kidney disease; E87.5 Hyperkalemia; E11.22 Type 2 diabetes mellitus with diabetic chronic kidney disease; Z20.822 Contact with and (suspected) exposure to COVID-19; Z87.891 Personal history of nicotine dependence; Z79.4 Long term (current) use of insulin; Z79.899 Other long term (current) drug therapy
CPT/HCPCS: 0241U; 36415; 74018; 74176; 74181; 76705; 80048; 80053; 80061; 80076; 81001; 82248; 82947; 83605; 83690; 85025; 85027; 87040; 88304; 93005; 97162; 99024; 99285; C9113; J0665; J0690; J1170; J1644; J2270; J2371; J2405; J2543; J2704; J3010; J7120

== ENCOUNTER → 2023-02-21 05:26 | Outpatient (BNV) | payer MEDICARE, OTHER, SELFPAY | PROVIDERS: Emergency Provider Emergency Medicine Emergency Medical Services; PCP Internal Medicine; Visit Provider Surgery | DX: K85.10 Biliary acute pancreatitis without necrosis or infection (principal) | CPT/HCPCS: 47562; 99222; 99231; 99232; 99233 ==

== ENCOUNTER → 2023-02-21 14:48 | Outpatient (BNV) | payer MEDICARE, OTHER, SELFPAY | PROVIDERS: Admitting Provider Student in an Organized Health Care Education/Training Program; Emergency Provider Emergency Medicine Emergency Medical Services; PCP Internal Medicine; Visit Provider Internal Medicine Hypertension Specialist | DX: N17.9 Acute kidney failure, unspecified (principal); N18.9 Chronic kidney disease, unspecified; E87.5 Hyperkalemia | CPT/HCPCS: 99222; 99232; 99499 ==

== ENCOUNTER → 2023-02-21 14:48 | Outpatient (BNV) | payer MEDICARE, OTHER, SELFPAY | PROVIDERS: Admitting Provider Student in an Organized Health Care Education/Training Program; Emergency Provider Emergency Medicine Emergency Medical Services; PCP Internal Medicine; Visit Provider Student in an Organized Health Care Education/Training Program | DX: N17.9 Acute kidney failure, unspecified (principal); Z90.49 Acquired absence of other specified parts of digestive tract; K85.10 Biliary acute pancreatitis without necrosis or infection | CPT/HCPCS: 99223; 99232; 99233; 99239 ==

== ENCOUNTER → 2023-02-21 14:48 | Outpatient (BNV) | payer MEDICARE, OTHER, SELFPAY | PROVIDERS: Admitting Provider Student in an Organized Health Care Education/Training Program; Emergency Provider Emergency Medicine Emergency Medical Services; PCP Internal Medicine; Visit Provider Internal Medicine Gastroenterology | DX: K85.10 Biliary acute pancreatitis without necrosis or infection (principal) | CPT/HCPCS: 99223 ==

== ENCOUNTER 2023-03-05 09:43 | Outpatient (AMB) | payer MEDICARE, OTHER, SELFPAY ==
--- NOTE | 2023-03-05 09:44 | MHC.OFFVIS ---
Intake Vital Signs 03/05/23 09:52 Weight 139 lb BP 146/72 H Blood Pressure Location Lt brachial Position Sitting Pulse 67 Intake Visit Reasons: s/p laparoscopic cholecystectomy Intake Note: Patient here s/p lap abida on 03-01-23. Reports pain not better with rx meds. Denies oozing, tenderness at surgical site. Mounter Saxophones Required: No Accompanied by: Mary Grace Monroy Allergies No Known Allergies Allergy (Mild, Verified 03/05/23 09:51) NOT APPLICABLE HPI HPI Comments History of Present Illness Details Patient presents with his . Status post gallstone pancreatitis, and cholecystectomy. He is slowly but steadily increasing his activity level. Still having incisional discomfort which is improving. Patient is eating marginally according to his . He has had is having bowel movements PFSH Medical History Cataract Arthritis Anemia [id number] kidney injury Holter monitor, abnormal Stroke HTN (hypertension) HLD (hyperlipidemia) Diabetes Bronchitis Surgical History Hx laparoscopic cholecystectomy (03/01/23) Hx of colonoscopy History of laminectomy History of intestinal surgery Social History Household Members: Spouse Housing: House Are you a primary hospice care transitions coordinator to a significant other at home: No Do you presently have visiting nurse or other home services: No Alcohol intake: never Patient Tobacco Use Status: Former Tobacco user Quit Date: 60 yrs ago Tobacco use type: Cigarette e-Cigarette/Vaping Use: Former Use Second Hand Smoke Exposure: No Advance Directives Date on File: 08/23/20 service: No Current occupational status: retired Physical Exam Vital Signs: Last Vital Signs Pulse 67 03/05/23 09:52 BP 146/72 H 03/05/23 09:52 Eyes Other: Anicteric GI Other: Abdomen soft. All wounds clean dry and intact healing uneventfully Assessment & Plan Assessment & Plan (1) Status post cholecystectomy: Code(s): Z90.49 - Acquired absence of other specified parts of digestive tract (2) Gallstone pancreatitis: Code(s): K85.10 - Biliary acute pancreatitis without necrosis or infection Plan Patient and spouse have been given local instructions, and patient will follow-up p.r.n.. Coding Level of Care Code Global (24772) Diagnoses Status post cholecystectomy Z90.49 Gallstone pancreatitis K85.10
[2023-03-05 09:52] VITALS: BP 146/72; PULSE 67
== END 2023-03-05 10:00 | disposition home or self-care (01) ==
PROVIDERS: PCP Internal Medicine; Visit Provider Surgery
DX: Z90.49 Acquired absence of other specified parts of digestive tract (principal); K85.10 Biliary acute pancreatitis without necrosis or infection
CPT/HCPCS: 99024

== ENCOUNTER → 2023-03-05 09:43 | Outpatient (BNVA) | payer MEDICARE, OTHER, SELFPAY | PROVIDERS: PCP Internal Medicine; Visit Provider Surgery | DX: K85.10 Biliary acute pancreatitis without necrosis or infection (principal); Z90.49 Acquired absence of other specified parts of digestive tract | CPT/HCPCS: 99212 ==

== ENCOUNTER 2023-03-12 09:45 | Inpatient (IN) | payer MEDICARE, OTHER, SELFPAY ==
--- NOTE | ~2023-03-12 | CT_ITS ---
EXAMINATION: CT ABDOMEN AND PELVIS WITHOUT CONTRAST CLINICAL INFORMATION: Rectal bleeding. History of pancreatitis. COMPARISON: Previous CT of the abdomen and pelvis January 2023 TECHNIQUE: Multidetector volumetric imaging was performed from the superior aspect of the liver through the pubic symphysis. Sagittal and coronal reformatted images were obtained on the technologist's workstation. This CT examination was performed using dose optimization techniques as appropriate, variously including the following: *Automated exposure control *Adjustment of mA and/or kV according to patient size (this includes techniques or standardized protocols for targeted exams where dose is matched to indication/reason for exam; i.e. extremities or head) *Use of iterative reconstruction technique DLP: 432 mGy-cm FINDINGS: LUNG BASES: Mild bronchial wall thickening and subsegmental atelectasis in the left lower lobe LIVER, GALLBLADDER, AND BILIARY TREE: The liver is normal in size, shape, and attenuation. No focal hepatic lesion or biliary ductal dilatation is present. The gallbladder has been removed. There is an abscess. PANCREAS: The pancreas appears prominent. There is stranding of the peripancreatic fat. Left anterior pararenal fascia maximum 1.5 cm findings are suggestive pancreas. SPLEEN: Unremarkable. ADRENAL GLANDS: Unremarkable. KIDNEYS AND URETERS: Atrophic-appearing right kidney. Right renal cysts. No imaging follow-up. Normal left kidney. BLADDER: Unremarkable. GASTROINTESTINAL TRACT: Mild diverticulosis colon. No evidence of diverticulitis. The small and large bowel are otherwise unremarkable. Normal rectum. The appendix is unremarkable. No ascites. No free air. ABDOMINAL WALL: No significant hernia is appreciated. LYMPH NODES: Normal. VASCULAR: Unremarkable. PELVIC VISCERA: Unremarkable. OSSEOUS STRUCTURES: Degenerative changes of the spine. CT/CT abdomen pelvis wo IV con IMPRESSION: Air and fluid collection in the gallbladder fossa suggestive of an abscess measuring 3 x 6 cm. Pancreatitis. Diverticulosis of the colon. No evidence of diverticulitis or colitis. Normal-appearing rectum. Atrophic right kidney. Fleischner guidelines were followed.
--- NOTE | ~2023-03-12 | CT_ITS ---
CLINICAL HISTORY: Gallbladder fossa abscess after cholecystectomy PROCEDURES: 1. Limited preprocedure CT of the abdomen. Permanent images saved in PACS. 2. Placement of a 10 Jordanian drainage catheter into the gallbladder fossa abscess. 3. Limited post procedure CT of the abdomen. Permanent images taken PACS. CLINICIANS: Long Clifford PA-C Preprocedural imaging reviewed with Dr. Mann MEDICATIONS: -Versed 1 mg, Fentanyl 50 mcg, and lidocaine 1% 10 mL SQ -Antibiotics: None -For additional details, please see nursing flowsheet. COMPLICATIONS: None ESTIMATED BLOOD LOSS: < 5 ml CONTRAST: None SPECIMENS: Sample sent for culture MODERATE SEDATION TIME: 18 min PROCEDURE NOTE: The procedure, risks, benefits, and alternatives were carefully explained to the patient and his spouse and written informed consent was obtained. The patient was placed supine on the CT table. A timeout was performed. A limited CT of the abdomen was performed to localize the gallbladder fossa abscess and choose appropriate needle entry and trajectory. The patient was prepped and draped in usual sterile fashion. The skin and subcutaneous tissues were anesthetized with lidocaine. Under CT guidance guidance, a 5 Jordanian News[employer] catheter was advanced through the skin and soft tissues and directed into the gallbladder fossa abscess. Thick dark fluid was immediately aspirated. An 0.035 wire was placed to the catheter and coiled into the abscess cavity. The catheter was removed, and the tract was serially dilated. Over the wire, a 10 Jordanian all-purpose drainage catheter was advanced and coiled into the abscess cavity. The wire was then removed. A total of 30 mL of thick dark fluid was removed and sent for culture. The catheter was secured to the skin with a 2-0 Ethilon suture. A dry dressing was applied. The catheter was then connected to a NIMESH bulb. A limited post procedure CT was then obtained, which showed the drain well-positioned in the gallbladder fossa and near resolution of the abscess. The patient tolerated the procedure well, with no immediate complications. The patient was stable after the procedure and was transferred to the post anesthesia care unit. The procedure was done under moderate sedation with a dedicated nurse for monitoring of vital signs. CT/CT guided drainage Impression: CT-guided drainage of gallbladder fossa abscess This procedure was performed by Long Clifford PA-C and supervised by Dr. Mann.
[2023-03-12 10:42] VITALS: BP 108/76; PULSE 59; RESP 17; TEMP 35.9; O2SAT 98; BMI 21.3
[2023-03-12 11:12] LABS: Basophils Absolute Auto 0.1 X10*3/uL (0.0-0.2); Basophils Percent Auto 0.5 % (0-2); Eosinophils Absolute Auto 0.1 X10*3/uL (0.0-0.4); Eosinophils Percent Auto 0.8 % (0-4); Hematocrit 30.6 % (42.0-52.0); Hemoglobin 9.6 g/dl (14.0-18.0); Imm Gran Abs Auto 0.08 X10*3/uL (0.00-0.03); Imm Gran Pct Auto 0.8 % (0.0-0.4); Lymphocytes Absolute Auto 1.5 X10*3/uL (1.2-4.9); Lymphocytes Percent Auto 14.4 % (20-40); MANUAL DIFF FLAG NO; Mean Corpuscular HGB Conc 31.4 g/dl (31.0-36.0); Mean Corpuscular Hemoglobin 27.9 pg (27.0-33.0); Mean Platelet Volume 9.2 fL (9.4-12.4); Monocytes Absolute Auto 0.6 X10*3/uL (0.1-1.2); Monocytes Percent Auto 5.7 % (2-11); Neutrophils Percent Auto 77.8 % (45-73); Platelet Count 682 X10*3/uL (160-400); Red Blood Count 3.44 X10*6/uL (4.60-5.80); Red Cell Distribution Width 12.5 % (11.0-16.0); White Blood Count 10.3 X10*3/uL (4.8-10.8)
[2023-03-12 11:25] LABS: Alanine Aminotransferase 15 U/L (0-40); Albumin Level 3.6 g/dL (3.5-5.0); Alkaline Phosphatase 105 U/L (39-117); Anion Gap 13 (12-20); Aspartate Amino Transferase 17 U/L (5-37); Bilirubin Direct 0.2 mg/dL (0.0-0.5); Bilirubin Total 0.3 mg/dL (0.0-1.0); Blood Urea Nitrogen 42 mg/dL (9-16); Calcium 9.4 mg/dL (8.4-10.2); Carbon Dioxide 22 mmol/L (22-29); Chloride 103 mmol/L (96-108); Creatinine Clr Calc Pharmacy 22.2; Estimated Glomerular Filt Rate 26; Glucose Random 286 mg/dL (60-115); Lipase 124 U/L (8-78); Potassium 5.4 mmol/L (3.3-5.1); Sodium 133 mmol/L (135-145); Total Protein 7.5 g/dL (6.5-8.0)
[2023-03-12 11:27] LABS: COVID-19 Test Negative (Negative); IDNOW Serial# 9DB6401D
[2023-03-12] MEDS: Acetaminophen 325 MG TABLET 650 MG PO (13:30)
--- NOTE | 2023-03-12 13:30 | ECG_ITS ---
Test Reason : PAIN Blood Pressure : / mmHG Vent. Rate : 054 BPM Atrial Rate : 054 BPM P-R Int : 142 ms QRS Dur : 078 ms QT Int : 422 ms P-R-T Axes : 055 035 039 degrees QTc Int : 400 ms Sinus bradycardia Otherwise normal ECG When compared with ECG of 21-FEB-2023 05:09, No significant change was found Referred By: Long Agee Electronically Signed By:EFRAÍN VARNER MD
--- NOTE | 2023-03-12 13:31 | ED.GENADULT ---
HPI - General Adult General Chief complaint: General Medical Stated complaint: rectal bleeding gall bladder surgery 02/28 Time Seen by Provider: 03/12/23 15:04 Source: patient and family Mode of arrival: wheelchair Limitations: no limitations History of Present Illness HPI narrative: Patient comes to the emergency room accompanied by family. Patient is status post cholecystectomy 12 days. Patient states that since he left the hospital, he has been feeling very weak. For the last 2 days, he has new onset painless rectal bleeding. Patient denies history of hemorrhoids. Patient denies nausea vomiting or diarrhea. Patient states he is very constipated, takes Linzess daily, even prior to his surgery. Related Data Home Medications Medication Instructions Recorded Confirmed cyanocobalamin (vitamin B-12) 1,000 mcg PO DAILY 02/21/23 02/21/23 1,000 mcg tablet fenofibrate nanocrystallized 145 145 mg PO DAILY 02/21/23 02/21/23 mg tablet ferrous sulfate 325 mg (65 mg 325 mg PO DAILY 02/21/23 02/21/23 iron) tablet insulin glargine 100 unit/mL (3 8 unit subcut DAILY 02/21/23 02/21/23 mL) subcutaneous pen (Basaglar KwikPen U-100 Insulin) insulin glargine 100 unit/mL (3 20 unit subcut BEDTIME 02/21/23 02/21/23 mL) subcutaneous pen (Basaglar KwikPen U-100 Insulin) latanoprost 0.005 % eye drops 1 drp ophthalmic (eye) BID 02/21/23 02/21/23 lidocaine 5 % topical patch 1 - 3 patch topical Q24H 02/21/23 02/21/23 linaclotide 290 mcg capsule 290 mcg PO DAILY 02/21/23 02/21/23 (Linzess) loratadine 10 mg tablet 10 mg PO DAILY PRN itch 02/21/23 02/21/23 metoprolol succinate 100 mg 100 mg PO DAILY 02/21/23 02/21/23 tablet,extended release 24 hr omeprazole 20 mg capsule,delayed 20 mg PO DAILY 02/21/23 02/21/23 release simvastatin 40 mg tablet 40 mg PO BEDTIME 02/21/23 02/21/23 Previous Rx's Medication Instructions Recorded hydrocodone 5 mg-acetaminophen 325 1 tab PO Q4-6H PRN pain #30 tabs 03/01/23 mg tablet amlodipine 5 mg tablet 5 mg PO DAILY #30 tabs 03/03/23 hydrocodone 5 mg-acetaminophen 325 1 tab PO Q4-6H PRN pain #30 tabs 03/05/23 mg tablet Allergies Allergy/AdvReac Type Severity Reaction Status Date / Time No Known Allergies Allergy Mild NOT Verified 03/05/23 09:51 APPLICABLE Review of Systems Review of Systems: Constitutional : No Weight loss, No Fever, No Chills, No Night Sweats, complaining of fatigue and generalized malaise ENT/Mouth : No Hearing loss, No Ear Pain, No Nasal Congestion, No Sinus Pain, No Hoarseness, No sore throat, No Rhinorrhea, No Swallowing Difficulty Eyes: No Eye Pain, No Swelling, No Redness, No Foreign Body, No Discharge, No Vision Changes Cardiovascular : No Chest Pain, No SOB, No Dyspnea on Exertion, No Orthopnea, No Edema, No Palpitations Respiratory : No Cough, No Sputum, No Wheezing, No Smoke Exposure, No Dyspnea Gastrointestinal : Complaining of Nausea, No Vomiting, No Diarrhea, No Constipation, No abdominal Pain, complaining of rectal bleeding for 2 days Genitourinary : no irregular bleeding, No Dysuria, No Urinary Frequency, No Hematuria, No Urinary Incontinence, No Urgency, No Flank Pain, No Urinary Flow Changes, No Hesitancy Musculoskeletal : No joint pain, No Myalgias, No Joint Swelling Skin : No Skin Lesions, No rash Neuro : No Weakness, No Numbness, No Paresthesias, No Loss of Consciousness, No Dizziness, No Headache Psych : No Anxiety/Panic, No Depression, No SI/HI/AH/VH, No Social Issues, Heme/Lymph: No Bruising, No Bleeding,No Lymphadenopathy Endocrine : No Polyuria, No Polydipsia, No Temperature Intolerance [facility] Past Medical History Medical History CKD (chronic kidney disease) Cataract Arthritis Anemia [id number] kidney injury Holter monitor, abnormal Stroke HTN (hypertension) HLD (hyperlipidemia) Diabetes Bronchitis Surgical History Hx laparoscopic cholecystectomy (03/01/23) Hx of colonoscopy History of laminectomy History of intestinal surgery Social History Social History (Reviewed 03/05/23 @ 09:53 by MAY Trotter Household Members: Spouse Housing: House Are you a primary progressive care unit registered nurse to a significant other at home: No Do you presently have visiting nurse or other home services: No Alcohol intake: never Patient Tobacco Use Status: Former Tobacco user Quit Date: 60 yrs ago Tobacco use type: Cigarette Smoked in Last 30 Days: No e-Cigarette/Vaping Use: Former Use Second Hand Smoke Exposure: No Use of substances other than those prescribed or required for medical reasons: No Advance Directives: No Advance Directives Information Provided: No Advance Directives Date on File: 08/23/20 service: No Current occupational status: retired Physical Exam ED Vital Signs: Vital Signs - 24 hr 03/12/23 10:42 03/12/23 16:07 Temperature 96.7 F L Pulse Rate 59 57 Respiratory Rate 17 16 Blood Pressure 108/76 120/66 Pulse Oximetry 98 97 Oxygen Delivery Method Room Air BMI result Body Mass Index 21.3 Const Other: Appearance: Alert. Oriented X3. No acute distress. Eyes: Pupils equal, round and reactive to light. ENT: Pharynx normal. Neck: Normal inspection. Neck supple. No lymph nodes noted. No crepitus CVS: Normal heart rate and rhythm. Pulses normal. Normal S1 and S2 Respiratory: No respiratory distress. Breath sounds normal. No Wheezing. No rales Abdomen: Soft and nontender. No rigidity. No distention. Digital rectal exam shows brown stool Skin: Skin warm and dry. Normal skin color. Normal skin turgor. Surgery incisions healing well, no signs of cellulitis Extremities: No lower extremity edema. No Lacerations. No Rash Neuro: Oriented X 3. No motor deficit. No sensory deficit. Moving all extremities. No slurred speech. CN 2 through 12 grossly intact Psych: calm, cooperative, normal affect Course Course Course Narrative: RME- 77-year-old male presents for evaluation of weakness, abdominal pain and rectal bleeding. He was previously triage but is re-evaluated at this time. He has pain radiating to the right side of his neck. Plan for EKG and I added on a troponin. Medications Administered Discontinued Medications Generic Name Dose Route Start Last Admin Trade Name Freq PRN Reason Stop Dose Admin Acetaminophen 650 mg 03/12/23 13:27 03/12/23 13:30 Acetaminophen 325 Mg Tablet PO 03/12/23 13:28 650 mg ONCE ONE Administration Medical Decision Making Medical Decision Making [facility] Narrative: -my interpretation of labs: Hematology within normal limits, hemoglobin 9.6 which is baseline for patient., potassium 5.4, no acute treatment at this time. BUN 42, creatinine 2.42 above baseline likely secondary to dehydration, troponin negative, lipase 129, patient had gallstone pancreatitis 3 weeks ago. Lipase trending down but still symptomatic -Patient has an elevated creatinine, cannot do CT scan with contrast. -when the addition of CT scan, prominent pancreas, some fluid and gas possibly postop changes in right upper quadrant -radiology report: Possible abscess, ongoing pancreatitis -patient was started empirically on IV fluids and Zosyn, patient has a normal white blood cell count, lactic acid and blood cultures pending. Patient has no fever, normal blood pressure, normal heart rate, sepsis is not suspected. -I discussed the patient with Dr. Morales from surgery, patient being admitted, medicine consult has been requested, I discussed the above-mentioned with Dr. Ramon -I discussed the plan with the patient's family, patient being admitted Differential Diagnosis Differential Diagnoses: The differential diagnosis associated with the presentation includes (Pancreatitis, upper GI bleed, lower GI bleed, abdominal abscess) Admission/Observation Consideration of admission/observation: Escalation of care including admission/observation considered (Given patient's history and presentation, admission being considered on arrival to the ED) Consult Healthcare Provider Management of the patient was discussed with: Hospitalist and Leather Shaver Lab Data [facility] Lab Attestation statement: I reviewed the patient's lab results. 03/12/23 11:05 03/12/23 11:06 Labs: Lab Results 03/12/23 03/12/23 03/12/23 Range/Units 11:05 11:06 14:06 WBC 10.3 (4.8-10.8) X10*3/uL RBC 3.44 L (4.60-5.80) X10*6/uL Hgb 9.6 L (14.0-18.0) g/dl Hct 30.6 L (42.0-52.0) % MCV 89.0 (80.0-98.0) fL MCH 27.9 (27.0-33.0) pg MCHC 31.4 (31.0-36.0) g/dl RDW 12.5 (11.0-16.0) % Plt Count 682 H D (160-400) X10*3/uL MPV 9.2 L (9.4-12.4) fL Immature Gran % (Auto) 0.8 H (0.0-0.4) % Neut % (Auto) 77.8 H (45-73) % Lymph % (Auto) 14.4 L (20-40) % [place] % (Auto) 5.7 (2-11) % Eos % (Auto) 0.8 (0-4) % Baso % (Auto) 0.5 (0-2) % Lymph # (Auto) 1.5 (1.2-4.9) X10*3/uL [place] # (Auto) 0.6 (0.1-1.2) X10*3/uL Eos # (Auto) 0.1 (0.0-0.4) X10*3/uL Baso # (Auto) 0.1 (0.0-0.2) X10*3/uL Abs Immat Gran (auto) 0.08 H (0.00-0.03) X10*3/uL Absolute Neuts (auto) 8.0 (2.0-8.3) x10*3/uL Absolute Nucleated RBC 0.000 (0.0-0.012) X10*3/uL Nucleated RBC % (auto) 0.0 (0.0-0.2) /100WBC Sodium 133 L (135-145) mmol/L Potassium 5.4 H D (3.3-5.1) mmol/L Chloride 103 (96-108) mmol/L Carbon Dioxide 22 (22-29) mmol/L Anion Gap 13 (12-20) BUN 42 H (9-16) mg/dL Creatinine 2.42 H (0.5-1.4) mg/dL Estim Creat Clear Calc 22.2 Estimated GFR 26 Random Glucose 286 H (60-115) mg/dL Calcium 9.4 D (8.4-10.2) mg/dL Total Bilirubin 0.3 (0.0-1.0) mg/dL Direct Bilirubin 0.2 (0.0-0.5) mg/dL AST 17 (5-37) U/L ALT 15 (0-40) U/L Alkaline Phosphatase 105 (39-117) U/L Troponin I High Sens < 2.7 (<3.5-35.0) ng/L Total Protein 7.5 (6.5-8.0) g/dL Albumin 3.6 (3.5-5.0) g/dL Lipase 124 H (8-78) U/L Urine Color Urine Appearance Urine pH (5.0-9.0) Ur Specific [place] (1.005-1.025) Urine Protein (Neg-Trace) mg/dL Urine Glucose (UA) (Negative) mg/dL Urine Ketones (Negative) mg/dL Urine Blood (Negative) Urine Nitrite (Negative) Ur Leukocyte Esterase (Negative) Stool Occult Blood (NEGATIVE) COVID-19 (DAY) Negative (Negative) COVID-19 Clin Com See Note Blood Type O Positive Antibody Screen NEGATIVE 03/12/23 03/12/23 Range/Units 16:17 18:20 WBC (4.8-10.8) X10*3/uL RBC (4.60-5.80) X10*6/uL Hgb (14.0-18.0) g/dl Hct (42.0-52.0) % MCV (80.0-98.0) fL MCH (27.0-33.0) pg MCHC (31.0-36.0) g/dl RDW (11.0-16.0) % Plt Count (160-400) X10*3/uL MPV (9.4-12.4) fL Immature Gran % (Auto) (0.0-0.4) % Neut % (Auto) (45-73) % Lymph % (Auto) (20-40) % [place] % (Auto) (2-11) % Eos % (Auto) (0-4) % Baso % (Auto) (0-2) % Lymph # (Auto) (1.2-4.9) X10*3/uL [place] # (Auto) (0.1-1.2) X10*3/uL Eos # (Auto) (0.0-0.4) X10*3/uL Baso # (Auto) (0.0-0.2) X10*3/uL Abs Immat Gran (auto) (0.00-0.03) X10*3/uL Absolute Neuts (auto) (2.0-8.3) x10*3/uL Absolute Nucleated RBC (0.0-0.012) X10*3/uL Nucleated RBC % (auto) (0.0-0.2) /100WBC Sodium (135-145) mmol/L Potassium (3.3-5.1) mmol/L Chloride (96-108) mmol/L Carbon Dioxide (22-29) mmol/L Anion Gap (12-20) BUN (9-16) mg/dL Creatinine (0.5-1.4) mg/dL Estim Creat Clear Calc Estimated GFR Random Glucose (60-115) mg/dL Calcium (8.4-10.2) mg/dL Total Bilirubin (0.0-1.0) mg/dL Direct Bilirubin (0.0-0.5) mg/dL AST (5-37) U/L ALT (0-40) U/L Alkaline Phosphatase (39-117) U/L Troponin I High Sens (<3.5-35.0) ng/L Total Protein (6.5-8.0) g/dL Albumin (3.5-5.0) g/dL Lipase (8-78) U/L Urine Color Yellow Urine Appearance Clear Urine pH 5.5 (5.0-9.0) Ur Specific [place] 1.010 (1.005-1.025) Urine Protein Negative (Neg-Trace) mg/dL Urine Glucose (UA) Negative (Negative) mg/dL Urine Ketones Negative (Negative) mg/dL Urine Blood Negative (Negative) Urine Nitrite Negative (Negative) Ur Leukocyte Esterase Negative (Negative) Stool Occult Blood POSITIVE (NEGATIVE) COVID-19 (DAY) (Negative) COVID-19 Clin Com Blood Type Antibody Screen Independent Interpretation I performed an independent interpretation of an: CT Scan Radiology Impression Discussion of test interpretation with radiology: I have reviewed the radiologist's reading. Radiologist Impression: FINDINGS: LUNG BASES: Mild bronchial wall thickening and subsegmental atelectasis in the left lower lobe LIVER, GALLBLADDER, AND BILIARY TREE: The liver is normal in size, shape, and attenuation. No focal hepatic lesion or biliary ductal dilatation is present. The gallbladder has been removed. There is an abscess. PANCREAS: The pancreas appears prominent. There is stranding of the peripancreatic fat. Left anterior pararenal fascia maximum 1.5 cm findings are suggestive pancreas. SPLEEN: Unremarkable. ADRENAL GLANDS: Unremarkable. KIDNEYS AND URETERS: Atrophic-appearing right kidney. Right renal cysts. No imaging follow-up. Normal left kidney. BLADDER: Unremarkable. GASTROINTESTINAL TRACT: Mild diverticulosis colon. No evidence of diverticulitis. The small and large bowel are otherwise unremarkable. Normal rectum. The appendix is unremarkable. No ascites. No free air. ABDOMINAL WALL: No significant hernia is appreciated. LYMPH NODES: Normal. VASCULAR: Unremarkable. PELVIC VISCERA: Unremarkable. OSSEOUS STRUCTURES: Degenerative changes of the spine. CT/CT abdomen pelvis wo IV con IMPRESSION: Air and fluid collection in the gallbladder fossa suggestive of an abscess measuring 3 x 6 cm. Pancreatitis. Diverticulosis of the colon. No evidence of diverticulitis or colitis. Normal-appearing rectum. Atrophic right kidney. Fleischner guidelines were followed. Independent Historian Clinical information obtained from an independent historian. History obtained from or confirmed by: Spouse External Record Review External record reviewed: Inpatient record Critical Care Time Critical Care Time Critical Care Time: Yes Total Critical Care Time: 75 Attestation: I have personally provided critical care time. Time includes review of lab data, radiology results, discussion with consultants, and monitoring for potential decompensation. Intervention performed as documented. Discharge Plan Discharge Clinical Impression: Pancreatitis, Postoperative abscess, GI bleed, Dehydration Patient Disposition: Admitted As Inpatient Prescriptions: No Action latanoprost 0.005 % drops 1 drp ophthalmic (eye) BID metoprolol succinate 100 mg tablet extended release 24 hr 100 mg PO DAILY cyanocobalamin (vitamin B-12) 1,000 mcg tablet 1,000 mcg PO DAILY simvastatin 40 mg tablet 40 mg PO BEDTIME ferrous sulfate 325 mg (65 mg iron) tablet 325 mg PO DAILY lidocaine 5 % adhesive patch,medicated 1 - 3 patch topical Q24H Rx Instructions: 12H ON 12 H OFF, patient applies to back and neck omeprazole 20 mg capsule,delayed release(DR/EC) 20 mg PO DAILY loratadine 10 mg tablet 10 mg PO DAILY PRN (Reason: itch) fenofibrate nanocrystallized 145 mg tablet 145 mg PO DAILY insulin glargine [Basaglar KwikPen U-100 Insulin] 100 unit/mL (3 mL) insulin pen 8 unit subcut DAILY Linzess 290 mcg capsule 290 mcg PO DAILY insulin glargine [Basaglar KwikPen U-100 Insulin] 100 unit/mL (3 mL) insulin pen 20 unit subcut BEDTIME hydrocodone-acetaminophen 5-325 mg tablet 1 tab PO Q4-6H PRN (Reason: pain) Qty: 30 0RF Rx Instructions: Partial Fill upon patient request. amlodipine 5 mg Tablet 5 mg PO DAILY Qty: 30 0RF Protocol: Hold for SBP< HOLD for SBP < : 90 hydrocodone-acetaminophen 5-325 mg tablet 1 tab PO Q4-6H PRN (Reason: pain) Qty: 30 0RF Rx Instructions: Partial Fill upon patient request.
[2023-03-12 14:42] LABS: Troponin-I High Sensitivity < 2.7 ng/L (<3.5-35.0)
[2023-03-12 16:07] VITALS: BP 120/66; PULSE 57; RESP 16; O2SAT 97
[2023-03-12 16:22] LABS: OBS Int Ctl Valid YES; OBS1 POSITIVE (NEGATIVE)
[2023-03-12 18:27] LABS: Appearance Urine Clear; Color Urine Yellow; Glucose Urine UA Negative (Negative); Leukocyte Esterase Urine Negative (Negative); Nitrite Urine Negative (Negative); PH 5.5 (5.0-9.0); Urine Blood Negative (Negative); Urine Ketones Negative (Negative); Urine Protein Negative (Neg-Trace)
--- NOTE | 2023-03-12 18:47 | P.CONHOSP_ITS ---
History of Present Illness Data of Consult Service Date: 03/12/23 Requesting physician: Pradeep Morales Primary Care Provider: eGrry Garcia III, MD HPI Reason for consult: medical management-htn dm 77-year-old male with history of insulin-dependent type 2 diabetes, chronic anemia, history CVA, hypertension, and CKD stage 3 who is s/p cholecystectomy on 03/01/2023 due to gallstone pancreatitis admitted to General surgery for management of abscess in the gallbladder fossa as well as acute GI bleed. The patient has reported generalized weakness and painless bright red blood per rectum x2 days. He has had poor PO intake since his discharge with occasional nausea but no vomiting. He is chronically constipated despite taking Linzess. On arrival, vital signs stable. There is no leukocytosis. Has a stable normocytic anemia with H/H 9.6/30.6%, improved from discharge. Creatinine 2.42, baseline around 1.8. BUN 42. Sodium 133, potassium 5.4. Glucose 286. Lipase 124. CT abdomen/pelvis shows air in fluid collection in the gallbladder fossa suggestive of abscess measuring 3 x 6 cm as well as pancreatitis. Lipase has trended down, now 124. Review of Systems 2 Review of Systems: General: No fevers, malaise, unintentional weight loss. +generalized weakness HEENT: No blurred vision, diplopia. No sore throat, nasal congestion, rhinorrhea, sinus pain, ear pain Cardiovascular: No chest pain, palpitations, or leg edema Respiratory: No shortness of breath, wheezing, cough GI: +anorexia, +nausea, +constipation, +BRBPR. No abdominal pain, vomiting, diarrhea, melena : No dysuria, hematuria, increased urinary frequency, decreased urinary output MSK: No myalgia, back pain Neuro: No headaches, weakness, paresthesias Skin: No rashes or lesions [facility] Medical History CKD (chronic kidney disease) Cataract Arthritis Anemia [id number] kidney injury Holter monitor, abnormal Stroke HTN (hypertension) HLD (hyperlipidemia) Diabetes Bronchitis Surgical History Status post cholecystectomy Gallstone pancreatitis Hx laparoscopic cholecystectomy (03/01/23) Hx of colonoscopy History of laminectomy History of intestinal surgery Social History Household Members: Spouse Housing: House Are you a primary career resource specialist to a significant other at home: No Do you presently have visiting nurse or other home services: No Alcohol intake: never Patient Tobacco Use Status: Former Tobacco user Quit Date: 60 yrs ago Tobacco use type: Cigarette Smoked in Last 30 Days: No e-Cigarette/Vaping Use: Former Use Second Hand Smoke Exposure: No Use of substances other than those prescribed or required for medical reasons: No Advance Directives: No Advance Directives Information Provided: No Advance Directives Date on File: 08/23/20 service: No Current occupational status: retired Meds Allergies Allergy/AdvReac Type Severity Reaction Status Date / Time No Known Allergies Allergy Mild NOT Verified 03/05/23 09:51 APPLICABLE Active Medications: Current Medications Heparin Sodium (Porcine) (Heparin Sodium,Porcine 5,000 Unit/Ml Vial) 5,000 unit SUBCUT Q12H [place] Piperacillin Sod/Tazobactam (Sod 3.375 gm/ Sodium Chloride) 50 mls @ 100 mls/hr IV ONCE ONE Stop: 03/12/23 19:02 Sodium Chloride (Ns) 1,000 mls @ 999 mls/hr IVCONT .Q1H1M ONE Stop: 03/12/23 19:33 Sodium Chloride (Ns) 1,000 mls @ 80 mls/hr IVCONT .[id number] [place] Sodium Chloride (0.9 % Sodium Chloride Flush 3 Ml Syringe) 3 ml IVFLUSH QSHIFT [place] Home Medications Medication Instructions Recorded Confirmed Last Taken Type cyanocobalamin (vitamin B-12) 1,000 mcg PO DAILY 02/21/23 02/21/23 02/20/23 History 1,000 mcg tablet fenofibrate nanocrystallized 145 145 mg PO DAILY 02/21/23 02/21/23 02/20/23 History mg tablet ferrous sulfate 325 mg (65 mg 325 mg PO DAILY 02/21/23 02/21/23 02/20/23 History iron) tablet insulin glargine 100 unit/mL (3 8 unit subcut DAILY 02/21/23 02/21/23 02/20/23 History mL) subcutaneous pen (Basaglar KwikPen U-100 Insulin) insulin glargine 100 unit/mL (3 20 unit subcut BEDTIME 02/21/23 02/21/23 02/20/23 History mL) subcutaneous pen (Basaglar KwikPen U-100 Insulin) latanoprost 0.005 % eye drops 1 drp ophthalmic (eye) BID 02/21/23 02/21/23 02/20/23 History lidocaine 5 % topical patch 1 - 3 patch topical Q24H 02/21/23 02/21/23 02/20/23 History linaclotide 290 mcg capsule 290 mcg PO DAILY 02/21/23 02/21/23 02/20/23 History (Linzess) loratadine 10 mg tablet 10 mg PO DAILY PRN itch 02/21/23 02/21/23 02/20/23 History metoprolol succinate 100 mg 100 mg PO DAILY 02/21/23 02/21/23 02/20/23 History tablet,extended release 24 hr omeprazole 20 mg capsule,delayed 20 mg PO DAILY 02/21/23 02/21/23 02/20/23 History release simvastatin 40 mg tablet 40 mg PO BEDTIME 02/21/23 02/21/23 02/20/23 History Physical Exam 2 Vital Signs and Narrative: Vital Signs: Last Vital Signs Temp 96.7 F L 03/12/23 10:42 Pulse 57 03/12/23 16:07 Resp 16 03/12/23 16:07 BP 120/66 03/12/23 16:07 Pulse Ox 97 03/12/23 16:07 O2 Del Method Room Air 03/12/23 16:07 BMI result Body Mass Index 21.3 Constitutional - Awake and Alert, No apparent distress Eyes - PERRLA, EOMI Cardiovascular - S1S2, RRR, No edema Respiratory - Normal lung expansion, Normal respiratory effort, No respiratory distress, CTA bilaterally Gastrointestinal - mid abd ttp without guarding or rebound. ND; +BS; No rebound or guarding Extremities - no calf tenderness bilaterally, no swelling Skin - Warm/Dry Neurological - Alert & oriented x3 Psychological - Appropriate affect Results Labs 03/12/23 11:05 03/12/23 11:06 Labs: Laboratory Results - last 24 hr 03/12/23 03/12/23 03/12/23 11:05 11:06 16:17 MCV 89.0 MCH 27.9 MCHC 31.4 RDW 12.5 Plt Count 682 H D MPV 9.2 L Immature Gran % (Auto) 0.8 H Neut % (Auto) 77.8 H Lymph % (Auto) 14.4 L [place] % (Auto) 5.7 Eos % (Auto) 0.8 Baso % (Auto) 0.5 Lymph # (Auto) 1.5 [place] # (Auto) 0.6 Eos # (Auto) 0.1 Baso # (Auto) 0.1 Abs Immat Gran (auto) 0.08 H Absolute Neuts (auto) 8.0 Absolute Nucleated RBC 0.000 Nucleated RBC % (auto) 0.0 Anion Gap 13 Estim Creat Clear Calc 22.2 Estimated GFR 26 Random Glucose 286 H Calcium 9.4 D Total Bilirubin 0.3 Direct Bilirubin 0.2 AST 17 ALT 15 Alkaline Phosphatase 105 Total Protein 7.5 Albumin 3.6 Lipase 124 H Urine Color Urine Appearance Urine pH Ur Specific [place] Urine Protein Urine Glucose (UA) Urine Ketones Urine Blood Urine Nitrite Ur Leukocyte Esterase Stool Occult Blood POSITIVE COVID-19 (DAY) Negative COVID-19 Clin Com See Note Blood Type O Positive Antibody Screen NEGATIVE 03/12/23 18:20 MCV MCH MCHC RDW Plt Count MPV Immature Gran % (Auto) Neut % (Auto) Lymph % (Auto) [place] % (Auto) Eos % (Auto) Baso % (Auto) Lymph # (Auto) [place] # (Auto) Eos # (Auto) Baso # (Auto) Abs Immat Gran (auto) Absolute Neuts (auto) Absolute Nucleated RBC Nucleated RBC % (auto) Anion Gap Estim Creat Clear Calc Estimated GFR Random Glucose Calcium Total Bilirubin Direct Bilirubin AST ALT Alkaline Phosphatase Total Protein Albumin Lipase Urine Color Yellow Urine Appearance Clear Urine pH 5.5 Ur Specific [place] 1.010 Urine Protein Negative Urine Glucose (UA) Negative Urine Ketones Negative Urine Blood Negative Urine Nitrite Negative Ur Leukocyte Esterase Negative Stool Occult Blood COVID-19 (DAY) COVID-19 Clin Com Blood Type Antibody Screen Imaging Radiologist's Impressions: Impressions Abdomen/Pelvis CT 03/12/23 16:48 IMPRESSION: Air and fluid collection in the gallbladder fossa suggestive of an abscess measuring 3 x 6 cm. Pancreatitis. Diverticulosis of the colon. No evidence of diverticulitis or colitis. Normal-appearing rectum. Atrophic right kidney. Fleischner guidelines were followed. Assessment and Plan (1) Postoperative abscess: Status: Acute (2) Pancreatitis: Status: Acute Plan 77-year-old male with history of insulin-dependent type 2 diabetes, chronic anemia, history CVA, hypertension, and CKD stage 3 who is s/p cholecystectomy on 03/01/2023 due to gallstone pancreatitis admitted to General surgery for management of abscess in the gallbladder fossa as well as acute GI bleed. #Gallbladder abscess/pancreatitis -plan per general surgery #Acute GI bleed -suspect hemorrhoidal in etiology -H/H stable, above tranfusion threshold -plan per general surgery #Acute kidney injury -likely prerenal 2/2 hypovolemia from poor po intake -IVF per general surgery -follow renal function/lytes # insulin-dependent type 2 diabetes- with hyperglycemia -dose adjusted basal insulin -humalog on ss for now -diet per general surgery -poc glucose #HTN -bp reasonably controlled -continue metoprolol and amlodipine -monitor bp Thank you for this consult. We will continue following along with you.
[2023-03-12] MEDS: 0.9 % Sodium Chloride 1,000 ML 999 ML IVCONT (19:51)
[2023-03-12] MEDS: ondansetron HCL 4 MG/2 ML VIAL IVPUSH (19:55)
[2023-03-12] MEDS: Lidocaine 4 % Patch ADH..PATCH 1 PATCH TRANSDERMA (19:55)
[2023-03-12] MEDS: Piperacillin Sodium/Tazobactam 3.375 GM in 0.9 % Sodium Chloride 50 ML IV (19:58)
[2023-03-12 20:05] VITALS: BP 125/46; PULSE 54; RESP 18; TEMP 36.9; O2SAT 97
--- NOTE | 2023-03-12 20:43 | MHC.EDTECH ---
@0102 - Duplicate order for Blood Culture.
--- NOTE | 2023-03-12 21:11 | PC.NURSE ---
This property underwriter assumed care of this Pt at 1900. Pt A&Ox3, reports constant 10/10 pain ABD, neck pain and weakness. Dr. Morales made aware, verbal order of 3mg IV morphine Q4h PRN.
[2023-03-12 21:19] VITALS: RESP 14
[2023-03-12] MEDS: Morphine Sulfate 4 MG/ML CARTRIDGE 3 MG IVPUSH (21:19)
[2023-03-12] MEDS: 0.9 % Sodium Chloride 1,000 ML 80 ML IVCONT (21:20)
[2023-03-12 21:32] LABS: Glucose, Whole Blood 69 mg/dL (60-115)
--- NOTE | 2023-03-12 21:36 | PC.NURSE ---
POC 69, no insulin coverage, Pt given jello on clear liquid.
--- NOTE | 2023-03-12 22:29 | PHA.MEDREC ---
Pharmacy Consult ? Medication Reconciliation Pharmacy has completed the medication reconciliation. Spoke to family member at bedside and confirmed medication list.
[2023-03-12 23:36] LABS: Glucose, Whole Blood 113 mg/dL (60-115)
[2023-03-13] VITALS (8 sets, daily range): BP systolic 111–164; BP diastolic 53–74; PULSE 48–105; RESP 12–18; TEMP 36.1–36.6; O2SAT 95–99
[2023-03-13] MEDS: Morphine Sulfate 4 MG/ML CARTRIDGE 3 MG IVPUSH ×2 (02:59→08:31)
[2023-03-13] MEDS: Piperacillin Sodium/Tazobactam 3.375 GM in 0.9 % Sodium Chloride 50 ML IV ×4 (02:59→21:10)
--- NOTE | 2023-03-13 03:20 | PC.NURSE ---
Pt assisted to side of bed for urinal use. Steady gait.
[2023-03-13 07:54] LABS: Glucose, Whole Blood 66 mg/dL (60-115)
--- NOTE | 2023-03-13 07:57 | P.HPGS_ITS ---
History of Present Illness History of Present Illness Date of Service: 03/14/23 Chief complaint: postop abcess Narrative: Virgilio Martínez is a 77 year old male with diabetes, who was brought to the ER yesterday by his because of multiple complaints. He states that he has not been eating well and has had very poor appetite since he was discharged from the hospital after laparoscopic cholecystectomy with Dr. Parekh last 03/01/2023. He had had been admitted for gallstone pancreatitis then. He also describes persistent sharp pains on the right side of his abdomen. He mentioned seeing bright blood per rectum with bowel movements for the past 2 days prior to admission although he has had not any bloody stools since he had been in the ER. He said he has been weak. He is known to be chronically constipated and is on Linzess. He denies any fever or chills at home. Review of Systems Constitutional: Constitutional: Reports anorexia, Denies chills, Denies fever(s), Reports lethargy and Reports malaise Cardiovascular: Cardiovascular: Denies chest pain, Reports dyspnea and Denies dyspnea on exertion Respiratory: Respiratory: Denies cough, Reports dyspnea and Denies dyspnea on exertion Gastrointestinal: Gastrointestinal: Reports hematochezia and Denies change in bowel habits Genitourinary: Genitourinary: Denies hematuria and Denies difficulty urinating Musculoskeletal: Musculoskeletal: Denies back pain and Denies limited range of motion Neurologic: Denies focal weakness and Denies convulsions Psychiatric: Psychiatric: Denies depression and Denies mood swings PMFSH Past Medical History Medical History (Updated 03/13/23 @ 08:04 by Pradeep Morales MD) CKD (chronic kidney disease) Cataract Arthritis Anemia [id number] kidney injury Holter monitor, abnormal Stroke HTN (hypertension) HLD (hyperlipidemia) Diabetes Bronchitis Surgical History Surgical History Status post cholecystectomy Gallstone pancreatitis Hx laparoscopic cholecystectomy (03/01/23) Hx of colonoscopy History of laminectomy History of intestinal surgery Social History Social History Household Members: Spouse Housing: House Are you a primary acute care nurse practitioner to a significant other at home: No Do you presently have visiting nurse or other home services: No Alcohol intake: never Patient Tobacco Use Status: Former Tobacco user Quit Date: 60 yrs ago Tobacco use type: Cigarette Smoked in Last 30 Days: No e-Cigarette/Vaping Use: Former Use Second Hand Smoke Exposure: No Use of substances other than those prescribed or required for medical reasons: No Currently Displaying Signs/Symptoms of Drug Intoxication Withdrawal: No Have you been hit, kicked, punched, or otherwise hurt by someone within the past year? If so, by whom?: No Do you feel safe in your current relationship?: Yes Is there a partner from a previous relationship who is making you feel unsafe now?: No Are you made to feel afraid or neglected: No Are you DNR?: No Advance Directives: No Advance Directives Information Provided: No Advance Directives Date on File: 08/23/20 Do you have thoughts of harming others: None Do you have a plan to hurt others: No Plan Recently lost weight without trying: Yes How much weight loss: 2-13 pounds Eating poorly because of decreased appetite: Yes Nutrition screen score: 4 Nutrition Risks: No Nutritional Risk Poor oral hygiene: No service: No Current occupational status: retired [employer] Allergies Allergy/AdvReac Type Severity Reaction Status Date / Time No Known Allergies Allergy Mild NOT Verified 03/05/23 09:51 APPLICABLE Active Medications: Current Medications Dextrose (Dextrose 50 % 25 Gm/50 Ml Syringe) 25 gm IVPUSH Q15M PRN; Protocol PRN Reason: per Hypoglycemia Standing Ord. Glucose (Glucose Gel 15 Gm Gel..Gram.) 15 gm PO Q15M PRN; Protocol PRN Reason: per Hypoglycemia Standing Ord. Heparin Sodium (Porcine) (Heparin Sodium,Porcine 5,000 Unit/Ml Vial) 5,000 unit SUBCUT Q12H [facility] Sodium Chloride (Ns) 1,000 mls @ 80 mls/hr IVCONT .[id number] [facility] Last Admin: 03/12/23 21:20 Dose: 80 mls/hr Piperacillin Sod/Tazobactam (Sod 3.375 gm/ Sodium Chloride) 50 mls @ 100 mls/hr IV Q6H [facility] Last Infusion: 03/13/23 03:30 Dose: Infused Insulin Glargine (Insulin Glargine,Hum.Rec.Anlog 100 Unit/Ml 10 Ml Vial) 20 unit SUBCUT BID [facility] Insulin Human Lispro (Insulin Lispro 100 Unit/Ml 3 Ml Vial) 0 unit SUBCUT QIDACHS [facility]; Protocol Last Admin: 03/12/23 21:35 Dose: Not Given Lidocaine (Lidocaine 4 % Patch Adh..Patch) 1 patch TRANSDERMA DAILY [facility]; Protocol Last Admin: 03/12/23 19:55 Dose: 1 patch Metoprolol Succinate (Metoprolol Succinate Er 100 Mg Tab.Er.24h) 100 mg PO DAILY [facility]; Protocol Morphine Sulfate (Morphine Sulfate 4 Mg/Ml Cartridge) 3 mg IVPUSH Q4H PRN; Protocol PRN Reason: Pain, Severe (Pain Scale 7-10) Last Admin: 03/13/23 02:59 Dose: 3 mg Non-Formulary Medication (Linaclotide [Linzess]) 290 mcg PO DAILY [facility] Sodium Chloride (0.9 % Sodium Chloride Flush 3 Ml Syringe) 3 ml IVFLUSH QSHIFT [facility] Last Admin: 03/12/23 23:17 Dose: Not Given Home Medications Medication Instructions Recorded Confirmed Last Taken Type cyanocobalamin (vitamin B-12) 1,000 mcg PO DAILY 02/21/23 03/12/23 03/12/23 History 1,000 mcg tablet fenofibrate nanocrystallized 145 145 mg PO DAILY 02/21/23 03/12/23 03/12/23 History mg tablet ferrous sulfate 325 mg (65 mg 325 mg PO DAILY 02/21/23 03/12/23 03/12/23 History iron) tablet insulin glargine 100 unit/mL (3 20 unit subcut BID 02/21/23 03/12/23 03/12/23 History mL) subcutaneous pen (Marielle Fields U-100 Insulin) latanoprost 0.005 % eye drops 2 drp ophthalmic (eye) DAILY 02/21/23 03/12/23 03/12/23 History lidocaine 5 % topical patch 1 - 3 patch topical Q24H 02/21/23 03/12/23 03/12/23 History linaclotide 290 mcg capsule 290 mcg PO DAILY 02/21/23 03/12/23 03/11/23 History (Linzess) loratadine 10 mg tablet 10 mg PO DAILY PRN itch 02/21/23 03/12/23 03/11/23 History metoprolol succinate 100 mg 100 mg PO DAILY 02/21/23 03/12/23 03/12/23 History tablet,extended release 24 hr omeprazole 20 mg capsule,delayed 20 mg PO DAILY 02/21/23 03/12/23 03/12/23 History release simvastatin 40 mg tablet 40 mg PO BEDTIME 02/21/23 03/12/23 03/11/23 History aspirin 81 mg tablet,delayed 81 mg PO DAILY 03/12/23 03/12/23 03/12/23 History release Physical Exam Vital Signs: Vital Signs: Last Vital Signs Temp 98.5 F 03/12/23 20:05 Pulse 52 03/13/23 03:06 Resp 12 03/13/23 03:06 BP 111/53 L 03/13/23 03:06 Pulse Ox 95 03/13/23 03:06 O2 Del Method Room Air 03/13/23 03:06 BMI result Body Mass Index 21.3 Const: Other: Appears well, conversant General: comfortable and no acute distress Orientation/consciousness: patient oriented x3 Neck: Neck: Yes no lymphadenopathy Resp: Auscultation: clear to auscultation bilaterally Cardio: Rhythm: regular rhythm GI: Other: Mild tenderness on the right side the abdomen, no palpable mass, all incisions are well healed Palpation (GI): Soft to palpation, Tenderness to palpation present (GI) and no guarding Neuro: General: patient oriented x3 Results Results Labs: Short CBC 03/12/23 Range/Units 11:05 WBC 10.3 (4.8-10.8) X10*3/uL Hgb 9.6 L (14.0-18.0) g/dl Hct 30.6 L (42.0-52.0) % Plt Count 682 H D (160-400) X10*3/uL BMP 03/12/23 11:06 Sodium 133 L Potassium 5.4 H D Chloride 103 Carbon Dioxide 22 BUN 42 H Creatinine 2.42 H Calcium 9.4 D Liver Function 03/12/23 Range/Units 11:06 Total Bilirubin 0.3 (0.0-1.0) mg/dL Direct Bilirubin 0.2 (0.0-0.5) mg/dL AST 17 (5-37) U/L ALT 15 (0-40) U/L Alkaline Phosphatase 105 (39-117) U/L Albumin 3.6 (3.5-5.0) g/dL Urine 03/12/23 Range/Units 18:20 Urine Color Yellow Urine Appearance Clear Urine pH 5.5 (5.0-9.0) Ur Specific [place] 1.010 (1.005-1.025) Urine Protein Negative (Neg-Trace) mg/dL Urine Glucose (UA) Negative (Negative) mg/dL Abdomen CT scan report/results: report reviewed and image reviewed CT scan - pelvis: report reviewed and image reviewed Additional studies: Laboratory Results WBC 10.3 X10*3/uL (4.8-10.8) 03/12/23 11:05 RBC 3.44 X10*6/uL (4.60-5.80) L 03/12/23 11:05 Hgb 9.6 g/dl (14.0-18.0) L 03/12/23 11:05 Hct 30.6 % (42.0-52.0) L 03/12/23 11:05 MCV 89.0 fL (80.0-98.0) 03/12/23 11:05 MCH 27.9 pg (27.0-33.0) 03/12/23 11:05 MCHC 31.4 g/dl (31.0-36.0) 03/12/23 11:05 RDW 12.5 % (11.0-16.0) 03/12/23 11:05 Plt Count 682 X10*3/uL (160-400) H D 03/12/23 11:05 MPV 9.2 fL (9.4-12.4) L 03/12/23 11:05 Immature Gran % (Auto) 0.8 % (0.0-0.4) H 03/12/23 11:05 Neut % (Auto) 77.8 % (45-73) H 03/12/23 11:05 Lymph % (Auto) 14.4 % (20-40) L 03/12/23 11:05 [place] % (Auto) 5.7 % (2-11) 03/12/23 11:05 Eos % (Auto) 0.8 % (0-4) 03/12/23 11:05 Baso % (Auto) 0.5 % (0-2) 03/12/23 11:05 Lymph # (Auto) 1.5 X10*3/uL (1.2-4.9) 03/12/23 11:05 [place] # (Auto) 0.6 X10*3/uL (0.1-1.2) 03/12/23 11:05 Eos # (Auto) 0.1 X10*3/uL (0.0-0.4) 03/12/23 11:05 Baso # (Auto) 0.1 X10*3/uL (0.0-0.2) 03/12/23 11:05 Abs Immat Gran (auto) 0.08 X10*3/uL (0.00-0.03) H 03/12/23 11:05 Absolute Neuts (auto) 8.0 x10*3/uL (2.0-8.3) 03/12/23 11:05 Absolute Nucleated RBC 0.000 X10*3/uL (0.0-0.012) 03/12/23 11:05 Nucleated RBC % (auto) 0.0 /100WBC (0.0-0.2) 03/12/23 11:05 Sodium 133 mmol/L (135-145) L 03/12/23 11:06 Potassium 5.4 mmol/L (3.3-5.1) H D 03/12/23 11:06 Chloride 103 mmol/L (96-108) 03/12/23 11:06 Carbon Dioxide 22 mmol/L (22-29) 03/12/23 11:06 Anion Gap 13 (12-20) 03/12/23 11:06 BUN 42 mg/dL (9-16) H 03/12/23 11:06 Creatinine 2.42 mg/dL (0.5-1.4) H 03/12/23 11:06 Estim Creat Clear Calc 22.2 03/12/23 11:06 Estimated GFR 26 03/12/23 11:06 POC Glucose 66 mg/dL (60-115) 03/13/23 07:51 Random Glucose 286 mg/dL (60-115) H 03/12/23 11:06 Lactic Acid 1.0 mmol/L (0.5-2.0) 03/12/23 19:14 Calcium 9.4 mg/dL (8.4-10.2) D 03/12/23 11:06 Total Bilirubin 0.3 mg/dL (0.0-1.0) 03/12/23 11:06 Direct Bilirubin 0.2 mg/dL (0.0-0.5) 03/12/23 11:06 AST 17 U/L (5-37) 03/12/23 11:06 ALT 15 U/L (0-40) 03/12/23 11:06 Alkaline Phosphatase 105 U/L (39-117) 03/12/23 11:06 Troponin I High Sens < 2.7 ng/L (<3.5-35.0) 03/12/23 14:06 Total Protein 7.5 g/dL (6.5-8.0) 03/12/23 11:06 Albumin 3.6 g/dL (3.5-5.0) 03/12/23 11:06 Lipase 124 U/L (8-78) H 03/12/23 11:06 Urine Color Yellow 03/12/23 18:20 Urine Appearance Clear 03/12/23 18:20 Urine pH 5.5 (5.0-9.0) 03/12/23 18:20 Ur Specific [place] 1.010 (1.005-1.025) 03/12/23 18:20 Urine Protein Negative mg/dL (Neg-Trace) 03/12/23 18:20 Urine Glucose (UA) Negative mg/dL (Negative) 03/12/23 18:20 Urine Ketones Negative mg/dL (Negative) 03/12/23 18:20 Urine Blood Negative (Negative) 03/12/23 18:20 Urine Nitrite Negative (Negative) 03/12/23 18:20 Ur Leukocyte Esterase Negative (Negative) 03/12/23 18:20 Stool Occult Blood POSITIVE (NEGATIVE) 03/12/23 16:17 COVID-19 (DAY) Negative (Negative) 03/12/23 11:06 COVID-19 Clin Com See Note 03/12/23 11:06 Blood Type O Positive 03/12/23 11:06 Antibody Screen NEGATIVE 03/12/23 11:06 Impressions Abdomen/Pelvis CT 03/12/23 16:48 IMPRESSION: Air and fluid collection in the gallbladder fossa suggestive of an abscess measuring 3 x 6 cm. Pancreatitis. Diverticulosis of the colon. No evidence of diverticulitis or colitis. Normal-appearing rectum. Atrophic right kidney. Fleischner guidelines were followed. Assessment and Plan (1) Postoperative abscess: Status: Acute He was admitted because of multiple complaints. A CT scan of the abdomen showed a 3 x 6 cm abscess in the gallbladder fossa from recent cholecystectomy with Dr. Parekh. He otherwise does not appear septic. I will schedule him for CT drainage of this abscess. I have checked his coagulation numbers as well. His abdomen is otherwise benign. He has been started on IV Zosyn. (2) GI bleed: Status: Acute He has had passage of bright blood per rectum in small amounts. He does have chronic constipation. His hemoglobin is otherwise stable and is at baseline. Most likely etiology is outlet bleeding from his hemorrhoids with his constipation. I am uncertain if he has had any colonoscopy in the past so this should be checked and see if he is due for a follow-up colonoscopy. (3) Dehydration: Status: Acute He has had poor oral intake with weakness and body malaise and his elevated cre atinine suggests volume depletion. He has been started on IV fluids. (4) Diabetes: Status: Acute His blood sugars appear be well controlled at this time. Input from the hospitalist is highly appreciated. Quality Stroke Does the patient have a stroke diagnosis?: No VTE Prior VTE?: No VTE Risk Level:: Medical - moderate - high VTE Device Contraindication: N/A - Device Ordered VTE Drug Contraindication: N/A - Med Ordered Procedures Date of Service Date of Service: 03/14/23
--- NOTE | 2023-03-13 08:13 | PC.NURSE ---
patient glucose [address] lerma made aware. over tiger text asked for RN to place order for new fluids, d5ns @ 80. done by this rn and fluids given.
[2023-03-13] MEDS: Dextrose 5 % and 0.9 % NaCl 1,000 ML 80 ML IVCONT (08:17)
[2023-03-13 08:56] LABS: Glucose, Whole Blood 61 mg/dL (60-115)
[2023-03-13 09:01] LABS: Hematocrit 28.4 % (42.0-52.0); Hemoglobin 8.8 g/dl (14.0-18.0); Mean Corpuscular Hemoglobin 27.6 pg (27.0-33.0); Mean Platelet Volume 9.3 fL (9.4-12.4); Platelet Count 639 X10*3/uL (160-400); Red Blood Count 3.19 X10*6/uL (4.60-5.80); Red Cell Distribution Width 12.6 % (11.0-16.0); White Blood Count 9.7 X10*3/uL (4.8-10.8)
[2023-03-13 09:09] LABS: INTERNATIONAL NORM RATIO 1.1 (0.9-1.1); Prothrombin Time 13.5 SEC (11.1-13.3)
[2023-03-13 09:15] LABS: Anion Gap 13 (12-20); Blood Urea Nitrogen 31 mg/dL (9-16); Calcium 9.3 mg/dL (8.4-10.2); Carbon Dioxide 24 mmol/L (22-29); Chloride 108 mmol/L (96-108); Creatinine Clr Calc Pharmacy 25.6; Estimated Glomerular Filt Rate 31; Glucose Random 87 mg/dL (60-115); Potassium 4.7 mmol/L (3.3-5.1); Sodium 140 mmol/L (135-145)
[2023-03-13] MEDS: Dextrose 50 % 25 GM/50 ML SYRINGE IVPUSH (09:20)
[2023-03-13 09:48] LABS: Glucose, Whole Blood 169 mg/dL (60-115)
--- NOTE | 2023-03-13 09:50 | PC.NURSE ---
Patient NPO upon arrival for pending surgical procedure today. POC 61 at 0851. Provider notified- IV dextrose administered per MAR and provider. POC re-checked with improvement to 169. Provider aware.
[2023-03-13 10:24] LABS: Glucose, Whole Blood 156 mg/dL (60-115)
[2023-03-13] MEDS: Metoprolol Succinate ER 100 MG TAB.ER.24H PO (10:30)
[2023-03-13] MEDS: Lidocaine 4 % Patch ADH..PATCH 1 PATCH TRANSDERMA (10:31)
[2023-03-13 11:22] LABS: Glucose, Whole Blood 142 mg/dL (60-115)
--- NOTE | 2023-03-13 12:41 | PC.NURSE ---
IV line from admission documented, patient arrived to [facility] with it. Patent. fluids running from floor.
--- NOTE | 2023-03-13 14:00 | HO.PM.IMPN ---
Subjective Subjective Date of Service: 03/13/23 Interval History: Seen in follow up for gallbladder abscess, dm and htn management Interval history: Hypoglycemia this morning. Currenlty NPO. Insulin on hold Review of Systems Review of Systems: Yes all other systems are reviewed and are negative Physical Exam Vital Signs: Vital Signs: Last Vital Signs Temp 97.9 F 03/13/23 12:39 Pulse 105 H 03/13/23 12:39 Resp 18 03/13/23 12:39 BP 139/61 03/13/23 12:39 Pulse Ox 98 03/13/23 12:39 O2 Del Method Room Air 03/13/23 12:39 BMI result Body Mass Index 21.3 Objective Data Active Medications Dextrose (Dextrose 50 % 25 Gm/50 Ml Syringe) 25 gm IVPUSH Q15M PRN; Protocol PRN Reason: per Hypoglycemia Standing Ord. Last Admin: 03/13/23 09:20 Dose: 25 gm Documented By: RONDA Glucose (Glucose Gel 15 Gm Gel..Gram.) 15 gm PO Q15M PRN; Protocol PRN Reason: per Hypoglycemia Standing Ord. Heparin Sodium (Porcine) (Heparin Sodium,Porcine 5,000 Unit/Ml Vial) 5,000 unit SUBCUT Q12H [place] Sodium Chloride (Ns) 1,000 mls @ 80 mls/hr IVCONT .[id number] [facility] Last Admin: 03/13/23 08:26 Dose: Not Given Documented By: ASHKAN Non-Admin Reason: IV Running Piperacillin Sod/Tazobactam (Sod 3.375 gm/ Sodium Chloride) 50 mls @ 100 mls/hr IV Q6H [facility] Last Infusion: 03/13/23 10:35 Dose: Infused Documented By: RONDA Dextrose/Sodium Chloride (D5ns) 1,000 mls @ 80 mls/hr IVCONT .[id number] [facility] Last Infusion: 03/13/23 10:38 Dose: 80 mls/hr Documented By: RONDA Insulin Glargine (Insulin Glargine,Hum.Rec.Anlog 100 Unit/Ml 10 Ml Vial) 20 unit SUBCUT BID [facility] Last Admin: 03/13/23 08:04 Dose: Not Given Documented By: ASHKAN Non-Admin Reason: NPO Insulin Human Lispro (Insulin Lispro 100 Unit/Ml 3 Ml Vial) 0 unit SUBCUT QIDACHS [facility]; Protocol Last Admin: 03/13/23 08:03 Dose: Not Given Documented By: ASHKAN Non-Admin Reason: NPO Lidocaine (Lidocaine 4 % Patch Adh..Patch) 1 patch TRANSDERMA DAILY [facility]; Protocol Last Admin: 03/13/23 10:31 Dose: 1 patch Documented By: RONDA Metoprolol Succinate (Metoprolol Succinate Er 100 Mg Tab.Er.24h) 100 mg PO DAILY [facility]; Protocol Last Admin: 03/13/23 10:30 Dose: 100 mg Documented By: RONDA Morphine Sulfate (Morphine Sulfate 4 Mg/Ml Cartridge) 3 mg IVPUSH Q4H PRN; Protocol PRN Reason: Pain, Severe (Pain Scale 7-10) Last Admin: 03/13/23 08:31 Dose: 3 mg Documented By: ASHKAN Non-Formulary Medication (Linaclotide [Linzess]) 290 mcg PO DAILY [facility] Sodium Chloride (0.9 % Sodium Chloride Flush 3 Ml Syringe) 3 ml IVFLUSH QSHIFT [facility] Last Admin: 03/13/23 08:04 Dose: Not Given Documented By: ASHKAN Non-Admin Reason: IV Running Labs 03/13/23 08:50 03/13/23 08:50 Labs: Laboratory Results - last 24 hr 03/12/23 03/12/23 03/12/23 16:17 18:20 19:14 MCV MCH MCHC RDW Plt Count MPV Absolute Nucleated RBC Nucleated RBC % (auto) PT INR Anion Gap Estim Creat Clear Calc Estimated GFR POC Glucose Random Glucose Lactic Acid 1.0 Calcium Urine Color Yellow Urine Appearance Clear Urine pH 5.5 Ur Specific [place] 1.010 Urine Protein Negative Urine Glucose (UA) Negative Urine Ketones Negative Urine Blood Negative Urine Nitrite Negative Ur Leukocyte Esterase Negative Stool Occult Blood POSITIVE 03/12/23 03/12/23 03/13/23 21:28 23:30 07:51 MCV MCH MCHC RDW Plt Count MPV Absolute Nucleated RBC Nucleated RBC % (auto) PT INR Anion Gap Estim Creat Clear Calc Estimated GFR POC Glucose 69 113 66 Random Glucose Lactic Acid Calcium Urine Color Urine Appearance Urine pH Ur Specific [place] Urine Protein Urine Glucose (UA) Urine Ketones Urine Blood Urine Nitrite Ur Leukocyte Esterase Stool Occult Blood 03/13/23 03/13/23 03/13/23 08:50 08:51 09:44 MCV 89.0 MCH 27.6 MCHC 31.0 RDW 12.6 Plt Count 639 H MPV 9.3 L Absolute Nucleated RBC 0.000 Nucleated RBC % (auto) 0.0 PT 13.5 H INR 1.1 Anion Gap 13 Estim Creat Clear Calc 25.6 Estimated GFR 31 POC Glucose 61 169 H Random Glucose 87 Lactic Acid Calcium 9.3 Urine Color Urine Appearance Urine pH Ur Specific [place] Urine Protein Urine Glucose (UA) Urine Ketones Urine Blood Urine Nitrite Ur Leukocyte Esterase Stool Occult Blood 03/13/23 03/13/23 10:20 11:13 MCV MCH MCHC RDW Plt Count MPV Absolute Nucleated RBC Nucleated RBC % (auto) PT INR Anion Gap Estim Creat Clear Calc Estimated GFR POC Glucose 156 H 142 H Random Glucose Lactic Acid Calcium Urine Color Urine Appearance Urine pH Ur Specific [place] Urine Protein Urine Glucose (UA) Urine Ketones Urine Blood Urine Nitrite Ur Leukocyte Esterase Stool Occult Blood Assessment and Plan (1) Postoperative abscess: Status: Acute (2) GI bleed: Status: Acute (3) Dehydration: Status: Acute Plan 77-year-old male with history of insulin-dependent type 2 diabetes, chronic anemia, history CVA, hypertension, and CKD stage 3 who is s/p cholecystectomy on 03/01/2023 due to gallstone pancreatitis admitted to General surgery for management of abscess in the gallbladder fossa as well as acute GI bleed. #Gallbladder abscess/pancreatitis -plan per general surgery #Acute GI bleed -suspect hemorrhoidal in etiology -H/H slight drop hgb 9.6-->8.8, above tranfusion threshold -plan per general surgery #Acute kidney injury- improving -likely prerenal 2/2 hypovolemia from poor po intake -IVF per general surgery -follow renal function/lytes # insulin-dependent type 2 diabetes- with hypoglycemia -Hold basal insulin -Hold SSI -hypoglycemia protocol -diet per general surgery -poc glucose -resume insulin as diet advances #HTN -bp reasonably controlled -continue metoprolol, hold amlodipine -monitor bp Thank you for this consult. We will continue following along with you. Quality Stroke Does the patient have a stroke diagnosis?: No VTE Prior VTE?: No VTE Risk Level:: Medical - moderate - high VTE Device Contraindication: N/A - Device Ordered VTE Drug Contraindication: N/A - Med Ordered
--- NOTE | 2023-03-13 14:53 | HO.RADPN ---
RADIOLOGY Narrative Narrative: Procedure Note: CT drainage of gallbladder fossa abscess 10 fr drain placed. 30 cc thick dark brown aspirated and sent for culture [facility] Interventional Radiology
[2023-03-13] MEDS: 0.9 % Sodium Chloride 1,000 ML 80 ML IVCONT (15:43)
[2023-03-13] MEDS: 0.9 % Sodium Chloride Flush 3 ML SYRINGE IVFLUSH (15:49)
[2023-03-13] MEDS: oxyCODONE HCl Immed Release 5 MG TABLET PO ×2 (15:53→21:12)
--- NOTE | 2023-03-13 16:34 | PM.EVENT ---
Event Note Date of Service: 03/13/23 Event Note: Patient underwent CT drainage - 30 cc dark thick fluid removed Drain in place He appears comfortable Stable vital signs Abdomen remained soft and benign Okay to restart diet as tolerated Continue antibiotics Follow-up on cultures Time Spent With Patient Time: Total time managing care of this patient today ____ minutes.
[2023-03-13 16:50] LABS: Glucose, Whole Blood 137 mg/dL (60-115)
[2023-03-13 20:00] LABS: Glucose, Whole Blood 219 mg/dL (60-115)
[2023-03-13] MEDS: Heparin Sodium,Porcine 5,000 UNIT/ML VIAL 5000 UNIT SUBCUT (21:10)
[2023-03-13] MEDS: Insulin Lispro 100 UNIT/ML 3 ML VIAL SUBCUT (21:11)
[2023-03-13] MEDS: Insulin Glargine,Hum.rec.anlog 100 UNIT/ML 10 ML VIAL 20 UNIT SUBCUT (21:11)
[2023-03-13] MEDS: traZODone HCL 50 MG TABLET PO (21:13)
[2023-03-14] MEDS: Piperacillin Sodium/Tazobactam 3.375 GM in 0.9 % Sodium Chloride 50 ML IV ×4 (02:40→20:02)
[2023-03-14 03:48] VITALS: BP 138/63; PULSE 56; RESP 18; TEMP 36.2; O2SAT 96
[2023-03-14] MEDS: 0.9 % Sodium Chloride 1,000 ML 100 ML IVCONT (03:51)
[2023-03-14 07:35] LABS: Glucose, Whole Blood 65 mg/dL (60-115)
[2023-03-14] MEDS: Heparin Sodium,Porcine 5,000 UNIT/ML VIAL 5000 UNIT SUBCUT ×2 (07:45→20:02)
[2023-03-14] MEDS: Metoprolol Succinate ER 100 MG TAB.ER.24H PO (07:46)
[2023-03-14] MEDS: Lidocaine 4 % Patch ADH..PATCH 1 PATCH TRANSDERMA (07:46)
[2023-03-14] MEDS: Insulin Glargine,Hum.rec.anlog 100 UNIT/ML 10 ML VIAL 20 UNIT SUBCUT (07:46)
[2023-03-14 07:54] VITALS: BP 147/63; PULSE 60; RESP 18; TEMP 36.3; O2SAT 97
--- NOTE | 2023-03-14 08:52 | P.CDIM_ITS ---
PROVIDER RESPONSE TEXT: To clarify, the appropriate diagnosis supported by the clinical indicators: Hyperkalemia: likely secondary to volume depletion, poor PO intake QUERY TEXT: PHYSICIAN'S DOCUMENTATION REQUEST Date of Query: 03/14/2023 08:14 AM EST Patient Name: Virgilio Dhaliwal Admit Date: 03/12/2023 Dear Pradeep Morales, A review of the medical record indicates additional documentation may be needed. Please review below and update the documentation accordingly. Clinical Indicators: LAB FINDINGS: 03/12 - potassium 5.4 H Based on the above, is there a diagnosis that correlates with these lab findings: Hyperkalemia resolved, possible, suspected etc. Labs indicate a diagnosis of (please specify) Other (explain) Clinically unable to determine (explain) Thank you, Giselle Lucero, CCS, CDIS Use of terms such as suspected, likely, concern for, or probable (associated with a specific diagnosi s that is being evaluated, monitored, or treated as if it exists) are acceptable and can be coded in the inpatient se tting, when documented at the time of discharge. Please use your independent medical judgment in providing your response. THIS QUERY IS PART OF THE PERMANENT MEDICAL RECORD
--- NOTE | 2023-03-14 09:27 | PM.PNGS ---
Subjective Subjective Date of Service: 03/14/23 Interval history: Overall feels much better. Oral intake still marginal. Has not been OOB yet. Reports mild pain at drain site, epigastric pain improved. Physical Exam Vital Signs: Vital Signs: Last Vital Signs Temp 97.4 F 03/14/23 07:54 Pulse 60 03/14/23 07:54 Resp 18 03/14/23 07:54 BP 147/63 H 03/14/23 07:54 Pulse Ox 97 03/14/23 07:54 O2 Del Method Room Air 03/14/23 07:54 BMI result Body Mass Index 21.3 Const: General: comfortable, no acute distress and alert Orientation/consciousness: patient oriented x3 Resp: Effort & Inspection: normal respiratory effort GI: Other: drain bulb with dark serosanguineous output Inspection: No distended Palpation (GI): Soft to palpation, Tenderness to palpation present (GI) (very mild at drain site ), no guarding and not rigid Skin: General skin exam: no rashes or lesions noted and no jaundice Neuro: General: patient oriented x3 and moves all extremities Objective Data Active Medications Acetaminophen (Acetaminophen 325 Mg Tablet) 650 mg PO Q6H PRN PRN Reason: fever, pain Dextrose (Dextrose 50 % 25 Gm/50 Ml Syringe) 25 gm IVPUSH Q15M PRN; Protocol PRN Reason: per Hypoglycemia Standing Ord. Last Admin: 03/13/23 09:20 Dose: 25 gm Documented By: RONDA Glucose (Glucose Gel 15 Gm Gel..Gram.) 15 gm PO Q15M PRN; Protocol PRN Reason: per Hypoglycemia Standing Ord. Heparin Sodium (Porcine) (Heparin Sodium,Porcine 5,000 Unit/Ml Vial) 5,000 unit SUBCUT Q12H [facility] Last Admin: 03/14/23 07:45 Dose: 5,000 unit Documented By: DUARTE Sodium Chloride (Ns) 1,000 mls @ 80 mls/hr IVCONT .[id number] [facility] Last Admin: 03/14/23 03:51 Dose: 100 mls/hr Documented By: DUSTY Piperacillin Sod/Tazobactam (Sod 3.375 gm/ Sodium Chloride) 50 mls @ 100 mls/hr IV Q6H [facility] Last Infusion: 03/14/23 08:40 Dose: Infused Documented By: DUARTE Insulin Glargine (Insulin Glargine,Hum.Rec.Anlog 100 Unit/Ml 10 Ml Vial) 20 unit SUBCUT BID [facility] Last Admin: 03/14/23 07:46 Dose: 20 unit Documented By: DUARTE Insulin Human Lispro (Insulin Lispro 100 Unit/Ml 3 Ml Vial) 0 unit SUBCUT QIDACHS [facility]; Protocol Last Admin: 03/14/23 07:47 Dose: Not Given Documented By: DUARTE Non-Admin Reason: No Insulin Coverage Lidocaine (Lidocaine 4 % Patch Adh..Patch) 1 patch TRANSDERMA DAILY [facility]; Protocol Last Admin: 03/14/23 07:46 Dose: 1 patch Documented By: DUARTE Metoprolol Succinate (Metoprolol Succinate Er 100 Mg Tab.Er.24h) 100 mg PO DAILY [facility]; Protocol Last Admin: 03/14/23 07:46 Dose: 100 mg Documented By: DUARTE Morphine Sulfate (Morphine Sulfate 4 Mg/Ml Cartridge) 3 mg IVPUSH Q4H PRN; Protocol PRN Reason: Pain, Severe (Pain Scale 7-10) Last Admin: 03/13/23 08:31 Dose: 3 mg Documented By: ASHKAN Non-Formulary Medication (Linaclotide [Linzess]) 290 mcg PO DAILY [facility] Oxycodone HCl (Oxycodone Hcl Immed Release 5 Mg Tablet) 5 mg PO Q4H PRN PRN Reason: Pain, Moderate(Pain Scale 4-6) Last Admin: 03/13/23 21:12 Dose: 5 mg Documented By: MIGEL Sodium Chloride (0.9 % Sodium Chloride Flush 3 Ml Syringe) 3 ml IVFLUSH QSHIFT [facility] Last Admin: 03/14/23 07:47 Dose: Not Given Documented By: DUARTE Non-Admin Reason: IV Running Trazodone HCl (Trazodone Hcl 50 Mg Tablet) 50 mg PO BEDTIME MRX1 PRN PRN Reason: insomnia Last Admin: 03/13/23 21:13 Dose: 50 mg Documented By: MIGEL Labs 03/13/23 08:50 03/13/23 08:50 Labs: Laboratory Results - last 24 hr 03/13/23 03/13/23 03/13/23 09:44 10:20 11:13 POC Glucose 169 H 156 H 142 H 03/13/23 03/13/23 03/14/23 16:29 19:07 07:03 POC Glucose 137 H 219 H 65 Microbiology Microbiology Results: Microbiology 03/13/23 13:30 Gram Stain - Final Abscess Intra-abdominal Routine Culture - Preliminary No growth to date. Anaerobic Culture - Preliminary No growth to date. 03/12/23 19:39 Blood Culture - Preliminary Blood - Venous No growth after 24 hours. 03/12/23 19:14 Blood Culture - Preliminary Blood - Venous No growth after 24 hours. Procedures Date of Service Date of Service: 03/14/23 Progress Note: A&P Assessment and plan (1) Postoperative abscess: Status: Acute (2) Dehydration: Status: Acute Plan S/p IR drainage of collection in gallbladder fossa. Output appears to be old blood. ?Infected hematoma. Await cultures. Cont IV abx, IVF for now given CARMEN upon admission. Will add protein supplements given poor oral intake. Encouraged OOB/ambulation today. Time Spent With Patient Time: Total time managing care of this patient today ____ minutes. Quality Stroke Does the patient have a stroke diagnosis?: No VTE Prior VTE?: No VTE Risk Level:: Medical - moderate - high VTE Device Contraindication: N/A - Device Ordered VTE Drug Contraindication: N/A - Med Ordered
[2023-03-14 11:27] LABS: Glucose, Whole Blood 121 mg/dL (60-115)
[2023-03-14] MEDS: Morphine Sulfate 4 MG/ML CARTRIDGE 3 MG IVPUSH (12:53)
[2023-03-14] MEDS: 0.9 % Sodium Chloride 1,000 ML 80 ML IVCONT (13:55)
--- NOTE | 2023-03-14 14:32 | PM.EVENT ---
Event Note Date of Service: 03/14/23 Event Note: Glucose levels continue to be borderline but patient is tolerating diet. Will lower lantus to 14 units BID, continue ssi. Continue diabetic diet. Monitor poc glucose. Pt also noted to be bradycardic high 402-low 60s. Suspect this is partially due to inactivity. He is asymptomatic. Will lower dose of toprol to 50mg am and consider increase as activity level increases. Will place on tele monitor for now. Monitor HR and blood pressures. Will continue following Time Spent With Patient Time: Total time managing care of this patient today ____ minutes.
[2023-03-14 14:59] VITALS: BP 127/58; PULSE 50; RESP 18; TEMP 36.8; O2SAT 96
--- NOTE | 2023-03-14 15:09 | PC.NURSE ---
Addendum entered by Shadia Drake RN 03/14/23 16:09: Asmyptomatic. Original Note: Pt's HR 50, AVera Oliveros made aware.
--- NOTE | 2023-03-14 15:58 | MHC.CM.PN ---
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
[2023-03-14 16:18] LABS: Glucose, Whole Blood 86 mg/dL (60-115)
[2023-03-14] MEDS: oxyCODONE HCl Immed Release 5 MG TABLET PO (18:39)
[2023-03-14 19:00] VITALS: BP 149/68; PULSE 57; RESP 18; TEMP 36.6; O2SAT 97
[2023-03-14 19:59] LABS: Glucose, Whole Blood 168 mg/dL (60-115)
[2023-03-14] MEDS: Insulin Glargine,Hum.rec.anlog 100 UNIT/ML 10 ML VIAL 15 UNIT SUBCUT (20:12)
[2023-03-14] MEDS: Insulin Lispro 100 UNIT/ML 3 ML VIAL SUBCUT ×2 (20:12→20:15)
[2023-03-14] MEDS: traZODone HCL 50 MG TABLET PO (20:15)
[2023-03-15] MEDS: Piperacillin Sodium/Tazobactam 3.375 GM in 0.9 % Sodium Chloride 50 ML IV ×4 (02:08→20:09)
[2023-03-15] MEDS: 0.9 % Sodium Chloride 1,000 ML 80 ML IVCONT ×3 (02:49→23:45)
[2023-03-15 03:50] VITALS: BP 157/65; PULSE 53; RESP 16; TEMP 35.9; O2SAT 96
[2023-03-15 07:01] VITALS: BP 137/65; PULSE 53; RESP 18; TEMP 36.6; O2SAT 96
[2023-03-15 07:35] LABS: Glucose, Whole Blood 47 mg/dL (60-115)
[2023-03-15 07:52] LABS: Glucose, Whole Blood 48 mg/dL (60-115)
[2023-03-15] MEDS: Dextrose 50 % 25 GM/50 ML SYRINGE IVPUSH (07:56)
[2023-03-15] MEDS: Metoprolol Succinate ER 50 MG TAB.ER.24H PO (08:02)
[2023-03-15] MEDS: Lidocaine 4 % Patch ADH..PATCH 1 PATCH TRANSDERMA (08:03)
[2023-03-15] MEDS: Heparin Sodium,Porcine 5,000 UNIT/ML VIAL 5000 UNIT SUBCUT ×2 (08:03→20:06)
[2023-03-15] MEDS: 0.9 % Sodium Chloride Flush 3 ML SYRINGE IVFLUSH ×2 (08:03→20:07)
[2023-03-15 08:22] LABS: Glucose, Whole Blood 138 mg/dL (60-115)
--- NOTE | 2023-03-15 09:25 | PM.PNGS ---
Subjective Subjective Date of Service: 03/15/23 Interval history: Having loose stools this morning. PO intake remains marginal. Physical Exam Vital Signs: Vital Signs: Last Vital Signs Temp 97.8 F 03/15/23 07:01 Pulse 53 03/15/23 07:01 Resp 18 03/15/23 07:01 BP 137/65 03/15/23 07:01 Pulse Ox 96 03/15/23 07:01 O2 Del Method Room Air 03/15/23 07:01 BMI result Body Mass Index 21.3 Const: General: comfortable, no acute distress and alert Orientation/consciousness: patient oriented x3 Resp: Effort & Inspection: normal respiratory effort GI: Other: bulb with scant dark sanguineous output Inspection: No distended Palpation (GI): Soft to palpation and Tenderness to palpation present (GI) (mild at drain site ) Skin: General skin exam: no rashes or lesions noted and no jaundice Neuro: General: patient oriented x3 Objective Data Active Medications Acetaminophen (Acetaminophen 325 Mg Tablet) 650 mg PO Q6H PRN PRN Reason: fever, pain Dextrose (Dextrose 50 % 25 Gm/50 Ml Syringe) 25 gm IVPUSH Q15M PRN; Protocol PRN Reason: per Hypoglycemia Standing Ord. Last Admin: 03/15/23 07:56 Dose: 25 gm Documented By: MARCELA Glucose (Glucose Gel 15 Gm Gel..Gram.) 15 gm PO Q15M PRN; Protocol PRN Reason: per Hypoglycemia Standing Ord. Heparin Sodium (Porcine) (Heparin Sodium,Porcine 5,000 Unit/Ml Vial) 5,000 unit SUBCUT Q12H [facility] Last Admin: 03/15/23 08:03 Dose: 5,000 unit Documented By: MARCELA Sodium Chloride (Ns) 1,000 mls @ 80 mls/hr IVCONT .[id number] [facility] Last Admin: 03/15/23 02:49 Dose: 80 mls/hr Documented By: DUSTY Piperacillin Sod/Tazobactam (Sod 3.375 gm/ Sodium Chloride) 50 mls @ 100 mls/hr IV Q6H [facility] Last Infusion: 03/15/23 08:36 Dose: Infused Documented By: MARCELA Insulin Glargine (Insulin Glargine,Hum.Rec.Anlog 100 Unit/Ml 10 Ml Vial) 5 unit SUBCUT BID [facility] Last Admin: 03/15/23 08:04 Dose: Not Given Documented By: MARCELA Non-Admin Reason: hypoglycemic Insulin Human Lispro (Insulin Lispro 100 Unit/Ml 3 Ml Vial) 0 unit SUBCUT QIDACHS [facility]; Protocol Last Admin: 03/14/23 20:15 Dose: 2 unit Documented By: MIGEL Lidocaine (Lidocaine 4 % Patch Adh..Patch) 1 patch TRANSDERMA DAILY [facility]; Protocol Last Admin: 03/15/23 08:03 Dose: 1 patch Documented By: MARCELA Metoprolol Succinate (Metoprolol Succinate Er 50 Mg Tab.Er.24h) 50 mg PO DAILY [facility]; Protocol Last Admin: 03/15/23 08:02 Dose: 50 mg Documented By: MARCELA Morphine Sulfate (Morphine Sulfate 4 Mg/Ml Cartridge) 3 mg IVPUSH Q4H PRN; Protocol PRN Reason: Pain, Severe (Pain Scale 7-10) Last Admin: 03/14/23 12:53 Dose: 3 mg Documented By: DUARTE Non-Formulary Medication (Linaclotide [Linzess]) 290 mcg PO DAILY [facility] Oxycodone HCl (Oxycodone Hcl Immed Release 5 Mg Tablet) 5 mg PO Q4H PRN PRN Reason: Pain, Moderate(Pain Scale 4-6) Last Admin: 03/14/23 18:39 Dose: 5 mg Documented By: DUARTE Sodium Chloride (0.9 % Sodium Chloride Flush 3 Ml Syringe) 3 ml IVFLUSH QSHIFT [facility] Last Admin: 03/15/23 08:03 Dose: 3 ml Documented By: MARCELA Trazodone HCl (Trazodone Hcl 50 Mg Tablet) 50 mg PO BEDTIME MRX1 PRN PRN Reason: insomnia Last Admin: 03/14/23 20:15 Dose: 50 mg Documented By: MIGEL Labs 03/15/23 09:42 03/15/23 09:42 Labs: Laboratory Results - last 24 hr 03/14/23 03/14/23 03/14/23 11:16 16:15 19:52 POC Glucose 121 H 86 168 H 03/15/23 03/15/23 03/15/23 07:28 07:49 08:17 POC Glucose 47 L* 48 L* 138 H Microbiology Microbiology Results: Microbiology 03/12/23 19:39 Blood Culture - Preliminary Blood - Venous No growth after 48 hours. 03/12/23 19:14 Blood Culture - Preliminary Blood - Venous No growth after 48 hours. 03/13/23 13:30 Gram Stain - Final Abscess Intra-abdominal Routine Culture - Preliminary No growth to date. Anaerobic Culture - Preliminary No growth to date. Procedures Date of Service Date of Service: 03/15/23 Progress Note: A&P Assessment and plan (1) Diabetes: Status: Acute (2) Postoperative abscess: Status: Acute Plan Loose stools likely secondary to abx but will obtain cdiff. Insulin reduced yesterday by hospitalist, hypoglycemic again this AM. Appreciate hospitalist input re: diabetes management. Await AM labs. If renal function improved, can dc IVF. Cont abx for now, await cultures. Increase activity, PO intake encouraged. Will remove NIMESH drain later today, now with scant nonpurulent output. Time Spent With Patient Time: Total time managing care of this patient today ____ minutes. Quality Stroke Does the patient have a stroke diagnosis?: No VTE Prior VTE?: No VTE Risk Level:: Medical - moderate - high VTE Device Contraindication: N/A - Device Ordered VTE Drug Contraindication: N/A - Med Ordered
[2023-03-15 10:04] LABS: Hematocrit 27.6 % (42.0-52.0); Hemoglobin 8.6 g/dl (14.0-18.0); Mean Corpuscular HGB Conc 31.2 g/dl (31.0-36.0); Mean Corpuscular Hemoglobin 28.1 pg (27.0-33.0); Mean Corpuscular Volume 90.2 fL (80.0-98.0); Platelet Count 505 X10*3/uL (160-400); Red Blood Count 3.06 X10*6/uL (4.60-5.80); Red Cell Distribution Width 12.7 % (11.0-16.0); White Blood Count 10.5 X10*3/uL (4.8-10.8)
[2023-03-15] MEDS: Morphine Sulfate 4 MG/ML CARTRIDGE 3 MG IVPUSH (10:19)
[2023-03-15 10:24] LABS: Anion Gap 13 (12-20); Blood Urea Nitrogen 18 mg/dL (9-16); Carbon Dioxide 23 mmol/L (22-29); Chloride 106 mmol/L (96-108); Creatinine Clr Calc Pharmacy 22.9; Estimated Glomerular Filt Rate 27; Glucose Random 257 mg/dL (60-115); Potassium 4.9 mmol/L (3.3-5.1); Sodium 137 mmol/L (135-145)
[2023-03-15 10:34] LABS: CDiff Gene PCR NEGATIVE (Negative)
[2023-03-15 11:08] LABS: Glucose, Whole Blood 209 mg/dL (60-115)
[2023-03-15] MEDS: Insulin Lispro 100 UNIT/ML 3 ML VIAL SUBCUT ×3 (11:44→20:36)
--- NOTE | 2023-03-15 12:26 | P.PNIM_ITS ---
Subjective Subjective Date of Service: 03/15/23 Interval History: hypoglycemic this AM minimal pain diet improved Review of Systems Review of Systems: Yes all other systems are reviewed and are negative Physical Exam 2 Vital Signs: Vital Signs: Last Vital Signs Temp 97.8 F 03/15/23 07:01 Pulse 53 03/15/23 07:01 Resp 18 03/15/23 07:01 BP 137/65 03/15/23 07:01 Pulse Ox 96 03/15/23 07:01 O2 Del Method Room Air 03/15/23 07:01 BMI result Body Mass Index 21.3 Gen: in no acute distress HEENT: sclera anicteric, moist mucus membranes Neck: supple Lungs: clear to auscultation bilaterally Heart: regular rate and rhythm, no murmurs Abd: soft, RUQ drain with scant fluid Ext: no edema Skin: warm/well-perfused Neuro: alert and oriented x3, no focal findings Psych: appropriate affect Objective Data Active Medications Acetaminophen (Acetaminophen 325 Mg Tablet) 650 mg PO Q6H PRN PRN Reason: fever, pain Dextrose (Dextrose 50 % 25 Gm/50 Ml Syringe) 25 gm IVPUSH Q15M PRN; Protocol PRN Reason: per Hypoglycemia Standing Ord. Last Admin: 03/15/23 07:56 Dose: 25 gm Documented By: MARCELA Glucose (Glucose Gel 15 Gm Gel..Gram.) 15 gm PO Q15M PRN; Protocol PRN Reason: per Hypoglycemia Standing Ord. Heparin Sodium (Porcine) (Heparin Sodium,Porcine 5,000 Unit/Ml Vial) 5,000 unit SUBCUT Q12H [facility] Last Admin: 03/15/23 08:03 Dose: 5,000 unit Documented By: MARCELA Sodium Chloride (Ns) 1,000 mls @ 80 mls/hr IVCONT .[id number] [facility] Last Admin: 03/15/23 11:09 Dose: 80 mls/hr Documented By: MARCELA Piperacillin Sod/Tazobactam (Sod 3.375 gm/ Sodium Chloride) 50 mls @ 100 mls/hr IV Q6H [facility] Last Infusion: 03/15/23 08:36 Dose: Infused Documented By: MARCELA Insulin Glargine (Insulin Glargine,Hum.Rec.Anlog 100 Unit/Ml 10 Ml Vial) 5 unit SUBCUT BID [facility] Last Admin: 03/15/23 08:04 Dose: Not Given Documented By: MARCELA Non-Admin Reason: hypoglycemic Insulin Human Lispro (Insulin Lispro 100 Unit/Ml 3 Ml Vial) 0 unit SUBCUT QIDACHS [facility]; Protocol Last Admin: 03/15/23 11:44 Dose: 4 unit Documented By: MARCELA Lidocaine (Lidocaine 4 % Patch Adh..Patch) 1 patch TRANSDERMA DAILY [facility]; Protocol Last Admin: 03/15/23 08:03 Dose: 1 patch Documented By: MARCELA Metoprolol Succinate (Metoprolol Succinate Er 50 Mg Tab.Er.24h) 50 mg PO DAILY [facility]; Protocol Last Admin: 03/15/23 08:02 Dose: 50 mg Documented By: MARCELA Morphine Sulfate (Morphine Sulfate 4 Mg/Ml Cartridge) 3 mg IVPUSH Q4H PRN; Protocol PRN Reason: Pain, Severe (Pain Scale 7-10) Last Admin: 03/15/23 10:19 Dose: 3 mg Documented By: MARCELA Non-Formulary Medication (Linaclotide [Linzess]) 290 mcg PO DAILY [facility] Oxycodone HCl (Oxycodone Hcl Immed Release 5 Mg Tablet) 5 mg PO Q4H PRN PRN Reason: Pain, Moderate(Pain Scale 4-6) Last Admin: 03/14/23 18:39 Dose: 5 mg Documented By: DUARTE Sodium Chloride (0.9 % Sodium Chloride Flush 3 Ml Syringe) 3 ml IVFLUSH QSHIFT [facility] Last Admin: 03/15/23 08:03 Dose: 3 ml Documented By: MARCELA Trazodone HCl (Trazodone Hcl 50 Mg Tablet) 50 mg PO BEDTIME MRX1 PRN PRN Reason: insomnia Last Admin: 03/14/23 20:15 Dose: 50 mg Documented By: BEIT Labs 03/15/23 09:42 03/15/23 09:42 Labs: Laboratory Results - last 24 hr 03/14/23 03/14/23 03/15/23 16:15 19:52 07:28 MCV MCH MCHC RDW Plt Count MPV Absolute Nucleated RBC Nucleated RBC % (auto) Anion Gap Estim Creat Clear Calc Estimated GFR POC Glucose 86 168 H 47 L* Random Glucose Calcium C. difficile Tox B Gene 03/15/23 03/15/23 03/15/23 07:49 08:17 09:11 MCV MCH MCHC RDW Plt Count MPV Absolute Nucleated RBC Nucleated RBC % (auto) Anion Gap Estim Creat Clear Calc Estimated GFR POC Glucose 48 L* 138 H Random Glucose Calcium C. difficile Tox B Gene NEGATIVE 03/15/23 03/15/23 09:42 11:01 MCV 90.2 MCH 28.1 MCHC 31.2 RDW 12.7 Plt Count 505 H MPV 10.0 Absolute Nucleated RBC 0.000 Nucleated RBC % (auto) 0.0 Anion Gap 13 Estim Creat Clear Calc 22.9 Estimated GFR 27 POC Glucose 209 H Random Glucose 257 H Calcium 9.0 C. difficile Tox B Gene Microbiology Microbiology Results: Microbiology 03/13/23 13:30 Gram Stain - Final Abscess Intra-abdominal Routine Culture - Final No growth after 2 days Anaerobic Culture - Preliminary No growth to date. 03/12/23 19:39 Blood Culture - Preliminary Blood - Venous No growth after 48 hours. 03/12/23 19:14 Blood Culture - Preliminary Blood - Venous No growth after 48 hours. Assessment and Plan (1) Postoperative abscess: Status: Acute (2) GI bleed: Status: Acute (3) Dehydration: Status: Acute Plan d4 77yo M with DM2, chronic anemia, hx CVA, HTN, CKD3 s/p cholecystectomy 03/01/23 due to gallstone pancreatitis admitted to Surgery 03/13/23 for abscess of gallbladder fossa gallbladder abscess - CT-guided drain placed 03/13/23 - continue pip-jacquie - drain removal per Gen Surg anemia, FOBT+ - monitor H+H, likely hemorrhoidal bleed CARMEN/CKD3 - continue IV fluids, monitor SCr DM2 with hypoglycemia - will further reduce dose of Lantus, continue correction-dose lispro HTN - continue metoprolol, hold amlodipine VTE ppx - UFH Total time managing care of this patient today: 35 minutes. Quality Stroke Does the patient have a stroke diagnosis?: No VTE Prior VTE?: No VTE Risk Level:: Medical - moderate - high VTE Device Contraindication: N/A - Device Ordered VTE Drug Contraindication: N/A - Med Ordered
[2023-03-15 15:22] VITALS: BP 156/70; PULSE 58; RESP 18; TEMP 36.7; O2SAT 97
--- NOTE | 2023-03-15 15:41 | PC.NURSE ---
FBS 47. Snack given. Rechecked at 48. Amp dextrose given. POC [address] Samayoa notified. Lantus insulin dose decreased. Patient ate 50% breakfast and lunch. Having loose green stools this AM. Cdiff neg.
[2023-03-15 16:20] LABS: Glucose, Whole Blood 158 mg/dL (60-115)
[2023-03-15] MEDS: oxyCODONE HCl Immed Release 5 MG TABLET PO ×2 (16:25→20:49)
[2023-03-15 19:15] VITALS: BP 166/82; PULSE 69; RESP 16; TEMP 36.3; O2SAT 96
[2023-03-15] MEDS: traZODone HCL 50 MG TABLET PO (20:08)
[2023-03-15 20:28] LABS: Glucose, Whole Blood 192 mg/dL (60-115)
[2023-03-15] MEDS: Insulin Glargine,Hum.rec.anlog 100 UNIT/ML 10 ML VIAL SUBCUT (20:36)
[2023-03-16] MEDS: Piperacillin Sodium/Tazobactam 3.375 GM in 0.9 % Sodium Chloride 50 ML IV ×2 (01:58→08:51)
[2023-03-16 03:30] VITALS: BP 159/68; PULSE 67; RESP 16; TEMP 36.4; O2SAT 97
[2023-03-16 07:50] VITALS: BP 145/68; PULSE 52; RESP 18; TEMP 36.7; O2SAT 96
[2023-03-16 07:54] LABS: Glucose, Whole Blood 148 mg/dL (60-115)
[2023-03-16] MEDS: Lidocaine 4 % Patch ADH..PATCH 1 PATCH TRANSDERMA (08:51)
[2023-03-16] MEDS: Heparin Sodium,Porcine 5,000 UNIT/ML VIAL 5000 UNIT SUBCUT (08:52)
[2023-03-16] MEDS: Insulin Glargine,Hum.rec.anlog 100 UNIT/ML 10 ML VIAL SUBCUT (08:52)
[2023-03-16 08:58] LABS: Anion Gap 12 (12-20); Blood Urea Nitrogen 15 mg/dL (9-16); Calcium 9.2 mg/dL (8.4-10.2); Carbon Dioxide 19 mmol/L (22-29); Chloride 110 mmol/L (96-108); Creatinine Clr Calc Pharmacy 25.4; Estimated Glomerular Filt Rate 30; Glucose Random 154 mg/dL (60-115); Potassium 4.7 mmol/L (3.3-5.1); Sodium 136 mmol/L (135-145)
--- NOTE | 2023-03-16 09:23 | P.PNIM_ITS ---
Subjective Subjective Date of Service: 03/16/23 Interval History: RUQ pain improved diet improved not hypoglycemic this AM This history was taken in Polish from the patient. Review of Systems Review of Systems: Yes all other systems are reviewed and are negative Physical Exam 2 Vital Signs: Vital Signs: Last Vital Signs Temp 98.1 F 03/16/23 07:50 Pulse 52 03/16/23 07:50 Resp 18 03/16/23 07:50 BP 145/68 H 03/16/23 07:50 Pulse Ox 96 03/16/23 07:50 O2 Del Method Room Air 03/16/23 07:50 BMI result Body Mass Index 21.3 Gen: in no acute distress HEENT: sclera anicteric, moist mucus membranes Neck: supple Lungs: clear to auscultation bilaterally Heart: regular rate and rhythm, no murmurs Abd: soft, RUQ with NIMESH drain with minimal serosanguinous output, minimally tender, non-distended Ext: no edema Skin: warm/well-perfused Neuro: alert and oriented x3, no focal findings Psych: appropriate affect Objective Data Active Medications Acetaminophen (Acetaminophen 325 Mg Tablet) 650 mg PO Q6H PRN PRN Reason: fever, pain Dextrose (Dextrose 50 % 25 Gm/50 Ml Syringe) 25 gm IVPUSH Q15M PRN; Protocol PRN Reason: per Hypoglycemia Standing Ord. Last Admin: 03/15/23 07:56 Dose: 25 gm Documented By: MARCELA Glucose (Glucose Gel 15 Gm Gel..Gram.) 15 gm PO Q15M PRN; Protocol PRN Reason: per Hypoglycemia Standing Ord. Guaifenesin/Dextromethorphan (Guaifenesin Dm 100/10/5 Ml 5 Ml Syrup) 5 ml PO Q4H PRN PRN Reason: Cough Heparin Sodium (Porcine) (Heparin Sodium,Porcine 5,000 Unit/Ml Vial) 5,000 unit SUBCUT Q12H [facility] Last Admin: 03/16/23 08:52 Dose: 5,000 unit Documented By: RONDA Sodium Chloride (Ns) 1,000 mls @ 80 mls/hr IVCONT .[id number] [facility] Last Admin: 03/15/23 23:45 Dose: 80 mls/hr Documented By: DWAIN Piperacillin Sod/Tazobactam (Sod 3.375 gm/ Sodium Chloride) 50 mls @ 100 mls/hr IV Q6H [facility] Last Admin: 03/16/23 08:51 Dose: 100 mls/hr Documented By: RONDA Insulin Glargine (Insulin Glargine,Hum.Rec.Anlog 100 Unit/Ml 10 Ml Vial) 5 unit SUBCUT BID [facility] Last Admin: 03/16/23 08:52 Dose: 5 unit Documented By: RONDA Insulin Human Lispro (Insulin Lispro 100 Unit/Ml 3 Ml Vial) 0 unit SUBCUT QIDACHS [facility]; Protocol Last Admin: 03/16/23 08:23 Dose: Not Given Documented By: RONDA Non-Admin Reason: No Insulin Coverage Lidocaine (Lidocaine 4 % Patch Adh..Patch) 1 patch TRANSDERMA DAILY [facility]; Protocol Last Admin: 03/16/23 08:51 Dose: 1 patch Documented By: RONDA Metoprolol Succinate (Metoprolol Succinate Er 50 Mg Tab.Er.24h) 50 mg PO DAILY [facility]; Protocol Last Admin: 03/16/23 09:05 Dose: Not Given Documented By: RONDA Non-Admin Reason: Heart rate of 56. Morphine Sulfate (Morphine Sulfate 4 Mg/Ml Cartridge) 3 mg IVPUSH Q4H PRN; Protocol PRN Reason: Pain, Severe (Pain Scale 7-10) Last Admin: 03/15/23 10:19 Dose: 3 mg Documented By: MARCELA Non-Formulary Medication (Linaclotide [Linzess]) 290 mcg PO DAILY [facility] Oxycodone HCl (Oxycodone Hcl Immed Release 5 Mg Tablet) 5 mg PO Q4H PRN PRN Reason: Pain, Moderate(Pain Scale 4-6) Last Admin: 03/15/23 20:49 Dose: 5 mg Documented By: DWAIN Sodium Chloride (0.9 % Sodium Chloride Flush 3 Ml Syringe) 3 ml IVFLUSH QSHIFT [facility] Last Admin: 03/16/23 08:43 Dose: Not Given Documented By: RONDA Non-Admin Reason: IV Running Trazodone HCl (Trazodone Hcl 50 Mg Tablet) 50 mg PO BEDTIME MRX1 PRN PRN Reason: insomnia Last Admin: 03/15/23 20:08 Dose: 50 mg Documented By: DWAIN Labs 03/15/23 09:42 03/16/23 08:31 Labs: Laboratory Results - last 24 hr 03/15/23 03/15/23 03/15/23 09:11 09:42 11:01 MCV 90.2 MCH 28.1 MCHC 31.2 RDW 12.7 Plt Count 505 H MPV 10.0 Absolute Nucleated RBC 0.000 Nucleated RBC % (auto) 0.0 Anion Gap 13 Estim Creat Clear Calc 22.9 Estimated GFR 27 POC Glucose 209 H Random Glucose 257 H Calcium 9.0 C. difficile Tox B Gene NEGATIVE 03/15/23 03/15/23 03/16/23 16:09 19:49 07:48 MCV MCH MCHC RDW Plt Count MPV Absolute Nucleated RBC Nucleated RBC % (auto) Anion Gap Estim Creat Clear Calc Estimated GFR POC Glucose 158 H 192 H 148 H Random Glucose Calcium C. difficile Tox B Gene 03/16/23 08:31 MCV MCH MCHC RDW Plt Count MPV Absolute Nucleated RBC Nucleated RBC % (auto) Anion Gap 12 Estim Creat Clear Calc 25.4 Estimated GFR 30 POC Glucose Random Glucose 154 H Calcium 9.2 C. difficile Tox B Gene Microbiology Microbiology Results: Microbiology 03/13/23 13:30 Gram Stain - Final Abscess Intra-abdominal Routine Culture - Final No growth after 2 days Anaerobic Culture - Preliminary No growth to date. Assessment and Plan (1) Postoperative abscess: Status: Acute (2) GI bleed: Status: Acute (3) Dehydration: Status: Acute Plan d4 77yo M with DM2, chronic anemia, hx CVA, HTN, CKD3 s/p cholecystectomy 03/01/23 due to gallstone pancreatitis admitted to Surgery 03/13/23 for abscess of gallbladder fossa gallbladder abscess - CT-guided drain placed 03/13/23 - continue pip-jacquie, change to amox-clav upon discharge home - drain removal per Gen Surg as outpt anemia, FOBT+ - H+H stable, likely hemorrhoidal bleed per Gen Surg CARMEN/CKD3 - improved with IV fluids, SCr around baseline DM2 with hypoglycemia - Glargine decreased, hypoglycemia resolved HTN - continue metoprolol [dose reduced for bradycardia], resumeamlodipine VTE ppx - UFH Total time managing care of this patient today: 35 minutes. Quality Stroke Does the patient have a stroke diagnosis?: No VTE Prior VTE?: No VTE Risk Level:: Medical - moderate - high VTE Device Contraindication: N/A - Device Ordered VTE Drug Contraindication: N/A - Med Ordered
--- NOTE | 2023-03-16 09:45 | P.PNGS_ITS ---
Subjective Subjective Date of Service: 03/16/23 Interval history: feels well good oral intake says he is ready to go home denies pain Physical Exam 2 Vital Signs: Vital Signs: Last Vital Signs Temp 98.1 F 03/16/23 07:50 Pulse 52 03/16/23 07:50 Resp 18 03/16/23 07:50 BP 145/68 H 03/16/23 07:50 Pulse Ox 96 03/16/23 07:50 O2 Del Method Room Air 03/16/23 07:50 BMI result Body Mass Index 21.3 Const: General: comfortable and no acute distress Resp: Effort & Inspection: normal respiratory effort Cardio: Rate: regular rate GI: Other: NIMESH drain with very scanty output Palpation (GI): Soft to palpation, not firm and nontender Objective Data Active Medications Acetaminophen (Acetaminophen 325 Mg Tablet) 650 mg PO Q6H PRN PRN Reason: fever, pain Dextrose (Dextrose 50 % 25 Gm/50 Ml Syringe) 25 gm IVPUSH Q15M PRN; Protocol PRN Reason: per Hypoglycemia Standing Ord. Last Admin: 03/15/23 07:56 Dose: 25 gm Documented By: MARCELA Glucose (Glucose Gel 15 Gm Gel..Gram.) 15 gm PO Q15M PRN; Protocol PRN Reason: per Hypoglycemia Standing Ord. Guaifenesin/Dextromethorphan (Guaifenesin Dm 100/10/5 Ml 5 Ml Syrup) 5 ml PO Q4H PRN PRN Reason: Cough Heparin Sodium (Porcine) (Heparin Sodium,Porcine 5,000 Unit/Ml Vial) 5,000 unit SUBCUT Q12H [facility] Last Admin: 03/16/23 08:52 Dose: 5,000 unit Documented By: RONDA Sodium Chloride (Ns) 1,000 mls @ 80 mls/hr IVCONT .[id number] [facility] Last Admin: 03/15/23 23:45 Dose: 80 mls/hr Documented By: DWAIN Piperacillin Sod/Tazobactam (Sod 3.375 gm/ Sodium Chloride) 50 mls @ 100 mls/hr IV Q6H [facility] Last Infusion: 03/16/23 09:31 Dose: Infused Documented By: RONDA Insulin Glargine (Insulin Glargine,Hum.Rec.Anlog 100 Unit/Ml 10 Ml Vial) 5 unit SUBCUT BID [facility] Last Admin: 03/16/23 08:52 Dose: 5 unit Documented By: RONDA Insulin Human Lispro (Insulin Lispro 100 Unit/Ml 3 Ml Vial) 0 unit SUBCUT QIDACHS [facility]; Protocol Last Admin: 03/16/23 08:23 Dose: Not Given Documented By: RONDA Non-Admin Reason: No Insulin Coverage Lidocaine (Lidocaine 4 % Patch Adh..Patch) 1 patch TRANSDERMA DAILY [facility]; Protocol Last Admin: 03/16/23 08:51 Dose: 1 patch Documented By: RONDA Metoprolol Succinate (Metoprolol Succinate Er 50 Mg Tab.Er.24h) 50 mg PO DAILY [facility]; Protocol Last Admin: 03/16/23 09:05 Dose: Not Given Documented By: RONDA Non-Kristal Reason: Heart rate of 56. Morphine Sulfate (Morphine Sulfate 4 Mg/Ml Cartridge) 3 mg IVPUSH Q4H PRN; Protocol PRN Reason: Pain, Severe (Pain Scale 7-10) Last Admin: 03/15/23 10:19 Dose: 3 mg Documented By: MARCELA Non-Formulary Medication (Linaclotide [Linzess]) 290 mcg PO DAILY [facility] Oxycodone HCl (Oxycodone Hcl Immed Release 5 Mg Tablet) 5 mg PO Q4H PRN PRN Reason: Pain, Moderate(Pain Scale 4-6) Last Admin: 03/15/23 20:49 Dose: 5 mg Documented By: DWAIN Sodium Chloride (0.9 % Sodium Chloride Flush 3 Ml Syringe) 3 ml IVFLUSH QSHIFT [facility] Last Admin: 03/16/23 08:43 Dose: Not Given Documented By: RONDA Non-Admin Reason: IV Running Trazodone HCl (Trazodone Hcl 50 Mg Tablet) 50 mg PO BEDTIME MRX1 PRN PRN Reason: insomnia Last Admin: 03/15/23 20:08 Dose: 50 mg Documented By: DWAIN Labs 03/15/23 09:42 03/16/23 08:31 Labs: Laboratory Results - last 24 hr 03/15/23 03/15/23 03/15/23 09:11 09:42 11:01 MCV 90.2 MCH 28.1 MCHC 31.2 RDW 12.7 Plt Count 505 H MPV 10.0 Absolute Nucleated RBC 0.000 Nucleated RBC % (auto) 0.0 Anion Gap 13 Estim Creat Clear Calc 22.9 Estimated GFR 27 POC Glucose 209 H Random Glucose 257 H Calcium 9.0 C. difficile Tox B Gene NEGATIVE 03/15/23 03/15/23 03/16/23 16:09 19:49 07:48 MCV MCH MCHC RDW Plt Count MPV Absolute Nucleated RBC Nucleated RBC % (auto) Anion Gap Estim Creat Clear Calc Estimated GFR POC Glucose 158 H 192 H 148 H Random Glucose Calcium C. difficile Tox B Gene 03/16/23 08:31 MCV MCH MCHC RDW Plt Count MPV Absolute Nucleated RBC Nucleated RBC % (auto) Anion Gap 12 Estim Creat Clear Calc 25.4 Estimated GFR 30 POC Glucose Random Glucose 154 H Calcium 9.2 C. difficile Tox B Gene Microbiology Microbiology Results: Microbiology 03/13/23 13:30 Gram Stain - Final Abscess Intra-abdominal Routine Culture - Final No growth after 2 days Anaerobic Culture - Preliminary No growth to date. Procedures Date of Service Date of Service: 03/16/23 Progress Note: A&P Assessment and plan (1) Postoperative abscess: Status: Acute Assessment and Plan: IR drain in place patient has been doing well blood sugars better abdomen soft okay to DC home with drain in place to see Dr. Parekh on follow-up instruct on drain care discussed with hospitalist Time Spent With Patient Time: Total time managing care of this patient today ____ minutes. Quality Stroke Does the patient have a stroke diagnosis?: No VTE Prior VTE?: No VTE Risk Level:: Medical - moderate - high VTE Device Contraindication: N/A - Device Ordered VTE Drug Contraindication: N/A - Med Ordered
--- NOTE | 2023-03-16 11:23 | MHC.CM.PN ---
per dr lerma pt will not need a vna he is having staff here teach pt drain care vna cancelled
--- NOTE | 2023-03-19 10:19 | P.DS_ITS ---
DS: Providers Provider Date of Service: 03/16/23 Date of admission: 03/12/23 18:39 Primary care physician: Gerry Garcia III, MD Attending physician on admission: Pradeep Morales Consults: 03/12/23 18:41 Consult to Hospitalist Routine Comment: Consulting Provider: Hospitalist Reason For Exam: DM, HTN Attending physician on discharge: Pradeep Morales DS: Diagnosis Discharge Diagnosis (1) Postoperative abscess: Status: Acute DS: Summary Hospital Course Hospital Course: HPI AT ADMISSION: Virgilio Martínez is a 77 year old male with diabetes, who was brought to the ER yesterday by his because of multiple complaints. He states that he has not been eating well and has had very poor appetite since he was discharged from the hospital after laparoscopic cholecystectomy with Dr. Parekh last 03/01/2023. He had had been admitted for gallstone pancreatitis then. He also describes persistent sharp pains on the right side of his abdo men. He mentioned seeing bright blood per rectum with bowel movements for the past 2 days prior to admission although he has had not any bloody stools since he had been in the ER. He said he has been weak. He is known to be chronically constipated and is on Linzess. He denies any fever or chills at home. HOSPITAL COURSE: He was admitted to the surgical service for further treatment of the abdominal pain. He was scheduled for CT drainage of the abscess in the gallbladder fossa and started on IV zosyn. Hospitalist consult was obtained for management of his medical comorbidities. He had an CARMEN from poor oral intake, dehydration and he was started on IVF with improvement in his renal function. His symptoms improved with the IR drainage. His appetite increased and oral intake increased. He was ambulated. He remained inpatient awaiting culture results and for medical treatment as he was having episodes of hypoglycemia which improved with lowering of his basaglar dose to 5U subq BID. He was also found to be bradycardic which improved with decreasing his metoprolol succinate dose to 50mg PO daily. His abscess cultures were negative and was transitioned to PO Augmentin. On the day of discharge, he had no abd pain, was tolerating a solid diet without nausea or vomiting. He had no further rectal bleeding. He was discharged to home with his drain in place on a course of PO Augmentin. He is to follow up in the office with Dr. Parekh in 1 week. Regarding his rectal bleeding, it was likely outlet bleeding from his hemorrhoids with his constipation. His H/H was at baseline and remained stable. He is to follow up with PCP to have outpatient colonoscopy, management of his diabetes mellitus and hypertension. Status at Discharge Functional status at discharge: uses cane/walker Overall status at discharge: patient is progressing back to baseline Time Attestation Discharge coordination time: Less than 30 minutes Quality: Safe Use of Opioids Does Pt have an Active Cancer Diagnosis on the Problem List?: No Quality: Stroke Does the patient have a stroke diagnosis?: No Physical Exam Vital Signs: Vital Signs: Last Vital Signs Temp 98.1 F 03/16/23 07:50 Pulse 52 03/16/23 07:50 Resp 18 03/16/23 07:50 BP 145/68 H 03/16/23 07:50 Pulse Ox 96 03/16/23 07:50 O2 Del Method Room Air 03/16/23 07:50 BMI result Body Mass Index 21.3 Const: General: no acute distress and alert Orientation/consciousness: patient oriented x3 Resp: Effort & Inspection: normal respiratory effort GI: Other: drain with scant old blood Inspection: No distended Palpation (GI): Soft to palpation and nontender Skin: General skin exam: no rashes or lesions noted and no jaundice Neuro: General: patient oriented x3 DS: Data Data Completed and Pending Completed studies during hospitalization [Text1]: Procedures Resection of Gallbladder, Percutaneous Endoscopic Approach (02/21/23) Discharge Plan Discharge Anticipated Discharge Date/Time: 03/15/23 12:46 Patient Disposition: Home, Self-Care Discharge Diagnosis: post op intraabdominal abscess Referrals: Gerry Garcia III, MD [Primary Care Provider] - 1 Week Obinna Parekh MD [Physician] - 1 Week Discharge Medications: New amoxicillin-pot clavulanate 875-125 mg tablet 1 tab PO BID Qty: 10 0RF metoprolol succinate 50 mg Tablet Extended Release 24 Hr 50 mg PO DAILY Qty: 30 0RF Protocol: Hold for SBP/HR < HOLD for SBP < : 90 HOLD for HR < : 60 Rx Instructions: Replaces prior dose of 100 mg daily insulin glargine [Basaglar KwikPen U-100 Insulin] 100 unit/mL (3 mL) insulin pen 5 unit subcut BID Qty: 15 0RF Rx Instructions: Decreased dose to 5 units bid due to hypoglycemia Continued latanoprost 0.005 % drops 2 drp ophthalmic (eye) DAILY cyanocobalamin (vitamin B-12) 1,000 mcg tablet 1,000 mcg PO DAILY simvastatin 40 mg tablet 40 mg PO BEDTIME ferrous sulfate 325 mg (65 mg iron) tablet 325 mg PO DAILY lidocaine 5 % adhesive patch,medicated 1 - 3 patch topical Q24H Rx Instructions: 12H ON 12 H OFF, patient applies to back and neck omeprazole 20 mg capsule,delayed release(DR/EC) 20 mg PO DAILY loratadine 10 mg tablet 10 mg PO DAILY PRN (Reason: itch) fenofibrate nanocrystallized 145 mg tablet 145 mg PO DAILY Linzess 290 mcg capsule 290 mcg PO DAILY amlodipine 5 mg Tablet 5 mg PO DAILY Qty: 30 0RF Protocol: Hold for SBP< HOLD for SBP < : 90 aspirin 81 mg tablet,delayed release (DR/EC) 81 mg PO DAILY hydrocodone-acetaminophen 5-325 mg tablet 1 tab PO Q4-6H PRN (Reason: pain) Qty: 30 0RF Rx Instructions: Partial Fill upon patient request. Discontinued metoprolol succinate 100 mg tablet extended release 24 hr 100 mg PO DAILY insulin glargine [Basaglar KwikPen U-100 Insulin] 100 unit/mL (3 mL) insulin pen 20 unit subcut BID Discharge Orders: Discharge Order (Routine); Ordered 03/16/23 Ordered By: Pradeep Morales Diet: Diabetic diet Activity on Discharge: No heavy lifting Stand Alone Forms: Patient Portal Discharge page Activity Restrictions/Additional Instructions: Empty NIMESH drain at least once a day and record output Follow up in office with Dr. Parekh in a week. ([phone]) F/u with your PCP regarding your diabetes mellitus and hypertension management. Call Your Doctor If: ? ? -Your temperature exceeds 101.5? F? ? ? -You experience excessive pain or swelling ? ? -You have an unexpected reaction to medication ? ? -You experience continued vomiting/nausea Care Plan Goals: Return to baseline health and resume normal activities following recovery period. Increasing PO intake. Health Concerns: post op intraabdominal abscess s/p lap abida hypoglycemia in setting of type 2 diabetes mellitus bradycardia Plan of Treatment: s/p IR drainage, IV transitioned to PO abx F/u in office with Dr. Parekh in 1 week; f/u with PCP DECREASE METOPROLOL SUCCINATE FROM 100 MG DAILY TO 50 MG DAILY DECREASE BASAGLAR FROM 20 UNITS TO 5 UNITS BID Assessment: Improved Discharge Date/Time: 03/16/23 11:57
== END 2023-03-16 11:57 | disposition home or self-care (01) | DRG 862 ==
LOC: HO.ED 19:08 → HO.EDOVER 20:01 → HO.S3 03-13 07:59
PROVIDERS: Family Medicine; Physician Assistant; Physician Assistant Surgical; Student in an Organized Health Care Education/Training Program; Admitting Provider Surgery; Emergency Provider Emergency Medicine; PCP Internal Medicine; Visit Provider Surgery
PROC: 0W9H30Z Drainage of Retroperitoneum with Drainage Device, Percutaneous Approach (ICD-10-PCS; principal; 2023-03-13 13:00)
DX: K68.11 Postprocedural retroperitoneal abscess (principal); K85.10 Biliary acute pancreatitis without necrosis or infection; N17.9 Acute kidney failure, unspecified; I12.9 Hypertensive chronic kidney disease with stage 1 through stage 4 chronic kidney disease, or unspecified chronic kidney disease; N18.30 Chronic kidney disease, stage 3 unspecified; E11.22 Type 2 diabetes mellitus with diabetic chronic kidney disease; K64.9 Unspecified hemorrhoids; E86.0 Dehydration; K59.09 Other constipation; E87.5 Hyperkalemia; D63.1 Anemia in chronic kidney disease; E86.1 Hypovolemia; E11.65 Type 2 diabetes mellitus with hyperglycemia; E11.649 Type 2 diabetes mellitus with hypoglycemia without coma; Z20.822 Contact with and (suspected) exposure to COVID-19; Z79.82 Long term (current) use of aspirin; Z79.899 Other long term (current) drug therapy
CPT/HCPCS: 36415; 74176; 75989; 80048; 80076; 81003; 82272; 82947; 83605; 83690; 84484; 85025; 85027; 85610; 86850; 86900; 86901; 87040; 87070; 87073; 87205; 87493; 87635; 93005; 99152; 99285; C1729; J1644; J2270; J2405; J2543; Q4186

== ENCOUNTER → 2023-03-12 13:30 | Outpatient (BNV) | payer MEDICARE, OTHER, SELFPAY | PROVIDERS: Emergency Provider Emergency Medicine; PCP Internal Medicine; Visit Provider Internal Medicine Cardiovascular Disease | DX: R00.1 Bradycardia, unspecified (principal) | CPT/HCPCS: 93010 ==

== ENCOUNTER → 2023-03-12 15:17 | Outpatient (BNV) | payer MEDICARE, OTHER, SELFPAY | PROVIDERS: Emergency Provider Emergency Medicine; PCP Internal Medicine; Visit Provider Physician Assistant | DX: T81.49XA Infection following a procedure, other surgical site, initial encounter (principal); K92.2 Gastrointestinal hemorrhage, unspecified; E86.0 Dehydration | CPT/HCPCS: 99222; 99232; 99499 ==

== ENCOUNTER 2023-03-12 18:39 | Outpatient (BNV) | payer MEDICARE, OTHER, SELFPAY | END 2023-03-13 13:00 | PROVIDERS: Admitting Provider Surgery; Emergency Provider Emergency Medicine; PCP Internal Medicine; Visit Provider Student in an Organized Health Care Education/Training Program | DX: T81.49XA Infection following a procedure, other surgical site, initial encounter (principal) | CPT/HCPCS: 49405 ==

== ENCOUNTER → 2023-03-12 18:39 | Outpatient (BNV) | payer MEDICARE, OTHER, SELFPAY | PROVIDERS: Admitting Provider Surgery; Emergency Provider Emergency Medicine; PCP Internal Medicine; Visit Provider Surgery | DX: T81.49XA Infection following a procedure, other surgical site, initial encounter (principal) | CPT/HCPCS: 99024; 99499 ==

== ENCOUNTER 2023-03-20 13:29 | Outpatient (AMB) | payer MEDICARE, OTHER, SELFPAY ==
[2023-03-20 13:39] VITALS: BP 125/61; PULSE 68
--- NOTE | 2023-03-20 13:39 | MHC.OFFVIS ---
Intake Vital Signs 03/20/23 13:39 Weight 132 lb BP 125/61 Blood Pressure Location Rt brachial Position Sitting Pulse 68 Intake Visit Reasons: s/p lap abida, drain check Intake Note: Patient here s/p lap abida, drain check. Patient c/o: pain and nausea. Requesting rx for nausea. [employer] Required: No Accompanied by: Spouse Allergies No Known Allergies Allergy (Mild, Verified 03/20/23 13:40) NOT APPLICABLE HPI HPI Comments History of Present Illness Details Patient presents with his for follow-up. He is marginally eating. Has occasional nausea. He is passing flatus and stool. NIMESH drain has put scan output over the last several days. FOR[facility]LY [facility], [facility] Medical History CKD (chronic kidney disease) Cataract Arthritis Anemia Zzlqm-[id number]-uhwiqdj kidney injury Holter monitor, abnormal Stroke HTN (hypertension) HLD (hyperlipidemia) Diabetes Bronchitis Surgical History Status post cholecystectomy Gallstone pancreatitis Hx laparoscopic cholecystectomy (03/01/23) Hx of colonoscopy History of laminectomy History of intestinal surgery Social History Household Members: Spouse Housing: House Are you a primary intensive care anaesthetist to a significant other at home: No Do you presently have visiting nurse or other home services: No Alcohol intake: never Patient Tobacco Use Status: Former Tobacco user Quit Date: 60 yrs ago Tobacco use type: Cigarette e-Cigarette/Vaping Use: Former Use Second Hand Smoke Exposure: No Advance Directives Date on File: 08/23/20 service: No Current occupational status: retired Physical Exam Vital Signs: Last Vital Signs Pulse 68 03/20/23 13:39 BP 125/61 03/20/23 13:39 Const Other: Patient has lost a moderate amount of weight since his original hospitalization. Eyes Other: Anicteric GI Other: Abdomen soft. All wounds clean dry and intact. NIMESH drain uneventfully removed with dressing applied. Assessment & Plan Assessment & Plan (1) Status post laparoscopic cholecystectomy: Code(s): Z90.49 - Acquired absence of other specified parts of digestive tract Plan Patient have been given local instructions as well as encouraging p.o. and arrangements were made for colonoscopy evaluation by Dr. Nevarez who saw the patient during his most recent hospitalization. All questions answered. Patient will follow-up with me p.r.n.. Coding Level of Care Code Global (26809) Diagnoses Status post laparoscopic cholecystectomy Z90.49
== END 2023-03-20 13:59 | disposition home or self-care (01) ==
PROVIDERS: PCP Internal Medicine; Visit Provider Surgery
DX: Z90.49 Acquired absence of other specified parts of digestive tract (principal)
CPT/HCPCS: 99024

== ENCOUNTER 2023-03-20 20:34 | Emergency (ER) | payer MEDICARE, OTHER, SELFPAY ==
--- NOTE | ~2023-03-20 | CT_ITS ---
EXAMINATION: CT ABDOMEN AND PELVIS WITHOUT CONTRAST CLINICAL INFORMATION: Right upper quadrant pain after gallbladder fossa drain removal. COMPARISON: CT dated 03/12/2023 TECHNIQUE: Multidetector volumetric imaging was performed from the superior aspect of the liver through the pubic symphysis. Sagittal and coronal reformatted images were obtained on the technologist's workstation. This CT examination was performed using dose optimization techniques as appropriate, variously including the following: *Automated exposure control *Adjustment of mA and/or kV according to patient size (this includes techniques or standardized protocols for targeted exams where dose is matched to indication/reason for exam; i.e. extremities or head) *Use of iterative reconstruction technique DLP: 416 mGy-cm FINDINGS: LUNG BASES: Mild dependent atelectasis. LIVER, GALLBLADDER, AND BILIARY TREE: The liver is normal in size, shape, and attenuation. No focal hepatic lesion or is identified on these unenhanced images. As previously noted, the gallbladder is surgically absent. Multiple surgical clips are again seen in the gallbladder fossa along with a small focus of complex fluid and a punctate focus of gas, markedly improved as compared to prior. This region measures approximately 3 x 1.5 x 1 cm . No appreciable biliary ductal dilatation. PANCREAS: Mild stranding of the peripancreatic fat is slightly less pronounced as compared to prior. A small collection is again suspected in the left anterior pararenal space superiorly, contiguous with the posterior aspect of the pancreatic tail. This measures approximately 1.7 cm AP, not appreciably change from prior by my measurement. No pancreatic ductal dilatation or pancreas lesions are identified. SPLEEN: Unremarkable. ADRENAL GLANDS: Unremarkable. KIDNEYS AND URETERS: Chronic renal atrophy with cortical thinning. Multiple hypoattenuating right renal cysts are again noted. No recommended imaging follow-up. Left extrarenal pelvis. No nephrolithiasis or ureterolithiasis. No hydroureter. Minimal left perirenal fat stranding, unchanged. BLADDER: Distended. No wall thickening s abnormalities are identified. GASTROINTESTINAL TRACT: Stomach, small bowel, and colon are normal in caliber. No wall thickening or surrounding fat stranding. Mild colonic diverticulosis. No evidence of acute diverticulitis. ABDOMINAL WALL: No significant hernia is appreciated. LYMPH NODES: Normal. VASCULAR: Calcific atherosclerosis abdominal aorta and iliac arteries. No aneurysmal dilatation. PELVIC VISCERA: The prostate and seminal vesicles are unremarkable. OSSEOUS STRUCTURES: Moderate multilevel degenerative spondylosis in the lumbar spine, most notably at L3-L4 with associated central canal stenosis. Mild osteoarthritis in the hips and SI joints. CT/CT abdomen pelvis wo IV con IMPRESSION: 1. Status post cholecystectomy. The trace residual fluid collection in the gallbladder fossa is markedly improved as compared to prior. 2. Mild peripancreatic fat stranding is slightly less pronounced as compared to prior and consistent with pancreatitis. A small peripancreatic collection in the left anterior pararenal space is unchanged. 3. Distended bladder. 4. Mild colonic diverticulosis without evidence of acute diverticulitis. Fleischner guidelines were followed.
--- NOTE | ~2023-03-20 | XR_ITS ---
EXAMINATION: XR CHEST CLINICAL INFORMATION: Right-sided chest pain after draining: COMPARISON: Chest 08/23/2020 TECHNIQUE: 2 views of the chest were obtained. FINDINGS: No significant abnormality is noted involving the heart, lungs, mediastinum, bony thorax or soft tissues. XR/XR chest 2V IMPRESSION: Unremarkable chest examination.
--- NOTE | 2023-03-20 20:42 | ED.LOWEXIN ---
HPI - Extremity Injury (Lower) General Chief Complaint: Abdominal Pain Stated Complaint: hip pain - drain removed today Time Seen by Provider: 03/20/23 21:05 History of Present Illness HPI Narrative: The patient is a 77-year-old male with a history of diabetes who had a laparoscopic cholecystectomy on February 28. He had been admitted to the hospital on February 21 and was discharged on March 03. He return to the hospital on March 12 and was found to have an abscess in the gallbladder fossa. He had a drainage placed by Interventional Radiology and was discharged on March 16, 4 days ago. The patient did well and went to the surgery outpatient office today where Dr. Parekh pulled his drain. The drain was pulled at about 02:00 o'clock this afternoon. He then returned home with his . At around 20:00 he started to have severe pain on the right side of his body where the drain had been pulled and his brought him back to the hospital. He has not had a fever today. Related Data Home Medications Medication Instructions Recorded Confirmed cyanocobalamin (vitamin B-12) 1,000 mcg PO DAILY 02/21/23 03/12/23 1,000 mcg tablet fenofibrate nanocrystallized 145 145 mg PO DAILY 02/21/23 03/12/23 mg tablet ferrous sulfate 325 mg (65 mg 325 mg PO DAILY 02/21/23 03/12/23 iron) tablet latanoprost 0.005 % eye drops 2 drp ophthalmic (eye) DAILY 02/21/23 03/12/23 lidocaine 5 % topical patch 1 - 3 patch topical Q24H 02/21/23 03/12/23 linaclotide 290 mcg capsule 290 mcg PO DAILY 02/21/23 03/12/23 (Linzess) loratadine 10 mg tablet 10 mg PO DAILY PRN itch 02/21/23 03/12/23 omeprazole 20 mg capsule,delayed 20 mg PO DAILY 02/21/23 03/12/23 release simvastatin 40 mg tablet 40 mg PO BEDTIME 02/21/23 03/12/23 aspirin 81 mg tablet,delayed 81 mg PO DAILY 03/12/23 03/12/23 release Previous Rx's Medication Instructions Recorded amlodipine 5 mg tablet 5 mg PO DAILY #30 tabs 03/03/23 hydrocodone 5 mg-acetaminophen 325 1 tab PO Q4-6H PRN pain #30 tabs 03/05/23 mg tablet amoxicillin 875 mg-potassium 1 tab PO BID #10 tabs 03/15/23 clavulanate 125 mg tablet insulin glargine 100 unit/mL (3 5 unit (0.05 mL) subcut BID #15 mL 03/16/23 mL) subcutaneous pen (Basaglar KwikPen U-100 Insulin) metoprolol succinate 50 mg 50 mg PO DAILY #30 tabs 03/16/23 tablet,extended release 24 hr ondansetron 4 mg disintegrating 4 mg PO Q6H PRN nausea #10 tabs 03/21/23 tablet Allergies Allergy/AdvReac Type Severity Reaction Status Date / Time No Known Allergies Allergy Mild NOT Verified 03/20/23 13:40 APPLICABLE [facility] Past Medical History Medical History CKD (chronic kidney disease) Cataract Arthritis Anemia Sfdxe-wy-zqsuozg kidney injury Holter monitor, abnormal Stroke HTN (hypertension) HLD (hyperlipidemia) Diabetes Bronchitis Surgical History Status post cholecystectomy Gallstone pancreatitis Hx laparoscopic cholecystectomy (03/01/23) Hx of colonoscopy History of laminectomy History of intestinal surgery Social History Social History Household Members: Spouse Housing: House Are you a primary certified social workers in health care to a significant other at home: No Do you presently have visiting nurse or other home services: No Alcohol intake: never Patient Tobacco Use Status: Former Tobacco user Quit Date: 60 yrs ago Tobacco use type: Cigarette Smoked in Last 30 Days: No e-Cigarette/Vaping Use: Former Use Second Hand Smoke Exposure: No Use of substances other than those prescribed or required for medical reasons: No Advance Directives: Yes Advance Directives Information Provided: No Advance Directives on File: No Advance Directives Date on File: 08/23/20 service: No Current occupational status: retired Physical Exam Vital Signs: Vital Signs: Last Vital Signs Temp 98.1 F 03/21/23 01:54 Pulse 58 03/21/23 01:54 Resp 16 03/21/23 01:54 BP 124/67 03/21/23 01:54 Pulse Ox 97 03/21/23 01:54 O2 Del Method Room Air 03/21/23 01:54 BMI result Body Mass Index 20.8 Course Course Course Narrative: RME: 77 yo M w/PMHx CKD, CVA, HTN, HLD, DM presenting to the ED c/o R sided abdominal pain s/p NIMESH drain removal in outpatient surgical office today s/p laparoscopic cholecystectomy 03/01/23 due to gallstone pancreatitis complicated by abscess of gallbladder fossa. States he was feeling better prior to drain coming out abdomen soft, +R sided ttp Labs, UA ordered Full HPI, ROS and PE to be performed by primary ED provider. Medications Administered Generic Name Dose Route Start Last Admin Trade Name Freq PRN Reason Stop Dose Admin Sodium Chloride 1,000 mls @ 999 mls/hr 03/21/23 02:15 03/21/23 02:06 Ns IV 03/21/23 03:15 999 mls/hr .Q1H1M EASTON Administration Discontinued Medications Generic Name Dose Route Start Last Admin Trade Name Freq PRN Reason Stop Dose Admin Sodium Chloride 1,000 mls @ 999 mls/hr 03/20/23 21:30 03/20/23 23:07 Ns IV 03/20/23 22:30 Infused .Q1H1M EASTON Infusion Morphine Sulfate 4 mg 03/20/23 21:31 03/20/23 21:41 Morphine Sulfate 4 Mg/Ml Cartridge IVPUSH 03/20/23 21:32 4 mg ONCE ONE Administration Protocol Ondansetron HCl 4 mg 03/21/23 01:57 03/21/23 02:06 Ondansetron Hcl 4 Mg/2 Ml Vial IVPUSH 03/21/23 01:58 4 mg ONCE ONE Administration Medical Decision Making Medical Decision Making [facility] Narrative: The patient is a 77-year-old male with chronic kidney disease who was hospitalized a month ago for gallstone pancreatitis and subsequently had a laparoscopic cholecystectomy. He was readmitted to the hospital for dehydration and a fluid collection in the gallbladder fossa which was drained with an IR drainage procedure. He comes to the emergency room several hours after having the drain pulled at the general surgery office this afternoon. On exam the patient seemed profoundly and excessively tender over the right lower chest wall and the right abdomen. Pain seemed out of proportion to any apparent abnormality. Labs were done and a CT of the abdomen and pelvis. The CT was done without contrast because of the patient's significant chronic renal disease. The CT of the abdomen and pelvis showed no apparent explanation for the patient's pain. CT findings showed no worsening developments in the abdomen. There was no sign of biliary obstruction. CBD was normal. Chest x-ray was also unremarkable. The patient's lipase remains elevated and the patient's LFTs are elevated compared to the patient's last set of LFTs. The last set of LFTs were checked before placement of the drain. Patient's BUN is also higher today. The patient received a single dose of morphine and had a remarkably good response. His pain resolved and did not seem to recur. He was observed for several hours. He was given L of IV normal saline. He has apparently also been experiencing a lot of nausea over the last several days so he has been eating less. His was very eager for him to be treated for his nausea. Given how well he looked after he received pain medication and given the absence of any acute findings on CT scan I ultimately felt that letting him go home and contacting the surgery office tomorrow is reasonable. The patient was eager to go home. His was somewhat apprehensive about going home but ultimately acquiesced. Lab Data 03/20/23 21:16 03/20/23 22:03 Labs: Lab Results 03/20/23 03/20/23 03/20/23 Range/Units 21:16 21:37 22:03 WBC 12.4 H (4.8-10.8) X10*3/uL RBC 3.46 L (4.60-5.80) X10*6/uL Hgb 9.5 L (14.0-18.0) g/dl Hct 29.7 L (42.0-52.0) % MCV 85.8 (80.0-98.0) fL MCH 27.5 (27.0-33.0) pg MCHC 32.0 (31.0-36.0) g/dl RDW 14.0 (11.0-16.0) % Plt Count 384 (160-400) X10*3/uL MPV 9.8 (9.4-12.4) fL Immature Gran % (Auto) 0.7 H (0.0-0.4) % Neut % (Auto) 70.3 (45-73) % Lymph % (Auto) 18.3 L (20-40) % [place] % (Auto) 7.7 (2-11) % Eos % (Auto) 2.8 (0-4) % Baso % (Auto) 0.2 (0-2) % Lymph # (Auto) 2.3 (1.2-4.9) X10*3/uL [place] # (Auto) 1.0 (0.1-1.2) X10*3/uL Eos # (Auto) 0.4 (0.0-0.4) X10*3/uL Baso # (Auto) 0.0 (0.0-0.2) X10*3/uL Abs Immat Gran (auto) 0.09 H (0.00-0.03) X10*3/uL Absolute Neuts (auto) 8.7 H (2.0-8.3) x10*3/uL Absolute Nucleated RBC 0.000 (0.0-0.012) X10*3/uL Nucleated RBC % (auto) 0.0 (0.0-0.2) /100WBC Sodium 134 L (135-145) mmol/L Potassium 4.8 (3.3-5.1) mmol/L Chloride 104 (96-108) mmol/L Carbon Dioxide 22 (22-29) mmol/L Anion Gap 13 (12-20) BUN 42 H (9-16) mg/dL Creatinine 2.45 H (0.5-1.4) mg/dL Estim Creat Clear Calc 21.5 Estimated GFR 26 Random Glucose 153 H (60-115) mg/dL Lactic Acid 1.2 (0.5-2.0) mmol/L Calcium 9.5 (8.4-10.2) mg/dL Magnesium 2.3 (1.6-2.6) mg/dL Total Bilirubin 0.9 (0.0-1.0) mg/dL Direct Bilirubin 0.7 H (0.0-0.5) mg/dL AST 170 H (5-37) U/L ALT 75 H (0-40) U/L Alkaline Phosphatase 224 H (39-117) U/L C-Reactive Protein 1.01 H (< or = 0.50) mg/dL Total Protein 7.0 (6.5-8.0) g/dL Albumin 3.6 (3.5-5.0) g/dL Lipase 193 H (8-78) U/L Urine Color Urine Appearance Urine pH (5.0-9.0) Ur Specific [place] (1.005-1.025) Urine Protein (Neg-Trace) mg/dL Urine Glucose (UA) (Negative) mg/dL Urine Ketones (Negative) mg/dL Urine Blood (Negative) Urine Nitrite (Negative) Ur Leukocyte Esterase (Negative) 03/20/23 Range/Units 22:21 WBC (4.8-10.8) X10*3/uL RBC (4.60-5.80) X10*6/uL Hgb (14.0-18.0) g/dl Hct (42.0-52.0) % MCV (80.0-98.0) fL MCH (27.0-33.0) pg MCHC (31.0-36.0) g/dl RDW (11.0-16.0) % Plt Count (160-400) X10*3/uL MPV (9.4-12.4) fL Immature Gran % (Auto) (0.0-0.4) % Neut % (Auto) (45-73) % Lymph % (Auto) (20-40) % [place] % (Auto) (2-11) % Eos % (Auto) (0-4) % Baso % (Auto) (0-2) % Lymph # (Auto) (1.2-4.9) X10*3/uL [place] # (Auto) (0.1-1.2) X10*3/uL Eos # (Auto) (0.0-0.4) X10*3/uL Baso # (Auto) (0.0-0.2) X10*3/uL Abs Immat Gran (auto) (0.00-0.03) X10*3/uL Absolute Neuts (auto) (2.0-8.3) x10*3/uL Absolute Nucleated RBC (0.0-0.012) X10*3/uL Nucleated RBC % (auto) (0.0-0.2) /100WBC Sodium (135-145) mmol/L Potassium (3.3-5.1) mmol/L Chloride (96-108) mmol/L Carbon Dioxide (22-29) mmol/L Anion Gap (12-20) BUN (9-16) mg/dL Creatinine (0.5-1.4) mg/dL Estim Creat Clear Calc Estimated GFR Random Glucose (60-115) mg/dL Lactic Acid (0.5-2.0) mmol/L Calcium (8.4-10.2) mg/dL Magnesium (1.6-2.6) mg/dL Total Bilirubin (0.0-1.0) mg/dL Direct Bilirubin (0.0-0.5) mg/dL AST (5-37) U/L ALT (0-40) U/L Alkaline Phosphatase (39-117) U/L C-Reactive Protein (< or = 0.50) mg/dL Total Protein (6.5-8.0) g/dL Albumin (3.5-5.0) g/dL Lipase (8-78) U/L Urine Color Dark Yellow Urine Appearance Clear Urine pH 5.5 (5.0-9.0) Ur Specific [place] 1.020 (1.005-1.025) Urine Protein Trace (Neg-Trace) mg/dL Urine Glucose (UA) Negative (Negative) mg/dL Urine Ketones Negative (Negative) mg/dL Urine Blood Negative (Negative) Urine Nitrite Negative (Negative) Ur Leukocyte Esterase Negative (Negative) Discharge Plan Discharge Clinical Impression: Right sided abdominal pain, Abnormal LFTs (liver function tests) Patient Disposition: Home, Self-Care Additional Instructions: Your CAT scan does not show any concerning findings with regard to your pain. Please use the Zofran (ondansetron) prescribed as needed for nausea. Do your best to drink a lot of fluids. Please call Dr. Parekh his office in the morning to discuss how he is doing. Return to the emergency room if worse. Prescriptions: New ondansetron 4 mg tablet,disintegrating 4 mg PO Q6H PRN (Reason: nausea ) Qty: 10 0RF No Action latanoprost 0.005 % drops 2 drp ophthalmic (eye) DAILY cyanocobalamin (vitamin B-12) 1,000 mcg tablet 1,000 mcg PO DAILY simvastatin 40 mg tablet 40 mg PO BEDTIME ferrous sulfate 325 mg (65 mg iron) tablet 325 mg PO DAILY lidocaine 5 % adhesive patch,medicated 1 - 3 patch topical Q24H Rx Instructions: 12H ON 12 H OFF, patient applies to back and neck omeprazole 20 mg capsule,delayed release(DR/EC) 20 mg PO DAILY loratadine 10 mg tablet 10 mg PO DAILY PRN (Reason: itch) fenofibrate nanocrystallized 145 mg tablet 145 mg PO DAILY Linzess 290 mcg capsule 290 mcg PO DAILY amlodipine 5 mg Tablet 5 mg PO DAILY Qty: 30 0RF Protocol: Hold for SBP< HOLD for SBP < : 90 aspirin 81 mg tablet,delayed release (DR/EC) 81 mg PO DAILY amoxicillin-pot clavulanate 875-125 mg tablet 1 tab PO BID Qty: 10 0RF metoprolol succinate 50 mg Tablet Extended Release 24 Hr 50 mg PO DAILY Qty: 30 0RF Protocol: Hold for SBP/HR < HOLD for SBP < : 90 HOLD for HR < : 60 Rx Instructions: Replaces prior dose of 100 mg daily insulin glargine [Basaglar KwikPen U-100 Insulin] 100 unit/mL (3 mL) insulin pen 5 unit subcut BID Qty: 15 0RF Rx Instructions: Decreased dose to 5 units bid due to hypoglycemia hydrocodone-acetaminophen 5-325 mg tablet 1 tab PO Q4-6H PRN (Reason: pain) Qty: 30 0RF Rx Instructions: Partial Fill upon patient request. Referrals: Obinna Parekh MD [Physician] - (Pain after drain removal. Abnormal LFTs.) Gerry Garcia III, MD [Primary Care Provider] -
[2023-03-20 20:43] VITALS: BP 118/92; PULSE 63; RESP 18; TEMP 36.8; O2SAT 100; BMI 20.8
--- NOTE | 2023-03-20 21:20 | PC.NURSE ---
iv line placed #20g LFA, labs obtained and sent. pt on support assistant at bedside pt reporting 10/10 pain to R side abdomen
--- NOTE | 2023-03-20 21:22 | ECG_ITS ---
Test Reason : ABD PAIN Blood Pressure : / mmHG Vent. Rate : 055 BPM Atrial Rate : 055 BPM P-R Int : 138 ms QRS Dur : 080 ms QT Int : 430 ms P-R-T Axes : 056 014 032 degrees QTc Int : 411 ms Sinus bradycardia with sinus arrhythmia Otherwise normal ECG When compared with ECG of 12-MAR-2023 13:58, No significant change was found Referred By: Miguel Lindsey Electronically Signed By:GAYATRI CHAN
[2023-03-20 21:35] LABS: MANUAL DIFF FLAG NO
[2023-03-20] MEDS: 0.9 % Sodium Chloride 1,000 ML 999 ML IV (21:40)
[2023-03-20 21:41] LABS: Basophils Percent Auto 0.2 % (0-2); Eosinophils Absolute Auto 0.4 X10*3/uL (0.0-0.4); Eosinophils Percent Auto 2.8 % (0-4); Hematocrit 29.7 % (42.0-52.0); Hemoglobin 9.5 g/dl (14.0-18.0); Imm Gran Abs Auto 0.09 X10*3/uL (0.00-0.03); Imm Gran Pct Auto 0.7 % (0.0-0.4); Lymphocytes Absolute Auto 2.3 X10*3/uL (1.2-4.9); Lymphocytes Percent Auto 18.3 % (20-40); Mean Corpuscular Hemoglobin 27.5 pg (27.0-33.0); Mean Corpuscular Volume 85.8 fL (80.0-98.0); Mean Platelet Volume 9.8 fL (9.4-12.4); Monocytes Percent Auto 7.7 % (2-11); Neutrophils Absolute Auto 8.7 x10*3/uL (2.0-8.3); Neutrophils Percent Auto 70.3 % (45-73); Platelet Count 384 X10*3/uL (160-400); Red Blood Count 3.46 X10*6/uL (4.60-5.80); White Blood Count 12.4 X10*3/uL (4.8-10.8)
[2023-03-20] MEDS: Morphine Sulfate 4 MG/ML CARTRIDGE IVPUSH (21:41)
[2023-03-20 22:06] VITALS: BP 136/62; PULSE 56; RESP 18; O2SAT 94
[2023-03-20 22:06] LABS: Lactic Acid 1.2 mmol/L (0.5-2.0)
[2023-03-20 22:29] LABS: Appearance Urine Clear; Color Urine Dark Yellow; Glucose Urine UA Negative (Negative); Leukocyte Esterase Urine Negative (Negative); Nitrite Urine Negative (Negative); PH 5.5 (5.0-9.0); Urine Blood Negative (Negative); Urine Ketones Negative (Negative); Urine Protein Trace mg/dL (Neg-Trace)
--- NOTE | 2023-03-20 22:30 | PC.NURSE ---
pt medicated per may for 01/01 pain, iv fluids started. pt reports relief of pain from 01/01 to 05/04 . resting comfortably on stretcher. at bedside. call conteh within reach plan of care ongoing
[2023-03-20 22:32] LABS: Anion Gap 13 (12-20)
[2023-03-20 22:37] LABS: Alanine Aminotransferase 75 U/L (0-40); Albumin Level 3.6 g/dL (3.5-5.0); Alkaline Phosphatase 224 U/L (39-117); Aspartate Amino Transferase 170 U/L (5-37); Bilirubin Direct 0.7 mg/dL (0.0-0.5); Bilirubin Total 0.9 mg/dL (0.0-1.0); Blood Urea Nitrogen 42 mg/dL (9-16); C Reactive Protein 1.01 mg/dL (< or = 0.50); Calcium 9.5 mg/dL (8.4-10.2); Carbon Dioxide 22 mmol/L (22-29); Chloride 104 mmol/L (96-108); Creatinine Clr Calc Pharmacy 21.5; Estimated Glomerular Filt Rate 26; Glucose Random 153 mg/dL (60-115); Lipase 193 U/L (8-78); Magnesium 2.3 mg/dL (1.6-2.6); Potassium 4.8 mmol/L (3.3-5.1); Sodium 134 mmol/L (135-145)
[2023-03-20 23:54] VITALS: BP 152/66; PULSE 61; RESP 16; TEMP 36.7; O2SAT 98
[2023-03-21 01:54] VITALS: BP 124/67; PULSE 58; RESP 16; TEMP 36.7; O2SAT 97
[2023-03-21] MEDS: 0.9 % Sodium Chloride 1,000 ML 999 ML IV (02:06)
[2023-03-21] MEDS: ondansetron HCL 4 MG/2 ML VIAL IVPUSH (02:06)
== END 2023-03-21 04:05 | disposition home or self-care (01) ==
PROVIDERS: Physician Assistant; Emergency Provider Emergency Medicine; PCP Internal Medicine
DX: R10.9 Unspecified abdominal pain (principal); R79.89 Other specified abnormal findings of blood chemistry; I12.9 Hypertensive chronic kidney disease with stage 1 through stage 4 chronic kidney disease, or unspecified chronic kidney disease; N18.9 Chronic kidney disease, unspecified; E11.22 Type 2 diabetes mellitus with diabetic chronic kidney disease; Z48.03 Encounter for change or removal of drains; Z90.49 Acquired absence of other specified parts of digestive tract
CPT/HCPCS: 36415; 71046; 74176; 80048; 80076; 81003; 83605; 83690; 83735; 85025; 86140; 87040; 93005; 96361; 96374; 96375; 99212; 99285; J2270; J2405

== ENCOUNTER → 2023-03-20 21:22 | Outpatient (BNV) | payer MEDICARE, OTHER, SELFPAY | PROVIDERS: Emergency Provider Emergency Medicine; PCP Internal Medicine; Visit Provider Internal Medicine | DX: R00.1 Bradycardia, unspecified (principal) | CPT/HCPCS: 93010 ==

== ENCOUNTER 2023-10-16 06:22 | Day surgery (SDC) | payer MEDICARE, OTHER, SELFPAY ==
[2023-10-14 16:45] VITALS: BMI 22.6
--- NOTE | 2023-10-15 10:26 | P.CONAN_ITS ---
Documented by User: Naya Guy NP 10/15/23 10:29 HPI - Anesthesia Eval Consult details Narrative: 78yo M for Colonoscopy PMFSH Active Problems Active Problems: All Active Problems Status post laparoscopic cholecystectomy (Acute) Postoperative abscess (Acute) Gram-negative bacteremia (Acute) Acute cerebral infarction associated with systemic hypoxia or ischemia (Acute) Cerebrovascular accident (Acute) Diabetes (Acute) Past Medical History Medical History Hx of drainage of abscess (03/13/23) CKD (chronic kidney disease) Cataract Arthritis Anemia Uaqqa-fy-unpixpz kidney injury Holter monitor, abnormal Stroke HTN (hypertension) HLD (hyperlipidemia) Diabetes Bronchitis Family History Family history of problems with anesthesia: No Surgical History Surgical History Hx laparoscopic cholecystectomy (03/01/23) Status post cholecystectomy Gallstone pancreatitis Hx of colonoscopy History of laminectomy History of intestinal surgery History of Problems with Anesthesia: No Social History Social History Household Members: Spouse Housing: House Are you a primary long term care administrator to a significant other at home: No Do you presently have visiting nurse or other home services: No Alcohol intake: never Patient Tobacco Use Status: Former Tobacco user Tobacco use type: Cigarette Smoked in Last 30 Days: No e-Cigarette/Vaping Use: Former Use Second Hand Smoke Exposure: No Use of substances other than those prescribed or required for medical reasons: No Are you DNR?: No Advance Directives: Yes Advance Directives Information Provided: No Advance Directives on File: Yes Advance Directives Date on File: 08/23/20 Nutrition Risks: Surgical patient >75years service: No Current occupational status: retired Meds Allergies Allergy/AdvReac Type Severity Reaction Status Date / Time No Known Allergies Allergy Mild NOT Verified 10/14/23 16:45 APPLICABLE Home Medications ?Medication ?Instructions ?Recorded ?Confirmed ?Last Taken ?Type cyanocobalamin (vitamin B-12) 1,000 mcg PO DAILY 02/21/23 10/14/23 03/12/23 History 1,000 mcg tablet fenofibrate nanocrystallized 145 145 mg PO DAILY 02/21/23 10/14/23 03/12/23 History mg tablet ferrous sulfate 325 mg (65 mg 325 mg PO DAILY 02/21/23 10/14/23 10/09/23 History iron) tablet latanoprost 0.005 % eye drops 2 drp ophthalmic (eye) DAILY 02/21/23 10/14/23 03/12/23 History lidocaine 5 % topical patch 1 - 3 patch topical Q24H 02/21/23 10/14/23 03/12/23 History linaclotide 290 mcg capsule 290 mcg PO DAILY 02/21/23 10/14/23 03/11/23 History (Linzess) loratadine 10 mg tablet 10 mg PO DAILY PRN itch 02/21/23 10/14/23 03/11/23 History omeprazole 20 mg capsule,delayed 20 mg PO DAILY 02/21/23 10/14/23 03/12/23 History release simvastatin 40 mg tablet 40 mg PO BEDTIME 02/21/23 10/14/23 03/11/23 History aspirin 81 mg tablet,delayed 81 mg PO DAILY 03/12/23 10/14/23 10/12/23 History release insulin glargine 100 unit/mL (3 16 - 20 unit subcut BID 10/14/23 10/14/23 Unknown History mL) subcutaneous pen (Basaglar KwikPen U-100 Insulin) multivitamin 1 tab PO DAILY 10/14/23 10/14/23 Unknown History omega 0-qly-rxg-fish oil 1,000 mg 1 cap PO DAILY 10/14/23 10/14/23 10/09/23 History (120 mg-180 mg) capsule (Fish Oil) Exam Height,Weight and Vital Signs: Height 5 ft 7 in Weight 65.317 kg Assessment and Plan Assessment Anesthesia Assessment: Chart Reviewed Final Anesthetic Review Family History of Problems with Anesthesia: No History of Problems with Anesthesia: No Documented by User: Breana Marin MD 10/16/23 07:27 PMFSH Past Medical History Medical History Hx of drainage of abscess (03/13/23) CKD (chronic kidney disease) Cataract Arthritis Anemia Ovosf-nw-bdsfbht kidney injury Holter monitor, abnormal Stroke HTN (hypertension) HLD (hyperlipidemia) Diabetes Bronchitis Surgical History Surgical History Hx laparoscopic cholecystectomy (03/01/23) Status post cholecystectomy Gallstone pancreatitis Hx of colonoscopy History of laminectomy History of intestinal surgery Social History Social History Household Members: Spouse Housing: House Are you a primary long term care administrator to a significant other at home: No Do you presently have visiting nurse or other home services: No Alcohol intake: never Patient Tobacco Use Status: Former Tobacco user Tobacco use type: Cigarette Smoked in Last 30 Days: No e-Cigarette/Vaping Use: Former Use Second Hand Smoke Exposure: No Use of substances other than those prescribed or required for medical reasons: No Are you DNR?: No Advance Directives: Yes Advance Directives Information Provided: No Advance Directives on File: Yes Advance Directives Date on File: 08/23/20 Nutrition Risks: Surgical patient >75years service: No Current occupational status: retired Meds Allergies Allergy/AdvReac Type Severity Reaction Status Date / Time No Known Allergies Allergy Mild NOT Verified 10/14/23 16:45 APPLICABLE Home Medications ?Medication ?Instructions ?Recorded ?Confirmed ?Last Taken ?Type cyanocobalamin (vitamin B-12) 1,000 mcg PO DAILY 02/21/23 10/14/23 03/12/23 History 1,000 mcg tablet fenofibrate nanocrystallized 145 145 mg PO DAILY 02/21/23 10/14/23 03/12/23 History mg tablet ferrous sulfate 325 mg (65 mg 325 mg PO DAILY 02/21/23 10/14/23 10/09/23 History iron) tablet latanoprost 0.005 % eye drops 2 drp ophthalmic (eye) DAILY 02/21/23 10/14/23 03/12/23 History lidocaine 5 % topical patch 1 - 3 patch topical Q24H 02/21/23 10/14/23 03/12/23 History linaclotide 290 mcg capsule 290 mcg PO DAILY 02/21/23 10/14/23 03/11/23 History (Linzess) loratadine 10 mg tablet 10 mg PO DAILY PRN itch 02/21/23 10/14/23 03/11/23 History omeprazole 20 mg capsule,delayed 20 mg PO DAILY 02/21/23 10/14/23 03/12/23 History release simvastatin 40 mg tablet 40 mg PO BEDTIME 02/21/23 10/14/23 03/11/23 History aspirin 81 mg tablet,delayed 81 mg PO DAILY 03/12/23 10/14/23 10/12/23 History release insulin glargine 100 unit/mL (3 16 - 20 unit subcut BID 10/14/23 10/14/23 Unknown History mL) subcutaneous pen (Basaglar KwikPen U-100 Insulin) multivitamin 1 tab PO DAILY 10/14/23 10/14/23 Unknown History omega 1-ckq-gkd-fish oil 1,000 mg 1 cap PO DAILY 10/14/23 10/14/23 10/09/23 History (120 mg-180 mg) capsule (Fish Oil) Exam Airway Mallampati Class: II TM Dist: >3cm Neck ROM: Limited Heart: rrrcta Assessment and Plan Final Anesthetic Review NPO: Yes ASA Class: III Final Preanesthetic Review: No Changes in Pt Med Stat, Meds/Allgs Chart Reviewed and Consent Obtained/Reviewed Patient Risk: Intermediate Anesthetic Plan Anesthetic Plan: MAC: Disposition: Standard PACU
[2023-10-16 07:09] VITALS: BP 143/71; PULSE 54; RESP 16; TEMP 35.9; O2SAT 99; BMI 21.7
[2023-10-16 07:30] LABS: Glucose, Whole Blood 83 mg/dL (60-115)
[2023-10-16] MEDS: Lactated Ringers 1,000 ML 100 ML IVCONT (07:32)
[2023-10-16 08:51] VITALS: BP 101/55; PULSE 48; RESP 16; TEMP 36.1; O2SAT 99
--- NOTE | 2023-10-16 08:57 | PM.OP ---
Brief Operative Note Date of Service: 10/16/23 Pre-op diagnosis: Rectal bleeding Post-op diagnosis: other (Polyps) Procedure: Colonoscopy to the cecum and TI with bx/removal of polyp, and hot snare polypectomy of polyp at 40cm Surgeon: Fareed Nevarez MD Anesthesia: MAC Was an Intermediate Card Tender used for this Procedure?: No Estimated blood loss (mL): 2.0 Pathology: other (A. Transverse colon polyp) Condition: stable Disposition: PACU
[2023-10-16 09:06] VITALS: BP 133/58; PULSE 51; RESP 18; TEMP 36.6; O2SAT 98
--- NOTE | 2023-10-16 09:13 | OP_ITS ---
DATE OF SERVICE: 10/16/2023 SURGEON: Fareed Nevarez MD INDICATIONS: The patient presents for evaluation of colorectal cancer screening, constipation, and hematochezia. PREOPERATIVE DIAGNOSIS: POSTOPERATIVE DIAGNOSIS: PROCEDURE PERFORMED: Colonoscopy to the cecum and terminal ileum with biopsy and removal of polyp, and hot snare polypectomy. ESTIMATED BLOOD LOSS: COMPLICATIONS: ANESTHESIA: Monitored anesthesia care. ASSISTANTS: SPECIMENS: PREOPERATIVE DIAGNOSES: Colorectal cancer screening, hematochezia, constipation. POSTOPERATIVE DIAGNOSES: Colorectal cancer screening, hematochezia, constipation, colon polyps, diverticulosis, and internal hemorrhoids. DESCRIPTION OF PROCEDURE: The patient was placed in the left lateral decubitus position. The digital rectal exam revealed no abnormalities. The Olympus video pediatric colonoscope was entered into the rectum and was advanced easily to the cecum. Once in the cecum, I did identify normal-appearing cecal pouch with appendiceal orifice and a normal-appearing ileocecal valve. The terminal ileum was cannulated and appeared normal. Scope withdrawn back in the colon. The entire cecum and ileocecal valve appeared normal. The scope was slowly withdrawn assessing all mucosal surfaces carefully. Preparation was excellent. In the transverse colon was a flat, approximately 3 or 4 mm polyp, which was biopsied and completely removed with cold biopsy forceps. At 40 cm, was a flat, but raised approximately 10 to 12 mm polyp, which was removed by hot snare polypectomy but not recovered. The polypectomy site appeared clean, without any sign of residual polyp nor bleeding. I did not visualize any other polyps, colitis, nor angiodysplasia. There was a mild amount of sigmoid diverticulosis. In the rectum, scope was retroflexed visualizing small internal hemorrhoids, but no other pathology. The scope was straightened and withdrawn from the patient. He tolerated the procedure well and was returned to recovery area in stable condition. IMPRESSION: 1. Colon polyps. 2. Diverticulosis. 3. Internal hemorrhoids. PLAN: The results of the pathology will be checked. Given his age and these relatively minimal findings, I do not think he would need any further screening colonoscopy. He will otherwise see me on a p.r.n. basis. He was advised not to use any aspirin, fish oil, nor iron for 1 more week. MD PRUDENCIO Lucas/ROD / [id number]
== END 2023-10-16 09:36 | disposition home or self-care (01) ==
PROVIDERS: PCP Internal Medicine; Visit Provider Internal Medicine
PROC: 0DJD8ZZ Inspection of Lower Intestinal Tract, Via Natural or Artificial Opening Endoscopic (ICD-10-PCS; CPT 45378; principal; 2023-10-16 07:30)
DX: K62.5 Hemorrhage of anus and rectum (principal); D12.3 Benign neoplasm of transverse colon; K57.30 Diverticulosis of large intestine without perforation or abscess without bleeding; K64.8 Other hemorrhoids; K59.09 Other constipation; E11.22 Type 2 diabetes mellitus with diabetic chronic kidney disease; I12.9 Hypertensive chronic kidney disease with stage 1 through stage 4 chronic kidney disease, or unspecified chronic kidney disease; N18.2 Chronic kidney disease, stage 2 (mild); Z79.4 Long term (current) use of insulin; Z79.82 Long term (current) use of aspirin; Z79.899 Other long term (current) drug therapy; Z87.891 Personal history of nicotine dependence; Z90.49 Acquired absence of other specified parts of digestive tract
CPT/HCPCS: 45385; 45380; 82947; 88305; J2704

== ENCOUNTER 2025-03-11 13:07 | Outpatient (AMB) | payer MEDICARE, OTHER, SELFPAY ==
--- OUTSIDE RECORDS SUMMARY | 2023-10-16 02:30 | XMS_ITS ---
Author Organization [facility] Address [address] [place] [id number] Care Team Providers Care Grill Prep Cook Name Role Phone Gerry Garcia MD Primary Care Provider Fareed Garcia [phone] REASON FOR VISIT rectal bleeding,chronic constipation Problems Problem Type SNOMED Code ICD Code Onset Dates Problem Status W/U Status Risk Notes Problem Constipation (71779790) Constipation (K59.00) Active confirmed Problem Diverticular disease of colon (839818279) Diverticulosis of large intestine without perforation or abscess without bleeding (K57.30) Active confirmed Encounters Encounter Location Date Provider Diagnosis [facility] [place] [address] [place] [phone] 10/16/2023 Fareed Nevarez Colon polyps K63.5 ; Constipation K59.00 ; Hematochezia K92.1 ; Diverticulosis of large intestine without perforation or abscess without bleeding K57.30 and Other hemorrhoids K64.8 Assessments Encounter Date Diagnosis (ICD Code) Assessment Notes Treatment Notes Treatment Clinical Notes Section Notes 10/16/2023 Colon polyps (ICD-10 - K63.5) 10/16/2023 Constipation (ICD-10 - K59.00) 10/16/2023 Hematochezia (ICD-10 - K92.1) 10/16/2023 Diverticulosis of large intestine without perforation or abscess without bleeding (ICD-10 - K57.30) 10/16/2023 Other hemorrhoids (ICD-10 - K64.8) Plan Of Treatment No Information Progress Notes * CALEB SANCHEZDOB:1945 (79 yo M)Acc No.[id number]:10/16/2023 COLON WITH MAC Patient: CALEB GUZMAN Provider: Rigoberto Nevarez MD :1945 A ge:78 Y S ex:Male Date:10/16/2023 Address:[address] [place], [place] [id number] Pcp:Gerry Garcia MD Subjective: * Chief Complaints: * R ectal bleeding,chronic constipation Assessment: * Assessment: 1. C olon polyps - K63.5 (Primary) 2 . C onstipation - K59.00 ?3. H ematochezia - K92.1 4 . D iverticulosis of large intestine without perforation or abscess without bleeding - K57.30 5 . O ther hemorrhoids - K64.8? Plan: * Procedure Codes: 4 5385 LESION REMOVAL COLONOSCOPY, Modifiers: [place] [address] COLONOSCOPY AND BIOPSY, Modifiers: 59 , [id number] INTRVL 3+YRS PTS CLNSCP [id number] RCMND FLW-UP 10 YRS DOCD, Modifiers: 1P Billing Information: * Procedure Codes: 67513 LESION REMOVAL [place] [address] COLONOSCOPY AND BIOPSY. Modifiers: 59, PT 0529F INTRVL 3+YRS PTS CLNSCP DOCD. 0528F RCMND FLW-UP 10 YRS DOCD. Modifiers: 1P * The named appointment provid er may or may not be the originator of this progress note, and it is not deemed complete until electronically signed by the appointment provider. Sign off status: Pending * Provider: Rigoberto Nevarez MD Date: 0 10/16/2023 Generated for Alpa lopez/Elian/Clausmitting on: 05/12/2024 05:08 PM EST
--- OUTSIDE RECORDS SUMMARY | 2025-03-08 09:30 | XMS_ITS | Encounter Summary ---
Author Organization [facility] Address [address] [place] [address] Care Team Providers Care Railroad Maintenance Clerk Name Role Phone Gerry Garcia MD Primary Care Provider [phone] Reason for Visit * Reason Comments Diabetes Mellitus F/u diabetes Encounter Details Date Type Department Care Team ([facility] st Contact Info) Description 03/08/2025 9:30 AM EST Office Visit Endocrinology - [place] [address] [place] [phone] Simran Kirk PA [address], [place] Type 2 diabetes mellitus with diabetic chronic kidney disease (CMS/HCC V24, CMS/HCC V28) (Primary Dx); Essential hypertension; Hyperlipidemia, unspecified hyperlipidemia type Social History Tobacco Use Types Packs/Day Years Used Date Smoking Tobacco: Former Cigarettes 0.5 16 0 03/25/1963 - 03/25/1979 Smokeless Tobacco: Never Alcohol Use Standard Drinks/Week Comments No 0 (1 standard drink = 0.6 oz pur e alcohol) Sex and Gender Information Value Date Recorded Sex Assigned at Not on file Legal Sex Male 10:04 AM EST Gender Identity Not on file Sexual Orientation Not on file documented as of this encounter Last Filed Vital Signs Vital Sign Reading Time Taken Comments Blood Pressure 132/68 03/08/2025 8:56 AM EST Pulse 57 03/08/2025 8:56 AM EST Temperature - - Respiratory Rate 13 03/08/2025 8:56 AM EST Oxygen Saturation - - Inhaled Oxygen Concentration - - Weight 68 kg (150 lb) 03/08/2025 8:56 AM EST Height 170.2 cm (5' 7.01 ) 03/08/2025 8:56 AM ES T Body Mass Index 23.49 03/08/2025 8:56 AM EST documented in this encounter Ordered Prescriptions Prescription Sig Dispense Quantity Refills Last Filled Start Date End Date blood-glucose sensor, Freestyle Ap 2 Plus, (FREESTYLE AP 2 PLUS) Apply 1 sensor and change every 15 days. 6 each 3 03/08/2025 documented in this encounter Progress Notes * SHER Boggs - 03/08/2025 9:30 AM EST CHIEF COMPLAINT: Diabetes Mellitus (F/u diabetes) IDENTIFIER: Virgilio Martínez is a 79 y.o. old male HPI: Patient is a 79-year-old male who presents today for diabetes follow up. Diabetes complicated with renal, neurological manifestations. History of CVA, hyperlipidemia, hypertension, vitamin B12 deficiency, GERD, B12 deficiency, CKD, BPH, insomnia, depression, DDD. Diagnosed with diabetes more than 25 years ago. Family history of diabetes includes mother, brother(insulin-dependent), sister. Denies any hospitalization as a result of diabetes. He comes in with his partner who helps with translation. Current diabetic regimen: Basaglar 20 units in the a.m. and 18 units in the p.m. Now using pa, CGM. Did not bring in reader. A1c increased to 8.0% Fasting sugars: 67-120s During the day, post meals sugars can be around 200 He attempts to follow a diabetic friendly diet on most days Very active, although no formal exercise. No sugars below 67 Blood pressure today at 132/68 On Valsartan and metoprolol With CKD following with nephrology. On simvastatin. LDL at goal 68 with total cholesterol of 136 Up-to-date on eye exam. Denies open sores or lesions on feet bilaterally. 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) ([facility] V24, [facility] V28) 09/29/2020 Insomnia 06/20/2020 Pain of right heel 06/20/2020 Vitamin B 12 deficiency 12/25/2019 Diabetic polyneuropathy ([facility] V24, [facility] V28) 07/23/2018 Diverticulosis 07/23/2018 Type 2 diabetes mellitus with neurological manifestations ([facility] V24, [facility] V28) 07/23/2018 Snoring 02/05/2018 Ulnar neuropathy at elbow 11/21/2017 Deformity of spinal cord ([facility] V24, [facility] V28) 07/05/2017 DDD (degenerative disc disease), cervical 07/01/2017 Osteoarthritis of spine with radiculopathy, cervical region 07/01/2017 CKD (chronic kidney disease) stage 3, GFR 30-59 ml/min ([facility] V24, [facility] V28) 05/04/2014 TRESSA (obstructive sleep apnea) 09/01/2013 Type 2 diabetes mellitus with renal manifestations ([facility] V24, [facility] V28) 09/01/[address] scan of lung 07/28/2012 Cholelithiases 06/17/2012 TAFOYA (dyspnea on exertion) 06/17/2012 BPH (benign prostatic hyperplasia) 08/16/2011 Back pain, chronic 01/16/2011 Chronic constipation 01/16/2011 Cervicocranial syndrome 06/03/2008 Esophageal reflux 09/27/2005 Asthma 03/06/2005 Hyperlipidemia 03/06/2005 Past Surgical History: Procedure Laterality Date ABDOMINAL SURGERY 2006 PROCEDURE: HISTORICAL ABDOMINAL SURGERY; COMMENT: surgery for bowel obstruction BACK SURGERY PROCEDURE: HISTORICAL BACK SURGERY; COMMENT: laminectomy COLONOSCOPY 05/24/2016 PROCEDURE: HISTORICAL COLONOSCOPY; COMMENT: Diminutive tubular adenoma, repeat 5 years. (Dr. [email or web address]) COLONOSCOPY 02/1999 PROCEDURE: HISTORICAL COLONOSCOPY COLONOSCOPY 12/31/2019 PROCEDURE: HISTORICAL COLONOSCOPY; COMMENT: diverticulosis; no polyps. TURP / TRANSURETHRAL INCISION / DRAINAGE PROSTATE 12/2012 PROCEDURE: HISTORICAL TURP UPPER GASTROINTESTINAL ENDOSCOPY 06/23/2012 PROCEDURE: SC UPPER GI ENDOSCOPY PERFORMED; COMMENT: normal on PPI treatment UPPER GASTROINTESTINAL ENDOSCOPY 12/31/2019 PROCEDURE: SC UPPER GI ENDOSCOPY PERFORMED; COMMENT: Normal. Gastric and duodenal biopsies obtainedand were normal, no Helicobacter pylori infection. SOCIAL HISTORY: Social History Tobacco Use Smoking status: Former Current packs/day: 0.00 Average packs/day: 0.5 packs/day for 16.0 years (8.0 ttl pk-yrs) Types: Cigarettes Start date: 03/25/1963 Quit date: 03/25/1979 Years since quittin.9 Smokeless tobacco: Never Substance Use Topics Alcohol use: No FAMILY HISTORY: Family History Problem Relation Name Age of Onset No Known Problems Father No Known Problems Mother No Known Problems Daughter No Known Problems Son No Known Problems Brother No Known Problems Sister No Known Problems Other Hyperlipidemia Neg Hx Diabetes Neg Hx Autoimmune disease Neg Hx Breast cancer Neg Hx Colon cancer Neg Hx Prostate cancer Neg Hx Coronary artery disease Neg Hx Mental illness Neg Hx Heart attack Neg Hx Heart failure Neg Hx Sleep apnea Neg Hx Hypertension Neg Hx Thyroid disease Neg Hx Family Status Relation Name Status Father (Not Specified) Mother (Not Specified) Daughter (Not Specified) Son (Not Specified) Brother (Not Specified) Sister (Not Specified) Other (Not Specified) Neg Hx (Not Specified) No partnership data on file MEDICATIONS DISCONTINUED/REORDERED: Medications Discontinued During This Encounter Medication Reason insulin glargine,hum.rec.anlog (Basaglar KwikPen U-100 Insulin) 100 unit/mL (3 mL) injection pen Reorder ACTIVE MEDICATIONS: Outpatient Medications Marked as Taking for the 03/08/25 encounter (Office Visit) with SHER Boggs Medication Sig Dispense Refill acetaminophen (TYLENOL) 500 mg tablet Take 500 mg by mouth every 6 hours as needed. aspirin 81 mg EC tablet TAKE 1 TABLET BY MOUTH EVERY DAY 90 tablet 1 blood-glucose meter kit Use to test blood sugar twice per day budesonide (RHINOCORT AQ) 32 mcg/actuation nasal spray 2 Sprays by Nasal route daily. Each nostril clotrimazole (LOTRIMIN) 1 % cream Apply to toenails daily for 3 months diclofenac (VOLTAREN) 1 % topical gel Apply 2 gram four times daily to affected joint 100 g 0 FA/mv,Ca,iron,min/lycopene/lut (MULTIVITAL ORAL) Take by mouth. fenofibrate (TRICOR) 145 mg tablet TAKE 1 TABLET BY MOUTH EVERY DAY 90 tablet 1 flash glucose scanning reader (Templafy Ap 2 [place]) [facility] 1 Device by Does not apply route continuous. flash glucose sensor (FreeStyle Ap 2 Sensor) kit 1 Each by Does not apply route every 14 days. FREESTYLE LANCETS [facility] Use to check blood sugars twice daily FreeStyle Test test strip Test blood sugar bid insulin glargine,hum.rec.anlog (Basaglar KwikPen U-100 Insulin) 100 unit/mL (3 mL) injection pen INJECT 20 UNITS INTO THE SKIN EVERY MORNING AND 16 UNITS EVERY EVENING latanoprost (XALATAN) 0.005 % ophthalmic solution INSTILL 1 DROP INTO BOTH EYES AT BEDTIME lidocaine (LIDODERM) 5 % patch Place 1-3 Patches onto the skin every 24 hours for 360 days. 12 hours on/12 hours off loratadine (CLARITIN) 10 mg tablet Take 1 tablet (10 mg total) by mouth 1 (one) time each day. metoprolol succinate (TOPROL-XL) 50 mg 24 hr tablet TAKE 1 TABLET BY MOUTH EVERY DAY 90 tablet 1 OMEGA-3 FATTY ACIDS-FISH OIL ORAL Take by mouth 2 times daily. pen needle, diabetic (BD Ultra-Fine Short Pen Needle) 31 gauge x 5/16 needle Use with lantus pen once daily psyllium (Daily Fiber, psyllium-aspart,) 3.4 gram packet Take 1 Packet by mouth daily. simvastatin (ZOCOR) 40 mg tablet TAKE 1 TABLET BY MOUTH EVERYDAY AT BEDTIME 90 tablet 1 valsartan (DIOVAN) 40 mg tablet TAKE 1 TABLET BY MOUTH EVERY DAY 90 tablet 1 Vitamin B-12 1,000 mcg tablet TAKE 1 TABLET BY MOUTH ONCE DAILY 90 tablet 1 [DISCONTINUED] insulin glargine,hum.rec.anlog (Basaglar KwikPen U-100 Insulin) 100 unit/mL (3 mL) injection pen INJECT 22 UNITS INTO THE SKIN EVERY MORNING AND 18 UNITS EVERY EVENING 45 mL 1 ALLERGIES: Patient has no known allergies. PHYSICAL EXAM: Blood pressure 132/68, pulse 57, resp. rate 13, height 1.702 m (67.01 ), weight 68 kg (150 lb). Body mass index is 23.49 kg/m??. Plan is deferred until next visit APPEARANCE: Alert and in no acute distress HEART: RRR LUNG: clear to auscultation NEURO: Awake, alert LABS: Lab Results Component Value Date HGBA1C 8.0 (H) 03/04/2025 HGBA1C 7.4 (H) 12/04/2024 HGBA1C 7.8 (H) 08/05/2024 Lab Results Component Value Date MICROALBUR 36.4 (H) 08/05/2024 LDLCALC 68 03/04/2025 CREATININE 2.72 (H) 03/04/2025 MICROALBCREA 53 (H) 08/05/2024 Lab Results Component Value Date GLUCOSE 124 (H) 03/04/2025 IMAGING: IMPRESSION: 1. Type 2 diabetes mellitus with diabetic chronic kidney disease ([facility] V24, [facility] V28) 2. Essential hypertension 3. Hyperlipidemia, unspecified hyperlipidemia type PLAN: Diabetes complicated with CKD, stage IV. A1c 8%. Given age, will use insulin conservatively. No change to Basaglar, 22 units every morning Reduce evening dose to 16 units at bedtime. Discussed rapid acting insulin as well to address postmeal hyperglycemia. Will continue to monitor A1c and determine if rapid acting insulin is indicated. Ap sensors are refilled. He will bring in ap device next time for data download. This will help better analyze glucose patterns. Continue routine exercise, brisk walking 20 to 30 minutes a day x5 days a week. Diabetic diet reinforced,limit carbohydrates, and lean proteins such as chicken, turkey, fish alongwith fiber i.e. vegetables. Discussed portion size,/serving size of carbs versus protein. Up-to-date on eye exam, completed 02/09/2025 Blood pressure control is reasonable LDL normal, on statin and fenofibrate. With CKD, moderate. following nephrology, appointment in April. GFR stable. Avoid NSAIDs. Myself and my colleagues maintained a long-term, longitudinal relationship with this patient, overseeing care of chronic conditions including diabetes, hyperlipidemia and hypertension. This care relationship has significantly influence my decision making and treatment plans during today's encounter. Return in 3 month for DM, complete A1c before appointment Medication and lab orders: No orders of the defined types were placed in this encounter. None SHER Antonio on 03/08/2025 at 9:36 AM EST documented in this encounter Plan of Treatment Upcoming Encounters Date Type Department Care Team (Late st Contact Info) Description 05/06/2025 2:30 PM EST Office Visit Nephrology - [address] [phone] Marshall Watson MD [address] [phone] 05/24/2025 1:30 PM EST Office Visit Orthopedic Surgery - [place] [address] [phone] Flavio Ch, DPM [address] [phone] 06/04/2025 2:30 PM EDT Office Visit [facility] - [address] [phone] Gerry Garcia MD [address] [place], [place] 06/22/2025 1:45 PM EDT Office Visit Endocrinology - [address] [phone] Simran Kirk PA [address] [place] [address] 03/07/2026 10:40 AM EST Office Visit Gastroenterology - [address] [facility] [address] [phone] Enedina Nielsen NP [address] [phone] documented as of this encounter Visit Diagnoses Diagnosis Type 2 diabetes mellitus with diabetic chronic kidney disease (CMS/HCC V24, CMS/HCC V28)- Primary Essential hypertension Unspecified essential hypertension Hyperlipidemia, unspecified hyperlipidemia type documented in this encounter Discontinued Medications Medication Sig Discontinue Reason Start Date End Da te insulin glargine,hum.rec.anlog (Marielle AmezquitaPen U-100 Insulin) 100 unit/mL (3 mL) injection penIndications:Type 2 diabetes mellitus with diabetic chronic kidney disease ([facility] V24, [facility] V28) INJECT 22 UNITS INTO THE SKIN EVERY MORNING AND 18 UNITS EVERY EVENING Reorder 08/10/2024 03/08/2025 documented as of this encounter Historical Medications * This list may reflect changes made after this encounter. insulin glargine,hum.rec. anlog (Basaglar KwikPen U-100 Insulin) 100 unit/mL (3 mL) injection penIndications:Ty pe 2 diabetes mellitus with diabetic chronic kidney disease ([facility] V24, [facility] V28) INJECT 20 UNITS INTO THE SKIN EVERY MORNING AND 16 UNITS EVERY EVENING 03/08/2025 added in this encounter Additional Health Concerns Assessment Noted Time PHQ-9 Depression Total Score: 0 06/04/19 11:30 AM EDT A fall risk assessment has been complete d for the patient 06/03/2024 11:28 AM EDT documented as of this encounter Care Teams Railroad Maintenance Clerk Relationship Specialty Start Date End Date Gerry Garcia MD [address] [place] [phone] PCP - General Internal Medicine 03/05/25 documented as of this encounter
--- NOTE | 2025-03-11 13:05 | A.PHYSOV ---
Vital Signs 03/11/25 13:11 Height 5 ft 7 in Weight 145 lb BMI 22.7 Intake Visit Reasons: Back pain Intake Note: Patient is a 79 year old male in office for a follow up visit on lower back pain. 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 He has been diagnosed with L3-L4 spinal stenosis and has a history of L4-L5 decompression surgery. His pain has previously been managed with multiple beneficial trigger point injections, with the most recent procedure for the trapezius on April 09, 2024. He also underwent bilateral L4 transforaminal injections on July 16, 2023, which provided 70% pain reduction. After a period of doing well for almost a year, he is now complaining of too much pain again. He describes his back pain as radiating down the leg, consistent with sciatica. For pain management at home, he sometimes uses a patch. Pain Description - Location: Persistent neck and lower back pain. - Radiation: The lower back pain radiates down the leg. - Severity: Described as too much pain, prompting his return visit. Results - Procedures: Bilateral L4 transforaminal injections on July 16, 2023 provided 70% pain reduction. [facility] Medical History Hx of drainage of abscess (03/13/23) CKD (chronic kidney disease) Cataract Arthritis Anemia Rfjkg-wa-sosewjg kidney injury Holter monitor, abnormal Stroke HTN (hypertension) HLD (hyperlipidemia) Diabetes Bronchitis Surgical History Hx laparoscopic cholecystectomy (03/01/23) Status post cholecystectomy Gallstone pancreatitis Hx of colonoscopy History of laminectomy History of intestinal surgery Social History Household Members: Spouse Housing: House Are you a primary health care marketing specialist to a significant other at home: No Do you presently have visiting nurse or other home services: No Alcohol intake: never Patient Tobacco Use Status: Former Tobacco user Tobacco use type: Cigarette e-Cigarette/Vaping Use: Former Use Second Hand Smoke Exposure: No Advance Directives Date on File: 08/23/20 service: No Current occupational status: retired Review of Systems Narrative Review of Systems - Musculoskeletal: Reports persistent neck and lower back pain. - Neurological: Reports sciatic pain radiating down his leg. Physical Exam Exam Exam: Physical Exam - General: Patient appears in no acute distress, appropriately conversant oriented. - Musculoskeletal: Palpation of the right trapezius revealed multiple specific trigger points with tenderness. Gait without antalgia. Dural tension signs were negative. Cervical and lumbar range of motion were restricted in all planes. Neurological examination of upper and lower extremities was nonfocal. Patient demonstrated no upper motor neuron signs. Vital Signs: BMI result Body Mass Index 22.7 Office Procedures AMB Trigger Point Inject - Phy Therapeutic Injection Details: Two trigger point injections in the right upper trapezius muscle were delivered in the fan-like fashion utilizing 3 cc of 2% lidocaine. Patient tolerated procedure well. [id number]-[id number] Point Injection 1 or 2 sites All charges added?: Procedure code (CPT) selection complete Office Meds lidocaine (PF) 20 mg/mL (2 %) injection solution Performing Provider: Zac Ramsey DO Performing Location: [facility] Administered by: Zac Ramsey DO on 03/11/25 13:32 Dose Route Admin Location Dispensed Lot Number Expiration Date [facility] Pattern Weaver 60 mg IM 5 mL [id number] Total Disp[facility] Waste 5 mL 40 % Assessment & Plan Assessment & Plan (1) Lumbar radiculitis: Code(s): M54.16 - Radiculopathy, lumbar region Category: Medical (2) Spinal stenosis, lumbar region with neurogenic claudication: Code(s): M48.062 - Spinal stenosis, lumbar region with neurogenic claudication Category: Medical (3) Myofascial pain: Code(s): M79.18 - Myalgia, other site Category: Medical Plan Pain Management - Analgesia: The patient sometimes uses a pain patch and receives benefit from trigger point and transforaminal injections. - Adverse Effects: There is a concern about the use of prednisone/steroids for back injections potentially elevating his blood sugar. Plan Patient was informed and verbally consented to the use of an ambient scribe for clinic note documentation during this visit. 1. Chronic Neck Pain/Myofascial Pain The patient presented with recurrent neck pain and requested trigger point injections. Physical exam revealed two trigger points in the right trapezius muscle, which were injected in the office during the visit. 2. Lumbago With Right-Sided Sciatica The patient suffers from recurrent lower back pain with right-sided sciatica, secondary to L3-L4 spinal stenosis. We discussed the benefits of a right transforaminal injection, which would require sedation and be performed at [facility]. He will be scheduled for the right L4 transforaminal epidural steroidal injection. The risk of temporary blood sugar elevation from the steroid was discussed and accepted. An order will be placed for the procedure, and the hospital will contact the patient for scheduling, likely after the holidays. Risks and benefits of the procedure were discussed with the patient. Potential alternative measures were also discussed. Patient understands that the procedure is completely elective. Potential side effects associated with injectable medications were discussed. All questions were answered to the patient's satisfaction. Discussion Notes I discussed performing right trapezius trigger point injections in the office today for the patient's neck pain, and he consented. We also discussed the plan for his lower back pain and right-sided sciatica, which includes a right lumbar transforaminal injection to be performed with sedation at [facility]. I explained the risk of a temporary increase in blood sugar due to the steroid in the injection, and both the patient and his hospital food service worker acknowledged and agreed to proceed. I informed them that my office would place the order for the procedure and that the hospital would call them directly to schedule the appointment, likely after the holidays. Patient Instructions - Your pain patch may work better if you use it every day. - We plan to schedule an injection for your lower back. - This procedure will be done at the hospital in [place] and will require sedation. - My office will send the order, and the hospital will call you to schedule the appointment. - Please be aware that the steroid used in the back injection can cause your blood sugar to rise for a few days. - Expect the appointment to be scheduled after the holidays. Orders: Orders AMB Trigger Point Injection - Physiatry Today M79.18 - Myalgia, other site Referrals Physiatry Procedure Notification M48.062 - Spinal stenosis, lumbar region with neurogenic claudication, M54.16 - Radiculopathy, lumbar region Coding Level of Care Code Est Pt Level 4 (04371) Add On Problem Visit Only Diagnoses Lumbar radiculitis M54.16 Spinal stenosis, lumbar region with neurogenic claudication M48.062 Myofascial pain M79.18 CPT Codes Therapeutic Injection - Ther Injection 1: [id number] Point Injection 1 or 2 sites ([id number])
[2025-03-11 13:11] VITALS: BMI 22.7
--- OUTSIDE RECORDS SUMMARY | 2025-03-11 17:09 | XMS_ITS ---
Author Name [facility] Organization [facility] Care Team Organization Name Specialty Phone Email Start Date End Da te [facility] 11/11/2024 [facility] Simran Kirk Primary Care 01/30/2022 11/11/19 24
--- OUTSIDE RECORDS SUMMARY | 2025-03-11 17:09 | XMS_ITS | Patient Health Record ---
Author Organization [facility] Address [address] [place] [id number] Care Team Providers Care Professor Of Spanish Name Role Phone Gerry Garcia MD Primary Care Provider Fareed Garcia [phone] Allergies No Known Allergies Reason For Referral No Information Medications Medication SIG (Take, Route, Frequency, Duration) Notes Start Date End Date Status Aspirin Low Dose 81 MG Tablet Delayed Release TAKE 1 TABLET BY MOUTH EVERY DAY Oral; Duration: 90 Active Latanoprost 0.005 % Solution INSTILL 1 DROP IN RIGHT EYE AT BEDTIME Ophthalmic; Duration: 90 Active Simvastatin 40 MG Tablet TAKE 1 TABLET B Y MOUTH EVERYDAY AT BEDTIME Oral; Duration: 90 Active Basaglar KwikPen 100 UNIT/ML Solution Pen-injector Subcutaneous; Duration: 38 Active Fenofibrate 145 MG Tablet Oral; Duration: 90 Active Budesonide (Nasal) A ctive Omeprazole 20 MG Capsule Delayed Release TAKE 1 CAPSULE BY MOUTH EVERY DAY Oral; Duration: 90 Active Linzess 290 MCG Capsule Oral; Duration: 30 Active Lantus SoloStar 100 UNIT/ML Solution Pen-injector Subcutaneous; Duration: 90 Active Fish Oil Active Loratadine 10 MG Tablet TAKE 1 TABLET BY MOUTH EVERY DAY Oral; Duration: 90 Active Cosopt 2-0.5 % Solution 1 drop into affe cted eye Ophthalmic Twice a day Active Metoprolol Succinate ER 50 MG Tablet Extended Release 24 Hour Oral; Duration: 90 Active MiraLax (colon prep) 17 GM/SCOOP Powder 1 238gm bottle mixed with gatorade or crystal light Orally begin at 5:00 p.m. the day before the procedure; Duration: 1 day 07/09/2023 Active Polyethylene Glycol 3350 17 GM Packet 1 PACKET MIXED WITH 8 OUNCES OF FLUID ORALLY ONCE A DAY FOR CONSTIPATION 30 DAY(S); Duration: 30 Active Dulcolax (colon prep) 5 MG Tablet Delayed Release take 2 dulcolax tablets 2 days before the colonoscopy, and then take two at 3:00 p.m and 7:00p.m. the day before the colonoscopy Orally Two tablets 2 days before the colonoscopy, two tablets twice a day for one day the day before the colonoscopy; Duration: 2 days 07/09/2023 Active Vitamin B-12 1000 MCG Tablet TAKE 1 TABLET BY MOUTH EVERY DAY Oral; Duration: 90 Active Acetaminophen Active Lidocaine 5 % Patch External; Duration: 30 Active Lotrimin Ultra Activ e Ferrous Sulfate 325 (65 Fe) MG Tablet TAKE 1 TABLET BY MOUTH EVERY DAY Oral; Duration: 90 Active Social History Tobacco Use: Social History Observation Description Date Details (start date - stop date) Never Smoker NA - NA Social History Drugs/Alcohol: Social Info Question Answer Notes Alcohol Screen Did you have a drink containing alcohol in the past year? No Points 0 Interpretation Negative Tobacco Use: Social Info Question Answer Notes Tobacco Use/Smoking Patient is a nonsmoker Additional Details Category Social Info Options Details Miscellaneous: Marital status: Occupation: retired Section Notes: Nonsmoker; no significant al cohol Problems Problem Type SNOMED Code ICD Code Onset Dates Problem Status W/U Status Risk Notes Problem Rectal bleeding (77863795) Rectal bleeding (K62.5) Active confirmed Problem Constipation (58409787) Constipation (K59.00) Active confirmed Problem Diverticular disease of colon (536898547) Diverticulosis of large intestine without perforation or abscess without bleeding (K57.30) Active confirmed Problem Chronic constipation (981630005) Chronic constipation (K59.09) Active confirmed Plan Of Treatment Future Test Test Name Order Date COLONOSCOPY 07/09/2023 Insurance Providers Payer Name Payer Address Payer Phone Subscriber Number Group Number Insured Name Patient Relationship to Insured Coverage Start Date Coverage End Date [place]ARE OF [place] [address] [address] [id number] CALEB SANCHEZ Self - patient is the insured [facility] [address] [place] [place] [phone] [id number] SANCHEZ, CALEB Self - patient is the insured Medical (General) History Medical History History ICD Code IDDM CRF-stage III Arthritis Anemia Histroy of stroke HTN Hyperlipemia Bronchitis Constipation-he sees a [facility] oenterologist in [place] who treats him with Linzess Denies ND or Lung disease He describes a negative colonoscopy in [address] at [facility] Gallstone pancreatitis in [facility] of 2022 treated with laparoscopic cholecystectomyby Dr. Parekh as below Surgical History Surgery Date(Month/Year) Back surgery [address] Parekh; developed a gallbladder fossa abscess later that month requiring percutaneous drainage 03/01/2023 Intestinal surgery/bowel obstruction 200 7 Cataracts 2019
--- OUTSIDE RECORDS SUMMARY | 2025-03-11 17:09 | XMS_ITS | Clinical Summary ---
Author Organization [facility] Address [address] [place] [phone] Phone Care Team Providers [employer] Name Role Phone Gerry Garcia MD Primary Care Provider [phone] Allergies No known active allergies Medications loratadine (CLARITIN) 10 mg tablet Take 1 tablet (10 mg total) by mouth 1 (one) time each day. 4 Active budesonide (RHINOCORT AQ) 32 mcg/actuation nasal spray 2 Sprays by Nasal route daily. Each nostril 4 Active latanoprost (XALATAN) 0.005 % ophthalmic solution INSTILL 1 DROP INTO BOTH EYES AT BEDTIME 3 Active psyllium (Daily Fiber, psyllium-aspart ,) 3.4 gram packet Take 1 Packet by mouth daily. 3 Active FA/mv,Ca,iron,m in/lycopene/lut (MULTIVITAL ORAL) Take by mouth. Active clotrimazole (LOTRIMIN) 1 % cream Apply to toenails daily for 3 months 3 Active flash glucose scanning reader (FreeStyle Ap 2 [place]) misc 1 Device by Does not apply route continuous. 2 Active flash glucose sensor (FreeStyle Ap 2 Sensor) kit 1 Each by Does not apply route every 14 days. 2 Active pen needle, diabetic (BD Ultra-Fine Short Pen Needle) 31 gauge x 5/16 needle Use with lantus pen once daily 2 Active OMEGA-3 FATTY ACIDS-FISH OIL ORAL Take by mouth 2 times daily. Active lidocaine (LIDODERM) 5 % patch Place 1-3 Patches onto the skin every 24 hours for 360 days. 12 hours on/12 hours off 1 Active FREESTYLE LANCETS MISC Use to check blood sugars twice daily 9 Active acetaminophen (TYLENOL) 500 mg tablet Take 500 mg by mouth every 6 hours as needed. Active blood-glucose meter kit Use to test blood sugar twice per day 9 Active FreeStyle Test test strip Test blood sugar bid 4 Active diclofenac (VOLTAREN) 1 % topical gel Apply 2 gram four times daily to affected joint 100 g 5 Active valsartan (DIOVAN) 40 mg tablet TAKE 1 TABLET BY MOUTH EVERY DAY 90 tablet 1 5 Active Vitamin B-12 1,000 mcg tablet TAKE 1 TABLET BY MOUTH ONCE DAILY 90 tablet 1 5 Active aspirin 81 mg EC tablet TAKE 1 TABLET BY MOUTH EVERY DAY 90 tablet 1 5 Active simvastatin (ZOCOR) 40 mg tablet TAKE 1 TABLET BY MOUTH EVERYDAY AT BEDTIME 90 tablet 1 5 Active metoprolol succinate (TOPROL-XL) 50 mg 24 hr tablet TAKE 1 TABLET BY MOUTH EVERY DAY 90 tablet 1 5 Active fenofibrate (TRICOR) 145 mg tablet TAKE 1 TABLET BY MOUTH EVERY DAY 90 tablet 1 5 Active linaCLOtide (Linzess) 290 mcg capsule Take 1 capsule (290 mcg total) by mouth 1 (one) time each day. 90 each 3 5 03/05/20 26 Active omeprazole (PriLOSEC) [address] capsule Take 1 capsule (20 mg total) by mouth 1 (one) time each day. 90 each 3 5 03/05/20 26 Active polyethylene glycol (MIRALAX) 17 gram packet Take 17 g by mouth 1 (one) time each day if needed for constipation. 1530 g 5 06/04/19 26 Active insulin glargine,hum.re c.anlog (Basaglar KwikPen U-100 Insulin) 100 unit/mL (3 mL) injection penIndications: Type 2 diabetes mellitus with diabetic chronic kidney disease (CMS/HCC V24, CMS/HCC V28) INJECT 20 UNITS INTO THE SKIN EVERY MORNING AND 16 UNITS EVERY EVENING 5 Active blood-glucose sensor, Freestyle Ap 2 Plus, (FREESTYLE AP 2 PLUS) Apply 1 sensor and change every 15 days. 6 each 3 5 Active HYDROcodone-marianne taminophen (NORCO) 5-325 mg per tablet Take 1 tablet by mouth 1 (one) time each day if needed. 3 03/05/20 25 Discontinu ed(Therapy completed) polyethylene glycol (MIRALAX) 17 gram packet Take 17 g by mouth 1 (one) time each day if needed for constipation. 4 03/05/20 25 Discontinu ed(Reorder ) insulin glargine,hum.re c.anlog (Basaglar KwikPen U-100 Insulin) 100 unit/mL (3 mL) injection penIndications: Type 2 diabetes mellitus with diabetic chronic kidney disease ([facility]24, [facility] V28) INJECT 22 UNITS INTO THE SKIN EVERY MORNING AND 18 UNITS EVERY EVENING 45 mL 1 5 03/08/20 25 Discontinu ed(Reorder ) linaCLOtide (Linzess) 290 mcg capsule Take 1 capsule (290 mcg total) by mouth 1 (one) time each day. 90 capsule 1 5 03/05/20 25 Discontinu ed(Reorder ) omeprazole (PriLOSEC) [address] capsule TAKE 1 CAPSULE BY MOUTH EVERY DAY 90 capsule 1 5 03/05/20 25 Discontinu ed(Reorder ) Active Problems Problem Noted Date Diagnosed Date Constipation 12/31/2023 Depression 09/29/2020 Essential hypertension 09/29/2020 Hemiplegia as late effect of cerebrovascular acc ident (CVA) 09/29/2020 Overview (12/31/2023): and hemiparesis, admit to [facility] 08/29/2020, has f/u with neuro. 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/05/2017 DDD (degenerative disc disease), cervical 2017 Osteoarthritis of spine with radiculopathy, cerv ical region 07/01/2017 CKD (chronic kidney disease) stage 3, GFR 30-59 ml/min 05/04/2014 TRESSA (obstructive sleep apnea) 09/01/2013 Type 2 diabetes mellitus with renal manifestatio ns 09/01/[address] scan of lung 07/28/2012 Cholelithiases 06/17/2012 TAFOYA (dyspnea on exertion) 06/17/2012 BPH (benign prostatic hyperplasia) 08/16/2011 Back pain, chronic 01/16/2011 Overview (12/31/2023): djd of the ls and history of ls laminectomy in the past Chronic constipation 01/16/2011 Cervicocranial syndrome 06/03/2008 Esophageal reflux 09/27/2005 Overview (12/31/2023): Upper GI endoscopy normal 2005 and 2012 on treatment. No ulceration, no esophagitis. Asthma 03/06/2005 Hyperlipidemia 03/06/2005 Encounters Date Type Department Care Team Description 03/08/2025 9:30 AM EST Office Visit Endocrinology - [address] [phone] Simran Kirk PA Type 2 diabetes mellitus with diabetic chronic kidney disease (CMS/HCC V24, CMS/HCC V28) (Primary Dx); Essential hypertension; Hyperlipidemia, unspecified hyperlipidemia type 03/05/2025 10:40 AM EST Office Visit Gastroenterology - [address] [place] [address] Enedina Nielsen NP Gastroesophageal reflux disease without esophagitis (Primary Dx); Chronic constipation; Diverticulosis of colon 03/04/2025 7:55 AM EST Lab Draw Station [address] [address] Stage 4 chronic kidney disease ([facility], [facility] V28); Type 2 diabetes mellitus with stage 4 chronic kidney disease, with long-term current use of insulin ([facility] V24, [facility] V28); Hyperlipidemia, unspecified hyperlipidemia type 01/25/2025 1:00 PM EST Office Visit Orthopedic Surgery - [address] [address] Flavio Ch, DPM Ingrowing nail (Primary Dx); Dermatophytosis of nail; Type II diabetes mellitus with peripheral circulatory disorder ([facility] V24, [facility] V28); Acquired hammer toe of right foot; Diabetic mononeuropathy simplex ([facility] V24, [facility] V28); Hammer toe of left foot from Last 3 Months Immunizations Immunization Administration Dates Next Due H1N1 Inj Preservative Free 04/18/2009 Influenza Quadravalent, MDCK , 0.5ml, with preservative (Flucelvax) 6mo and older 01/21/2018 Influenza trivalent, 0.5mL ( Fluzone High-dose) 65yo and older 12/16/2024,12/27/2023,12/10/2022,01/05,12/14/2020,12/08/2019,01/15/2019 ,12/17/2016,12/15/2015 Influenza trivalent, with pr eservative (Fluzone; Afluria) 6mo and older 01/24/2015,01/01/2014,01/06/2013,11/27,12/24/2010,01/27/2010,12/16/2008 ,01/07/2008 Moderna (age 6mo & older) Bi valent, COVID-19, 0.5 mL or 0.25 mL dosage 11/28/2021 PPD Test 06/17/2012 Pfizer SARS-CoV-2 COVID-19, mRNA, LNP-S, preservative free 11/14/2020 Pneumococcal conjugate 13 va lent (Prevnar 13, PCV13) 2mo and older 01/21/2018 Pneumococcal polysaccharide 23 valent (Pneumovax 23) 2yo and older 04/30/2019,10/27/2009 RSV, bivalent, protein subun it RSVpreF, 0.5mL, Preservative Free (ABRYSVO) 50yo and older or 32 through 36 wks of 12/27/2023 Tdap Tetanus diptheria acell ular pertussis (Boostrix; Adacel) 7yo and older 08/17/2016,07/27/2010 Zoster Live 08/17/2016,02/09/2013 Zoster recombinant (Shingrix ) 19yo and older 05/14/2019 Surgical History Surgery Date Site/Laterality Comments BACK SURGERY PROCEDURE: HISTORICAL BACK SURGERY; COMMENT: laminectomy TURP / TRANSURETHRAL INCISIO N / DRAINAGE PROSTATE 12/2012 PROCEDURE: HISTORICAL TURP COLONOSCOPY 05/24/2016 PROCEDURE: HISTORICAL COLONOSCOPY; COMMENT: Diminutive tubular adenoma, repeat 5 years. (Dr. Billy@[facility]) UPPER GASTROINTESTINAL ENDOSCOPY 06/23/2012 PROCEDURE: CO UPPER GI ENDOSCOPY PERFORMED; COMMENT: normal on PPI treatment ABDOMINAL SURGERY 2006 PROCEDURE: HISTORICAL ABDOMINAL SURGERY; COMMENT: surgery for bowel obstruction COLONOSCOPY 02/1999 PROCEDURE: HISTORICAL COLONOSCOPY COLONOSCOPY 12/31/2019 PROCEDURE: HISTORICAL COLONOSCOPY; COMMENT: diverticulosis; no polyps. UPPER GASTROINTESTINAL ENDOSCOPY 12/31/2019 PROCEDURE: CO UPPER GI ENDOSCOPY PERFORMED; COMMENT: Normal. Gastric and duodenal biopsies obtained and were normal, no Helicobacter pylori infection. Medical History Medical History Date Comments DDD (degenerative disc disea se), cervical DX:DDD (degenerative disc di sease), cervical Abnormal chest CT 06/17/2012 DX:Abnormal ch est CT TAFOYA (dyspnea on exertion) 06/17/2012 DX:TAFOYA (dyspnea on exertion) Cholelithiases 06/17/2012 DX:Cholelithiase s Asthma 03/06/2005 DX:Asthma Type 2 diabetes mellitus wit h renal manifestations (CMS/HCC V24, CMS/HCC V28) 09/01/2013 DX:Type 2 diabetes mellitus with renal manifestations (HCC) Diabetic polyneuropathy (CMS /HCC V24, CMS/HCC V28) 07/23/2018 DX:Diabetic polyneuropathy ( HCC) Type 2 diabetes mellitus wit h neurological manifestations (CMS/HCC V24, CMS/HCC V28) 07/23/2018 DX:Type 2 diabetes mellitus with neurological manifestations ([facility]) Hyperlipidemia 03/06/2005 DX:Hyperlipidemi a Diverticulosis 07/23/2018 DX:Diverticulosi s; COMMENT: Mild Esophageal reflux 09/27/2005 DX:Esophageal reflux; COMMENT: Upper GI endoscopy normal 2005 and 2012 on treatment. No ulceration, no esophagitis. Osteoarthritis of spine with radiculopathy, cervical region 07/01/2017 DX:Osteoarthritis of sp ine with radiculopathy, cervical region Stroke ([facility] V24, [facility] V28) DX:Stroke ([facility]); COMMENT: MRI at [facility] showed patchy acute infarcts, has appointment to see neurologist, admitted on 08/26/2020 to [facility] Essential hypertension 09/29/2020 DX:Essent ial hypertension Chronic constipation 01/16/2011 DX:Chronic constipation Depression 09/29/2020 DX:Depression TRESSA (obstructive sleep apnea) 09/01/2013 DX :TRESSA (obstructive sleep apnea) Insomnia 06/20/2020 DX:Insomnia Deformity of spinal cord ([facility] V24, [facility] V28) 07/05/2017 DX:Deformity of spinal cord ([facility]) CKD (chronic kidney disease) stage 3, GFR 30-59 ml/min ([facility] V24, [facility] V28) 05/04/2014 DX:CKD (chronic kidney disea se) stage 3, GFR 30-59 ml/min ([facility]) BPH (benign prostatic hyperplasia) 08/16/2011 DX:BPH (benign prostatic hyperplasia) Cervicocranial syndrome 06/03/2008 DX:Cervi cocranial syndrome 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 Constipation DX:Constipation Constipation DX:Constipation Abdominal pain DX:Abdominal heraclio n Family History Medical History Relation Name Comments No Known Problems Brother No Known Problems Daughter No Known Problems Father No Known Problems Mother No Known Problems Other No Known Problems Sister No Known Problems Son Autoimmune disease Neg Hx Breast cancer Neg Hx Colon cancer Neg Hx Coronary artery disease Neg Hx Diabetes Neg Hx Heart attack Neg Hx Heart failure Neg Hx Hyperlipidemia Neg Hx Hypertension Neg Hx Mental illness Neg Hx Prostate cancer Neg Hx Sleep apnea Neg Hx Thyroid disease Neg Hx Relation Name Status Comments Brother Daughter Father Mother Other Sister Son Social History Tobacco Use Types Packs/Day Years Used Date Smoking Tobacco: Former Cigarettes 0.5 16 0 03/25/1963 - 03/25/1979 Smokeless Tobacco: Never Tobacco Cessation:Counseling Given: Not Answered Alcohol Use Standard Drinks/Week Comments No 0 (1 standard drink = 0.6 oz pur e alcohol) Sex and Gender Information Value Date Recorded Sex Assigned at Not on file Legal Sex Male 10:04 AM EST Gender Identity Not on file Sexual Orientation Not on file Last Filed Vital Signs Vital Sign Reading Time Taken Comments Blood Pressure 132/68 03/08/2025 8:56 AM EST Pulse 57 03/08/2025 8:56 AM EST Temperature 36.2 C (97.2 F) 12/04/2024 9:40 AM EDT Respiratory Rate 13 03/08/2025 8:56 AM EST Oxygen Saturation 97% 03/05/2025 10:42 AM EST Inhaled Oxygen Concentration - - Weight 68 kg (150 lb) 03/08/2025 8:56 AM EST Height 170.2 cm (5' 7.01 ) 03/08/2025 8:56 AM ES T Body Mass Index 23.49 03/08/2025 8:56 AM EST Plan of Treatment Upcoming Encounters Date Type Department Care Team (Late st Contact Info) Description 05/06/2025 2:30 PM EST Office Visit [place]phrology [facility] [address] [place] [address] Marshall Watson MD [address] [phone] 05/24/2025 1:30 PM EST Office Visit Orthopedic Surgery - [place] [address] [phone] Flavio Ch, DPM [address] [address] 06/04/2025 2:30 PM EDT Office Visit [facility] [place] [id number] [place], [place] [phone] Gerry Garcia MD [address] [place] [address] 06/22/2025 1:45 PM EDT Office Visit Endocrinology - [address] [phone] Simran Kirk PA [address] [place] [address] 03/07/2026 10:40 AM EST Office Visit Gastroenterology - [address] [phone] Enedina Nielsen NP [address] [address] Health Maintenance Due Date Last Done Comments Diabetes: Annual Foot Exam 08/04/1955 Zoster Vaccines (2 of 2) 07/09/2019 020, 08/17/2016, 02/09/2013 Social Influencers of Health Screening 03/03/2022 Diabetes: Annual Retina Eye Exam 04/10/2024 04/10/2023 COVID-19 Vaccine ( season) 2024 01/21/2023, 11/28/2021, 11/14/2020, Additional history exists Falls Risk Assessment 06/03/2025 06/03/2024, 024 Medicare Annual Wellness Visit 06/03/2025 06/03/2024 Diabetes: Annual Urine Albumin-Creatinine Ratio (uACR) 08/05/2025 08/05/2024, 10/01/2023 Diabetes: Blood Sugar Control Test (HGBA1C) 09/02/2025 03/04/2025, 12/04/2024, 08/05/2024, Additional history exists Diabetes: Annual GFR (Glomerular Filtration Rate) 03/04/2026 03/04/2025, 08/05/2024, 02/05/2024, Additional history exists Hypertension/CHF/CAD Annual BMP Blood Test 03/04/2026 03/04/2025, 08/05/2024, 02/05/2024, Additional history exists DTaP,Tdap,and Td Vaccines (3 - Td or Tdap) 08/17/2026 08/17/2016, 07/27/2010 Cholesterol Screening (Lipid Panel) 03/04/2030 03/04/2025, 12/04/2024, 02/05/2024, Additional history exists Hepatitis C Screening Completed 09/03/2013 Pneumococcal Vaccine: 50+ Years Completed 04/30/2019, 01/21/2018, 10/27/2009 RSV Immunization Adult Patients Completed 12/27/2023 Depression Screening Completed 06/03/2024, 01/16/20 23 Influenza Vaccine Completed 12/16/2024, , 12/10/2022, Additional history exists HIB Vaccines Aged Out No longer eligi ble based on patient's age to complete this topic HPV Vaccines Aged Out No longer eligi ble based on patient's age to complete this topic Hepatitis A Vaccines Aged Out No long er eligible based on patient's age to complete this topic Hepatitis B Vaccines Aged Out No long er eligible based on patient's age to complete this topic IPV Vaccines Aged Out No longer eligi ble based on patient's age to complete this topic MMR Vaccines Aged Out No longer eligi ble based on patient's age to complete this topic Meningococcal ACWY Vaccine Aged Out N o longer eligible based on patient's age to complete this topic Meningococcal B Vaccine Aged Out No l onger eligible based on patient's age to complete this topic RSV Immunization Patients Under 20 months Aged Out No longer eligible based on patient's age to complete this topic Varicella Vaccines Aged Out No longer eligible based on patient's age to complete this topic Procedures Procedure Name Priority Date/Time Associated Diagnosis Comments HEMOGLOBIN A1C Routine 03/04/2025 8:08 AM EST Type 2 diabetes mellitus with stage 4 chronic kidney disease, with long-term current use of insulin ([facility] V24, [facility] V28) LIPID PANEL WITH REFLEX TO DIRECT LDL Routine 03/04/2025 8:08 AM EST Type 2 diabetes mellitus with stage 4 chronic kidney disease, with long-term current use of insulin ([facility] V[facility], [facility] V28) Hyperlipidemia, unspecified hyperlipidemia type BASIC METABOLIC PANEL Routine 03/04/2025 8:08 AM EST Stage 4 chronic kidney disease ([facility] V24, [facility] V28) PARATHYROID HORMONE INTACT Routine 03/04/2025 8:08 AM EST Stage 4 chronic kidney disease ([facility] V[facility], [facility] V28) VITAMIN D 25 HYDROXY Routine 03/04/2025 8:08 AM EST Stage 4 chronic kidney disease ([facility] V[facility], [facility] V28) MICROALBUMIN CREATININE URINE RATIO Routine 08/05/2024 7:37 AM EDT Type 2 diabetes mellitus with stage 4 chronic kidney disease, with long-term current use of insulin ([facility] V[facility], [facility] V28) Stage 3 chronic kidney disease, unspecified whether stage 3a or 3b CKD ([facility] V24, [facility] V28) FALLS RISK ASSESSMENT Routine 04/16/2023 DIABETES EYE EXAM Routine 04/10/2023 DEPRESSION SCREENING Routine 01/15/2023 HEPATITIS C SCREENING Routine 09/03/2013 from Last 3 Months or Most Recently Relevant to Health Maintenance Results * (ABNORMAL) Lipid panel with reflex to direct LDL (03/04/2025 8:08 AM EST) Cholesterol 153 0 - 200 mg/dL 03/04/2025 1:08 PM EST [facility] Triglycerides 239(H) 0 - 150 mg/dL 03/04/2025 1:08 PM EST [facility] HDL 37(L) >=40 mg/dL 03/04/2025 1:08 PM EST [facility] LDL Calculated 68 0 - 100 mg/dL 03/04/2025 1:08 PM EST [facility] Comment:Estimated LDL is xavier culated using the Friedewald equation: Total cholesterol - HDL cholesterol - (Triglycerides/5) VLDL Cholesterol Xavier 47.8 mg/dL 03/04/2025 1:08 PM [facility] Non HDL Chol. (LDL+VLDL) 116 <145 mg/dL 03/04/2025 1:08 PM [facility] Chol/HDL Ratio 4.1 0.0 - 4.4 03/04/2025 1:08 PM [facility] Blood Venous blood specimen / Unknown Venipuncture / Unknown 03/04/2025 8:08 AM EST 03/04/2025 8:09 AM EST Simran OLIVAREZ LAB BLOOD ORDERABLES Final Resul t Performing Organization Address City/[facility]/ZIP Co de Phone Number [facility] [address] [place] [address], [place] [phone] * Vitamin D 25 hydroxy (03/04/2025 8:08 AM EST) Vit D, 25-Hydroxy 45.3 30.0 - 80.0 ng/mL 03/04/2025 2:20 PM [facility] Blood Venous blood specimen / Unknown Venipuncture / Unknown 03/04/2025 8:08 AM EST 03/04/2025 8:09 AM EST Marshall Watson MD LAB BLOOD ORDERABLES Final Res ult Performing Organization Address [facility]/ZIP Co de Phone Number [facility] [address] [place] [address], [place] [phone] * Parathyroid hormone intact (03/04/2025 8:08 AM EST) PTH 36.7 18.5 - 88.0 pcg/mL 03/04/2025 12:57 PM EST [facility] Blood Venous blood specimen / Unknown Venipuncture / Unknown 03/04/2025 8:08 AM EST 03/04/2025 8:09 AM EST Marshall Watson MD LAB BLOOD ORDERABLES Final Res ult Performing Organization Address City/[facility]/ZIP Co de Phone Number [facility] [address] [place] [address], [place] [phone] * (ABNORMAL) Hemoglobin A1c (03/04/2025 8:08 AM EST) Hemoglobin A1C 8.0(H) <6.5 % LAB CHEMISTRY METHOD 03/05/2025 11:35 AM EST [facility] Mean Bld Glu Estim. 183 mg/dL LAB CHEMISTRY METHOD 03/05/2025 11:35 AM [facility] Blood Venous blood specimen / Unknown Venipuncture / Unknown 03/04/2025 8:08 AM EST 03/04/2025 8:09 AM EST Simran OLIVAREZ LAB BLOOD ORDERABLES Final Resul t Performing Organization Address [facility]/ZIP Co de Phone Number [facility] [address] [place] [address], [place] [phone] * (ABNORMAL) Basic metabolic panel (03/04/2025 8:08 AM EST) Sodium 139 133 - 145 mmol/L 03/04/2025 1:06 PM [facility] Potassium 5.0 3.5 - 5.5 mmol/L 03/04/2025 1:06 PM [facility] Chloride 104 96 - 110 mmol/L 03/04/2025 1:06 PM [facility] CO2 25 21 - 32 mmol/L 03/04/2025 1:06 PM [facility] Anion Gap 10 3 - 11 03/04/2025 1:06 PM [facility] Glucose 124(H) 70 - 100 mg/dL 03/04/2025 1:06 PM [facility] BUN 35(H) 5 - 25 mg/dL 03/04/2025 1:06 PM [facility] Creatinine 2.72(H) 0.70 - 1.30 mg/dL 03/04/2025 1:06 PM [facility] eGFR 23(L) >=60 mL/min/1. 73m2 03/04/2025 1:06 PM [facility] Comment:Calculation based on the Chronic Kidney Disease Epidemiology Collaboration (CKD-EPI) equation refit without adjustment for race. BUN/Creatinine Ratio 12.9 03/04/2025 1:06 PM [facility] Calcium 8.8 8.5 - 10.5 mg/dL 03/04/2025 1:06 PM [facility] Blood Venous blood specimen / Unknown Venipuncture / Unknown 03/04/2025 8:08 AM EST 03/04/2025 8:09 AM EST us Marshall Watson MD LAB BLOOD ORDERABLES Final Res ult [facility] [address] [place] [address], * (ABNORMAL) Microalbumin creatinine urine ratio (08/05/2024 7:37 AM EDT) Creatinine, Urine 69.0 mg/dL LAB CHEMISTRY METHOD 08/05/2024 11:50 AM EDT [facility] Microalb, Ur 36.4(H) 0.0 - 29.0 mg/L LAB CHEMISTRY METHOD 08/05/2024 11:50 AM EDT [facility] Microalb/Crea t Ratio 53(H) <30 mg/g creat LAB CHEMISTRY METHOD 08/05/2024 11:50 AM EDT [facility] Urine Urine specimen obtained by clean catch procedure / Unknown Non-blood Collection / Unknown 08/05/2024 7:37 AM EDT 08/05/2024 7:37 AM EDT Marshall Watson MD LAB URINE ORDERABLES Final Res ult [facility] [address] [place] [address], [place] [phone] * Falls Risk Assessment (04/16/2023) [facility] Falls Risk Assessment abstracted Historical Provider HEALTH MAINTENANCE Final Result * Diabetes Eye Exam (04/10/2023) [facility] Diabetes: Annual Retina Eye Exam abstracted Result [facility] Historical Provider HEALTH MAINTENANCE Final Result * Depression Screening (01/15/2023) Pathologist [facility] Depression Screening abstracted Historical Provider HEALTH MAINTENANCE Final Result * Hepatitis C Screening (09/03/2013) Pathologist [facility] Hepatitis C Screening abstracted Historical Provider HEALTH MAINTENANCE Final Result from Last 3 Months or Most Recently Relevant to Health Maintenance Insurance MEDICARE [facility] [address] [place] [phone] 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
== END 2025-03-11 13:39 | disposition home or self-care (01) ==
LOC: HO.HPHYS 13:08
PROVIDERS: PCP Internal Medicine; Visit Provider Physical Medicine & Rehabilitation
DX: M54.16 Radiculopathy, lumbar region (principal); M48.062 Spinal stenosis, lumbar region with neurogenic claudication; M79.18 Myalgia, other site
CPT/HCPCS: 20552; 99214

== ENCOUNTER → 2025-03-11 13:07 | Outpatient (BNVA) | payer MEDICARE, OTHER, SELFPAY | PROVIDERS: PCP Internal Medicine; Visit Provider Physical Medicine & Rehabilitation | DX: M79.18 Myalgia, other site (principal); M54.16 Radiculopathy, lumbar region; M48.062 Spinal stenosis, lumbar region with neurogenic claudication | CPT/HCPCS: 20552; 99212; J2003 ==